=== PATIENT | female | born 1945 | race Caucasian/White ===

== ENCOUNTER 2025-02-28 09:16 | Outpatient (RCR) | payer SELFPAY | END 2025-02-28 23:59 | disposition home or self-care (01) | LOC: ANHAUDIO 09:16 | DX: Z46.1 Encounter for fitting and adjustment of hearing aid (principal) | CPT/HCPCS: 92593 ==

== ENCOUNTER 2025-03-15 18:05 | Emergency (ER) | payer MEDICARE, SELFPAY ==
--- OUTSIDE RECORDS SUMMARY | 2024-04-05 06:20 | XMS_ITS | Continuity of Care Document ---
Author Organization [facility] Address [address], [address] [place] [address] Phone Care Team Providers Care Agronomy Teacher Name Role Phone Swetha MANCINI, Madeleine Unavailable Unavailable Allergies, Adverse Reactions, Alerts Substance Reaction Status Criticality VERAPAMIL HCL Active No Information triamterene Active No Information hydrochlorothiazide Active No Infor mation ENALAPRIL MALEATE Unknown Active No Informa tion Medications Medication Instructions Dosage Effective Dates (start - stop) Status Comments atenolol 50 mg Tab take 1 tablet (50MG) by oral route every day 50 MG - Active lisinopril 10 mg Tab take 1 tablet (10MG) by oral route every day 10 MG - Active Lexapro 10 mg Tab take 1 tablet (10MG) by oral route every day 10 MG - Active GABAPENTIN (unknown strength) take 3 capsule (300MG) by oral route 3 times every day Not Available - Active Co Q-10 200 mg capsule - Active Chewable-Kirstie tablet - Active magnesium 400 mg (as magnesium oxide) tablet - Active Norvasc 5 mg tablet take 1 tablet by oral route every day 5 MG - Active Probiotic 10 billion cell capsule - Active Stool Softener 50 mg capsule take 1 capsule by oral route every day at bedtime as needed 50 MG - Active Vitamin C 250 mg chewable tablet - Active Vitamin D3 400 unit chewable tablet - Active atorvastatin 20 mg tablet take 1 tablet by oral route every day 20 MG - Active METHOTREXATE (unknown strength) Not Available - Active Orencia (with maltose) 250 mg intravenous solution infuse (500MG) by intravenous route every 4 weeks over 500 MG - Active ZUPLENZ (unknown strength) Not Available - Active ranitidine 300 mg capsule take 1 capsule by oral route every day at bedtime - Active folic acid 1 mg tablet take 4 Tablet by oral route every day 4 MG - Active aspirin 325 mg tablet take 1 tablet by oral route every day 325 MG - Active Pain Relief 500 mg capsule take 2 capsule by oral route every 6 hours as needed - Active Procedures Procedure Date BREAST TOMOSYNTHESIS BI Screening Mammogram (Bilateral) 019 CA screen;pelvic/breast exam 65&OVER PREVENTIVE MEDICINE,MEDICAR 65&OVER PREVENTIVE MEDICINE,MEDICAR CA screen;pelvic/breast exam PREV VISIT, EST, 65 & OVER CA screen;pelvic/breast exam PREV VISIT, EST, 65 & OVER OFFICE/OUTPATIENT VISIT, EST 1 Rx via qualified eRx sys [id number] PREV VISIT, EST, 65 & OVER PREV VISIT, EST, 65 & OVER Advance Directives Directive Yes / No Effective Date File Name No Information Encounters Encounter Description Practice Location Reason(s) For Visit Diagnoses Date Provider [facility], [address], [address], [place], [id number], [place] tel:[phone] [address] No Information 4 Swetha Salvador. [address] [facility], [address], [place], [id number]. tel:[phone] [facility], [address], [address], [place], [id number], [place] tel:[phone] [address] [facility] Mammography CLOSED No Information 9 Swetha Salvador. [address] [facility], [address], [place], [id number]. tel:[phone] 65&OVER PREVENTIVE MEDICINE,[facility], [address], [address], [place], [id number], [place] tel:[phone] [address] Office CLOSED Annual Exam (chief complaint) Encntr for obstetrics gynecology physician exam (general) (routine) w/o abn findingsEncounter for screening for malignant neoplasm of other genitourinary organs 9 Swetha Salvador. [address], [address], [place], [id number]. tel:[phone] 65&OVER PREVENTIVE MEDICINE,[facility], [address], [address], [place], [id number], [place] tel:[phone] [address] Office CLOSED Annual Exam (chief complaint) Encntr for obstetrics gynecology physician exam (general) (routine) w/o abn findings 8 Swetha Salvador. [address], [address], [place], [id number]. tel:[phone] PREV VISIT, EST, 65 & OVER [facility], [address], [address], [place], [id number], [place] tel:[phone] [address] Office CLOSED MANAGER SALES AND MARKETING Exam (chief complaint) Encntr for obstetrics gynecology physician exam (general) (routine) w/o abn findings 7 Swetha Salvador. [address], [address], [place], [id number]. tel:[phone] PREV VISIT, EST, 65 & OVER [facility], [address], [address], [place], [id number], [place] tel:[phone] [address] Office CLOSED MANAGER SALES AND MARKETING Exam (chief complaint) Encntr for obstetrics gynecology physician exam (general) (routine) w/o abn findings 6 Swetha Salvador. [address], [address], [place], [id number]. tel:[phone] OFFICE/OUTPAT IENT VISIT, EST [facility], [address], [address], [place], [id number], [place] tel:[phone] [address] CLOSED possible MRSA (chief complaint) Vulvar lesion Jul- 8 5 Pilcarl Madeleine. [address], [address], [place], [id number]. [phone] PREV VISIT, EST, 65 & OVER [facility], [address], [address], [place], [id number], [place] tel:[phone] [address] CLOSED annual exam (chief complaint) ROUTINE MANAGER SALES AND MARKETING EXAMINATION 4 Pilrachely Madeleine. [address], [address], [place], [id number]. tel:[phone] PREV VISIT, EST, 65 & OVER [facility], [address], [address], [place], [id number], [place] tel:[phone] [address] CLOSED annual exam (chief complaint) Gynecological Examination 3 Pilcarl Madeleine. [address], [address], [place], [id number]. tel:[phone] [facility], [address], [address], [place], [id number], [place] tel:[phone] [address] CLOSED annual visit (chief complaint) Gynecological Examination 1 Pilevsky Madeleine. [address], [address], [place], [id number]. tel:[phone] [facility], [address], [address], [place], [id number], [place] tel:[phone] CLOSED [address] [place] [address] Closed Hypertension, UnspecifiedOther and unspecified hyperlipidemiaOTHER ABNORMAL GLUCOSESyncope and collapse 1 No Information [facility], [address], [address], [place], [id number], [place] tel:[phone] CLOSED [address] [place] [address] Closed lumps on labia (chief complaint) Other abscess of vulvaOther specified noninflammatory disorders of vulva and perineum 1 Swetha Salvador. [address], [address], [place], [id number]. tel:[phone] Family History Family Member Type Diagnosis Age At Onset Problem (finding) Family history of hyper tension Problem (finding) Family history of breas t cancer Problem (finding) Family history of raise d blood lipids Payers Payer name Insurance type Covered green party ID Authoriza tion(s) Medicare MD SERVIN [id number] [facility] [id number] Social History Type Description Quantity Date Captured Comments Sex Female Smoking Status No Information Chief Complaint And Reason For Visit No Information Plan Of Treatment Date Type Action Status Goal Mammogram. Due on 8 due Goal Influenza Vaccine. Due on due Goal MANAGER SALES AND MARKETING exam. Due on due Goal PAP. Due on due Goal Pneumococcal vaccine. Due on due Goal Cervical Cancer Screening. D ue on due Goal Colonoscopy. Due on 024 due Goal Zoster vaccine (1st). Due on due Goal TD Vaccine. Due on 19 due Goal Diabetes Screening. Due on due Goal FOBT. Due on due Goal Zoster vaccine. Due on due Goal Mammogram (Screening); Bilat eral. Due on due Goal DEXA Scan. Due on 9 due Goal Cognitive assessment. Due on due Goal H&P. Due on due Goal Depression screening. Due on due Goal Lipid Panel. Due on 019 due Goal Test Rabbit Serum Protien. D ue on due Goal Mammogram. Due on 8 due Goal Test Rabbit Serum Protien. D ue on due Goal Cognitive assessment. Due on due Goal FOBT. Due on due Goal MANAGER SALES AND MARKETING exam. Due on due Goal TD Vaccine. Due on 18 due Goal Pneumococcal vaccine. Due on due Goal Zoster vaccine. Due on due Goal Mammogram (Screening); Bilat eral. Due on due Goal DEXA Scan. Due on 8 due Goal PAP. Due on due Goal Breast exam. Due on 012 due Goal Diabetes Screening. Due on due Goal Colonoscopy. Due on 024 due Goal Lipid Panel. Due on 018 due Goal Depression screening. Due on due Goal Cervical Cancer Screening. D ue on due Goal Influenza Vaccine. Due on due Goal H&P. Due on due Goal Mammogram (Screening); Bilat eral. Due on due Goal Diabetes Screening. Due on A due Goal Zoster vaccine. Due on due Goal Cognitive assessment. Due on due Goal TD Vaccine. Due on 17 due Goal Influenza Vaccine. Due on due Goal DEXA Scan. Due on 7 due Goal Pneumococcal vaccine. Due on due Goal Depression screening. Due on due Goal Lipid Panel. Due on 017 due Goal Mammogram. Due on 2 due Goal Lipid Panel. Due on 016 due Goal TD Vaccine. Due on 16 due Goal PAP. Due on due Goal Cognitive assessment. Due on due Goal Depression screening. Due on due Goal Pneumococcal vaccine. Due on due Goal DEXA Scan. Due on 6 due Goal H&P. Due on due Goal Diabetes Screening. Due on A due Goal Breast exam. Due on 012 due Goal Influenza Vaccine. Due on due Goal Mammogram (Screening); Bilat eral. Due on due Goal Zoster vaccine. Due on due Goal MANAGER SALES AND MARKETING exam. Due on due Goal Lipid Panel. Due on 015 due Goal TD Vaccine. Due on 15 due Goal Mammogram. Due on 2 due Goal Breast exam. Due on 012 due Goal H&P. Due on due Goal Influenza Vaccine. Due on due Goal H&P. Due on due Goal Lipid Panel. Due on 014 due Goal Breast exam. Due on 012 due Goal Influenza Vaccine. Due on due Goal TD Vaccine. Due on 14 due Goal MANAGER SALES AND MARKETING exam. Due on due Goal Mammogram. Due on 2 due Goal Lipid Panel. Due on 011 due Goal FOBT. Due on due Goal Influenza Vaccine. Due on due Goal H&P. Due on due Goal Mammogram. Due on 2 due Goal TD Vaccine. Due on 13 due Goal Sigmoidoscopy. Due on due Goal Breast exam. Due on 012 due Goal Colonoscopy. Due on 011 due Goal MANAGER SALES AND MARKETING exam. Due on due History Of Present Illness Encounter Date Complaint History Of Prese nt Illness Annual Exam : 2. Adelina ty: Term: 2. Livin. The patient states she uses menopausal and none for control. Her menses is absent. Negative for: breast discharge, breast lump(s) and breast pain.Postmenopausal: Age: 52, Type: hysterectomy w/ BSO. Menopausal symptoms negative for: hot flashes, insomnia, night sweats and vaginal dryness. Pertinent negatives include abnormal vaginal bleeding, urinary incontinence and vaginal discharge. She reports taking Vitamin D. She does take multivitamins. Folic acid is taken.The patient states her exercise level is moderate and frequency is occasional. The patient does not use tobacco. She has not been exposed to passive smoke. She has not been exposed to passive vaping. She does not drink alcohol. Additional information: Neto is doing generally well. She needs to get her L hip replaced eventually. Has mammo scheduled her later this month. Colonoscopy was in 2013 and DEXA is followed by PCP. . Annual Exam : 2. Adelina ty: Term: 2. Livin. Her menses is absent. Negative for: breast discharge, breast lump(s) and breast pain.Postmenopausal: Age: 52, Type: hysterectomy w/ BSO. Menopausal symptoms negative for: hot flashes, insomnia, night sweats and vaginal dryness. Pertinent negatives include abnormal vaginal bleeding, urinary incontinence and vaginal discharge. She does take multivitamins.The patient states her exercise level is moderate and frequency is occasional. She does not drink alcohol. Additional information: Neto is due for mammo. Had DEXA w PCP. Rough year w hip replacement and shoulder fx but she is doing ok. . MANAGER SALES AND MARKETING Exam : 2. Adelina ty: Term: 2. Livin. Negative for: breast discharge, breast lump(s) and breast pain.Postmenopausal: Age: 52, Type: hysterectomy w/ BSO. Menopausal symptoms negative for: hot flashes, insomnia, night sweats and vaginal dryness. Pertinent negatives include abnormal vaginal bleeding and vaginal discharge. She does take multivitamins. Folic acid is taken.The patient states her exercise level is moderate and frequency is 2-3 times/week. She does not drink alcohol. Additional information: Neto is doing well but has R hip replacement upcoming. Due for mammo and DEXA. MANAGER SALES AND MARKETING Exam : 2. Adelina ty: Term: 2. Livin. Negative for: breast discharge, breast lump(s) and breast pain.Postmenopausal: Age: 52, Type: hysterectomy w/ BSO. Menopausal symptoms negative for: hot flashes, insomnia, night sweats and vaginal dryness. Pertinent negatives include abnormal vaginal bleeding. She does take multivitamins.The patient states her exercise level is moderate and frequency is 2-3 times/week. She does not drink alcohol. 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 Doing well. Due for mammo. possible MRSA The symptoms beg an on 07/27/2014. The symptoms are reported as being mild. The symptoms occur constantly. She states the symptoms are acute and have improved. Neto noticed a sore area in her left groin last . 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 Drained on Thursday and Sat. Putting topicals on it w some improvement. Here for further eval. annual exam : 2. Adelina ty: Term: 2. Livin. Negative for: breast discharge, breast lump(s) and breast pain.Postmenopausal: Age: 52, Type: hysterectomy w/ BSO. Pertinent negatives include abnormal bleeding. She takes calcium supplements. She reports taking Vitamin D. She does take multivitamins. She does not drink alcohol. Additional information: Neto had a colonoscopy done and it was negative. Doing generally well but having issues w kidney stones. Still taking calcium daily. Thinks she has sunburn on breasts from earlier today. annual exam : 2. Adelina ty: Term: 2. Livin. Negative for: breast discharge, breast lump(s) and breast pain. Postmenopausal: Age: 52. Type: hysterectomy w/ BSO. She takes calcium supplements. She reports taking Vitamin D. She does take multivitamins. Additional information: Neto still hasn't had a colonoscopy but plans to get one this year. Her son needed one and had several abnml polyps. She is doing well. Due for a mammo. Instructions Date Instruction Additional Infor renee Mammo as planned lat er this monthRTO 1 year/prn Related to Encntr for obstetrics gynecology physician exam (general) (routine) w/o abn findings Mammo ref to be sentRTO 1 year/p rn Related to Encntr for obstetrics gynecology physician exam (general) (routine) w/o abn findings Mammo ref sentWritte n referral given for DEXARTO 1 year/prn Related to Encntr for obstetrics gynecology physician exam (general) (routine) w/o abn findings Mammo ref to be sentRTO 1 year/p rn Related to Encntr for obstetrics gynecology physician exam (general) (routine) w/o abn findings Mostly drained but s till w induration and tenderness. 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 Check cx.RTO for WWV/prn Related to Vulvar lesion Mammo ref givenRec s topping calcium supplements given current recommendations and her issue with kidney stonesRTO 1 year/prn Related to ROUTINE MANAGER SALES AND MARKETING EXAMINATION Assessments Type Assessment Date No Information
--- OUTSIDE RECORDS SUMMARY | 2024-04-05 06:20 | XMS_ITS | Continuity of Care Document ---
Author Organization [facility] Address [address], [address] [place] [address] Phone Care Team Providers Care Underwear Cutter Name Role Phone Swetha MANCINI, Madeleine Unavailable [...] EST 1 Rx via qualified eRx sys [id number] PREV VISIT, EST, 65 & OVER PREV VISIT, EST, 65 & OVER Advance Directives Directive Yes / No Effective Date File Name No Information Encounters Encounter Description Practice Location Reason(s) For Visit Diagnoses Date Provider [facility], [address], [address], [place], [id number], [place] tel:[phone] [address] No Information 4 Swetha Salvador. [address] [facility], [address], [place], [id number]. tel:[phone] [facility], [address], [address], [place], [id number], [place] tel:[phone] [address] [facility] Mammography CLOSED No Information 9 Swetha Salvador. [address] [facility], [address], [place], [id number]. tel:[phone] 65&OVER PREVENTIVE MEDICINE,[facility], [address], [address], [place], [id number], [place] tel:[phone] [address] Office CLOSED Annual Exam (chief complaint) Encntr for lobbyist exam (general) (routine) w/o abn findingsEncounter for screening for malignant neoplasm of other genitourinary organs 9 Swetha Salvador. [address], [address], [place], [id number]. tel:[phone] 65&OVER PREVENTIVE MEDICINE,[facility], [address], [address], [place], [id number], [place] tel:[phone] [address] Office CLOSED Annual Exam (chief complaint) Encntr for lobbyist exam (general) (routine) w/o abn findings 8 Swetha Salvador. [address], [address], [place], [id number]. tel:[phone] PREV VISIT, EST, 65 & OVER [facility], [address], [address], [place], [id number], [place] tel:[phone] [address] CLOSED ORGANIZATIONAL CONSULTANT Exam (chief complaint) Encntr for lobbyist exam (general) (routine) w/o abn findings 7 Swetha Salvador. [address], [address], [place], [id number]. tel:[phone] PREV VISIT, EST, 65 & OVER [facility], [address], [address], [place], [id number], [place] tel:[phone] [address] CLOSED ORGANIZATIONAL CONSULTANT Exam (chief complaint) Encntr for lobbyist exam (general) (routine) w/o abn findings 6 Swetha Salvador. [address], [address], [place], [id number]. tel:[phone] OFFICE/OUTPAT IENT VISIT, EST [facility], [address], [address], [place], [id number], [place] tel:[phone] [address] CLOSED possible MRSA (chief complaint) Vulvar lesion Jul- 8 5 Pilcarl Madeleine. [address], [address], [place], [id number]. tel:[phone] PREV VISIT, EST, 65 & OVER [facility], [address], [address], [place], [id number], [place] tel:[phone] [address] CLOSED annual exam (chief complaint) ROUTINE ORGANIZATIONAL CONSULTANT EXAMINATION 4 Pilrachely Madeleine. [address], [address], [place], [id number]. tel:[phone] PREV VISIT, EST, 65 & OVER [facility], [address], [address], [place], [id number], [place] tel:[phone] [address] CLOSED annual exam (chief complaint) Gynecological Examination 3 Pilcarl Madeleine. [address], [place], [id number]. tel:[phone] [facility], [address], [address], [place], [id number], [place] tel:[phone] [address] CLOSED annual visit (chief complaint) Gynecological Examination 1 Pilev[place] Madeleine. [address], [address], [place], [id number]. tel:[phone] [facility], [address], [address], [place], [id number], [place] tel:[phone] CLOSED [address] [place] [address] Closed Hypertension, UnspecifiedOther and unspecified hyperlipidemiaOTHER ABNORMAL GLUCOSESyncope and collapse 1 No Information [facility], [address], [address], [place], [id number], [place] tel:[phone] CLOSED [address] [place] [address] Closed lumps on labia (chief complaint) Other abscess of vulvaOther specified noninflammatory disorders of vulva and perineum 1 Swetha Salvador. [address], [address], [place], [id number]. tel:[phone] Family History Family Member Type Diagnosis Age At Onset Problem (finding) Family history of hyper tension Problem (finding) Family history of breas t cancer Problem (finding) Family history of raise d blood lipids Payers Payer name Insurance type Covered republican ID Authoriza tion(s) Medicare MD SERVIN [id number] [facility] [id number] Social History Type Description Quantity Date Captured Comments Sex Female Smoking Status No Information Chief Complaint And Reason For Visit No Information Plan Of Treatment Date Type Action Status Goal Mammogram. Due on 8 due Goal Influenza Vaccine. Due on due Goal ORGANIZATIONAL CONSULTANT exam. Due on due Goal PAP. Due [...] due Goal FOBT. Due on due Goal ORGANIZATIONAL CONSULTANT exam. Due on due Goal TD Vaccine. [...] Goal Zoster vaccine. Due on due Goal ORGANIZATIONAL CONSULTANT exam. Due on due Goal Lipid Panel. [...] TD Vaccine. Due on 14 due Goal ORGANIZATIONAL CONSULTANT exam. Due on due Goal Mammogram. Due [...] Goal Colonoscopy. Due on 011 due Goal ORGANIZATIONAL CONSULTANT exam. Due on due History Of Present [...] fx but she is doing ok. . ORGANIZATIONAL CONSULTANT Exam : 2. Adelina ty: Term: 2. [...] replacement upcoming. Due for mammo and DEXA. ORGANIZATIONAL CONSULTANT Exam : 2. Adelina ty: Term: 2. [...] monthRTO 1 year/prn Related to Encntr for lobbyist exam (general) (routine) w/o abn findings Mammo ref to be sentRTO 1 year/p rn Related to Encntr for lobbyist exam (general) (routine) w/o abn findings Mammo ref sentWritte n referral given for DEXARTO 1 year/prn Related to Encntr for lobbyist exam (general) (routine) w/o abn findings Mammo ref to be sentRTO 1 year/p rn Related to Encntr for lobbyist exam (general) (routine) w/o abn findings Mostly drained but s till w induration and tenderness. 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 Check cx.RTO for WWV/prn Related to Vulvar lesion Mammo ref givenRec s topping calcium supplements given current recommendations and her issue with kidney stonesRTO 1 year/prn Related to ROUTINE ORGANIZATIONAL CONSULTANT EXAMINATION Assessments Type Assessment Date No Information
--- OUTSIDE RECORDS SUMMARY | 2024-04-05 06:20 | XMS_ITS | Continuity of Care Document ---
Author Organization [facility] Address [address], [address] [place] [address] Phone Care Team Providers Care Link Trainer Mechanic Name Role Phone Swetha MANCINI, Madeleine Unavailable [...] EST 1 Rx via qualified eRx sys [id number] PREV VISIT, EST, 65 & OVER PREV VISIT, EST, 65 & OVER Advance Directives Directive Yes / No Effective Date File Name No Information Encounters Encounter Description Practice Location Reason(s) For Visit Diagnoses Date Provider [facility], [address], [address], [place], [id number], [place] tel:[phone] [address] No Information 4 Swetha Salvador. [address] [facility], [address], [place], [id number]. tel:[phone] [facility], [address], [address], [place], [id number], [place] tel:[phone] [facility] Mammography CLOSED No Information 9 Swetha Salvador. [address] [facility], [address], [place], [id number]. tel:[phone] 65&OVER PREVENTIVE MEDICINE,[facility], [address], [address], [place], [id number], [place] tel:[phone] [address] Office CLOSED Annual Exam (chief complaint) Encntr for crust sorter exam (general) (routine) w/o abn findingsEncounter for screening for malignant neoplasm of other genitourinary organs 9 Swetha Salvador. [address], [address], [place], [id number]. tel:[phone] 65&OVER PREVENTIVE MEDICINE,[facility], [address], [address], [place], [id number], [place] tel:[phone] [address] Office CLOSED Annual Exam (chief complaint) Encntr for crust sorter exam (general) (routine) w/o abn findings 8 Swetha Salvador. [address], [address], [place], [id number]. tel:[phone] PREV VISIT, EST, 65 & OVER [facility], [address], [address], [place], [id number], [place] tel:[phone] [address] Office CLOSED SR. PAYROLL PROCESSOR Exam (chief complaint) Encntr for crust sorter exam (general) (routine) w/o abn findings 7 Swetha Salvador. [address], [address], [place], [id number]. tel:[phone] PREV VISIT, EST, 65 & OVER [facility], [address], [address], [place], [id number], [place] tel:[phone] [address] Office CLOSED SR. PAYROLL PROCESSOR Exam (chief complaint) Encntr for crust sorter exam (general) (routine) w/o abn findings 6 Swetha Salvador. [address], [address], [place], [id number]. tel:[phone] OFFICE/OUTPAT IENT VISIT, EST [facility], [address], [address], [place], [id number], [place] tel:[phone] [address] CLOSED possible MRSA (chief complaint) Vulvar lesion Jul- 8 5 Pilcarl Madeleine. [address], [address], [place], [id number]. tel:[phone] PREV VISIT, EST, 65 & OVER [facility], [address], [address], [place], [id number], [place] tel:[phone] [address] CLOSED annual exam (chief complaint) ROUTINE SR. PAYROLL PROCESSOR EXAMINATION 4 Pilrachely Madeleine. [address], [address], [place], [id number]. tel:[phone] PREV VISIT, EST, 65 & OVER [facility], [address], [address], [place], [id number], [place] tel:[phone] [address] CLOSED annual exam (chief complaint) Gynecological Examination 3 Pilcarl Madeleine. [address], [address], [place], [id number]. tel:[phone] [facility], [address], [address], [place], [id number], [place] tel:[phone] [address] CLOSED annual visit (chief complaint) Gynecological Examination 1 Pilevsky Madeleine. [address], [address], [place], [id number]. tel:[phone] [facility], [address], [address], [place], [id number], [place] tel:[phone] CLOSED [address] Closed Hypertension, UnspecifiedOther and unspecified hyperlipidemiaOTHER ABNORMAL GLUCOSESyncope and collapse 1 No Information [facility], [address], [address], [place], [id number], [place] tel:[phone] CLOSED [address] Closed lumps on labia (chief complaint) Other abscess of vulvaOther specified noninflammatory disorders of vulva and perineum 1 Swetha Salvador. [address], [address], [place], [id number]. tel:[phone] Family History Family Member Type Diagnosis Age At Onset Problem (finding) Family history of hyper tension Problem (finding) Family history of breas t cancer Problem (finding) Family history of raise d blood lipids Payers Payer name Insurance type Covered constitution party ID Authoriza tion(s) Medicare MD SERVIN [id number] BC N[employer] [id number] Social History Type Description Quantity Date Captured Comments Sex Female Smoking Status No Information Chief Complaint And Reason For Visit No Information Plan Of Treatment Date Type Action Status Goal Test Rabbit Serum Protien. D ue on due Goal Lipid Panel. Due on 019 due Goal Depression screening. Due on due Goal H&P. Due on due Goal Cognitive assessment. Due on due Goal DEXA Scan. Due on 9 due Goal Mammogram (Screening); Bilat eral. Due on due Goal Zoster vaccine. Due on due Goal FOBT. Due on due Goal Diabetes Screening. Due on due Goal TD Vaccine. Due on 19 due Goal Zoster vaccine (1st). Due on due Goal Colonoscopy. Due on 024 due Goal Cervical Cancer Screening. D ue on due Goal Pneumococcal vaccine. Due on due Goal PAP. Due on due Goal SR. PAYROLL PROCESSOR exam. Due on due Goal Influenza Vaccine. Due on due Goal Mammogram. Due on 8 due Goal H&P. Due on due Goal Influenza Vaccine. Due on due Goal Cervical Cancer Screening. D ue on due Goal Depression screening. Due on due Goal Lipid Panel. Due on 018 due Goal Colonoscopy. Due on 024 due Goal Diabetes Screening. Due on due Goal Breast exam. Due on 012 due Goal PAP. Due on due Goal DEXA Scan. Due on 8 due Goal Mammogram (Screening); Bilat eral. Due on due Goal Zoster vaccine. Due on due Goal Pneumococcal vaccine. Due on due Goal TD Vaccine. Due on 18 due Goal SR. PAYROLL PROCESSOR exam. Due on due Goal FOBT. Due on due Goal Cognitive assessment. Due on due Goal Test Rabbit Serum Protien. D ue on due Goal Mammogram. Due on 8 due Goal Lipid Panel. Due on 017 due Goal Depression screening. Due on due Goal Pneumococcal vaccine. Due on due Goal DEXA Scan. Due on 7 due Goal Influenza Vaccine. Due on due Goal TD Vaccine. Due on 17 due Goal Cognitive assessment. Due on due Goal Zoster vaccine. Due on due Goal Diabetes Screening. Due on A due Goal Mammogram (Screening); Bilat eral. Due on due Goal Zoster vaccine. Due on due Goal Mammogram (Screening); Bilat eral. Due on due Goal Influenza Vaccine. Due on Ap due Goal Breast exam. Due on 012 due Goal Diabetes Screening. Due on A due Goal H&P. Due on due Goal DEXA Scan. Due on 6 due Goal Pneumococcal vaccine. Due on due Goal Depression screening. Due on due Goal Cognitive assessment. Due on due Goal PAP. Due on due Goal TD Vaccine. Due on 16 due Goal Lipid Panel. Due on 016 due Goal Mammogram. Due on 2 due Goal Influenza Vaccine. Due on due Goal H&P. Due on due Goal Breast exam. Due on 012 due Goal Mammogram. Due on 2 due Goal TD Vaccine. Due on 15 due Goal Lipid Panel. Due on 015 [address] SR. PAYROLL PROCESSOR exam. Due on due Goal Mammogram. Due on 2 due Goal SR. PAYROLL PROCESSOR exam. Due on due Goal TD Vaccine. Due on 14 due Goal Influenza Vaccine. Due on due Goal Breast exam. Due on 012 due Goal Lipid Panel. Due on 014 due Goal H&P. Due on due Goal SR. PAYROLL PROCESSOR exam. Due on due Goal Colonoscopy. Due on 011 due Goal Breast exam. Due on 012 due Goal Sigmoidoscopy. Due on due Goal TD Vaccine. Due on 13 due Goal Mammogram. Due on 2 due Goal H&P. Due on due Goal Influenza Vaccine. Due on due Goal FOBT. Due on due Goal Lipid Panel. Due on 011 due History Of Present Illness Encounter Date [...] fx but she is doing ok. . SR. PAYROLL PROCESSOR Exam : 2. Adelina ty: Term: 2. [...] replacement upcoming. Due for mammo and DEXA. SR. PAYROLL PROCESSOR Exam : 2. Adelina ty: Term: 2. [...] monthRTO 1 year/prn Related to Encntr for crust sorter exam (general) (routine) w/o abn findings Mammo ref to be sentRTO 1 year/p rn Related to Encntr for crust sorter exam (general) (routine) w/o abn findings Mammo ref sentWritte n referral given for DEXARTO 1 year/prn Related to Encntr for crust sorter exam (general) (routine) w/o abn findings Mammo ref to be sentRTO 1 year/p rn Related to Encntr for crust sorter exam (general) (routine) w/o abn findings Mostly drained but s till w induration and tenderness. 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 Check cx.RTO for WWV/prn Related to Vulvar lesion Mammo ref givenRec s topping calcium supplements given current recommendations and her issue with kidney stonesRTO 1 year/prn Related to ROUTINE SR. PAYROLL PROCESSOR EXAMINATION Assessments Type Assessment Date No Information
--- OUTSIDE RECORDS SUMMARY | 2024-04-05 06:20 | XMS_ITS | Continuity of Care Document ---
Author Organization [facility] Address [address], [address] [place] [address] Phone Care Team Providers Care Business Intelligence Etl Developer Name Role Phone Swetha MANCINI, Madeleine Unavailable [...] EST 1 Rx via qualified eRx sys [id number] PREV VISIT, EST, 65 & OVER PREV VISIT, EST, 65 & OVER Advance Directives Directive Yes / No Effective Date File Name No Information Encounters Encounter Description Practice Location Reason(s) For Visit Diagnoses Date Provider [facility], [address], [address], [place], [id number], [place] tel:[phone] [address] No Information 4 Swetha Salvador. [address] [facility], [address], [place], [id number]. tel:[phone] [facility], [address], [address], [place], [id number], [place] tel:[phone] [address] [facility] Mammography CLOSED No Information 9 Swetha Salvador. [address] [facility], [address], [place], [id number]. 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 [address], [address], [place], [id number]. 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 [address], [address], [place], [id number]. 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 [address], [address], [place], [id number]. 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 [address], [address], [place], [id number]. tel:[phone] OFFICE/OUTPAT IENT VISIT, EST [facility], [address], [address], [place], [id number], [place] tel:[phone] [address] CLOSED possible MRSA (chief complaint) Vulvar lesion Jul- 8 5 Pilcarl Madeleine. [address], [address], [place], [id number]. tel:[phone] PREV VISIT, EST, 65 & OVER [facility], [address], [address], [place], [address], [place] tel:[phone] [address] CLOSED annual exam (chief complaint) ROUTINE APICULTURIST EXAMINATION 4 Pilrachely Madeleine. [address], [address], [place], [id number]. tel:[phone] PREV VISIT, EST, 65 & OVER [facility], [address], [address], [place], [id number], [place] tel:[phone] [address] CLOSED annual exam (chief complaint) Gynecological Examination 3 Pilcarl Madeleine. [address], [address], [place], [id number]. tel:[phone] [facility], [address], [address], [place], [id number], [place] tel:[phone] [address] CLOSED annual visit (chief complaint) Gynecological Examination 1 Pilevsky Madeleine. [address], [address], [place], [id number]. tel:[phone] [facility], [address], [address], [place], [address], [place] tel:[phone] CLOSED [address] Closed Hypertension, UnspecifiedOther and unspecified hyperlipidemiaOTHER ABNORMAL GLUCOSESyncope and collapse 1 No Information [facility], [address], [address], [place], [id number], [place] tel:[phone] CLOSED [address] Closed lumps on labia (chief complaint) Other abscess of vulvaOther specified noninflammatory disorders of vulva and perineum 1 Swetha Salvador. [address], [address], [place], [id number]. tel:[phone] Family History Family Member Type Diagnosis Age At Onset Problem (finding) Family history of hyper tension Problem (finding) Family history of breas t cancer Problem (finding) Family history of raise d blood lipids Payers Payer name Insurance type Covered green party ID Authoriza tion(s) Medicare MD SREVIN [id number] [facility] [id number] Social History Type Description Quantity Date Captured Comments Sex Female Smoking Status No Information Chief Complaint And Reason For Visit No Information Plan Of Treatment Date Type Action Status Goal Mammogram. Due on 8 due Goal Influenza Vaccine. Due on due Goal APICULTURIST exam. Due on due Goal PAP. Due [...] due Goal FOBT. Due on due Goal APICULTURIST exam. Due on due Goal TD Vaccine. [...] Goal Zoster vaccine. Due on due Goal APICULTURIST exam. Due on due Goal Lipid Panel. [...] TD Vaccine. Due on 14 due Goal APICULTURIST exam. Due on due Goal Mammogram. Due [...] Goal Colonoscopy. Due on 011 due Goal APICULTURIST exam. Due on due History Of Present [...] fx but she is doing ok. . APICULTURIST Exam : 2. Adelina ty: Term: 2. [...] replacement upcoming. Due for mammo and DEXA. APICULTURIST Exam : 2. Adelina ty: Term: 2. 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 Check cx.RTO for WWV/prn Related to Vulvar lesion Mammo ref givenRec s topping calcium supplements given current recommendations and her issue with kidney stonesRTO 1 year/prn Related to ROUTINE APICULTURIST EXAMINATION Assessments Type Assessment Date No Information
--- OUTSIDE RECORDS SUMMARY | 2024-04-05 06:20 | XMS_ITS | Continuity of Care Document ---
Author Organization [facility] Address [address], [address] [place] [address] Phone Care Team Providers Care Cable Former Name Role Phone Swetha MANCINI, Madeleine Unavailable [...] EST 1 Rx via qualified eRx sys [id number] PREV VISIT, EST, 65 & OVER PREV VISIT, EST, 65 & OVER Advance Directives Directive Yes / No Effective Date File Name No Information Encounters Encounter Description Practice Location Reason(s) For Visit Diagnoses Date Provider [facility], [address], [address], [place], [id number], [place] tel:[phone] [address] No Information 4 Swetha Salvador. [address] [facility], [address], [place], [id number]. tel:[phone] [facility], [address], [address], [place], [id number], [place] tel:[phone] [address] [facility] Mammography CLOSED No Information 9 Swetha Salvador. [address] [facility], [address], [place], [id number]. 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 [address], [address], [place], [id number]. 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 [address], [address], [place], [id number]. 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 [address], [address], [place], [id number]. 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 [address], [address], [place], [id number]. tel:[phone] OFFICE/OUTPAT IENT VISIT, EST [facility], [address], [address], [place], [address], [place] tel:[phone] [address] CLOSED possible MRSA (chief complaint) Vulvar lesion Jul- 8 5 Pilcarl Madeleine. [address], [address], [place], [id number]. tel:[phone] PREV VISIT, EST, 65 & OVER [facility], [address], [address], [place], [address], [place] tel:[phone] [address] CLOSED annual exam (chief complaint) ROUTINE LEATHER SCRUBBER EXAMINATION 4 Pilrachely Madeleine. [address], [address], [place], [id number]. tel:[phone] PREV VISIT, EST, 65 & OVER [facility], [address], [address], [place], [address], [place] tel:[phone] [address] CLOSED annual exam (chief complaint) Gynecological Examination 3 Pilcarl Madeleine. [address], [address], [place], [address]. tel:[phone] [facility], [address], [address], [place], [id number], [place] tel:[phone] [address] CLOSED annual visit (chief complaint) Gynecological Examination 1 Pilev[place] Madeleine. [address], [address], [place], [id number]. tel:[phone] [facility], [address], [address], [place], [address], [place] tel:[phone] CLOSED [address] Closed Hypertension, UnspecifiedOther and unspecified hyperlipidemiaOTHER ABNORMAL GLUCOSESyncope and collapse 1 No Information [facility], [address], [address], [place], [id number], [place] tel:[phone] CLOSED [address] Closed lumps on labia (chief complaint) Other abscess of vulvaOther specified noninflammatory disorders of vulva and perineum 1 Swetha Salvador. [address], [address], [place], [id number]. tel:[phone] Family History Family Member Type Diagnosis Age At Onset Problem (finding) Family history of hyper tension Problem (finding) Family history of breas t cancer Problem (finding) Family history of raise d blood lipids Payers Payer name Insurance type Covered green party ID Authoriza tion(s) Medicare MD SERVIN [id number] [facility] [place] [id number] Social History Type Description Quantity Date Captured Comments Sex Female Smoking Status No Information Chief Complaint And Reason For Visit No Information Plan Of Treatment Date Type Action Status Goal Mammogram. Due on 8 due Goal Influenza Vaccine. Due on due Goal LEATHER SCRUBBER exam. Due on due Goal PAP. Due [...] due Goal FOBT. Due on due Goal LEATHER SCRUBBER exam. Due on due Goal TD Vaccine. [...] Goal Zoster vaccine. Due on due Goal LEATHER SCRUBBER exam. Due on due Goal Lipid Panel. [...] TD Vaccine. Due on 14 due Goal LEATHER SCRUBBER exam. Due on due Goal Mammogram. Due [...] Goal Colonoscopy. Due on 011 due Goal LEATHER SCRUBBER exam. Due on due History Of Present [...] fx but she is doing ok. . LEATHER SCRUBBER Exam : 2. Adelina ty: Term: 2. [...] replacement upcoming. Due for mammo and DEXA. LEATHER SCRUBBER Exam : 2. Adelina ty: Term: 2. [...] from earlier today. annual exam : 2. Adeilna ty: Term: 2. Livin. 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 Check cx.RTO for WWV/prn Related to Vulvar lesion Mammo ref givenRec s topping calcium supplements given current recommendations and her issue with kidney stonesRTO 1 year/prn Related to ROUTINE LEATHER SCRUBBER EXAMINATION Assessments Type Assessment Date No Information
--- OUTSIDE RECORDS SUMMARY | 2024-04-05 06:20 | XMS_ITS | Continuity of Care Document ---
Author Organization [facility] Address [address], [address] [place] [address] Phone Care Team Providers Care Digital Asset Manager Name Role Phone Swetha MANCINI, Madeeline Unavailable Unavailable Allergies, Adverse Reactions, Alerts Substance [...] EST 1 Rx via qualified eRx sys [id number] PREV VISIT, EST, 65 & OVER PREV VISIT, EST, 65 & OVER Advance Directives Directive Yes / No Effective Date File Name No Information Encounters Encounter Description Practice Location Reason(s) For Visit Diagnoses Date Provider [facility], [address], [address], [place], [id number], [place] tel:[phone] [address] No Information 4 Swetha Salvador. [address] [facility], [address], [place], [id number]. tel:[phone] [facility], [address], [address], [place], [id number], [place] tel:[phone] [address] [facility] Mammography CLOSED No Information 9 Swetha Salvador. [address] [facility], [address], [place], [id number]. 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 [address], [address], [place], [id number]. 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 [address], [address], [place], [id number]. 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 [address], [address], [place], [id number]. 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 [address], [address], [place], [id number]. tel:[phone] OFFICE/OUTPAT IENT VISIT, EST [facility], [address], [address], [place], [id number], [place] tel:[phone] [address] CLOSED possible MRSA (chief complaint) Vulvar lesion Jul- 8 5 Pilcarl Madeleine. [address], [address], [place], [id number]. tel:[phone] PREV VISIT, EST, 65 & OVER [facility], [address], [address], [place], [id number], [place] tel:[phone] [address] CLOSED annual exam (chief complaint) ROUTINE GREEN BUILDING DESIGN SPECIALIST EXAMINATION 4 Pilrachely Madeleine. [address], [address], [place], [id number]. tel:[phone] PREV VISIT, EST, 65 & OVER [facility], [address], [address], [place], [id number], [place] tel:[phone] [address] CLOSED annual exam (chief complaint) Gynecological Examination 3 Pilcarl Madeleine. [address], [address], [place], [id number]. tel:[phone] [facility], [address], [address], [place], [id number], [place] tel:[phone] [address] CLOSED annual visit (chief complaint) Gynecological Examination 1 Pilevsky Madeleine. [address], [address], [place], [id number]. tel:[phone] [facility], [address], [address], [place], [id number], [place] tel:[phone] CLOSED [address] Closed Hypertension, UnspecifiedOther and unspecified hyperlipidemiaOTHER ABNORMAL GLUCOSESyncope and collapse 1 No Information [facility], [address], [address], [place], [id number], [place] tel:[phone] CLOSED [address] Closed lumps on labia (chief complaint) Other abscess of vulvaOther specified noninflammatory disorders of vulva and perineum 1 Swetha Salvador. [address], [address], [place], [id number]. tel:[phone] Family History Family Member Type Diagnosis Age At Onset Problem (finding) Family history of hyper tension Problem (finding) Family history of breas t cancer Problem (finding) Family history of raise d blood lipids Payers Payer name Insurance type Covered green party ID Authoriza tion(s) Medicare MD SERVIN [id number] [facility] [id number] Social History Type Description Quantity Date Captured Comments Sex Female Smoking Status No Information Chief Complaint And Reason For Visit No Information Plan Of Treatment Date Type Action Status Goal Mammogram. Due on 8 due Goal Influenza Vaccine. Due on due Goal GREEN BUILDING DESIGN SPECIALIST exam. Due on due Goal PAP. Due [...] due Goal FOBT. Due on due Goal GREEN BUILDING DESIGN SPECIALIST exam. Due on due Goal TD Vaccine. [...] Goal Zoster vaccine. Due on due Goal GREEN BUILDING DESIGN SPECIALIST exam. Due on due Goal Lipid Panel. [...] TD Vaccine. Due on 14 due Goal GREEN BUILDING DESIGN SPECIALIST exam. Due on due Goal Mammogram. Due [...] Goal Colonoscopy. Due on 011 due Goal GREEN BUILDING DESIGN SPECIALIST exam. Due on due History Of Present [...] fx but she is doing ok. . GREEN BUILDING DESIGN SPECIALIST Exam : 2. Adelina ty: Term: 2. [...] replacement upcoming. Due for mammo and DEXA. GREEN BUILDING DESIGN SPECIALIST Exam : 2. Adelina ty: Term: 2. [...] a mammo. 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 Check cx.RTO for WWV/prn Related to Vulvar lesion Mammo ref givenRec s topping calcium supplements given current recommendations and her issue with kidney stonesRTO 1 year/prn Related to ROUTINE GREEN BUILDING DESIGN SPECIALIST EXAMINATION Assessments Type Assessment Date No Information
--- OUTSIDE RECORDS SUMMARY | 2024-04-05 06:20 | XMS_ITS | Continuity of Care Document ---
Author Organization [facility] Address [address], [address] [place] [address] Phone Care Team Providers Care Job Setter Honing Name Role Phone Swetha MANCINI, Madeleine Unavailable [...] EST 1 Rx via qualified eRx sys [id number] [phone] PREV VISIT, EST, 65 & OVER PREV VISIT, EST, 65 & OVER Advance Directives Directive Yes / No Effective Date File Name No Information Encounters Encounter Description Practice Location Reason(s) For Visit Diagnoses Date Provider [facility], [address], [address], [place], [id number], [place] tel:[phone] [address] No Information 4 Swetha Salvador. [address] [facility], [address], [place], [id number]. tel:[phone] [facility], [address], [address], [place], [id number], [place] tel:[phone] [address] [facility] Mammography CLOSED No Information 9 Swetha Salvador. [address] [facility], [address], [place], [id number]. tel:[phone] 65&OVER PREVENTIVE MEDICINE,[facility], [address], [address], [place], [id number], [place] tel:[phone] [address] Office CLOSED Annual Exam (chief complaint) Encntr for documentation spec exam (general) (routine) w/o abn findingsEncounter for screening for malignant neoplasm of other genitourinary organs 9 Swetha Salvador. [address], [address], [place], [id number]. tel:[phone] 65&OVER PREVENTIVE MEDICINE,[facility], [address], [address], [place], [id number], [place] tel:[phone] [address] Office CLOSED Annual Exam (chief complaint) Encntr for documentation spec exam (general) (routine) w/o abn findings 8 Swetha Salvador. [address], [address], [place], [id number]. tel:[phone] PREV VISIT, EST, 65 & OVER [facility], [address], [address], [place], [id number], [place] tel:[phone] [address] Office CLOSED BUHR DRESSER Exam (chief complaint) Encntr for documentation spec exam (general) (routine) w/o abn findings 7 Swetha Salvador. [address], [address], [place], [id number]. tel:[phone] PREV VISIT, EST, 65 & OVER [facility], [address], [address], [place], [id number], [place] tel:[phone] [address] Office CLOSED BUHR DRESSER Exam (chief complaint) Encntr for documentation spec exam (general) (routine) w/o abn findings 6 Swetha Salvador. [address], [address], [place], [id number]. tel:[phone] OFFICE/OUTPAT IENT VISIT, EST [facility], [address], [address], [place], [id number], [place] tel:[phone] [address] CLOSED possible MRSA (chief complaint) Vulvar lesion Jul- 8 5 Pilcarl Madeleine. [address], [address], [place], [id number]. tel:[phone] PREV VISIT, EST, 65 & OVER [facility], [address], [address], [place], [id number], [place] tel:[phone] [address] CLOSED annual exam (chief complaint) ROUTINE BUHR DRESSER EXAMINATION 4 Pilrachely Madeleine. [address], [address], [place], [id number]. tel:[phone] PREV VISIT, EST, 65 & OVER [facility], [address], [address], [place], [id number], [place] tel:[phone] [address] CLOSED annual exam (chief complaint) Gynecological Examination 3 Pilcarl Madeleine. [address], [address], [place], [id number]. tel:[phone] [facility], [address], [address], [place], [id number], [place] tel:[phone] [address] CLOSED annual visit (chief complaint) Gynecological Examination 1 Pilevsky Madeleine. [address], [address], [place], [id number]. tel:[phone] [facility], [address], [address], [place], [id number], [place] tel:[phone] CLOSED [address] [place] [address] Closed Hypertension, UnspecifiedOther and unspecified hyperlipidemiaOTHER ABNORMAL GLUCOSESyncope and collapse 1 No Information [facility], [address], [address], [place], [id number], [place] tel:[phone] CLOSED [address] [place] [address] Closed lumps on labia (chief complaint) Other abscess of vulvaOther specified noninflammatory disorders of vulva and perineum 1 Swetha Salvador. [address], [address], [place], [id number]. tel:[phone] Family History Family Member Type Diagnosis Age At Onset Problem (finding) Family history of hyper tension Problem (finding) Family history of breas t cancer Problem (finding) Family history of raise d blood lipids Payers Payer name Insurance type Covered constitution party ID Authoriza tion(s) Medicare MD SERVIN [id number] [facility] [id number] Social History Type Description Quantity Date Captured Comments Sex Female Smoking Status No Information Chief Complaint And Reason For Visit No Information Plan Of Treatment Date Type Action Status Goal Mammogram. Due on 8 due Goal Influenza Vaccine. Due on due Goal BUHR DRESSER exam. Due on due Goal PAP. Due [...] due Goal FOBT. Due on due Goal BUHR DRESSER exam. Due on due Goal TD Vaccine. [...] Goal Zoster vaccine. Due on due Goal BUHR DRESSER exam. Due on due Goal Lipid Panel. [...] TD Vaccine. Due on 14 due Goal BUHR DRESSER exam. Due on due Goal Mammogram. Due [...] Goal Colonoscopy. Due on 011 due Goal BUHR DRESSER exam. Due on due History Of Present [...] fx but she is doing ok. . BUHR DRESSER Exam : 2. Adelina ty: Term: 2. [...] replacement upcoming. Due for mammo and DEXA. BUHR DRESSER Exam : 2. Adelina ty: Term: 2. [...] monthRTO 1 year/prn Related to Encntr for documentation spec exam (general) (routine) w/o abn findings Mammo ref to be sentRTO 1 year/p rn Related to Encntr for documentation spec exam (general) (routine) w/o abn findings Mammo ref sentWritte n referral given for DEXARTO 1 year/prn Related to Encntr for documentation spec exam (general) (routine) w/o abn findings Mammo ref to be sentRTO 1 year/p rn Related to Encntr for documentation spec exam (general) (routine) w/o abn findings Mostly drained but s till w induration and tenderness. 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 Check cx.RTO for WWV/prn Related to Vulvar lesion Mammo ref givenRec s topping calcium supplements given current recommendations and her issue with kidney stonesRTO 1 year/prn Related to ROUTINE BUHR DRESSER EXAMINATION Assessments Type Assessment Date No Information
--- OUTSIDE RECORDS SUMMARY | 2024-04-05 06:20 | XMS_ITS | Continuity of Care Document ---
Author Organization [facility] Address [address], [address] [place] [address] Phone Care Team Providers Care Paraeducator Name Role Phone Swetha MANCINI, Madeleine Unavailable [...] EST 1 Rx via qualified eRx sys [id number] [phone] PREV VISIT, EST, 65 & OVER PREV VISIT, EST, 65 & OVER Advance Directives Directive Yes / No Effective Date File Name No Information Encounters Encounter Description Practice Location Reason(s) For Visit Diagnoses Date Provider [facility], [address], [address], [place], [id number], [place] tel:[phone] [address] No Information 4 Swetha Salvador. [address] [facility], [address], [place], [id number]. tel:[phone] [facility], [address], [address], [place], [id number], [place] tel:[phone] [address] [facility] Mammography CLOSED No Information 9 Swetha Salvador. [address] [facility], [address], [place], [id number]. tel:[phone] 65&OVER PREVENTIVE MEDICINE,[facility], [address], [address], [place], [id number], [place] tel:[phone] [address] Office CLOSED Annual Exam (chief complaint) Encntr for patent prosecution attorney exam (general) (routine) w/o abn findingsEncounter for screening for malignant neoplasm of other genitourinary organs 9 Swetha Salvador. [address], [address], [place], [id number]. tel:[phone] 65&OVER PREVENTIVE MEDICINE,[facility], [address], [address], [place], [id number], [place] tel:[phone] [address] Office CLOSED Annual Exam (chief complaint) Encntr for patent prosecution attorney exam (general) (routine) w/o abn findings 8 Swetha Salvador. [address], [address], [place], [id number]. tel:[phone] PREV VISIT, EST, 65 & OVER [facility], [address], [address], [place], [id number], [place] tel:[phone] [address] Office CLOSED BARREL INSPECTOR Exam (chief complaint) Encntr for patent prosecution attorney exam (general) (routine) w/o abn findings 7 Swetha Salvador. [address], [address], [place], [id number]. 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 [address], [address], [place], [id number]. tel:[phone] OFFICE/OUTPAT IENT VISIT, EST [facility], [address], [address], [place], [id number], [place] tel:[phone] [address] CLOSED possible MRSA (chief complaint) Vulvar lesion Jul- 8 5 Pilcarl Madeleine. [address], [address], [place], [id number]. tel:[phone] PREV VISIT, EST, 65 & OVER [facility], [address], [address], [place], [id number], [place] tel:[phone] [address] CLOSED annual exam (chief complaint) ROUTINE BARREL INSPECTOR EXAMINATION 4 Pilrachely Madeleine. [address], [address], [place], [id number]. tel:[phone] PREV VISIT, EST, 65 & OVER [facility], [address], [address], [place], [id number], [place] tel:[phone] [address] CLOSED annual exam (chief complaint) Gynecological Examination 3 Pilcarl Madeleine. [address], [address], [place], [id number]. tel:[phone] [facility], [address], [address], [place], [id number], [place] tel:[phone] [address] CLOSED annual visit (chief complaint) Gynecological Examination 1 Pilevsky Madeleine. [address], [address], [place], [id number]. tel:[phone] [facility], [address], [address], [place], [id number], [place] tel:[phone] CLOSED [address] [place] [address] Closed Hypertension, UnspecifiedOther and unspecified hyperlipidemiaOTHER ABNORMAL GLUCOSESyncope and collapse 1 No Information [facility], [address], [address], [place], [id number], [place] tel:[phone] CLOSED [address] [place] [address] Closed lumps on labia (chief complaint) Other abscess of vulvaOther specified noninflammatory disorders of vulva and perineum 1 Swetha Salvador. [address], [place], [id number]. tel:[phone] Family History Family Member Type Diagnosis Age At Onset Problem (finding) Family history of hyper tension Problem (finding) Family history of breas t cancer Problem (finding) Family history of raise d blood lipids Payers Payer name Insurance type Covered republican ID Authoriza tion(s) Medicare MD SERVIN [id number] [facility] [id number] Social History Type Description Quantity Date Captured Comments Sex Female Smoking Status No Information Chief Complaint And Reason For Visit No Information Plan Of Treatment Date Type Action Status Goal Mammogram. Due on 8 due Goal Influenza Vaccine. Due on due Goal BARREL INSPECTOR exam. Due on due Goal PAP. Due [...] due Goal FOBT. Due on due Goal BARREL INSPECTOR exam. Due on due Goal TD Vaccine. [...] Goal Zoster vaccine. Due on due Goal BARREL INSPECTOR exam. Due on due Goal Lipid Panel. [...] TD Vaccine. Due on 14 due Goal BARREL INSPECTOR exam. Due on due Goal Mammogram. Due [...] Goal Colonoscopy. Due on 011 due Goal BARREL INSPECTOR exam. Due on due History Of Present [...] fx but she is doing ok. . BARREL INSPECTOR Exam : 2. Adelina ty: Term: 2. [...] replacement upcoming. Due for mammo and DEXA. BARREL INSPECTOR Exam : 2. Adelina ty: Term: 2. [...] monthRTO 1 year/prn Related to Encntr for patent prosecution attorney exam (general) (routine) w/o abn findings Mammo ref to be sentRTO 1 year/p rn Related to Encntr for patent prosecution attorney exam (general) (routine) w/o abn findings Mammo ref sentWritte n referral given for DEXARTO 1 year/prn Related to Encntr for patent prosecution attorney exam (general) (routine) w/o abn findings Mammo ref to be sentRTO 1 year/p rn Related to Encntr for patent prosecution attorney exam (general) (routine) w/o abn findings Mostly drained but s till w induration and tenderness. 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 Check cx.RTO for WWV/prn Related to Vulvar lesion Mammo ref givenRec s topping calcium supplements given current recommendations and her issue with kidney stonesRTO 1 year/prn Related to ROUTINE BARREL INSPECTOR EXAMINATION Assessments Type Assessment Date No Information
--- OUTSIDE RECORDS SUMMARY | 2024-04-05 06:20 | XMS_ITS | Continuity of Care Document ---
Author Organization [facility] Address [address], [address] [place] [address] Phone Care Team Providers Care Dental Hygiene Administrative Assistant Name Role Phone Swetha MANCINI, Madeleine Unavailable [...] EST 1 Rx via qualified eRx sys [id number] PREV VISIT, EST, 65 & OVER PREV VISIT, EST, 65 & OVER Advance Directives Directive Yes / No Effective Date File Name No Information Encounters Encounter Description Practice Location Reason(s) For Visit Diagnoses Date Provider [facility], [address], [address], [place], [id number], [place] tel:[phone] [address] No Information 4 Swetha Salvador. [address] [facility], [address], [place], [id number]. tel:[phone] [facility], [address], [address], [place], [id number], [place] tel:[phone] [address] [facility] Mammography CLOSED No Information 9 Swetha Salvador. [address] [facility], [address], [place], [id number]. tel:[phone] 65&OVER PREVENTIVE MEDICINE,[facility], [address], [address], [place], [id number], [place] tel:[phone] [address] Office CLOSED Annual Exam (chief complaint) Encntr for apartment property manager exam (general) (routine) w/o abn findingsEncounter for screening for malignant neoplasm of other genitourinary organs 9 Swetha Salvador. [address], [address], [place], [id number]. tel:[phone] 65&OVER PREVENTIVE MEDICINE,[facility], [address], [address], [place], [id number], [place] tel:[phone] [address] Office CLOSED Annual Exam (chief complaint) Encntr for apartment property manager exam (general) (routine) w/o abn findings 8 Swetha Salvador. [address], [address], [place], [id number]. 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 [address], [address], [place], [id number]. tel:[phone] PREV VISIT, EST, 65 & OVER [facility], [address], [address], [place], [id number], [place] tel:[phone] [address] Office CLOSED TRUCK HOPPER Exam (chief complaint) Encntr for apartment property manager exam (general) (routine) w/o abn findings 6 Swetha Salvador. [address], [address], [place], [id number]. tel:[phone] OFFICE/OUTPAT IENT VISIT, EST [facility], [address], [address], [place], [id number], [place] tel:[phone] [address] CLOSED possible MRSA (chief complaint) Vulvar lesion Jul- 8 5 Pilcarl Madeleine. [address], [address], [place], [id number]. tel:[phone] PREV VISIT, EST, 65 & OVER [facility], [address], [address], [place], [id number], [place] tel:[phone] [address] CLOSED annual exam (chief complaint) ROUTINE TRUCK HOPPER EXAMINATION 4 Pilrachely Madeleine. [address], [address], [place], [id number]. tel:[phone] PREV VISIT, EST, 65 & OVER [facility], [address], [address], [place], [id number], [place] tel:[phone] [address] CLOSED annual exam (chief complaint) Gynecological Examination 3 Pilcarl Madeleine. [address], [address], [place], [id number]. tel:[phone] [facility], [address], [address], [place], [id number], [place] tel:[phone] [address] CLOSED annual visit (chief complaint) Gynecological Examination 1 Pilevsky Madeleine. [address], [address], [place], [id number]. tel:[phone] [facility], [address], [address], [place], [id number], [place] tel:[phone] CLOSED [address] Closed Hypertension, UnspecifiedOther and unspecified hyperlipidemiaOTHER ABNORMAL GLUCOSESyncope and collapse 1 No Information [facility], [address], [address], [place], [id number], [place] tel:[phone] CLOSED [address] Closed lumps on labia (chief complaint) Other abscess of vulvaOther specified noninflammatory disorders of vulva and perineum 1 Swetha Salvador. [address], [address], [place], [id number]. tel:[phone] Family History Family Member Type Diagnosis Age At Onset Problem (finding) Family history of hyper tension Problem (finding) Family history of breas t cancer Problem (finding) Family history of raise d blood lipids Payers Payer name Insurance type Covered green party ID Authoriza tion(s) Medicare MD SERVIN [id number] [facility] [id number] Social History Type Description Quantity Date Captured Comments Sex Female Smoking Status No Information Chief Complaint And Reason For Visit No Information Plan Of Treatment Date Type Action Status Goal Mammogram. Due on 8 due Goal Influenza Vaccine. Due on due Goal TRUCK HOPPER exam. Due on due Goal PAP. Due [...] due Goal FOBT. Due on due Goal TRUCK HOPPER exam. Due on due Goal TD Vaccine. [...] Goal Zoster vaccine. Due on due Goal TRUCK HOPPER exam. Due on due Goal Lipid Panel. [...] TD Vaccine. Due on 14 due Goal TRUCK HOPPER exam. Due on due Goal Mammogram. Due [...] Goal Colonoscopy. Due on 011 due Goal TRUCK HOPPER exam. Due on due History Of Present [...] fx but she is doing ok. . TRUCK HOPPER Exam : 2. Adelina ty: Term: 2. [...] replacement upcoming. Due for mammo and DEXA. TRUCK HOPPER Exam : 2. Adelina ty: Term: 2. [...] monthRTO 1 year/prn Related to Encntr for apartment property manager exam (general) (routine) w/o abn findings Mammo ref to be sentRTO 1 year/p rn Related to Encntr for apartment property manager exam (general) (routine) w/o abn findings Mammo ref sentWritte n referral given for DEXARTO 1 year/prn Related to Encntr for apartment property manager exam (general) (routine) w/o abn findings Mammo ref to be sentRTO 1 year/p rn Related to Encntr for apartment property manager exam (general) (routine) w/o abn findings Mostly drained but s till w induration and tenderness. 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 Check cx.RTO for WWV/prn Related to Vulvar lesion Mammo ref givenRec s topping calcium supplements given current recommendations and her issue with kidney stonesRTO 1 year/prn Related to ROUTINE TRUCK HOPPER EXAMINATION Assessments Type Assessment Date No Information
--- OUTSIDE RECORDS SUMMARY | 2024-04-05 06:20 | XMS_ITS | Continuity of Care Document ---
Author Organization [facility] Address [address], [address] [place] [address] Phone Care Team Providers Care Grease Machine Worker Name Role Phone Swetha MANCINI, Madeleine Unavailable [...] EST 1 Rx via qualified eRx sys [id number] PREV VISIT, EST, 65 & OVER PREV VISIT, EST, 65 & OVER Advance Directives Directive Yes / No Effective Date File Name No Information Encounters Encounter Description Practice Location Reason(s) For Visit Diagnoses Date Provider [facility], [address], [address], [place], [id number], [place] tel:[phone] [address] No Information 4 Swetha Salvador. [address] [facility], [address], [place], [id number]. tel:[phone] [facility], [address], [address], [place], [id number], [place] tel:[phone] [address] [facility] Mammography CLOSED No Information 9 Swetha Salvador. [address] [facility], [address], [place], [id number]. tel:[phone] 65&OVER PREVENTIVE MEDICINE,[facility], [address], [address], [place], [id number], [place] tel:[phone] [address] Office CLOSED Annual Exam (chief complaint) Encntr for hooker operator exam (general) (routine) w/o abn findingsEncounter for screening for malignant neoplasm of other genitourinary organs 9 Swetha Salvador. [address], [address], [place], [id number]. tel:[phone] 65&OVER PREVENTIVE MEDICINE,[facility], [address], [address], [place], [id number], [place] tel:[phone] [address] Office CLOSED Annual Exam (chief complaint) Encntr for hooker operator exam (general) (routine) w/o abn findings 8 Swetha Salvador. [address], [address], [place], [id number]. tel:[phone] PREV VISIT, EST, 65 & OVER [facility], [address], [address], [place], [id number], [place] tel:[phone] [address] CLOSED BOARD STACKER Exam (chief complaint) Encntr for hooker operator exam (general) (routine) w/o abn findings 7 Swetha Salvador. [address], [address], [place], [id number]. tel:[phone] PREV VISIT, EST, 65 & OVER [facility], [address], [address], [place], [id number], [place] tel:[phone] [address] CLOSED BOARD STACKER Exam (chief complaint) Encntr for hooker operator exam (general) (routine) w/o abn findings 6 Swetha Salvador. [address], [address], [place], [id number]. tel:[phone] OFFICE/OUTPAT IENT VISIT, EST [facility], [address], [address], [place], [id number], [place] tel:[phone] [address] CLOSED possible MRSA (chief complaint) Vulvar lesion Jul- 8 5 Pilcarl Madeleine. [address], [address], [place], [id number]. tel:[phone] PREV VISIT, EST, 65 & OVER [facility], [address], [address], [place], [id number], [place] tel:[phone] [address] CLOSED annual exam (chief complaint) ROUTINE BOARD STACKER EXAMINATION 4 Pilrachely Madeleine. [address], [address], [place], [id number]. tel:[phone] PREV VISIT, EST, 65 & OVER [facility], [address], [address], [place], [id number], [place] tel:[phone] [address] CLOSED annual exam (chief complaint) Gynecological Examination 3 Pilcarl Madeleine. [address], [address], [place], [id number]. tel:[phone] [facility], [address], [address], [place], [id number], [place] tel:[phone] [address] CLOSED annual visit (chief complaint) Gynecological Examination 1 Pilevsky Madeleine. [address], [address], [place], [id number]. tel:[phone] [facility], [address], [address], [place], [id number], [place] tel:[phone] CLOSED [address] Closed Hypertension, UnspecifiedOther and unspecified hyperlipidemiaOTHER ABNORMAL GLUCOSESyncope and collapse 1 No Information [facility], [address], [address], [place], [id number], [place] tel:[phone] CLOSED [address] [place] [address] Closed lumps on labia (chief complaint) Other abscess of vulvaOther specified noninflammatory disorders of vulva and perineum 1 Swetha Salvador. [address], [address], [place], [id number]. tel:[phone] Family History Family Member Type Diagnosis Age At Onset Problem (finding) Family history of hyper tension Problem (finding) Family history of breas t cancer Problem (finding) Family history of raise d blood lipids Payers Payer name Insurance type Covered democrat ID Authoriza tion(s) Medicare MD SERVIN [id number] [facility] [id number] Social History Type Description Quantity Date Captured Comments Sex Female Smoking Status No Information Chief Complaint And Reason For Visit No Information Plan Of Treatment Date Type Action Status Goal Mammogram. Due on 8 due Goal Influenza Vaccine. Due on due Goal BOARD STACKER exam. Due on due Goal PAP. Due [...] due Goal FOBT. Due on due Goal BOARD STACKER exam. Due on due Goal TD Vaccine. [...] Goal Zoster vaccine. Due on due Goal BOARD STACKER exam. Due on due Goal Lipid Panel. [...] TD Vaccine. Due on 14 due Goal BOARD STACKER exam. Due on due Goal Mammogram. Due [...] Goal Colonoscopy. Due on 011 due Goal BOARD STACKER exam. Due on due History Of Present [...] fx but she is doing ok. . BOARD STACKER Exam : 2. Adelina ty: Term: 2. [...] replacement upcoming. Due for mammo and DEXA. BOARD STACKER Exam : 2. Adelina ty: Term: 2. [...] D. She does take multivitamins. Additional information: Nteo still hasn't had a colonoscopy but plans to get one this year. Her son needed one and had several abnml polyps. She is doing well. Due for a mammo. Instructions Date Instruction Additional Infor renee Mammo as planned lat er this monthRTO 1 year/prn Related to Encntr for hooker operator exam (general) (routine) w/o abn findings Mammo ref to be sentRTO 1 year/p rn Related to Encntr for hooker operator exam (general) (routine) w/o abn findings Mammo ref sentWritte n referral given for DEXARTO 1 year/prn Related to Encntr for hooker operator exam (general) (routine) w/o abn findings Mammo ref to be sentRTO 1 year/p rn Related to Encntr for hooker operator exam (general) (routine) w/o abn findings Mostly drained but s till w induration and tenderness. 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 Check cx.RTO for WWV/prn Related to Vulvar lesion Mammo ref givenRec s topping calcium supplements given current recommendations and her issue with kidney stonesRTO 1 year/prn Related to ROUTINE BOARD STACKER EXAMINATION Assessments Type Assessment Date No Information
--- OUTSIDE RECORDS SUMMARY | 2024-04-05 06:20 | XMS_ITS | Continuity of Care Document ---
Author Organization [facility] Address [address], [address] [place] [address] Phone Care Team Providers Care Procurement Inspector Name Role Phone Swetha MANCINI, Madeleine Unavailable [...] EST 1 Rx via qualified eRx sys [id number] PREV VISIT, EST, 65 & OVER PREV VISIT, EST, 65 & OVER Advance Directives Directive Yes / No Effective Date File Name No Information Encounters Encounter Description Practice Location Reason(s) For Visit Diagnoses Date Provider [facility], [address], [address], [place], [id number], [place] tel:[phone] [address] No Information 4 Swetha Salvador. [address] [facility], [address], [place], [id number]. tel:[phone] [facility], [address], [address], [place], [id number], [place] tel:[phone] [address] [facility] Mammography CLOSED No Information 9 Swetha Salvador. [address] [facility], [address], [place], [id number]. tel:[phone] 65&OVER PREVENTIVE MEDICINE,[facility], [address], [address], [place], [id number], [place] tel:[phone] [address] Office CLOSED Annual Exam (chief complaint) Encntr for renewable energy division manager exam (general) (routine) w/o abn findingsEncounter for screening for malignant neoplasm of other genitourinary organs 9 Swetha Salvador. [address], [address], [place], [id number]. tel:[phone] 65&OVER PREVENTIVE MEDICINE,[facility], [address], [address], [place], [id number], [place] tel:[phone] [address] Office CLOSED Annual Exam (chief complaint) Encntr for renewable energy division manager exam (general) (routine) w/o abn findings 8 Swetha Salvador. [address], [address], [place], [id number]. tel:[phone] PREV VISIT, EST, 65 & OVER [facility], [address], [address], [place], [id number], [place] tel:[phone] [address] Office CLOSED PARACHUTE ACCESSORIES ATTACHER Exam (chief complaint) Encntr for renewable energy division manager exam (general) (routine) w/o abn findings 7 Swetha Salvador. [address], [address], [place], [id number]. tel:[phone] PREV VISIT, EST, 65 & OVER [facility], [address], [address], [place], [address], [place] tel:[phone] [address] CLOSED PARACHUTE ACCESSORIES ATTACHER Exam (chief complaint) Encntr for renewable energy division manager exam (general) (routine) w/o abn findings 6 Swetha Salvador. [address], [address], [place], [id number]. tel:[phone] OFFICE/OUTPAT IENT VISIT, EST [facility], [address], [address], [place], [id number], [place] tel:[phone] [address] CLOSED possible MRSA (chief complaint) Vulvar lesion Jul- 8 5 Pilcarl Madeleine. [address], [address], [place], [id number]. tel:[phone] PREV VISIT, EST, 65 & OVER [facility], [address], [address], [place], [id number], [place] tel:[phone] [address] CLOSED annual exam (chief complaint) ROUTINE PARACHUTE ACCESSORIES ATTACHER EXAMINATION 4 Pilrachely Madeleine. [address], [address], [place], [id number]. tel:[phone] PREV VISIT, EST, 65 & OVER [facility], [address], [address], [place], [id number], [place] tel:[phone] [address] CLOSED annual exam (chief complaint) Gynecological Examination 3 Pilcarl Madeleine. [address], [address], [place], [id number]. tel:[phone] [facility], [address], [address], [place], [id number], [place] tel:[phone] [address] CLOSED annual visit (chief complaint) Gynecological Examination 1 Pilev[place] Madeleine. [address], [address], [place], [id number]. tel:[phone] [facility], [address], [address], [place], [id number], [place] tel:[phone] CLOSED [address] [place] [address] Closed Hypertension, UnspecifiedOther and unspecified hyperlipidemiaOTHER ABNORMAL GLUCOSESyncope and collapse 1 No Information [facility], [address], [address], [place], [id number], [place] tel:[phone] CLOSED [address] [place] [address] Closed lumps on labia (chief complaint) Other abscess of vulvaOther specified noninflammatory disorders of vulva and perineum 1 Swetha Salvador. [address], [address], [place], [id number]. tel:[phone] Family History Family Member Type Diagnosis Age At Onset Problem (finding) Family history of hyper tension Problem (finding) Family history of breas t cancer Problem (finding) Family history of raise d blood lipids Payers Payer name Insurance type Covered green party ID Authoriza tion(s) Medicare MD SERVIN [id number] [facility] [id number] Social History Type Description Quantity Date Captured Comments Sex Female Smoking Status No Information Chief Complaint And Reason For Visit No Information Plan Of Treatment Date Type Action Status Goal Mammogram. Due on 8 due Goal Influenza Vaccine. Due on due Goal PARACHUTE ACCESSORIES ATTACHER exam. Due on due Goal PAP. Due [...] due Goal FOBT. Due on due Goal PARACHUTE ACCESSORIES ATTACHER exam. Due on due Goal TD Vaccine. [...] Goal Zoster vaccine. Due on due Goal PARACHUTE ACCESSORIES ATTACHER exam. Due on due Goal Lipid Panel. [...] TD Vaccine. Due on 14 due Goal PARACHUTE ACCESSORIES ATTACHER exam. Due on due Goal Mammogram. Due [...] Goal Colonoscopy. Due on 011 due Goal PARACHUTE ACCESSORIES ATTACHER exam. Due on due History Of Present [...] fx but she is doing ok. . PARACHUTE ACCESSORIES ATTACHER Exam : 2. Adelina ty: Term: 2. [...] replacement upcoming. Due for mammo and DEXA. PARACHUTE ACCESSORIES ATTACHER Exam : 2. Adelina ty: Term: 2. [...] monthRTO 1 year/prn Related to Encntr for renewable energy division manager exam (general) (routine) w/o abn findings Mammo ref to be sentRTO 1 year/p rn Related to Encntr for renewable energy division manager exam (general) (routine) w/o abn findings Mammo ref sentWritte n referral given for DEXARTO 1 year/prn Related to Encntr for renewable energy division manager exam (general) (routine) w/o abn findings Mammo ref to be sentRTO 1 year/p rn Related to Encntr for renewable energy division manager exam (general) (routine) w/o abn findings Mostly drained but s till w induration and tenderness. 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 Check cx.RTO for WWV/prn Related to Vulvar lesion Mammo ref givenRec s topping calcium supplements given current recommendations and her issue with kidney stonesRTO 1 year/prn Related to ROUTINE PARACHUTE ACCESSORIES ATTACHER EXAMINATION Assessments Type Assessment Date No Information
--- OUTSIDE RECORDS SUMMARY | 2024-11-28 06:00 | XMS_ITS | Continuity of Care Document ---
Author Organization [facility] Address [address] [place] [address] Phone Care Team Providers Care Processing Specialist Name Role Phone Fabio MANCINI, Paul Unavailable Unavailable Allergies, Adverse Reactions, Alerts Substance Reaction Status Criticality No Known Allergies Active No Inform ation Medications Medication Instructions Dosage Effective Dates (start - stop) Status Comments ergocalciferol (vitamin D2) 1,250 mcg (50,000 unit) capsule take 1 capsule by oral route every week 63163 UNITS - Active Simponi ARIA 12.5 mg/mL intravenous solution Administer SIMPONI ARIA 150mg IV week 0, week 4 then every 8 weeks - Active prednisone 5 mg tablet 20 mg/D for 4 days, 15 mg/D for 4 dayss, 15 mg/D for 4 days, 5 mg/D for 4 days then discontinue - Active Percocet 5 mg-325 mg tablet take 1 tablet by oral route every 8 hours as needed 1 tablet - Active BD INSULIN SYR 1 ML 27GX5/8 ONE SYRINGE EVERY WEEK DIRECTED - Active Probiotic 10 billion cell capsule - Active Vitron-C 65 mg iron-125 mg tablet,delayed release - Active magnesium 400 mg (as magnesium oxide) tablet take 1 tablet by oral route every day 1 tablet - Active cyclobenzaprine 5 mg tablet take 1 tablet by oral route every bedtime 5 MG - Active atenolol 50 mg tablet take 1 tablet by oral route every day 50 MG - Active famotidine 40 mg tablet take 1 tablet by oral route every day at bedtime 40 MG - Active Vitamin C 250 mg tablet take one tablet by oral route once a day - Active VITAMIN D3 (unknown strength) take one tablet by oral route once a day Not Available - Active CoQ-10 100 mg capsule take one capsule by oral route twice a day - Active acetaminophen 500 mg tablet take 2 tablet by oral route everyday as needed - Active Lexapro 20 mg tablet take 1 tablet by oral route every day 20 MG - Active lisinopril 40 mg tablet take 1 tablet by oral route every day 40 MG - Active ondansetron [address] 2 tablet by translingual route every 8 hours for 2 days on top of the tongue where they will dissolve, then swallow as needed 8 MG - Active aspirin 325 mg tablet take 1 tablet by oral route every day 325 MG - Active gabapentin 600 mg tablet take 1 tablet by oral route 2 times every day 600 MG - Active multivitamin tablet take once a day - Acti ve Procedures Procedure Date OFFICE/OUTPATIENT VISIT, EST CHEMO, IV INFUSION, 1 HR Simponi Aria (Golimumab), 1mg 5 Normal saline 250mL solution OFFICE/OUTPATIENT VISIT, EST PROLIA, DENOSUMAB 1MG CHEMO, ANTI-NEOPL, SQ/IM OFFICE/OUTPATIENT VISIT, EST CHEMO, IV INFUSION, 1 HR Simponi Aria (Golimumab), 1mg 5 Normal saline 250mL solution COMPLETE CBC W/AUTO DIFF WBC COMPREHEN METABOLIC PANEL OFFICE/OUTPATIENT VISIT, EST Complex e/m visit add on ROUTINE VENIPUNCTURE OFFICE/OUTPATIENT VISIT, EST CHEMO, IV INFUSION, 1 HR Simponi Aria (Golimumab), 1mg 5 Normal saline 250mL solution OFFICE/OUTPATIENT VISIT, EST Complex e/m visit add on ROUTINE VENIPUNCTURE COMPLETE CBC W/AUTO DIFF WBC COMPREHEN METABOLIC PANEL OFFICE/OUTPATIENT VISIT, EST Simponi Aria (Golimumab), 1mg 4 CHEMO, IV INFUSION, 1 HR Normal saline 250mL solution Admin influenza virus vac IIV ADJUVANT VACCINE IM OFFICE/OUTPATIENT VISIT, EST ROUTINE VENIPUNCTURE Admin influenza virus vac IIV ADJUVANT VACCINE IM OFFICE/OUTPATIENT VISIT, EST CHEMO, IV INFUSION, 1 HR Simponi Aria (Golimumab), 1mg 4 Normal saline 250mL solution OFFICE/OUTPATIENT VISIT, EST CHEMO, IV INFUSION, 1 HR Simponi Aria (Golimumab), 1mg 4 Normal saline 250mL solution COMPLETE CBC W/AUTO DIFF WBC COMPREHEN METABOLIC PANEL OFFICE/OUTPATIENT VISIT, EST Complex e/m visit add on OFFICE/OUTPATIENT VISIT, EST Simponi Aria (Golimumab), 1mg 4 CHEMO, IV INFUSION, 1 HR Normal saline 250mL solution OFFICE/OUTPATIENT VISIT, EST Simponi Aria (Golimumab), 1mg 4 CHEMO, IV INFUSION, 1 HR Normal saline 250mL solution COMPLETE CBC W/AUTO DIFF WBC COMPREHEN METABOLIC PANEL OFFICE/OUTPATIENT VISIT, EST CHEMO, IV INFUSION, 1 HR Simponi Aria (Golimumab), 1mg 4 Normal saline 250mL solution OFFICE/OUTPATIENT VISIT, EST Complex e/m visit add on OFFICE/OUTPATIENT VISIT, EST Simponi Aria (Golimumab), 1mg 4 CHEMO, IV INFUSION, 1 HR Normal saline 250mL solution OFFICE/OUTPATIENT VISIT, EST Simponi Aria (Golimumab), 1mg 3 CHEMO, IV INFUSION, 1 HR Normal saline 250mL solution OFFICE/OUTPATIENT VISIT, EST OFFICE/OUTPATIENT VISIT, EST CHEMO, IV INFUSION, 1 HR Actemra (tocilizumab) injection 023 Normal saline 250mL solution OFFICE/OUTPATIENT VISIT, EST CHEMO, IV INFUSION, 1 HR Actemra (tocilizumab) injection 023 Normal saline 250mL solution COMPREHEN METABOLIC PANEL OFFICE/OUTPATIENT VISIT, EST Actemra (tocilizumab) injection 023 CHEMO, IV INFUSION, 1 HR CHEMO, IV INFUSION, ADDL HR Normal saline 250mL solution COMPLETE CBC W/AUTO DIFF WBC COMPREHEN METABOLIC PANEL OFFICE/OUTPATIENT VISIT, EST Actemra (tocilizumab) injection 023 CHEMO, IV INFUSION, 1 HR CHEMO, IV INFUSION, ADDL HR Normal saline 250mL solution OFFICE/OUTPATIENT VISIT, EST OFFICE/OUTPATIENT VISIT, EST Actemra (tocilizumab) injection 023 CHEMO, IV INFUSION, 1 HR Normal saline 250mL solution OFFICE/OUTPATIENT VISIT, EST Actemra (tocilizumab) injection 023 CHEMO, IV INFUSION, 1 HR Normal saline 250mL solution COMPLETE CBC W/AUTO DIFF WBC COMPREHEN METABOLIC PANEL CHEMO, IV INFUSION, ADDL HR OFFICE/OUTPATIENT VISIT, EST Actemra (tocilizumab) injection 023 CHEMO, IV INFUSION, 1 HR Normal saline 250mL solution OFFICE/OUTPATIENT VISIT, EST Actemra (tocilizumab) injection 023 CHEMO, IV INFUSION, 1 HR Normal saline 250mL solution OFFICE/OUTPATIENT VISIT, EST OFFICE/OUTPATIENT VISIT, EST Actemra (tocilizumab) injection 023 CHEMO, IV INFUSION, 1 HR Normal saline 250mL solution COMPLETE CBC W/AUTO DIFF WBC COMPREHEN METABOLIC PANEL OFFICE/OUTPATIENT VISIT, EST Actemra (tocilizumab) injection 023 CHEMO, IV INFUSION, 1 HR Normal saline 250mL solution OFFICE/OUTPATIENT VISIT, EST Actemra (tocilizumab) injection 023 CHEMO, IV INFUSION, 1 HR Normal saline 250mL solution OFFICE/OUTPATIENT VISIT, EST Actemra (tocilizumab) injection 022 CHEMO, IV INFUSION, 1 HR Normal saline 250mL solution COMPLETE CBC W/AUTO DIFF WBC COMPREHEN METABOLIC PANEL OFFICE/OUTPATIENT VISIT, EST Actemra (tocilizumab) injection 022 CHEMO, IV INFUSION, 1 HR Normal saline 250mL solution OFFICE/OUTPATIENT VISIT, EST Actemra (tocilizumab) injection CHEMO, IV INFUSION, 1 HR Normal saline 250mL solution OFFICE/OUTPATIENT VISIT, EST Actemra (tocilizumab) injection 022 CHEMO, IV INFUSION, 1 HR Normal saline 250mL solution COMPLETE CBC W/AUTO DIFF WBC COMPREHEN METABOLIC PANEL OFFICE/OUTPATIENT VISIT, EST OFFICE/OUTPATIENT VISIT, EST Actemra (tocilizumab) injection CHEMO, IV INFUSION, 1 HR Normal saline 250mL solution COMPLETE CBC W/AUTO DIFF WBC COMPREHEN METABOLIC PANEL OFFICE/OUTPATIENT VISIT, EST Actemra (tocilizumab) injection Normal saline 250mL solution CHEMO, IV INFUSION, 1 HR CHEMO, IV INFUSION, ADDL HR OFFICE/OUTPATIENT VISIT, EST Actemra (tocilizumab) injection CHEMO, IV INFUSION, 1 HR Normal saline 250mL solution COMPREHEN METABOLIC PANEL OFFICE/OUTPATIENT VISIT, EST CHEMO, IV INFUSION, 1 HR Actemra (tocilizumab) injection 022 Normal saline 250mL solution COMPLETE CBC W/AUTO DIFF WBC COMPREHEN METABOLIC PANEL OFFICE/OUTPATIENT VISIT, EST Addtl Supplies Materials Clinical Staff CHEMO, IV INFUSION, 1 HR CHEMO, IV INFUSION, ADDL HR Actemra (tocilizumab) injection 022 Normal saline 250mL solution OFFICE/OUTPATIENT VISIT, EST Addtl Supplies Materials Clinical Staff OFFICE/OUTPATIENT VISIT, EST Addtl Supplies Materials Clinical Staff CHEMO, IV INFUSION, 1 HR Actemra (tocilizumab) injection 022 Normal saline 250mL solution OFFICE/OUTPATIENT VISIT, EST Addtl Supplies Materials Clinical Staff CHEMO, IV INFUSION, 1 HR Actemra (tocilizumab) injection 022 Normal saline 250mL solution COMPLETE CBC W/AUTO DIFF WBC COMPREHEN METABOLIC PANEL OFFICE/OUTPATIENT VISIT, EST Addtl Supplies Materials Clinical Staff CHEMO, IV INFUSION, 1 HR Actemra (tocilizumab) injection 021 Normal saline 250mL solution COMPLETE CBC W/AUTO DIFF WBC COMPREHEN METABOLIC PANEL C-REACTIVE PROTEIN RHEUMATOID FACTOR, QUANT IMMUNOASSAY, NONANTIBODY OFFICE/OUTPATIENT VISIT, EST Addtl Supplies Materials Clinical Staff CHEMO, IV INFUSION, 1 HR CHEMO, IV INFUSION, ADDL HR Actemra (tocilizumab) injection 021 Normal saline 250mL solution COMPREHEN METABOLIC PANEL OFFICE/OUTPATIENT VISIT, EST Addtl Supplies Materials Clinical Staff CHEMO, IV INFUSION, 1 HR Actemra (tocilizumab) injection 021 Normal saline 250mL solution COMPREHEN METABOLIC PANEL Admin influenza virus vac Flucelvax Quadrivalent Admin influenza virus vac OFFICE/OUTPATIENT VISIT, EST Addtl Supplies Materials Clinical Staff OFFICE/OUTPATIENT VISIT, EST Addtl Supplies Materials Clinical Staff CHEMO, IV INFUSION, 1 HR Actemra (tocilizumab) injection 021 Normal saline 250mL solution COMPLETE CBC W/AUTO DIFF WBC COMPREHEN METABOLIC PANEL OFFICE/OUTPATIENT VISIT, EST Addtl Supplies Materials Clinical Staff CHEMO, IV INFUSION, 1 HR Actemra (tocilizumab) injection 021 Normal saline 250mL solution CHEMO, IV INFUSION, 1 HR Actemra (tocilizumab) injection 021 Normal saline 250mL solution Addtl Supplies Materials Clinical Staff CHEMO, IV INFUSION, 1 HR CHEMO, IV INFUSION, ADDL HR Actemra (tocilizumab) injection 021 Normal saline 250mL solution Addtl Supplies Materials Clinical Staff OFFICE/OUTPATIENT VISIT, EST COMPLETE CBC W/AUTO DIFF WBC COMPREHEN METABOLIC PANEL OFFICE/OUTPATIENT VISIT, EST Addtl Supplies Materials Clinical Staff OFFICE/OUTPATIENT VISIT, EST CHEMO, IV INFUSION, 1 HR CHEMO, IV INFUSION, ADDL HR Actemra (tocilizumab) injection 021 Normal saline 250mL solution OFFICE/OUTPATIENT VISIT, EST Addtl Supplies Materials Clinical Staff CHEMO, IV INFUSION, 1 HR CHEMO, IV INFUSION, ADDL HR Actemra (tocilizumab) injection 021 Normal saline 250mL solution OFFICE/OUTPATIENT VISIT, EST Addtl Supplies Materials Clinical Staff CHEMO, IV INFUSION, 1 HR Actemra (tocilizumab) injection 021 Normal saline 250mL solution COMPLETE CBC W/AUTO DIFF WBC COMPREHEN METABOLIC PANEL OFFICE/OUTPATIENT VISIT, EST Addtl Supplies Materials Clinical Staff CHEMO, IV INFUSION, 1 HR Actemra (tocilizumab) injection 021 Normal saline 250mL solution COMPLETE CBC W/AUTO DIFF WBC COMPREHEN METABOLIC PANEL OFFICE/OUTPATIENT VISIT, EST Addtl Supplies Materials Clinical Staff OFFICE/OUTPATIENT VISIT, EST Addtl Supplies Materials Clinical Staff CHEMO, IV INFUSION, 1 HR Actemra (tocilizumab) injection 021 Normal saline 250mL solution OFFICE/OUTPATIENT VISIT, EST Addtl Supplies Materials Clinical Staff CHEMO, IV INFUSION, 1 HR Actemra (tocilizumab) injection 020 Normal saline 250mL solution Addtl Supplies Materials Clinical Staff CHEMO, IV INFUSION, 1 HR Actemra (tocilizumab) injection 020 Normal saline 250mL solution COMPLETE CBC W/AUTO DIFF WBC COMPREHEN METABOLIC PANEL C-REACTIVE PROTEIN RBC SED RATE, NONAUTOMATED CHEMO, IV INFUSION, 1 HR CHEMO, IV INFUSION, ADDL HR Actemra (tocilizumab) injection 020 Normal saline 250mL solution OFFICE/OUTPATIENT VISIT, EST Admin influenza virus vac Fluecelvax OFFICE/OUTPATIENT VISIT, EST CHEMO, IV INFUSION, 1 HR Actemra (tocilizumab) injection 020 Normal saline 250mL solution OFFICE/OUTPATIENT VISIT, EST CHEMO, IV INFUSION, 1 HR Actemra (tocilizumab) injection 020 Normal saline 250mL solution OFFICE/OUTPATIENT VISIT, EST COMPREHEN METABOLIC PANEL CHEMO, IV INFUSION, 1 HR Actemra (tocilizumab) injection 020 Normal saline 250mL solution OFFICE/OUTPATIENT VISIT, EST OFFICE/OUTPATIENT VISIT, EST CHEMO, IV INFUSION, 1 HR Actemra (tocilizumab) injection 020 Normal saline 250mL solution COMPLETE CBC W/AUTO DIFF WBC COMPREHEN METABOLIC PANEL C-REACTIVE PROTEIN RBC SED RATE, NONAUTOMATED OFFICE/OUTPATIENT VISIT, EST NO CHARGE FOR APPOINTMENT OFFICE/OUTPATIENT VISIT, EST CHEMO, IV INFUSION, 1 HR CHEMO, IV INFUSION, ADDL HR Actemra (tocilizumab) injection 020 Normal saline 250mL solution OFFICE/OUTPATIENT VISIT, EST CHEMO, IV INFUSION, 1 HR Actemra (tocilizumab) injection 020 Normal saline 250mL solution COMPLETE CBC W/AUTO DIFF WBC OFFICE/OUTPATIENT VISIT, EST CHEMO, IV INFUSION, 1 HR Actemra (tocilizumab) injection 020 Normal saline 250mL solution OFFICE/OUTPATIENT VISIT, EST CHEMO, IV INFUSION, 1 HR Actemra (tocilizumab) injection 020 Normal saline 250mL solution COMPLETE CBC W/AUTO DIFF WBC COMPREHEN METABOLIC PANEL C-REACTIVE PROTEIN RBC SED RATE, NONAUTOMATED COMPLETE CBC W/AUTO DIFF WBC OFFICE/OUTPATIENT VISIT, EST CHEMO, IV INFUSION, 1 HR CHEMO, IV INFUSION, ADDL HR Actemra (tocilizumab) injection 019 Normal saline 250mL solution COMPLETE CBC W/AUTO DIFF WBC COMPREHEN METABOLIC PANEL C-REACTIVE PROTEIN RBC SED RATE, NONAUTOMATED OFFICE/OUTPATIENT VISIT, EST CHEMO, IV INFUSION, 1 HR Actemra (tocilizumab) injection 019 Normal saline 250mL solution OFFICE/OUTPATIENT VISIT, EST CHEMO, IV INFUSION, 1 HR Actemra (tocilizumab) injection 019 Normal saline 250mL solution OFFICE/OUTPATIENT VISIT, EST CHEMO, IV INFUSION, 1 HR Abatacept injection Normal saline 250mL solution OFFICE/OUTPATIENT VISIT, EST CHEMO, IV INFUSION, 1 HR Abatacept injection Normal saline 250mL solution OFFICE/OUTPATIENT VISIT, EST CHEMO, IV INFUSION, 1 HR Abatacept injection Normal saline 250mL solution OFFICE/OUTPATIENT VISIT, EST CHEMO, IV INFUSION, 1 HR Abatacept injection Normal saline 250mL solution COMPLETE CBC W/AUTO DIFF WBC COMPREHEN METABOLIC PANEL C-REACTIVE PROTEIN RBC SED RATE, NONAUTOMATED OFFICE/OUTPATIENT VISIT, EST CHEMO, IV INFUSION, 1 HR Abatacept injection Normal saline 250mL solution OFFICE/OUTPATIENT VISIT, EST CHEMO, IV INFUSION, 1 HR Abatacept injection Normal saline 250mL solution COMPLETE CBC W/AUTO DIFF WBC COMPREHEN METABOLIC PANEL OFFICE/OUTPATIENT VISIT, EST ROUTINE VENIPUNCTURE COMPLETE CBC W/AUTO DIFF WBC COMPREHEN METABOLIC PANEL OFFICE/OUTPATIENT VISIT, EST CHEMO, IV INFUSION, 1 HR Abatacept injection Normal saline 250mL solution OFFICE/OUTPATIENT VISIT, EST CHEMO, IV INFUSION, 1 HR Abatacept injection Normal saline 250mL solution OFFICE/OUTPATIENT VISIT, EST CHEMO, IV INFUSION, 1 HR Abatacept injection Normal saline 250mL solution COMPLETE CBC W/AUTO DIFF WBC COMPREHEN METABOLIC PANEL C-REACTIVE PROTEIN RBC SED RATE, NONAUTOMATED OFFICE/OUTPATIENT VISIT, EST CHEMO, IV INFUSION, 1 HR Abatacept injection Normal saline 250mL solution OFFICE/OUTPATIENT VISIT, EST CHEMO, IV INFUSION, 1 HR Abatacept injection Normal saline 250mL solution OFFICE/OUTPATIENT VISIT, EST CHEMO, IV INFUSION, 1 HR Abatacept injection Normal saline 250mL solution OFFICE/OUTPATIENT VISIT, EST CHEMO, IV INFUSION, 1 HR Abatacept injection Normal saline 250mL solution OFFICE/OUTPATIENT VISIT, EST CHEMO, IV INFUSION, 1 HR Abatacept injection Normal saline 250mL solution ROUTINE VENIPUNCTURE COMPLETE CBC W/AUTO DIFF WBC COMPREHEN METABOLIC PANEL OFFICE/OUTPATIENT VISIT, EST CHEMO, IV INFUSION, 1 HR Abatacept injection Normal saline 250mL solution CHEMO, IV INFUSION, 1 HR Abatacept injection Normal saline 250mL solution COMPLETE CBC W/AUTO DIFF WBC COMPREHEN METABOLIC PANEL OFFICE/OUTPATIENT VISIT, EST CHEMO, IV INFUSION, 1 HR Abatacept injection Normal saline 250mL solution OFFICE/OUTPATIENT VISIT, EST CHEMO, IV INFUSION, 1 HR Abatacept injection Normal saline 250mL solution COMPLETE CBC W/AUTO DIFF WBC COMPREHEN METABOLIC PANEL Abatacept injection CHEMO, IV INFUSION, 1 HR CHEMO, IV INFUSION, ADDL HR Normal saline 250mL solution CHEMO, IV INFUSION, 1 HR Abatacept injection Normal saline 250mL solution COMPLETE CBC W/AUTO DIFF WBC COMPREHEN METABOLIC PANEL Abatacept injection CHEMO, IV INFUSION, 1 HR Normal saline 250mL solution CHEMO, IV INFUSION, 1 HR Abatacept injection Normal saline 250mL solution COMPLETE CBC W/AUTO DIFF WBC COMPREHEN METABOLIC PANEL CHEMO, IV INFUSION, 1 HR Abatacept injection Normal saline 250mL solution OFFICE/OUTPATIENT VISIT, EST CHEMO, IV INFUSION, 1 HR Abatacept injection Normal saline 250mL solution COMPLETE CBC W/AUTO DIFF WBC COMPREHEN METABOLIC PANEL OFFICE/OUTPATIENT VISIT, EST OFFICE/OUTPATIENT VISIT, EST ROUTINE VENIPUNCTURE COMPLETE CBC W/AUTO DIFF WBC COMPREHEN METABOLIC PANEL Abatacept injection CHEMO, IV INFUSION, 1 HR COMPREHEN METABOLIC PANEL ROUTINE VENIPUNCTURE OFFICE/OUTPATIENT VISIT, EST Abatacept injection CHEMO, IV INFUSION, 1 HR CHEMO, IV INFUSION, 1 HR Abatacept injection CHEMO, IV INFUSION, 1 HR Abatacept injection COMPLETE CBC W/AUTO DIFF WBC COMPREHEN METABOLIC PANEL ROUTINE VENIPUNCTURE DRAIN/INJECT, JOINT/BURSA Triamcinolone acetonide inj ROUTINE VENIPUNCTURE COMPLETE CBC W/AUTO DIFF WBC OFFICE/OUTPATIENT VISIT, EST ROUTINE VENIPUNCTURE COMPLETE CBC W/AUTO DIFF WBC COMPREHEN METABOLIC PANEL OFFICE/OUTPATIENT VISIT, EST OFFICE/OUTPATIENT VISIT, EST ROUTINE VENIPUNCTURE COMPLETE CBC W/AUTO DIFF WBC COMPREHEN METABOLIC PANEL OFFICE/OUTPATIENT VISIT, EST OFFICE/OUTPATIENT VISIT, EST OFFICE/OUTPATIENT VISIT, EST OFFICE/OUTPATIENT VISIT, EST ROUTINE VENIPUNCTURE NUCLEAR ANTIGEN ANTIBODY DNA ANTIBODY DNA ANTIBODY, SINGLE STRAND ANTINUCLEAR ANTIBODIES CCP ANTIBODY IMMUNOASSAY, NONANTIBODY RHEUMATOID FACTOR, QUANT COMPLETE CBC W/AUTO DIFF WBC COMPREHEN METABOLIC PANEL Interest On Past Due Balance OFFICE/OUTPATIENT VISIT, EST OFFICE/OUTPATIENT VISIT, EST OFFICE/OUTPATIENT VISIT, EST DRAIN/INJECT, JOINT/BURSA Triamcinolone acetonide inj OFFICE/OUTPATIENT VISIT, EST ROUTINE VENIPUNCTURE OFFICE/OUTPATIENT VISIT, EST ROUTINE VENIPUNCTURE OFFICE/OUTPATIENT VISIT, EST DRAIN/INJECT, JOINT/BURSA Triamcinolone acetonide inj OFFICE/OUTPATIENT VISIT, EST DRAIN/INJECT, JOINT/BURSA Triamcinolone acetonide inj OFFICE/OUTPATIENT VISIT, EST E-PRESCRIPTION / 1 Rx via qualified eRx sys OFFICE/OUTPATIENT VISIT, EST E-PRESCRIPTION / 1 Rx via qualified eRx sys OFFICE/OUTPATIENT VISIT, NEW COMPREHEN METABOLIC PANEL ROUTINE VENIPUNCTURE IMMUNOASSAY, NONANTIBODY RHEUMATOID FACTOR, QUANT CCP ANTIBODY ASSAY OF VITAMIN D Advance Directives Directive Yes / No Effective Date File Name No Information Encounters Encounter Description Practice Location Reason(s) For Visit Diagnoses Date Provider Providers Copied on Encounter OFFICE/OUTPA TIENT VISIT, [facility] , [address], [place], [id number], [place] tel:[phone] [facility] Main Office No Information Fabio Miller. [address], [place], [id number] , [place]. tel:[phone] Referring Provider: Rosalba Shaw, [address], [place], [address]. tel:[phone] OFFICE/OUTPA TIENT VISIT, EST [facility] anjelica MANCINI, [address], [place], [id number], [place] tel:[phone] [facility] Main Office Age-related osteoporosis without current pathological fracture 5 Fabio Paul. [address], [place], [id number] , [place]. tel:[phone] Referring Provider: Pilo Hinojosa, [address], [place], [address]. tel:[phone] OFFICE/OUTPA TIENT VISIT, EST [facility] , [address], [place], [id number], [place] tel:[phone] [facility] Main Office Follow Up of GOA (chief complaint)Fo llow Up of RA (chief complaint) Immunodefici ency due to drugsRA w/o rheumatoid factor of multiple sitesGeneral ized OAPain in unspecified jointOsteopo rosisCKDLong term (current) use of immunosuppre ssive biologicBody mass index (BMI) 29.0-29.9, adult Byron- 5 Fabio Paul. [address], [place], [id number] , [place]. tel:[phone] Leif Arrington, [address], [place], [address]. tel:[phone] ist: Madi Gallo, [address] [facility] [address], [place], [address]. tel:[phone] ist: Sunni Ackerman, [address] [facility] [address], [place], [address]. tel:[phone] ng Provider: Pilo Hinojosa, [address], [place], [address]. tel:[phone] [facility] , [address], [place], [id number], [place] tel:[phone] [facility] Main Office No Information 5 Fabio Paul. [address], [place], [id number] , [place]. tel:[phone] OFFICE/OUTPA TIENT VISIT, EST [facility] , [address], [place], [id number], [place] tel:[phone] [facility] Main Office Follow Up of GOA (chief complaint)Fo llow Up of RA (chief complaint) Immunodefici ency due to drugsRA w/o rheumatoid factor of multiple sitesGeneral ized OAPain in unspecified jointCKDLong term (current) use of immunosuppre ssive biologicOste oporosisBody mass index (BMI) 29.0-29.9, adult Apr- 5 Fabio Paul. [address], [place], [id number] , [place]. tel:[phone] Leif Arrington, [address], [place], [address]. tel:[phone] ist: Madi Holder, [address] [facility] [address], [place], [address]. tel:[phone] ist: Sunni Ackerman, [address] [facility] [address], [place], [address]. tel:[phone] ng Provider: Rosalba Shaw, [address], [place], [address]. tel:[phone] OFFICE/OUTPA TIENT VISIT, EST [facility] , [address], [place], [id number], [place] tel:[phone] [facility] Main Office No Information Jul- 5 Fabio Miller. [address], [place], [id number] , [place]. tel:[phone] Referring Provider: Pilo Hinojosa, [address] [facility] [address], [place], [address]. tel:[phone] OFFICE/OUTPA TIENT VISIT, EST [facility] , [address], [place], [id number], [place] tel:[phone] [facility] Main Office Follow Up of GOA (chief complaint)Fo llow Up of RA (chief complaint) Immunodefici ency due to drugsRA w/o rheumatoid factor of multiple sitesGeneral ized OAPain in unspecified jointCKDLong term (current) use of immunosuppre ssive biologicBody mass index (BMI) 29.0-29.9, adultElevate d blood-pressu re reading, w/o diagnosis of htn 5 Fabio Paul. [address], [place], [id number] , [place]. tel:[phone] Leif Arrington, [address], [place], [address]. tel:[phone] ist: Madi Holder, [address], [place], [address]. tel:[phone] ist: Sunni Ackerman, [address] [facility] [address], [place], [address]. tel:[phone] ng Provider: Rosalba Shaw, [address], [place], [address]. tel:[phone] OFFICE/OUTPA TIENT VISIT, EST [facility] , [address], [place], [id number], [place] tel:[phone] [facility] Main Office No Information 4 Fabio Miller. [address], [place], [id number] , [place]. tel:[phone] Referring Provider: Pilo Hinojosa, [address] [facility] [address], [place], [address]. tel:[phone] OFFICE/OUTPA TIENT VISIT, EST [facility] , [address], [place], [id number], [place] tel:[phone] [facility] Main Office Follow Up of GOA (chief complaint)Fo llow Up of RA (chief complaint) Immunodefici ency due to drugsRA w/o rheumatoid factor of multiple sitesGeneral ized OAPain in unspecified jointCKDLong term (current) use of immunosuppre ssive biologicEnco unter for immunization Body mass index (BMI) 31.0-31.9, adultElevate d blood-pressu re reading, w/o diagnosis of htn 4 Fabio Paul. [address], [place], [id number] , [place]. tel:[phone] Leif Arrington, [address], [place], [address]. tel:[phone] ist: Madi Holder, [address], [place], [address]. tel:[phone] ist: Sunni Ackerman, [address] [facility] [address], [place], [address]. tel:[phone] ng Provider: Pilo Hinojosa, [address] [place] [address] [address], [place], [address]. tel:[phone] OFFICE/OUTPA TIENT VISIT, EST [facility] of , [address], [place], [id number], [place] tel:[phone] [facility] Main Office No Information 4 Fabio Paul. [address], [place], [id number] , [place]. tel:[phone] Referring Provider: Pilo Hinojosa, [address] [place] [address] [address], [place], [address]. [phone] OFFICE/OUTPA TIENT VISIT, EST [facility] of , [address], [place], [id number], [place] tel:[phone] [facility] Main Office No Information 4 Fabio Paul. [address], [place], [id number] , [place]. tel:[phone] Referring Provider: Pilo Hinojosa, [address] [facility] [address], [place], [address]. tel:[phone] OFFICE/OUTPA TIENT VISIT, EST [facility] of , [address], [place], [id number], [place] tel:[phone] [facility] Main Office Follow Up of GOA (chief complaint)Fo llow Up of RA (chief complaint) Immunodefici ency due to drugsRA w/o rheumatoid factor of multiple sitesGeneral ized OAPain in unspecified jointCKDLong term (current) use of immunosuppre ssive biologicBody mass index (BMI) 30.0-30.9, adult Nov- 4 Fabio Paul. [address], [place], [id number] , [place]. tel:[phone] Leif Arrington, [address], [place], [address]. tel:[phone] ist: Madi Holder, [address], [place], [address]. tel:[phone] ist: Sunni Ackerman, [address], [place], [address]. tel:[phone] ng Provider: Pilo Hinojosa, [address], [place], [address]. tel:[phone] OFFICE/OUTPA TIENT VISIT, EST [facility] of , [address], [place], [id number], [place] tel:[phone] [facility] Main Office No Information 4 Fabio Paul. [address], [place], [id number] , [place]. tel:[phone] Referring Provider: Pilo Hinojosa, [address], [place], [address]. tel:[phone] OFFICE/OUTPA TIENT VISIT, EST [facility] of , [address], [place], [id number], [place] tel:[phone] [facility] Main Office No Information 4 Fabio Paul. [address], [place], [id number] , [place]. tel:[phone] Referring Provider: Pilo Hinojosa, [address], [place], [address]. tel:[phone] OFFICE/OUTPA TIENT VISIT, EST [facility] of , [address], [place], [id number], [place] tel:[phone] [facility] Main Office No Information 4 Fabio Paul. [address], [place], [id number] , [place]. tel:[phone] Referring Provider: Pilo Hinojosa, [address], [place], [address]. tel:[phone] OFFICE/OUTPA TIENT VISIT, EST [facility] of , [address], [place], [id number], [place] tel:[phone] [facility] Main Office Follow Up of GOA (chief complaint)Fo llow Up of RA (chief complaint) Immunodefici ency due to drugsRA w/o rheumatoid factor of multiple sitesGeneral ized OAPain in unspecified jointCKDLong term (current) use of immunosuppre ssive biologicBody mass index (BMI) 30.0-30.9, adultElevate d blood-pressu re reading, w/o diagnosis of htn 4 Fabio Paul. [address], [place], [id number] , [place]. tel:[phone] Leif Arrington, [address], [place], [address]. tel:[phone] ist: Madi Holder, [address], [place], [address]. tel:[phone] ist: Sunni Ackerman, [address], [place], [address]. tel:[phone] ng Provider: Pilo Hinojosa, [address], [place], [address]. tel:[phone] OFFICE/OUTPA TIENT VISIT, EST [facility] of , [address], [place], [id number], [place] tel:[phone] [facility] Main Office No Information 4 Fabio Paul. [address], [place], [id number] , [place]. tel: [phone] Referring Provider: Pilo Hinojosa, [address], [place], [address]. tel:[phone] OFFICE/OUTPA TIENT VISIT, EST [facility] of , [address], [place], [id number], [place] tel:[phone] [facility] Main Office No Information 3 Fabio Paul. [address], [place], [id number] , [place]. tel:[phone] Referring Provider: Pilo Hinojosa, [address], [place], [address]. tel:[phone] [facility] of , [address], [place], [id number], [place] tel:[phone] [facility] Main Office No Information 3 Fabio Paul. [address], [place], [id number] , [place]. 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 [address], [place], [id number] , [place]. tel:[phone] Leif Arrington, [address], [place], [address]. tel:[phone] ist: Madi Holder, [address], [place], [address]. tel:[phone] ist: Sunni Ackerman, [address], [place], [address]. tel:[phone] ng Provider: Pilo Hinojosa, [address], [place], [address]. tel:[phone] [facility] of , [address], [place], [id number], [place] tel:[phone] [facility] Main Office No Information 0 3 Fabio Paul. [address], [place], [id number] , [place]. tel:[phone] OFFICE/OUTPA TIENT VISIT, EST [facility] of , [address], [place], [id number], [place] tel:[phone] [facility] Main Office No Information 3 Fabio Paul. [address], [place], [address] , [place]. tel:[phone] Referring Provider: Pilo Hinojosa, [address], [place], [address]. tel:[phone] OFFICE/OUTPA TIENT VISIT, EST [facility] of , [address], [place], [id number], [place] tel:[phone] [facility] Main Office No Information 3 Fabio Paul. [address], [place], [address] , [place]. tel:[phone] Referring Provider: Pilo Hinojosa, [address], [place], [address]. tel:[phone] OFFICE/OUTPA TIENT VISIT, EST [facility] of , [address], [place], [id number], [place] tel:[phone] [facility] Main Office No Information 3 Fabio Paul. [address], [place], [address] , [place]. tel:[phone] Referring Provider: Pilo Hinojosa, [address], [place], [address]. tel:[phone] OFFICE/OUTPA TIENT VISIT, EST [facility] of , [address], [place], [id number], [place] tel:[phone] [facility] Main Office No Information 3 Fabio Paul. [address], [place], [id number] , [place]. tel:[phone] Referring Provider: Pilo Hinojosa, [address], [place], [address]. 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 [address], [place], [id number] , [place]. tel:[phone] Leif Arrington, [address], [place], [address]. tel:[phone] ist: Madi Holder, [address], [place], [address]. tel:[phone] ist: Sunni Ackerman [address], [place], [address]. tel:[phone] ng Provider: Pilo Hinojosa, [address], [place], [address]. tel:[phone] OFFICE/OUTPA TIENT VISIT, EST [facility] of , [address], [place], [id number], [place] tel:[phone] [facility] Main Office No Information 3 Fabio Paul. [address], [place], [id number] , [place]. tel:[phone] Referring Provider: Pilo Hinojosa, [address], [place], [address]. tel:[phone] OFFICE/OUTPA TIENT VISIT, EST [facility] of , [address], [place], [id number], [place] tel:[phone] [facility] Main Office No Information 3 Fabio Paul. [address], [place], [address] , [place]. tel:[phone] Referring Provider: Pilo Hinojosa, [address], [place], [address]. tel:[phone] OFFICE/OUTPA TIENT VISIT, EST [facility] of , [address], [place], [address], [place] tel:[phone] [facility] Main Office No Information 3 Fabio Paul. [address], [place], [address] , [place]. tel:[phone] Referring Provider: Pilo Hinojosa, [address], [place], [address]. tel:[phone] OFFICE/OUTPA TIENT VISIT, EST [facility] of , [address], [place], [address], [place] tel:[phone] [facility] Main Office No Information Jul-0 3 Fabio Paul. [address], [place], [address] , [place]. tel:[phone] Referring Provider: Pilo Hinojosa, [address], [place], [address]. tel:[phone] OFFICE/OUTPA TIENT VISIT, EST [facility] of , [address], [place], [address], [place] tel:[phone] [facility] Main Office Follow Up of GOA (chief complaint)Fo llow Up of RA (chief complaint) Immunodefici ency due to drugsRA w/o rheumatoid factor of multiple sitesGeneral ized OACKDLong term (current) use of immunosuppre ssive biologicPain in unspecified joint Jun-2 3 Fabio Paul. [address], [place], [id number] , [place]. tel:[phone] Leif Arrington, [address], [place], [address]. tel:[phone] ist: Madi Gallo, [address], [place], [address]. tel:[phone] ist: Sunni Ackerman, [address], [place], [address]. tel:[phone] ng Provider: Pilo Hinojosa, [address], [place], [address]. tel:[phone] OFFICE/OUTPA TIENT VISIT, EST [facility] of , [address], [place], [id number], [place] tel:[phone] [facility] Main Office No Information 0 3 Fabio Paul. [address], [place], [id number] , [place]. tel:[phone] Referring Provider: Pilo Hinojosa, [address], [place], [address]. tel:[phone] OFFICE/OUTPA TIENT VISIT, EST [facility] of , [address], [place], [id number], [place] tel:[phone] [facility] Main Office No Information 3 Fabio Paul. [address], [place], [address] , [place]. tel: [phone] Referring Provider: Gulshan Stewart, [place], [address]. tel:[phone] OFFICE/OUTPA TIENT VISIT, EST [facility] of , [address], [place], [id number], [place] tel:[phone] [facility] Main Office No Information 3 Fabio Paul. [address], [place], [id number] , [place]. tel: [phone] Referring Provider: Gulshan Stewart, [address]2 Latoya [place] MD, . tel:[phone] OFFICE/OUTPA TIENT VISIT, EST [facility] of , [address], [place], [id number], [place] tel:[phone] [facility] Main Office Follow Up of GOA (chief complaint)Fo llow Up of RA (chief complaint) Immunodefici ency due to drugsRA w/o rheumatoid factor of multiple sitesGeneral ized OACervicalgi aCKDLong term (current) use of opiate analgesicLon g term (current) use of immunosuppre ssive biologic 2 Fabio Paul. [address], [place], [address] , [place]. tel: [phone] Leif Arrington, [address], [place], [address]. tel:[phone] ist: Madi Holder, [address], [place], [address]. tel:[phone] ng Provider: Gulshan Stewart, [address] [place], [address]. tel:[phone] OFFICE/OUTPA TIENT VISIT, EST [facility] of , [address], [place], [id number], [place] tel: [phone] [facility] Main Office No Information 2 Fabio Paul. [address], [place], [address] , [place]. tel:[phone] Referring Provider: Gulshan Stewart, [place], [address]. tel:[phone] OFFICE/OUTPA TIENT VISIT, EST [facility] of , [address], [place], [id number], [place] tel:[phone] [facility] Main Office No Information 2 Fabio Paul. [address], [place], [address] , [place]. tel: [phone] Referring Provider: Gulshan Stewart, [address] [place], [address]. tel:[phone] OFFICE/OUTPA TIENT VISIT, EST [facility] of , [address], [place], [address], [place] tel:[phone] [facility] Main Office No Information 2 Fabio Paul. [address], [place], [address] , [place]. tel: [phone] Referring Provider: Gulshan Stewart, [address] [place], [address]. tel:[phone] OFFICE/OUTPA TIENT VISIT, EST [facility] of , [address], [place], [id number], [place] tel:[phone] [facility] Main Office Follow Up of Rheumatoid Arthritis (chief complaint)Fo llow Up of Generalized OA (chief complaint) Immunodefici ency due to drugsRA w/o rheumatoid factor of multiple sitesGeneral ized OACervicalgi aCKDLong term (current) use of opiate analgesicOth er fci (current) drug therapyBody mass index (BMI) 33.0-33.9, adult 2 Fabio Paul. [address], [place], [address] , [place]. tel:[phone] Leif Arrington, [address], [place], [address]. tel:[phone] ist: Madi Holder, [address], [place], [address]. tel:[phone] ng Provider: Gulshan Stewart, [place], [address]. tel:[phone] OFFICE/OUTPA TIENT VISIT, EST [facility] of , [address], [place], [id number], [place] tel:[phone] [facility] Main Office No Information 2 Fabio Miller. [address], [place], [id number] , [place]. tel:[phone] Referring Provider: Gulshan Stewart, [place], [address]. tel:[phone] OFFICE/OUTPA TIENT VISIT, EST [facility] of , [address], [place], [id number], [place] tel:[phone] [facility] Main Office No Information 2 Fabio Paul. [address], [place], [address] , [place]. tel:[phone] Referring Provider: Gulshan Stewart, [place], [address]. tel:[phone] OFFICE/OUTPA TIENT VISIT, EST [facility] of , [address], [place], [address], [place] tel:[phone] [facility] Main Office No Information 2 Fabio Paul. [address], [place], [id number] , [place]. tel:[phone] Referring Provider: Gulshan Stewart, [address] [place], [address]. tel:[phone] OFFICE/OUTPA TIENT VISIT, EST [facility] of , [address], [place], [id number], [place] tel:[phone] [facility] Main Office No Information 2 Fabio Paul. [address], [place], [address] , [place]. tel:[phone] Referring Provider: Pilo Hinojosa, [address] [facility] [address], [place], [address]. tel:[phone] OFFICE/OUTPA TIENT VISIT, EST [facility] of , [address], [place], [id number], [place] tel:[phone] [facility] Main Office No Information 2 Fabio Paul. [address], [place], [address] , [place]. tel:[phone] Referring Provider: Gulshan Stewart, [address] [place], [address]. tel:[phone] OFFICE/OUTPA TIENT VISIT, EST [facility] of , [address], [place], [address], [place] tel:[phone] [facility] Main Office Follow Up of Rheumatoid Arthritis (chief complaint)Fo llow Up of Generalized OA (chief complaint) Immunodefici ency due to drugsRA w/o rheumatoid factor of multiple sitesGeneral ized OALong term (current) use of opiate analgesicOth er auto polisher (current) drug therapyCKDCe rvicalgia 2 Fabio Paul. [address], [place], [address] , [place]. tel: [phone] Leif Arrington, [address], [place], [address]. tel: [phone] ng Provider: Gulshan Stewart, [address] [place], [address]. tel: [phone] OFFICE/OUTPA TIENT VISIT, EST [facility] of , [address], [place], [id number], [place] tel: [phone] [facility] Main Office No Information 2 Fabio Paul. [address], [place], [address] , [place]. tel: [phone] Referring Provider: Gulshan Stewart, [address] [place], [address]. tel: [phone] OFFICE/OUTPA TIENT VISIT, EST [facility] of , [address], [place], [address], [place] tel: [phone] [facility] Main Office No Information 2 Fabio Paul. [address], [place], [address] , [place]. tel: [phone] Referring Provider: Gulshan Stewart, [address] [place], [address]. tel:[phone] OFFICE/OUTPA TIENT VISIT, EST [facility] of , [address], [place], [address], [place] tel: [phone] [facility] Main Office No Information 1 Fabio Paul. [address], [place], [address] , [place]. tel: [phone] Referring Provider: Gulshan Stewart, [address] [place], [address]. tel:[phone] OFFICE/OUTPA TIENT VISIT, EST [facility] of , [address], [place], [address], [place] tel:[phone] [facility] Main Office No Information 1 Fabio Paul. [address], [place], [address] , [place]. tel: [phone] Referring Provider: [place], [address]. tel:[phone] OFFICE/OUTPA TIENT VISIT, EST [facility] of , [address], [place], [address], [place] tel:[phone] [facility] Main Office No Information 1 Fabio Paul. [address], [place], [address] , [place]. tel: [phone] Referring Provider: Driss Glass [place], [place], . tel:[phone] OFFICE/OUTPA TIENT VISIT, EST [facility] of , [address], [place], [address], [place] tel:[phone] [facility] Main Office Follow Up of Rheumatoid Arthritis (chief complaint)Fo llow Up of Generalized OA (chief complaint) Immunodefici ency due to drugsRA w/o rheumatoid factor of multiple sitesGeneral ized OALong term (current) use of opiate analgesicOth er fci (current) drug therapyEncou nter for immunization Body mass index (BMI) 33.0-33.9, adult 1 Fabio Paul. [address], [place], [id number] , [place]. tel:[phone] Leif Arrington, [address], [place], [address]. tel:[phone] ng Provider: Gulshan Stewart, [place], [address]. tel:[phone] OFFICE/OUTPA TIENT VISIT, EST [facility] of , [address], [place], [id number], [place] tel:[phone] [facility] Main Office No Information 1 Fabio Paul. [address], [place], [address] , [place]. tel: [phone] Referring Provider: Gulshan Stewart, [place], [address]. tel:[phone] OFFICE/OUTPA TIENT VISIT, EST [facility] of , [address], [place], [address], [place] tel: [phone] [facility] Main Office No Information 1 Fabio Paul. [address], [place], [address] , [place]. tel: [phone] Referring Provider: Gulshan Stewart, [address] [place], [address]. tel:[phone] [facility] of , [address], [place], [address], [place] tel: [phone] [facility] Main Office No Information 1 Fabio Paul. [address], [place], [address] , [place]. tel: [phone] Referring Provider: Gulshan Stewart, [address] [place], [address]. tel:[phone] OFFICE/OUTPA TIENT VISIT, EST [facility] of , [address], [place], [address], [place] tel:[phone] [facility] Main Office No Information 1 Fabio Paul. [address], [place], [address] , [place]. tel: [phone] Referring Provider: Gulshan Stewart, [address] [place], [address]. tel:[phone] OFFICE/OUTPA TIENT VISIT, EST [facility] of , [address], [place], [address], [place] tel:[phone] [facility] Main Office Follow Up of Rheumatoid Arthritis (chief complaint)Fo llow Up of Generalized OA (chief complaint) Immunodefici ency due to drugsRA w/o rheumatoid factor of multiple sitesGeneral ized OALong term (current) use of opiate analgesicOth er auto polisher (current) drug therapyBody mass index (BMI) 34.0-34.9, adult August- 1 Fabio Paul. [address], [place], [address] , [place]. [phone] Leif Arrington, [address], [place], [address]. tel:[phone] ng Provider: Gulshan Stewart, [address] [place], [address]. tel:[phone] OFFICE/OUTPA TIENT VISIT, EST [facility] of , [address], [place], [address], [place] tel:[phone] [facility] Main Office No Information 1 Fabio Paul. [address], [place], [id number] , [place]. tel:[phone] Referring Provider: Gulshan Stewart, [address] [place], [address]. tel:[phone] OFFICE/OUTPA TIENT VISIT, EST [facility] of , [address], [place], [address], [place] tel:[phone] [facility] Main Office No Information 1 Fabio Paul. [address], [place], [id number] , [place]. tel:[phone] Referring Provider: Gulshan Stewart, [place], [address]. tel:[phone] OFFICE/OUTPA TIENT VISIT, EST [facility] of , [address], [place], [address], [place] tel:[phone] [facility] Main Office No Information 1 Fabio Miller. [address], [place], [address] , [place]. tel:[phone] Referring Provider: Gulshan Stewart, [address] [place], [address]. tel:[phone] OFFICE/OUTPA TIENT VISIT, EST [facility] of , [address], [place], [id number], [place] tel:[phone] [facility] Main Office No Information 1 Fabio Miller. [address], [place], [address] , [place]. tel:[phone] Referring Provider: Gulshan Stewart, Edelmira2 Latoya Perry MD, . tel:[phone] OFFICE/OUTPA TIENT VISIT, EST [facility] of , [address], [place], [id number], [place] tel:[phone] [facility] Main Office Follow Up of Rheumatoid Arthritis (chief complaint)Fo llow Up of Generalized OA (chief complaint) RA w/o rheumatoid factor of multiple sitesGeneral ized OALong term (current) use of opiate analgesicOth er fci (current) drug therapyImmun odeficiency due to drugsBody mass index (BMI) 33.0-33.9, adult 1 Fabio Miller. [address], [place], [id number] , [place]. tel:[phone] Referring Provider: Edelmira Glass2 [place], [address]. tel:[phone] OFFICE/OUTPA TIENT VISIT, EST [facility] of , [address], [place], [id number], [place] tel: [phone] [facility] Main Office No Information 1 Fabio Paul. [address], [place], [id number] , [place]. tel: [phone] Referring Provider: Gulshan Stewart, [place], [address]. tel:[phone] OFFICE/OUTPA TIENT VISIT, EST [facility] of , [address], [place], [id number], [place] tel: [phone] [facility] Main Office No Information 0 Fabio Paul. [address], [place], [id number] , [place]. tel: [phone] Referring Provider: Gulshan Stewart, [place], [address]. tel:[phone] [facility] of , [address], [place], [id number], [place] tel: [phone] [facility] Main Office No Information 0 Fabio Paul. [address], [place], [id number] , [place]. tel: [phone] Referring Provider: Gulshan Stewart, Edelmira2 [place], [address]. tel:[phone] OFFICE/OUTPA TIENT VISIT, EST [facility] of , [address], [place], [id number], [place] tel:[phone] [facility] Main Office No Information 0 Fabio Paul. [address], [place], [id number] , [place]. tel: [phone] Referring Provider: Gulshan Stewart, Edelmira2 [place], [address]. tel:[phone] OFFICE/OUTPA TIENT VISIT, EST [facility] of , [address], [place], [id number], [place] tel:[phone] [facility] Main Office Follow Up of Rheumatoid Arthritis (chief complaint)Fo llow Up of Generalized OA (chief complaint) RA w/o rheumatoid factor of multiple sitesLong term (current) use of opiate analgesicOth er fci (current) drug therapyGener alized OAEncounter for immunization Body mass index (BMI) 34.0-34.9, adultElevate d blood-pressu re reading, w/o diagnosis of htn 0 Fabio Paul. [address], [place], [id number] , [place]. tel:[phone] Leif Arrington, [address], [place], [address]. tel:[phone] ng Provider: Gulshan Stewart, Edelmira2 [place], [address]. tel:[phone] OFFICE/OUTPA TIENT VISIT, EST [facility] of , [address], [place], [id number], [place] tel:[phone] [facility] Main Office No Information 0 Fabio Paul. [address], [place], [id number] , [place]. tel:[phone] Referring Provider: Gulshan Stewart, Edelmira2 [place], [address]. tel:[phone] OFFICE/OUTPA TIENT VISIT, EST [facility] of , [address], [place], [id number], [place] tel:[phone] [facility] Main Office No Information 0 Fabio Paul. [address], [place], [id number] , [place]. tel:[phone] Referring Provider: Gulshan Stewart Edelmira2 [place], [address]. tel:[phone] OFFICE/OUTPA TIENT VISIT, EST [facility] of , [address], [place], [id number], [place] tel:[phone] [facility] Main Office No Information 0 Fabio Paul. [address], [place], [id number] , [place]. tel:[phone] Referring Provider: Gulshan Stewart, [address] [place], [address]. tel:[phone] OFFICE/OUTPA TIENT VISIT, EST [facility] of , [address], [place], [id number], [place] tel:[phone] [facility] Main Office No Information 0 Fabio Paul. [address], [place], [id number] , [place]. tel:[phone] Referring Provider: Gulshan Stewart, [address] Latoya Perry MD, . tel:[phone] OFFICE/OUTPA TIENT VISIT, EST [facility] of , [address], [place], [id number], [place] tel:[phone] [facility] Main Office Follow Up of Rheumatoid Arthritis (chief complaint) RA w/o rheumatoid factor of multiple sitesOther spondylosis, cervical regionCervic algiaLong term (current) use of opiate analgesicOth er fci (current) drug therapy 0 Fabio Paul. [address], [place], [id number] , [place]. tel:[phone] Leif Arrington, [address], [place], [address]. tel:[phone] ng Provider: Gulshan Stewart, [address] [place], [address]. tel:[phone] [facility] of , [address], [place], [id number], [place] tel:[phone] [facility] Main Office Follow Up of Rheumatoid Arthritis (chief complaint) RA w/o rheumatoid factor of multiple sitesOther spondylosis, cervical regionCervic algiaLong term (current) use of opiate analgesicOth er auto polisher (current) drug therapy 0 Fabio Paul. [address], [place], [id number] , [place]. tel:[phone] Leif Arrington, [address], [place], [address]. [phone] ng Provider: [place], [address]. [phone] OFFICE/OUTPA TIENT VISIT, EST [facility] of , [address], [place], [id number], [place] [phone] [facility] Main Office No Information 0 Fabio Paul. [address], [place], [address] , [place]. [phone] Referring Provider: [place], [address]. tel:[phone] OFFICE/OUTPA TIENT VISIT, EST [facility] of , [address], [place], [id number], [place] tel:[phone] [facility] Main Office No Information 0 Fabio Paul. [address], [place], [id number] , [place]. tel:[phone] Referring Provider: [place], [address]. [phone] OFFICE/OUTPA TIENT VISIT, EST [facility] of , [address], [place], [id number], [place] tel:[phone] [facility] Main Office No Information 0-202 0 Fabio Paul. [address], [place], [id number] , [place]. tel: [phone] Referring Provider: Gulshan Stewart, [place], [address]. tel:[phone] OFFICE/OUTPA TIENT VISIT, EST [facility] of , [address], [place], [id number], [place] tel:[phone] [facility] Main Office Follow Up of Rheumatoid Arthritis (chief complaint)Fo llow up (chief complaint) RA w/o rheumatoid factor of multiple sitesOther spondylosis, cervical regionCervic algiaOther auto polisher (current) drug therapyLong term (current) use of opiate analgesicBod y mass index (BMI) 30.0-30.9, adult Jun-0 2- 0 Fabio Paul. [address], [place], [id number] , [place]. tel: [phone] Leif Arrington, [address], [place], [address]. tel:[phone] ng Provider: Gulshan Stewart, [place], [address]. tel:[phone] [facility] of , [address], [place], [id number], [place] tel:[phone] [facility] Main Office No Information 2 9 Fabio Paul. [address], [place], [id number] , [place]. tel: [phone] Referring Provider: [place], [address]. tel:[phone] OFFICE/OUTPA TIENT VISIT, EST [facility] of , [address], [place], [id number], [place] tel:[phone] [facility] Main Office Follow Up of Rheumatoid Arthritis (chief complaint) RA w/o rheumatoid factor of multiple sitesOther spondylosis, cervical regionCervic algiaOther auto polisher (current) drug therapyBody mass index (BMI) 34.0-34.9, adultElevate d blood-pressu re reading, w/o diagnosis of htn 9 Fabio Paul. [address], [place], [address] , [place]. tel: [phone] Leif Dominguezis, [address], [place], [address]. tel:[phone] ng Provider: [place], [address]. tel:[phone] OFFICE/OUTPA TIENT VISIT, EST [facility] of , [address], [place], [id number], [place] tel:[phone] [facility] Main Office No Information 9 Fabio Paul. [address], [place], [id number] , [place]. tel: [phone] Referring Provider: [place], [address]. tel:[phone] OFFICE/OUTPA TIENT VISIT, EST [facility] of , [address], [place], [id number], [place] tel:[phone] [facility] Main Office No Information 9 Fabio Paul. [address], [place], [address] , [place]. tel: [phone] Referring Provider: [place], [address]. tel:[phone] OFFICE/OUTPA TIENT VISIT, EST [facility] of , [address], [place], [id number], [place] tel:[phone] [facility] Main Office Follow Up of Neck Pain (chief complaint)Fo llow Up of Rheumatoid Arthritis (chief complaint)Fo llow up (chief complaint) RA w/o rheumatoid factor of multiple sitesOther spondylosis, cervical regionCervic algiaBody mass index (BMI) 33.0-33.9, adultOther auto polisher (current) drug therapyPain in left foot Sep-0 -201 9 Fabio Paul. [address], [place], [address] , [place]. tel:[phone] Leif Dominguezis, [address], [place], [address]. [phone] ng Provider: [place], [address]. tel:[phone] OFFICE/OUTPA TIENT VISIT, EST [facility] of , [address], [place], [id number], [place] tel:[phone] [facility] Main Office No Information 9 Fabio Paul. [address], [place], [id number] , [place]. tel: [phone] Referring Provider: Driss Glass [place], [place], . tel:[phone] OFFICE/OUTPA TIENT VISIT, EST [facility] of , [address], [place], [id number], [place] tel:[phone] [facility] Main Office No Information 9 Fabio Paul. [address], [place], [id number] , [place]. [phone] Referring Provider: [place], [address]. tel:[phone] OFFICE/OUTPA TIENT VISIT, EST [facility] of , [address], [place], [id number], [place] tel:[phone] [facility] Main Office No Information 9 Fabio Paul. [address], [place], [id number] , [place]. tel: [phone] Referring Provider: Gulshan Stewart, [address] [place], [address]. tel:[phone] [facility] of , [address], [place], [id number], [place] tel: [phone] [facility] Main Office No Information 9 Fabio Paul. [address], [place], [id number] , [place]. tel: [phone] OFFICE/OUTPA TIENT VISIT, EST [facility] of , [address], [place], [id number], [place] tel: [phone] [facility] Main Office Follow Up of Neck Pain (chief complaint)Fo llow Up of Rheumatoid Arthritis (chief complaint) RA w/o rheumatoid factor of multiple sitesOther auto polisher (current) drug therapyCervi calgiaOther spondylosis, cervical regionBody mass index (BMI) 33.0-33.9, adult 9 Fabio Paul. [address], [place], [id number] , [place]. tel: [phone] Leif Arrington, [address], [place], [address]. tel:[phone] ng Provider: Gulshan Stewart, [address] [place], [address]. tel:[phone] OFFICE/OUTPA TIENT VISIT, EST [facility] of , [address], [place], [address], [place] tel:[phone] [facility] Main Office No Information 9 Fabio Paul. [address], [place], [address] , [place]. tel: [phone] Referring Provider: Gulshan Stewart, [place], [address]. tel:[phone] OFFICE/OUTPA TIENT VISIT, EST [facility] of , [address], [place], [id number], [place] tel:[phone] [facility] Main Office Follow Up of Rheumatoid Arthritis (chief complaint) RA w/o rheumatoid factor of multiple sitesOther fci (current) drug therapyLong term (current) use of opiate analgesicBod y mass index (BMI) 33.0-33.9, adultPrimary generalized OA Apr-0 201 9 Fabio Paul. [address], [place], [id number] , [place]. tel:[phone] Leif Arrington, [address], [place], [address]. tel:[phone] ng Provider: Gulshan Stewart, [place], [address]. tel:[phone] OFFICE/OUTPA TIENT VISIT, EST [facility] of , [address], [place], [id number], [place] tel:[phone] [facility] Main Office No Information 9 Fabio Paul. [address], [place], [id number] , [place]. [phone] Referring Provider: Gulshan Stewart, [place], [address]. tel:[phone] OFFICE/OUTPA TIENT VISIT, EST [facility] of , [address], [place], [id number], [place] tel:[phone] [facility] Main Office No Information 9 Fabio Paul. [address], [place], [id number] , [place]. tel:[phone] Referring Provider: Gulshan Stewart, Edelmira2 Latoya Perry MD, . tel:[phone] OFFICE/OUTPA TIENT VISIT, EST [facility] of , [address], [place], [id number], [place] tel:[phone] [facility] Main Office No Information 9 Fabio Paul. [address], [place], [address] , [place]. tel:[phone] Referring Provider: Gulshan Stewart, Latoya Douglas MD, . tel:[phone] OFFICE/OUTPA TIENT VISIT, EST [facility] of , [address], [place], [id number], [place] tel:[phone] [facility] Main Office No Information 8 Fabio Paul. [address], [place], [address] , [place]. tel: [phone] Referring Provider: Gulshan Stewart, Latoya Douglas MD, . tel:[phone] OFFICE/OUTPA TIENT VISIT, EST [facility] of , [address], [place], [address], [place] tel:[phone] [facility] Main Office Follow Up of Rheumatoid Arthritis (chief complaint) RA w/o rheumatoid factor of multiple sitesOther fci (current) drug therapyBody mass index (BMI) 34.0-34.9, adultElevate d blood-pressu re reading, w/o diagnosis of htnPrimary OA of left knee 8 Fabio Paul. [address], [place], [id number] , [place]. tel:[phone] Leif Arrington, [address], [place], [address]. tel:[phone] ng Provider: Gulshan Stewart, [place], [address]. tel:[phone] OFFICE/OUTPA TIENT VISIT, EST [facility] of , [address], [place], [id number], [place] tel:[phone] [facility] Main Office No Information 5-201 8 Fabio Paul. [address], [place], [address] , [place]. tel:[phone] Referring Provider: [place], [address]. tel:[phone] OFFICE/OUTPA TIENT VISIT, EST [facility] of , [address], [place], [id number], [place] tel:[phone] [facility] Main Office No Information 8-201 8 Fabio Paul. [address], [place], [address] , [place]. tel:[phone] Referring Provider: Gulshan Stewart, [place], [address]. tel:[phone] OFFICE/OUTPA TIENT VISIT, EST [facility] of , [address], [place], [id number], [place] tel:[phone] [facility] Main Office No Information 0- 8 Fabio Paul. [address], [place], [id number] , [place]. tel:[phone] Referring Provider: [place], [address]. tel:[phone] OFFICE/OUTPA TIENT VISIT, EST [facility] of , [address], [place], [id number], [place] tel:[phone] [facility] Main Office Follow Up of Rheumatoid Arthritis (chief complaint) RA w/o rheumatoid factor of multiple sitesOther fci (current) drug therapyBody mass index (BMI) 32.0-32.9, adult Aug-0 6-201 8 Fabio Paul. [address], [place], [address] , [place]. tel:[phone] Leif Arrington, [address], [place], [address]. tel:[phone] ng Provider: Gulshan Stewart, [address] [place], [address]. tel:[phone] [facility] of , [address], [place], [id number], [place] tel:[phone] [facility] Main Office No Information 8 Fabio Paul. [address], [place], [address] , [place]. tel:[phone] Referring Provider: Gulshan Stewart, [address] [place], [address]. tel:[phone] OFFICE/OUTPA TIENT VISIT, EST [facility] of , [address], [place], [id number], [place] tel:[phone] [facility] Main Office No Information 8 Fabio Paul. [address], [place], [id number] , [place]. tel:[phone] Referring Provider: Gulshan Stewart, [address] [place], [address]. tel:[phone] OFFICE/OUTPA TIENT VISIT, EST [facility] of , [address], [place], [id number], [place] tel:[phone] [facility] Main Office Follow Up of Rheumatoid Arthritis (chief complaint) RA w/o rheumatoid factor of multiple sitesOther auto polisher (current) drug therapyLong term (current) use of opiate analgesicLon g term (current) use of non-steroida l anti-inflamm atories (NSAID) 8 Fabio Paul. [address], [place], [id number] , [place]. tel:[phone] Leif Arrington, [address], [place], [address]. tel:[phone] ng Provider: Gulshan Stewart, [place], [address]. tel:[phone] [facility] of , [address], [place], [id number], [place] tel:[phone] [facility] Main Office No Information 8 Fabio Paul. [address], [place], [id number] , [place]. tel: [phone] Referring Provider: Gulshan Stewart, [place], [address]. tel:[phone] [facility] of , [address], [place], [address], [place] tel:[phone] [facility] Main Office Follow Up of Rheumatoid Arthritis (chief complaint) RA w/o rheumatoid factor of multiple sitesOther fci (current) drug therapyLong term (current) use of non-steroida l anti-inflamm atories (NSAID) 8 Fabio Paul. [address], [place], [address] , [place]. tel: [phone] Leif Arrington, [address], [place], [address]. tel:[phone] ng Provider: Gulshan Stewart, [place], [address]. tel:[phone] [facility] of , [address], [place], [id number], [place] tel:[phone] [facility] Main Office No Information 8 Fabio Paul. [address], [place], [id number] , [place]. tel: [phone] Referring Provider: Gulshan Stewart, [address] [place], [address]. tel:[phone] [facility] of , [address], [place], [id number], [place] tel:[phone] [facility] Main Office No Information Fabio Paul. [address], [place], [id number] , [place]. tel: [phone] Referring Provider: Gulshan Stewart, [address] [place], [address]. tel:[phone] [facility] of , [address], [place], [address], [place] tel:[phone] [facility] Main Office No Information Fabio Paul. [address], [place], [address] , [place]. tel: [phone] Referring Provider: Gulshan Stewart, [address] [place], [address]. tel:[phone] OFFICE/OUTPA TIENT VISIT, EST [facility] of , [address], [place], [id number], [place] tel:[phone] [facility] Main Office Follow Up of Rheumatoid Arthritis (chief complaint) RA w/o rheumatoid factor of multiple sitesOther fci (current) drug therapy Fabio Paul. [address], [place], [id number] , [place]. tel: [phone] Leif Arrington, [address], [place], [address]. tel:[phone] ng Provider: Gulshan Stewart, [address] [place], [address]. tel:[phone] [facility] of , [address], [place], [id number], [place] tel:[phone] [facility] Main Office Follow Up of Rheumatoid Arthritis (chief complaint) RA w/o rheumatoid factor of multiple sitesOther auto polisher drug therapyBody mass index (BMI) 30.0-30.9, adult Dec- 7 Fabio Paul. [address], [place], [address] , [place]. tel:[phone] Leif Arrington, [address], [place], [address]. tel:[phone] OFFICE/OUTPA TIENT VISIT, EST [facility] of , [address], [place], [id number], [place] tel:[phone] [facility] Main Office Follow Up of Rheumatoid Arthritis (chief complaint) RA w/o rheumatoid factor of multiple sitesOther fci drug therapyBody mass index (BMI) 30.0-30.9, adult Nov- Fabio Paul. [address], [place], [id number] , [place]. tel:[phone] Leif Arrington, [address], [place], [address]. tel:[phone] Provider: Gulshan Stewart, [address] Mino[address] E, [place], [address]. tel:[phone] OFFICE/OUTPA TIENT VISIT, EST [facility] of , [address], [place], [id number], [place] tel:[phone] [facility] Main Office Follow Up of Rheumatoid Arthritis (chief complaint) RA w/o rheumatoid factor of multiple sitesOther fci drug therapyGener alized osteoarthrit isLong term (current) use of non-steroida l anti-inflamm atories (NSAID) 7 Fabio Paul. [address], [place], [id number] , [place]. tel:[phone] Leif Arrington, [address], [place], [address]. tel:[phone] masha Provider: Gulshan Stewart, [address] Latoya Perry MD, . tel:[phone] [facility] of , [address], [place], [address], [place] tel:[phone] [facility] Main Office No Information 7 Fabio Paul. [address], [place], [id number] , [place]. tel:[phone] Referring Provider: Gulshan Stewart, [address] Latoya Perry MD, . tel:[phone] OFFICE/OUTPA TIENT VISIT, EST [facility] of , [address], [place], [id number], [place] tel:[phone] [facility] Main Office Follow Up of Rheumatoid Arthritis (chief complaint) RA w/o rheumatoid factor of multiple sitesOther auto polisher drug therapyGener alized osteoarthrit isLong term (current) use of non-steroida l anti-inflamm atories (NSAID) Jul- 7 Fabio Paul. [address], [place], [address] , [place]. tel:[phone] Leif Arrington, [address], [place], [address]. tel:[phone] masha Provider: Gulshan Stewart, Edelmira2 Latoya Perry MD, . tel:[phone] [facility] of , [address], [place], [address], [place] tel:[phone] [facility] Main Office No Information 7 Fabio Paul. [address], [place], [id number] , [place]. tel:[phone] Referring Provider: Gulshan Stewart, [address] [place], [address]. tel:[phone] [facility] of , [address], [place], [id number], [place] tel:[phone] [facility] Main Office No Information Fabio Paul. [address], [place], [id number] , [place]. tel:[phone] Referring Provider: Gulshan Stewart, [address]2 [place], [address]. tel:[phone] [facility] , [address], [place], [id number], [place] tel:[phone] [facility] Main Office No Information Fabio Paul. [address], [place], [id number] , [place]. tel:[phone] Referring Provider: Gulshan Stewart, Edelmira2 [place], [address]. tel:[phone] [facility] of , [address], [place], [id number], [place] tel:[phone] [facility] Main Office Follow Up of Rheumatoid Arthritis (chief complaint) RA w/o rheumatoid factor of multiple sitesOther fci drug therapyGener alized osteoarthrit isLong term (current) use of non-steroida l anti-inflamm atories (NSAID)Troch anteric bursitis, right hipPain in right hip Fabio Paul. [address], [place], [id number] , [place]. tel: [phone] Leif Arrington, [address], [place], [address]. tel:[phone] ng Provider: Gulshan Stewart, Edelmira2 [place], [address]. tel:[phone] OFFICE/OUTPA TIENT VISIT, EST [facility] of , [address], [place], [id number], [place] tel:[phone] [facility] Main Office Follow Up of Rheumatoid Arthritis (chief complaint) RA w/o rheumatoid factor of multiple sitesOther auto polisher drug therapyGener alized osteoarthrit isLong term (current) use of non-steroida l anti-inflamm atories (NSAID) 7-201 6 Fabio Paul. [address], [place], [id number] , [place]. tel:[phone] Leif Arrington, [address], [place], [address]. tel:[phone] ng Provider: Gulshan Stewart, [place], [address]. tel:[phone] OFFICE/OUTPA TIENT VISIT, EST [facility] of , [address], [place], [id number], [place] tel:[phone] [facility] Main Office Follow Up of Rheumatoid Arthritis (chief complaint) RA w/o rheumatoid factor of multiple sitesOther auto polisher drug therapyGener alized osteoarthrit isLong term (current) use of non-steroida l anti-inflamm atories (NSAID) 6 Fabio Paul. [address], [place], [id number] , [place]. tel:[phone] Leif Arrington, [address], [place], [address]. tel:[phone] ng Provider: Gulshan Stewart, [address]2 [place], [address]. tel:[phone] OFFICE/OUTPA TIENT VISIT, EST [facility] of , [address], [place], [id number], [place] tel:[phone] [facility] Main Office Follow Up of Rheumatoid Arthritis (chief complaint) RA w/o rheumatoid factor of multiple sitesOther auto polisher drug therapyGener alized osteoarthrit isLong term (current) use of non-steroida l anti-inflamm atories (NSAID) 6 Fabio Paul. [address], [place], [id number] , [place]. tel:[phone] Leif Arrington, [address], [place], [address]. tel:[phone] ng Provider: Gulshan Stewart, [address], [place], [address]. tel:[phone] OFFICE/OUTPA TIENT VISIT, EST [facility] of , [address], [place], [id number], [place] tel:[phone] [facility] Main Office Follow Up of Rheumatoid Arthritis (chief complaint) RA w/o rheumatoid factor of multiple sitesOther auto polisher drug therapyGener alized osteoarthrit is 6 Fabio Paul. [address], [place], [id number] , [place]. tel:[phone] Leif Arrington, [address], [place], [address]. tel:[phone] ng Provider: Venus [address], [place], [address]. tel:[phone] OFFICE/OUTPA TIENT VISIT, EST [facility] of , [address], [place], [id number], [place] tel:[phone] [facility] Main Office Follow Up of Rheumatoid Arthritis (chief complaint) RA w/o rheumatoid factor of multiple sitesOther fci drug therapyGener alized osteoarthrit is 6 Fabio Paul. [address], [place], [id number] , [place]. tel:[phone] Leif Arrington, [address], [place], [address]. tel:[phone] masha Provider: Venus Montoya [address], [place], [address]. tel:[phone] OFFICE/OUTPA TIENT VISIT, EST [facility] of , [address], [place], [id number], [place] tel:[phone] [facility] Main Office Inflammatory Polyarthropa thy (chief complaint) Inflammatory polyarthropa thyGeneraliz ed osteoarthrit is 6 Fabio Paul. [address], [place], [id number] , [place]. tel:[phone] Leif Arrington, [address], [place], [address]. tel:[phone] ng Provider: Leif Gonzalez, [address], [place], [address]. tel:[phone] OFFICE/OUTPA TIENT VISIT, EST [facility] , [address], [place], [id number], [place] tel:[phone] [facility] Main Office Inflammatory Polyarthropa thy (chief complaint) Inflammatory polyarthropa thyPain in left hipPrimary generalized (osteo)arthr itisLong term (current) use of non-steroida l anti-inflamm atories (NSAID) 6 Fabio Paul. [address], [place], [id number] , [place]. tel:[phone] Leif Arrington, [address], [place], [address]. tel:[phone] masha Provider: Leif Gonzalez, [address], [place], [address]. tel:[phone] OFFICE/OUTPA TIENT VISIT, EST [facility] of , [address], [place], [id number], [place] tel:[phone] [facility] Main Office Osteoarthrit is (chief complaint) Primary generalized (osteo)arthr itisLong term (current) use of non-steroida l anti-inflamm atories (NSAID) 6 Fabio Paul. [address], [place], [id number] , [place]. tel:[phone] Referring Provider: Leif Gonzalez, [address], [place], [address]. tel:[phone] OFFICE/OUTPA TIENT VISIT, EST [facility] of , [address], [place], [id number], [place] tel:[phone] [facility] Main Office Follow Up of Osteoarthrit is (chief complaint) Osteoarthros is, generalized, involving unspecified siteDisorder s of bursae and tendons in shoulder region, unspecified Jul- 5 Fabio Paul. [address], [place], [id number] , [place]. tel:[phone] Referring Provider: Leif Gonzalez, [address], [place], [address]. tel:[phone] OFFICE/OUTPA TIENT VISIT, EST [facility] of , [address], [place], [id number], [place] tel:[phone] [facility] Main Office Follow Up of Right shoulder pain (chief complaint) Disorders of bursae and tendons in shoulder region, unspecifiedP ainful shoulder 4 Fabio Paul. [address], [place], [id number] , [place]. tel:[phone] Referring Provider: Leif Gonzalez, [address], [place], [address]. tel:[phone] OFFICE/OUTPA TIENT VISIT, EST [facility] of , [address], [place], [id number], [place] tel:[phone] [facility] Main Office No Information 4 Fabio Paul. [address], [place], [id number] , [place]. tel:[phone] Referring Provider: Peter Gonzalez, [address], [place], [address]. tel:[phone] OFFICE/OUTPA TIENT VISIT, EST [facility] of , [address], [place], [id number], [place] tel:[phone] [facility] Main Office Follow Up of Osteoarthrit is (chief complaint) Osteoarthrit is, GeneralizedL TU-TERM (CURRENT) USE OF NON-STEROIDA L ANTI-INFLAMM ATORIES 4 Fabio Paul. [address], [place], [id number] , [place]. tel:[phone] Referring Provider: Leif Gonzalez, [address], [place], [address]. tel:[phone] OFFICE/OUTPA TIENT VISIT, EST [facility] of , [address], [place], [id number], [place] tel:[phone] [facility] Main Office Osteoarthrit is (chief complaint) Disorders of bursae and tendons in shoulder region, unspecifiedO steoarthriti s, Generalized 4 Fabio Paul. [address], [place], [id number] , [place]. tel:[phone] Referring Provider: Leif Gonzalez, [address], [place], [address]. tel:[phone] OFFICE/OUTPA TIENT VISIT, EST [facility] of , [address], [place], [id number], [place] tel:[phone] [facility] Main Office Osteoarthrit is (chief complaint) Osteoarthrit is, GeneralizedD isorders of bursae and tendons in shoulder region, unspecifiedL TU-TERM (CURRENT) USE OF NON-STEROIDA L ANTI-INFLAMM ATORIES 4 Fabio Paul. [address], [place], [id number] , [place]. tel:[phone] Referring Provider: Leif Gonzalez [address], [place], [address]. tel:[phone] OFFICE/OUTPA TIENT VISIT, EST [facility] of , [address], [place], [id number], [place] tel:[phone] [facility] Main Office Osteoarthrit is (chief complaint) Osteoarthrit is, Generalized 3 Fabio Paul. [address], [place], [id number] , [place]. tel:[phone] Referring Provider: Leif Gonzalez, [address], [place], [address]. tel:[phone] OFFICE/OUTPA TIENT VISIT, EST [facility] of , [address], [place], [id number], [place] tel:[phone] [facility] Main Office for joint pain (chief complaint) Osteoarthrit is, GeneralizedA rticular cartilage disorder involving forearmRadia l styloid tenosynoviti s 3 Fabio Paul. [address], [place], [id number] , [place]. tel:[phone] Referring Provider: Leif Gonzalez, [address], [place], [address]. tel:[phone] OFFICE/OUTPA TIENT VISIT, NEW [facility] of , [address], [place], [id number], [place] tel:[phone] [facility] Main Office myalgia (chief complaint) Fatigue / MalaisePain in joint involving multiple sites 3 Fabio Paul. [address], [place], [id number] , [place]. tel:[phone] Referring Provider: Leif Gonzalez, [address], [place], [address]. tel:[phone] Family History Family Member Type Diagnosis Age At Onset Mother Problem (finding) alzheimer's disease Father Problem (finding) Heart disease Immunizations Vaccine Date Status Comments FLUAD HIGH DOSE administered Source: New Immunization Record Flucelvax Quad administered Maritza rce: New Immunization Record FLUCELVAX QUAD administered Maritza rce: New Immunization Record Influenza, injectable, MDCK, preservative free, 0.5 mL dosage, Flucelvax Quad administered Source: Other Provid er Flu (split) (3 yrs or older) administered Source: Other Provider Pneumococcal conjugate PCV 13 administere d Source: Other Provider Pneumo (2 yrs or older) (PPV23) administered Source: Source Unspe cified Payers Payer name Insurance type Covered libertarian ID Authoriza tion(s) Medicare MB [id number] [employer] [place] [id number] Medicare MB [id number] [employer] [place] [id number] Medicare MB [id number] [employer] [place] [id number] Medicare MB [id number] [employer] [place] [id number] Social History Type Description Quantity Date Captured Comments Sex Female Smoking Status No Information Vital Signs Date / Time: Height Weight BMI Pulse Rate Blood Pressure Temperature Respiratory Rate Body Surface Area Head Circumference Head Circ. Percentile Wt./J [place]. Percentile BMI percentile Pulse Ox Inhaled Ox 12:19 PM 72.120 kg (159.00 lbs) 12:09 PM 72.273 kg (159.00 lbs) 67 /min 71/42 mm[Hg] 1:15 PM 72.273 kg (159.00 lbs) 55 /min 83/49 mm[Hg] Chief Complaint And Reason For Visit No Information Reason For Referral Reason For Referral No Information Plan Of Treatment Date Type Action Status Goal Dietary manageme nt education, guidance, and counseling completed Goal Dietary manageme nt education, guidance, and counseling completed Goal Dietary manageme nt education, guidance, and counseling completed Goal Dietary manageme nt education, guidance, and counseling completed Goal Dietary manageme nt education, guidance, and counseling completed Goal Dietary manageme nt education, guidance, and counseling completed Goal Dietary manageme nt education, guidance, and counseling completed Goal Dietary manageme nt education, guidance, and counseling completed Goal Dietary manageme nt education, guidance, and counseling completed Goal Dietary manageme nt education, guidance, and counseling completed Goal Dietary manageme nt education, guidance, and counseling completed Goal Dietary manageme nt education, guidance, and counseling completed Goal Dietary manageme nt education, guidance, and counseling completed Goal Dietary manageme nt education, guidance, and counseling completed Goal Dietary manageme nt education, guidance, and counseling completed Goal Dietary manageme nt education, guidance, and counseling completed Goal Dietary manageme nt education, guidance, and counseling completed Goal Lifestyle education regardin g diet completed Referral Ordered: Toan Berry -[facility]opathic [facility]opathic Physicians : Anesthesiology (related to Generalized OA) ordered Referral Referred To: Toan Berry [address] [place], [phone] Ordered: Referrals: [facility]opathic [facility] Osteopathic Physicians : Anesthesiology. Toan Berry. Consult ordered Referral Ordered: Madi Holder -[facility] : Internal Medicine : Nephrology (related to CKD) ordered Referral Referred To: Madi Holder [address] [facility]
[address] [place], [phone] Ordered: Referrals: Allopathic & Osteopathic Physicians : Internal Medicine : Nephrology. Madi Holder. Consult ordered Referral Ordered: MRI JOINT UPR EXTR W/O&W/DYE Right hand ordered Referral Ordered: X-RAY EXAM OF HAND Bilateral hand ordered Referral Ordered: X-RAY Hip Bilat Complete Bilateral hip ordered Patient Education Actemra 200 mg/10 mL (2 0 mg/mL) intra~ completed Patient Education prednisone 5 mg tablet completed Patient Education Neck Pain: After Your V isit completed Patient Education Orencia (with maltose) 250 mg intrave~ completed Patient Education Orencia (with maltose) 250 mg intrave~ completed Patient Education Rheumatoid Arthritis: A fter Your Visit completed Patient Education Rheumatoid Arthritis: A fter Your Visit completed Patient Education Rheumatoid Arthritis: A fter Your Visit completed Patient Education Rheumatoid Arthritis: A fter Your Visit completed Patient Education Rheumatoid Arthritis: A fter Your Visit completed Patient Education Rheumatoid Arthritis: A fter Your Visit completed Patient Education Rheumatoid Arthritis: A fter Your Visit completed Patient Education Osteoarthritis: After Y our Visit completed Patient Education Rheumatoid Arthritis: A fter Your Visit completed Patient Education Rheumatoid Arthritis: A fter Your Visit completed Patient Education Rheumatoid Arthritis: A fter Your Visit completed Patient Education Osteoarthritis: After Y our Visit completed Patient Education Rheumatoid Arthritis: A fter Your Visit completed Patient Education Rheumatoid Arthritis: A fter Your Visit completed Patient Education Hip Pain: After Your Vi sit completed Patient Education Hip Pain: After Your Vi sit completed Patient Education Osteoarthritis: After Y our Visit completed Patient Education Osteoarthritis: After Y our Visit completed Patient Education Shoulder Arthritis: Exe rcises completed Patient Education Osteoarthritis: After Y our Visit completed Future Order: Lab Order Lipid Pa rashard ([id number]), Ordered on: Ordered Future Order: Lab Order COMPREHE NSIVE METABOLIC PANEL (CMP), Collected on: , Sent on: Sent Future Order: Lab Order CBC Diff erential And Platlet (CBC PLT DIFF), Ordered on: Ordered Future Order: Lab Order CMP ([id number]), Orde red on: Ordered Future Order: Lab Order CBC Diff erential And Platlet (CBC PLT DIFF), Collected on: Ordered Future Order: Lab Order CMP ([id number]), Wally ected on: Ordered Future Order: Lab Order CBC Diff erential And Platlet (CBC PLT DIFF), Collected on: Ordered Future Order: Lab Order Comprehe nsive Metabolic Panel (CMP), Collected on: Ordered Future Order: Lab Order CBC Diff erential And Platlet (CBC PLT DIFF), Collected on: Ordered Future Order: Lab Order Comprehe nsive Metabolic Panel (CMP), Collected on: Ordered Future Order: Lab Order CBC Diff erential And Platlet (CBC PLT DIFF), Ordered on: Ordered Future Order: Lab Order CRISTOFER/9 (CRISTOFER/9), Or dered on: Ordered Future Order: Lab Order ANAscr ( ANAscr), Ordered on: Ordered Future Order: Lab Order Comprehe nsive Metabolic Panel (CMP), Ordered on: Ordered Future Order: Lab Order RF/3 (RF/3), Orde red on: Ordered Future Order: Lab Order CCP (cCP), Collec tisha on: Ordered History Of Present Illness Encounter Date Complaint History Of Prese nt Illness Follow Up of GOA Follow Up of RA Follow Up of GOA Follow Up of RA Follow Up of GOA Follow Up of RA Follow Up of GOA Follow Up of RA Follow Up of GOA Follow Up of RA Follow Up of GOA Follow Up of RA Follow Up of GOA Follow Up of RA Follow Up of GOA Follow Up of RA Follow Up of GOA Follow Up of RA Follow Up of GOA Follow Up of RA Follow Up of Rheumatoid Arthriti s Follow Up of Generalized OA Follow Up of Rheumatoid Arthriti s Follow Up of Generalized OA Follow Up of Rheumatoid Arthriti s Follow Up of Generalized OA Follow Up of Rheumatoid Arthriti s Follow Up of Generalized OA Follow Up of Rheumatoid Arthriti s Follow Up of Generalized OA Follow Up of Rheumatoid Arthriti s Follow Up of Generalized OA Follow Up of Rheumatoid Arthriti s Follow Up of Rheumatoid Arthriti s Follow Up of Rheumatoid Arthriti s Follow up The reason for t his visit is continuing management of chronic conditions. Current most prominent symptom is Knees, shoulder. Duration of worst symptom is not listed. The most painful joint is the Knees with no other joints being mentioned at this time. The intensity of the pain is a 2 on a scale from 0-10. There was not mention of morning stiffness. Patient stated at this time there are no recent changes to her health. Follow Up of Rheumatoid Arthriti s Follow Up of Neck Pain Follow Up of Rheumatoid Arthriti s Follow up The reason for t his visit is continuing management of chronic conditions. Duration since last visit has been 1 months. Current most prominent symptom is shoulder right knee, and left hip. Duration of worst symptom is not listed. There was not mention of morning stiffness. Patient stated at this time there are no recent changes to her health. Follow Up of Neck Pain Follow Up of Rheumatoid Arthriti s Follow Up of Rheumatoid Arthriti s Follow Up of Rheumatoid Arthriti s Follow Up of Rheumatoid Arthriti s Follow Up of Rheumatoid Arthriti s Follow Up of Rheumatoid Arthriti s Follow Up of Rheumatoid Arthriti s Follow Up of Rheumatoid Arthriti s Follow Up of Rheumatoid Arthriti s Follow Up of Rheumatoid Arthriti s Follow Up of Rheumatoid Arthriti s Follow Up of Rheumatoid Arthriti s Follow Up of Rheumatoid Arthriti s Follow Up of Rheumatoid Arthriti s Follow Up of Rheumatoid Arthriti s Follow Up of Rheumatoid Arthriti s Follow Up of Rheumatoid Arthriti s Inflammatory Polyarthropathy Inflammatory Polyarthropathy Osteoarthritis Follow Up of Osteoarthritis Follow Up of Right shoulder pain Follow Up of Osteoarthritis Functional Status Date Functional Assessmen t No Information Instructions Date Instruction Additional Infor mation Dietary management e ducation, guidance, and counseling Related to Body mass index [BMI] 29.0-29.9, adult Dietary management e ducation, guidance, and counseling Related to Body mass index [BMI] 29.0-29.9, adult Dietary management e ducation, guidance, and counseling Related to Body mass index [BMI] 29.0-29.9, adult Diet education (procedure) Relat ed to Elevated blood-pressure reading, without diagnosis of hypertension Labs reviewed and discussed Dietary management e ducation, guidance, and counseling Related to Body mass index [BMI] 31.0-31.9, adult Diet education (procedure) Relat ed to Elevated blood-pressure reading, without diagnosis of hypertension Dietary management e ducation, guidance, and counseling Related to Body mass index [BMI] 30.0-30.9, adult Dietary management e ducation, guidance, and counseling Related to Body mass index [BMI] 30.0-30.9, adult Diet education (procedure) Relat ed to Elevated blood-pressure reading, without diagnosis of hypertension Weight monitoring Related to Bod y mass index [BMI] 31.0-31.9, adult Labs reviewed and discussed Dietary management e ducation, guidance, and counseling Related to Body mass index [BMI] 30.0-30.9, adult Labs reviewed and discussed Labs reviewed and discussed Labs reviewed and discussed Dietary management e ducation, guidance, and counseling Related to Body mass index [BMI] 33.0-33.9, adult Dietary management e ducation, guidance, and counseling Related to Body mass index [BMI] 33.0-33.9, adult Dietary management e ducation, guidance, and counseling Related to Body mass index [BMI] 33.0-33.9, adult Weight monitoring Related to Bod y mass index [BMI] 34.0-34.9, adult Dietary management e ducation, guidance, and counseling Related to Body mass index [BMI] 33.0-33.9, adult Dietary management e ducation, guidance, and counseling Related to Body mass index [BMI] 34.0-34.9, adult Diet education (procedure) Relat ed to Elevated blood-pressure reading, without diagnosis of hypertension Weight monitoring Related to Bod y mass index (BMI) 30.0-30.9, adult Weight monitoring Related to Bod y mass index (BMI) 34.0-34.9, adult Dietary management e ducation, guidance, and counseling Related to Body mass index (BMI) 34.0-34.9, adult Recommendation to exercise Relat ed to Elevated blood-pressure reading, without diagnosis of hypertension Diet education (procedure) Relat ed to Elevated blood-pressure reading, without diagnosis of hypertension Weight monitoring Related to Bod y mass index (BMI) 33.0-33.9, adult Weight monitoring Related to Bod y mass index (BMI) 33.0-33.9, adult Dietary management e ducation, guidance, and counseling Related to Body mass index (BMI) 33.0-33.9, adult Weight monitoring Related to Bod y mass index (BMI) 33.0-33.9, adult Dietary management e ducation, guidance, and counseling Related to Body mass index (BMI) 33.0-33.9, adult Weight loss advised Related to E levated blood-pressure reading, without diagnosis of hypertension Weight monitoring Related to Bod y mass index (BMI) 34.0-34.9, adult Dietary management e ducation, guidance, and counseling Related to Body mass index (BMI) 34.0-34.9, adult Recommendation to exercise Relat ed to Elevated blood-pressure reading, without diagnosis of hypertension Diet education (procedure) Relat ed to Elevated blood-pressure reading, without diagnosis of hypertension Giving encouragement to exercise Related to Body mass index (BMI) 32.0-32.9, adult Dietary management e ducation, guidance, and counseling Related to Body mass index (BMI) 32.0-32.9, adult Giving encouragement to exercise Related to Body mass index (BMI) 30.0-30.9, adult Lifestyle education regarding di et Related to Body mass index (BMI) 30.0-30.9, adult Encourage to loose weight Encourage to loose weight Encourage to loose weight Labs reviewed and discussed Call if symptoms persist Risks/benefits of medications re viewed Exercise more Post injection care reviewed, intructions given Exercise more Risks/benefits of medications re viewed Assessments Type Assessment Date No Information Patient Care Teams Name Effective Dates (start - stop) Status Members No Information
--- OUTSIDE RECORDS SUMMARY | 2024-11-28 06:00 | XMS_ITS | Continuity of Care Document ---
Author Organization [facility]it Address [address] [place] [address] Phone Care Team Providers Care [employer] Worker Name Role Phone Fabio MANCINI, Paul Unavailable Unavailable Allergies, Adverse Reactions, Alerts Substance Reaction Status Criticality No Known Allergies Active No Inform ation Medications Medication Instructions Dosage Effective Dates (start - stop) Status Comments ergocalciferol (vitamin D2) 1,250 mcg (50,000 unit) capsule take 1 capsule by oral route every week 54650 UNITS - Active Simponi ARIA 12.5 mg/mL [...] Providers Copied on Encounter OFFICE/OUTPA TIENT VISIT, [facility] of , [address], [place], [id number], [place] tel:[phone] [facility] Main Office No Information Fabio Miller. [address], [place], [id number] , [place]. tel:[phone] Referring Provider: Rosalba Shaw, [address], [place], [address]. tel:[phone] OFFICE/OUTPA TIENT VISIT, EST [facility] anjelica MANCINI, [address], [place], [id number], [place] tel:[phone] [facility] Main Office Age-related osteoporosis without current pathological fracture 5 Fabio Paul. [address], [place], [id number] , [place]. tel:[phone] Referring Provider: Pilo Hinojosa, [address], [place], [address]. 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 [address], [place], [id number] , [place]. tel:[phone] Leif Arrington, [address], [place], [address]. tel:[phone] ist: Madi Gallo, [address] [facility] [address], [place], [address]. tel:[phone] ist: Sunni Ackerman, [address] [facility] [address], [place], [address]. tel:[phone] ng Provider: Pilo Hinojosa, [address], [place], [address]. tel:[phone] [facility] of , [address], [place], [id number], [place] tel:[phone] [facility] Main Office No Information 5 Fabio Paul. [address], [place], [id number] , [place]. 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 [address], [place], [id number] , [place]. tel:[phone] Leif Arrington, [address], [place], [address]. tel:[phone] ist: Madi Holder, [address] [facility] [address], [place], [address]. tel:[phone] ist: Sunni Ackerman, [address] [facility] [address], [place], [address]. tel:[phone] ng Provider: Rosalba Shaw, [address], [place], [address]. tel:[phone] OFFICE/OUTPA TIENT VISIT, EST [facility] of , [address], [place], [id number], [place] tel:[phone] [facility] Main Office No Information Jul- 5 Fabio Miller. [address], [place], [id number] , [place]. tel:[phone] Referring Provider: Pilo Hinojosa, [address] [facility] [address], [place], [address]. tel:[phone] OFFICE/OUTPA TIENT VISIT, EST [facility] of , [address], [place], [id number], [place] tel:[phone] [facility] Main Office Follow Up [...] [address], [place], [id number] , [place]. tel:[phone] Leif Arrington, [address], [place], [address]. tel:[phone] ist: Madi Holder, [address], [place], [address]. tel:[phone] ist: Sunni Ackerman, [address] [facility] [address], [place], [address]. tel:[phone] ng Provider: Rosalba Shaw, [address], [place], [address]. tel:[phone] OFFICE/OUTPA TIENT VISIT, EST [facility] of , [address], [place], [id number], [place] tel:[phone] [facility] Main Office No Information 4 Fabio Miller. [address], [place], [id number] , [place]. tel:[phone] Referring Provider: Pilo Hinojosa, [address] [facility] [address], [place], [address]. tel:[phone] OFFICE/OUTPA TIENT VISIT, EST [facility] of , [address], [place], [id number], [place] tel:[phone] [facility] Main Office Follow Up [...] [address], [place], [address] , [place]. tel:[phone] Leif Arrington, [address], [place], [address]. tel:[phone] ist: Madi Holder, [address], [place], [address]. tel:[phone] ist: Sunni Ackerman, [address] [facility] [address], [place], [address]. tel:[phone] ng Provider: Pilo Hinojosa, [address] [place] [address] [address], [place], [address]. tel:[phone] OFFICE/OUTPA TIENT VISIT, EST [facility] of , [address], [place], [id number], [place] tel:[phone] [facility] Main Office No Information 4 Fabio Paul. [address], [place], [id number] , [place]. tel:[phone] Referring Provider: Pilo Hinojosa, [address] [place] [address] [address], [place], [address]. [phone] OFFICE/OUTPA TIENT VISIT, EST [facility] of , [address], [place], [id number], [place] tel:[phone] [facility] Main Office No Information 4 Fabio Paul. [address], [place], [address] , [place]. tel:[phone] Referring Provider: Pilo Hinojosa, [address] [facility] [address], [place], [address]. 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 [address], [place], [id number] , [place]. tel:[phone] Leif Arrington, [address], [place], [address]. tel:[phone] ist: Madi Holder, [address], [place], [address]. tel:[phone] ist: Sunni Ackerman, [address], [place], [address]. tel:[phone] ng Provider: Pilo Hinojosa, [address], [place], [address]. tel:[phone] OFFICE/OUTPA TIENT VISIT, EST [facility] of , [address], [place], [address], [place] tel:[phone] [facility] Main Office No Information 4 Fabio Paul. [address], [place], [id number] , [place]. tel:[phone] Referring Provider: Pilo Hinojosa, [address], [place], [address]. tel:[phone] OFFICE/OUTPA TIENT VISIT, EST [facility] of , [address], [place], [id number], [place] tel:[phone] [facility] Main Office No Information 4 Fabio Paul. [address], [place], [id number] , [place]. tel:[phone] Referring Provider: Pilo Hinojosa, [address], [place], [address]. tel:[phone] OFFICE/OUTPA TIENT VISIT, EST [facility] of , [address], [place], [id number], [place] tel:[phone] [facility] Main Office No Information 4 Fabio Paul. [address], [place], [id number] , [place]. tel:[phone] Referring Provider: Pilo Hinojosa, [address], [place], [address]. tel:[phone] OFFICE/OUTPA TIENT VISIT, EST [facility] of , [address], [place], [id number], [place] tel:[phone] [facility] Main Office Follow Up [...] [address], [place], [address] , [place]. tel:[phone] Leif Arrington, [address], [place], [address]. tel:[phone] ist: Madi Holder, [address], [place], [address]. tel:[phone] ist: Sunni Ackerman, [address], [place], [address]. tel:[phone] ng Provider: Pilo Hinojosa, [address], [place], [address]. tel:[phone] OFFICE/OUTPA TIENT VISIT, EST [facility] of , [address], [place], [id number], [place] tel:[phone] [facility] Main Office No Information 4 Fabio Paul. [address], [place], [id number] , [place]. tel:[phone] Referring Provider: Pilo Hinojosa, [address], [place], [address]. tel:[phone] OFFICE/OUTPA TIENT VISIT, EST [facility] of , [address], [place], [id number], [place] tel:[phone] [facility] Main Office No Information 3 Fabio Paul. [address], [place], [address] , [place]. tel:[phone] Referring Provider: Pilo Hinojosa, [address], [place], [address]. tel:[phone] [facility] of , [address], [place], [address], [place] tel:[phone] [facility] Main Office No Information 3 Fabio Paul. [address], [place], [id number] , [place]. 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 [address], [place], [address] , [place]. tel:[phone] Leif Arrington, [address], [place], [address]. tel:[phone] ist: Madi Holder, [address], [place], [address]. tel:[phone] ist: Sunni Ackerman, [address], [place], [address]. tel:[phone] ng Provider: Pilo Hinojosa, [address], [place], [address]. tel:[phone] [facility] of , [address], [place], [id number], [place] tel:[phone] [facility] Main Office No Information 0 3 Fabio Paul. [address], [place], [address] , [place]. tel:[phone] OFFICE/OUTPA TIENT VISIT, EST [facility] of , [address], [place], [id number], [place] tel:[phone] [facility] Main Office No Information 3 Fabio Paul. [address], [place], [address] , [place]. tel:[phone] Referring Provider: Pilo Hinojosa, [address], [place], [address]. tel:[phone] OFFICE/OUTPA TIENT VISIT, EST [facility] of , [address], [place], [address], [place] tel:[phone] [facility] Main Office No Information 3 Fabio Paul. [address], [place], [id number] , [place]. tel:[phone] Referring Provider: Pilo Hinojosa, [address], [place], [address]. tel:[phone] OFFICE/OUTPA TIENT VISIT, EST [facility] of , [address], [place], [id number], [place] tel:[phone] [facility] Main Office No Information 3 Fabio Paul. [address], [place], [address] , [place]. tel:[phone] Referring Provider: Pilo Hinojosa, [address], [place], [address]. tel:[phone] OFFICE/OUTPA TIENT VISIT, EST [facility] of , [address], [place], [id number], [place] tel:[phone] [facility] Main Office No Information 3 Fabio Paul. [address], [place], [address] , [place]. tel:[phone] Referring Provider: Pilo Hinojosa, [address], [place], [address]. tel:[phone] OFFICE/OUTPA TIENT VISIT, EST [facility] of , [address], [place], [id number], [place] tel:[phone] [facility] Main Office Follow Up of GOA (chief complaint)Fo llow Up of RA (chief complaint) Immunodefici ency due to drugsRA w/o rheumatoid factor of multiple sitesGeneral ized OAPain in unspecified jointCKDLong term (current) use of immunosuppre ssive biologicBody mass index (BMI) 30.0-30.9, adult 3 Fabio Paul. [address], [place], [id number] , [place]. tel:[phone] Leif Arrington, [address], [place], [address]. tel:[phone] ist: Madi Holder, [address], [place], [address]. tel:[phone] ist: Sunni Ackerman [address], [place], [address]. tel:[phone] ng Provider: Pilo Hinojosa, [address], [place], [address]. tel:[phone] OFFICE/OUTPA TIENT VISIT, EST [facility] of , [address], [place], [id number], [place] tel:[phone] [facility] Main Office No Information 3 Fabio Paul. [address], [place], [address] , [place]. tel:[phone] Referring Provider: Pilo Hinojosa, [address], [place], [address]. tel:[phone] OFFICE/OUTPA TIENT VISIT, EST [facility] of , [address], [place], [id number], [place] tel:[phone] [facility] Main Office No Information 3 Fabio Paul. [address], [place], [address] , [place]. tel:[phone] Referring Provider: Pilo Hinojosa, [address], [place], [address]. tel:[phone] OFFICE/OUTPA TIENT VISIT, EST [facility] of , [address], [place], [address], [place] tel:[phone] [facility] Main Office No Information 3 Fabio Paul. [address], [place], [address] , [place]. tel:[phone] Referring Provider: Pilo Hinojosa, [address], [place], [address]. tel:[phone] OFFICE/OUTPA TIENT VISIT, EST [facility] of , [address], [place], [id number], [place] tel:[phone] [facility] Main Office No Information Jul-0 3 Fabio Paul. [address], [place], [address] , [place]. tel:[phone] Referring Provider: Pilo Hinojosa, [address], [place], [address]. tel:[phone] OFFICE/OUTPA TIENT VISIT, EST [facility] of , [address], [place], [id number], [place] tel:[phone] [facility] Main Office Follow Up of GOA (chief complaint)Fo llow Up of RA (chief complaint) Immunodefici ency due to drugsRA w/o rheumatoid factor of multiple sitesGeneral ized OACKDLong term (current) use of immunosuppre ssive biologicPain in unspecified joint Jun-2 3 Fabio Paul. [address], [place], [id number] , [place]. tel:[phone] Leif Arrington, [address], [place], [address]. tel:[phone] ist: Madi Gallo, [address], [place], [address]. tel:[phone] ist: Sunni Ackerman, [address], [place], [address]. tel:[phone] ng Provider: Pilo Hinojosa, [address], [place], [address]. tel:[phone] OFFICE/OUTPA TIENT VISIT, EST [facility] of , [address], [place], [id number], [place] tel:[phone] [facility] Main Office No Information 0 3 Fabio Paul. [address], [place], [address] , [place]. tel:[phone] Referring Provider: Pilo Hinojosa, [address], [place], [address]. tel:[phone] OFFICE/OUTPA TIENT VISIT, EST [facility] of , [address], [place], [address], [place] tel:[phone] [facility] Main Office No Information 3 Fabio Paul. [address], [place], [address] , [place]. tel: [phone] Referring Provider: Gulshan Stewart, [place], [address]. tel:[phone] OFFICE/OUTPA TIENT VISIT, EST [facility] of , [address], [place], [address], [place] tel:[phone] [facility] Main Office No Information 3 Fabio Paul. [address], [place], [id number] , [place]. tel: [phone] Referring Provider: Gulshan Stewart, [address]2 Latoya [place] MD, . tel:[phone] OFFICE/OUTPA TIENT VISIT, EST [facility] of , [address], [place], [id number], [place] tel:[phone] [facility] Main Office Follow Up of GOA (chief complaint)Fo llow Up of RA (chief complaint) Immunodefici ency due to drugsRA w/o rheumatoid factor of multiple sitesGeneral ized OACervicalgi aCKDLong term (current) use of opiate analgesicLon g term (current) use of immunosuppre ssive biologic 2 Fabio Paul. [address], [place], [address] , [place]. tel: [phone] Leif Arrington, [address], [place], [address]. tel:[phone] ist: Madi Holder, [address], [place], [address]. tel:[phone] ng Provider: Gulshan Stewart, [address] [place], [address]. tel:[phone] OFFICE/OUTPA TIENT VISIT, EST [facility] of , [address], [place], [address], [place] tel: [phone] [facility] Main Office No Information 2 Fabio Paul. [address], [place], [address] , [place]. tel:[phone] Referring Provider: Gulshan Stewart, [place], [address]. tel:[phone] OFFICE/OUTPA TIENT VISIT, EST [facility] of , [address], [place], [id number], [place] tel:[phone] [facility] Main Office No Information 2 Fabio Paul. [address], [place], [address] , [place]. tel: [phone] Referring Provider: Gulshan Stewart, [address] [place], [address]. tel:[phone] OFFICE/OUTPA TIENT VISIT, EST [facility] of , [address], [place], [address], [place] tel:[phone] [facility] Main Office No Information 2 Fabio Paul. [address], [place], [id number] , [place]. tel: [phone] Referring Provider: Gulshan Stewart, [address] [place], [address]. tel:[phone] OFFICE/OUTPA TIENT VISIT, EST [facility] of , [address], [place], [id number], [place] tel:[phone] [facility] Main Office Follow Up of Rheumatoid Arthritis (chief complaint)Fo llow Up of Generalized OA (chief complaint) Immunodefici ency due to drugsRA w/o rheumatoid factor of multiple sitesGeneral ized OACervicalgi aCKDLong term (current) use of opiate analgesicOth er alf (current) drug therapyBody mass index (BMI) 33.0-33.9, adult 2 Fabio Paul. [address], [place], [address] , [place]. tel:[phone] Leif Arrington, [address], [place], [address]. tel:[phone] ist: Madi Holder, [address], [place], [address]. tel:[phone] ng Provider: Gulshan Stewart, [place], [address]. tel:[phone] OFFICE/OUTPA TIENT VISIT, EST [facility] of , [address], [place], [id number], [place] tel:[phone] [facility] Main Office No Information 2 Fabio Miller. [address], [place], [id number] , [place]. tel:[phone] Referring Provider: Gulshan Stewart, [place], [address]. tel:[phone] OFFICE/OUTPA TIENT VISIT, EST [facility] of , [address], [place], [address], [place] tel:[phone] [facility] Main Office No Information 2 Fabio Paul. [address], [place], [address] , [place]. tel:[phone] Referring Provider: Gulshan Stewart, [place], [address]. tel:[phone] OFFICE/OUTPA TIENT VISIT, EST [facility] of , [address], [place], [id number], [place] tel:[phone] [facility] Main Office No Information 2 Fabio Paul. [address], [place], [address] , [place]. tel:[phone] Referring Provider: Gulshan Stewart, [address] [place], [address]. tel:[phone] OFFICE/OUTPA TIENT VISIT, EST [facility] of , [address], [place], [id number], [place] tel:[phone] [facility] Main Office No Information 2 Fabio Paul. [address], [place], [address] , [place]. tel:[phone] Referring Provider: Pilo Hinojosa, [address] [facility] [address], [place], [address]. tel:[phone] OFFICE/OUTPA TIENT VISIT, EST [facility] of , [address], [place], [id number], [place] tel:[phone] [facility] Main Office No Information 2 Fabio Paul. [address], [place], [id number] , [place]. tel:[phone] Referring Provider: Gulshan Stewart, [address] [place], [address]. tel:[phone] OFFICE/OUTPA TIENT VISIT, EST [facility] of , [address], [place], [address], [place] tel:[phone] [facility] Main Office Follow Up of Rheumatoid Arthritis (chief complaint)Fo llow Up of Generalized OA (chief complaint) Immunodefici ency due to drugsRA w/o rheumatoid factor of multiple sitesGeneral ized OALong term (current) use of opiate analgesicOth er terminologist (current) drug therapyCKDCe rvicalgia 2 Fabio Paul. [address], [place], [address] , [place]. tel: [phone] Leif Arrington, [address], [place], [address]. tel: [phone] ng Provider: Gulshan Stewart, [address] [place], [address]. tel: [phone] OFFICE/OUTPA TIENT VISIT, EST [facility] of , [address], [place], [id number], [place] tel: [phone] [facility] Main Office No Information 2 Fabio Paul. [address], [place], [address] , [place]. tel: [phone] Referring Provider: Gulshan Stewart, [address] [place], [address]. tel: [phone] OFFICE/OUTPA TIENT VISIT, EST [facility] of , [address], [place], [id number], [place] tel: [phone] [facility] Main Office No Information 2 Fabio Paul. [address], [place] [place], [id number] , [place]. tel: [phone] Referring Provider: Gulshan Stewart, [address] [place], [address]. tel:[phone] OFFICE/OUTPA TIENT VISIT, EST [facility] of , [address], [place], [id number], [place] tel: [phone] [facility] Main Office No Information 1 Fabio Paul. [address], [place], [id number] , [place]. tel: [phone] Referring Provider: Gulshan Stewart, [address] [place], [address]. tel:[phone] OFFICE/OUTPA TIENT VISIT, EST [facility] of , [address], [place], [id number], [place] tel:[phone] [facility] Main Office No Information 1 Fabio Paul. [address], [place], [id number] , [place]. tel: [phone] Referring Provider: [place], [address]. tel:[phone] OFFICE/OUTPA TIENT VISIT, EST [facility] of , [address], [place], [id number], [place] tel:[phone] [facility] Main Office No Information 1 Fabio Paul. [address], [place], [id number] , [place]. tel: [phone] Referring Provider: Driss Glass [place], [place], . tel:[phone] OFFICE/OUTPA TIENT VISIT, EST [facility] of , [address], [place], [id number], [place] tel:[phone] [facility] Main Office Follow Up of Rheumatoid Arthritis (chief complaint)Fo llow Up of Generalized OA (chief complaint) Immunodefici ency due to drugsRA w/o rheumatoid factor of multiple sitesGeneral ized OALong term (current) use of opiate analgesicOth er alf (current) drug therapyEncou nter for immunization Body mass index (BMI) 33.0-33.9, adult 1 Fabio Paul. [address], [place], [id number] , [place]. tel:[phone] Leif Arrington, [address], [place], [address]. tel:[phone] ng Provider: Gulshan Stewart, [place], [address]. tel:[phone] OFFICE/OUTPA TIENT VISIT, EST [facility] of , [address], [place], [id number], [place] tel:[phone] [facility] Main Office No Information 1 Fabio Paul. [address], [place], [address] , [place]. tel: [phone] Referring Provider: Gulshan Stewart, [place], [address]. tel:[phone] OFFICE/OUTPA TIENT VISIT, EST [facility] of , [address], [place], [id number], [place] tel: [phone] [facility] Main Office No Information 1 Fabio Paul. [address], [place], [id number] , [place]. tel: [phone] Referring Provider: Gulshan Stewart, [address] [place], [address]. tel:[phone] [facility] of , [address], [place], [id number], [place] tel: [phone] [facility] Main Office No Information 1 Fabio Paul. [address], [place], [id number] , [place]. tel: [phone] Referring Provider: Gulshan Stewart, [address] [place], [address]. tel:[phone] OFFICE/OUTPA TIENT VISIT, EST [facility] of , [address], [place], [id number], [place] tel:[phone] [facility] Main Office No Information 1 Fabio Paul. [address], [place], [id number] , [place]. tel: [phone] Referring Provider: Gulshan Stewart, [address] [place], [address]. tel:[phone] OFFICE/OUTPA TIENT VISIT, EST [facility] of , [address], [place], [id number], [place] tel:[phone] [facility] Main Office Follow Up of Rheumatoid Arthritis (chief complaint)Fo llow Up of Generalized OA (chief complaint) Immunodefici ency due to drugsRA w/o rheumatoid factor of multiple sitesGeneral ized OALong term (current) use of opiate analgesicOth er terminologist (current) drug therapyBody mass index (BMI) 34.0-34.9, adult August- 1 Fabio Paul. [address], [place], [id number] , [place]. [phone] Leif Arrington, [address], [place], [address]. tel:[phone] ng Provider: Gulshan Stewart, [address] [place], [address]. tel:[phone] OFFICE/OUTPA TIENT VISIT, EST [facility] of , [address], [place], [id number], [place] tel:[phone] [facility] Main Office No Information 1 Fabio Paul. [address], [place], [id number] , [place]. tel:[phone] Referring Provider: Gulshan Stewart, [address] [place], [address]. tel:[phone] OFFICE/OUTPA TIENT VISIT, EST [facility] of , [address], [place], [id number], [place] tel:[phone] [facility] Main Office No Information 1 Fabio Paul. [address], [place], [address] , [place]. tel:[phone] Referring Provider: Gulshan Stewart, [place], [address]. tel:[phone] OFFICE/OUTPA TIENT VISIT, EST [facility] of , [address], [place], [id number], [place] tel:[phone] [facility] Main Office No Information 1 Fabio Miller. [address], [place], [address] , [place]. tel:[phone] Referring Provider: Gulshan Stewart, [address] [place], [address]. tel:[phone] OFFICE/OUTPA TIENT VISIT, EST [facility] of , [address], [place], [id number], [place] tel:[phone] [facility] Main Office No Information 1 Fabio Miller. [address], [place], [address] , [place]. tel:[phone] Referring Provider: Gulshan Stewart, [address]ira[address]oya [place] MD, . tel:[phone] OFFICE/OUTPA TIENT VISIT, EST [facility] of , [address], [place], [id number], [place] tel:[phone] [facility] Main Office Follow Up of Rheumatoid Arthritis (chief complaint)Fo llow Up of Generalized OA (chief complaint) RA w/o rheumatoid factor of multiple sitesGeneral ized OALong term (current) use of opiate analgesicOth er alf (current) drug therapyImmun odeficiency due to drugsBody mass index (BMI) 33.0-33.9, adult 1 Fabio Miller. [address], [place], [address] , [place]. tel:[phone] Referring Provider: Edelmira Glass[address] [place], [address]. tel:[phone] OFFICE/OUTPA TIENT VISIT, EST [facility] of , [address], [place], [id number], [place] tel: [phone] [facility] Main Office No Information 1 Fabio Paul. [address], [place], [address] , [place]. tel: [phone] Referring Provider: Gulshan Stewart, [place], [address]. tel:[phone] OFFICE/OUTPA TIENT VISIT, EST [facility] of , [address], [place], [address], [place] tel: [phone] [facility] Main Office No Information 0 Fabio Paul. [address], [place], [address] , [place]. tel: [phone] Referring Provider: Gulshan Stewart, [place], [address]. tel:[phone] [facility] of , [address], [place], [id number], [place] tel: [phone] [facility] Main Office No Information 0 Fabio Paul. [address], [place], [address] , [place]. tel: [phone] Referring Provider: Gulshan Stewart, [address] [place], [address]. tel:[phone] OFFICE/OUTPA TIENT VISIT, EST [facility] of , [address], [place], [id number], [place] tel:[phone] [facility] Main Office No Information 0 Fabio Paul. [address], [place], [id number] , [place]. tel: [phone] Referring Provider: Gulshan Stewart, [address] [place], [address]. tel:[phone] OFFICE/OUTPA TIENT VISIT, EST [facility] of , [address], [place], [address], [place] tel:[phone] [facility] Main Office Follow Up of Rheumatoid Arthritis (chief complaint)Fo llow Up of Generalized OA (chief complaint) RA w/o rheumatoid factor of multiple sitesLong term (current) use of opiate analgesicOth er alf (current) drug therapyGener alized OAEncounter for immunization Body mass index (BMI) 34.0-34.9, adultElevate d blood-pressu re reading, w/o diagnosis of htn 0 Fabio Paul. [address], [place], [address] , [place]. tel:[phone] Leif Arrington, [address], [place], [address]. tel:[phone] ng Provider: Gulshan Stewart, [address] [place], [address]. tel:[phone] OFFICE/OUTPA TIENT VISIT, EST [facility] of , [address], [place], [id number], [place] tel:[phone] [facility] Main Office No Information 0 Fabio Paul. [address], [place], [address] , [place]. tel:[phone] Referring Provider: Gulshan Stewart, [address] [place], [address]. tel:[phone] OFFICE/OUTPA TIENT VISIT, EST [facility] of , [address], [place], [address], [place] tel:[phone] [facility] Main Office No Information 0 Fabio Paul. [address], [place], [id number] , [place]. tel:[phone] Referring Provider: Gulshan Stewart [address] [place], [address]. tel:[phone] OFFICE/OUTPA TIENT VISIT, EST [facility] of , [address], [place], [id number], [place] tel:[phone] [facility] Main Office No Information 0 Fabio Paul. [address], [place], [id number] , [place]. tel:[phone] Referring Provider: Gulshan Stewart, [address] [place], [address]. tel:[phone] OFFICE/OUTPA TIENT VISIT, EST [facility] of , [address], [place], [id number], [place] tel:[phone] [facility] Main Office No Information 0 Fabio Paul. [address], [place], [id number] , [place]. tel:[phone] Referring Provider: Gulshan Stewart, [address] MD, . tel:[phone] OFFICE/OUTPA TIENT VISIT, EST [facility] of , [address], [place], [address], [place] tel:[phone] [facility] Main Office Follow Up of Rheumatoid Arthritis (chief complaint) RA w/o rheumatoid factor of multiple sitesOther spondylosis, cervical regionCervic algiaLong term (current) use of opiate analgesicOth er alf (current) drug therapy 0 Fabio Paul. [address], [place], [address] , [place]. tel:[phone] Leif Arrington, [address], [place], [address]. tel:[phone] ng Provider: Gulshan Stewart, [address] [place], [address]. tel:[phone] [facility] of , [address], [place], [id number], [place] tel:[phone] [facility] Main Office Follow Up of Rheumatoid Arthritis (chief complaint) RA w/o rheumatoid factor of multiple sitesOther spondylosis, cervical regionCervic algiaLong term (current) use of opiate analgesicOth er terminologist (current) drug therapy 0 Fabio Paul. [address], [place], [address] , [place]. tel:[phone] Leif Arrington, [address], [place], [address]. [phone] ng Provider: [place], [address]. [phone] OFFICE/OUTPA TIENT VISIT, EST [facility] of , [address], [place], [id number], [place] [phone] [facility] Main Office No Information 0 Fabio Paul. [address], [place], [address] , [place]. [phone] Referring Provider: [place], [address]. tel:[phone] OFFICE/OUTPA TIENT VISIT, EST [facility] of , [address], [place], [id number], [place] tel:[phone] [facility] Main Office No Information 0 Fabio Paul. [address], [place], [id number] , [place]. tel:[phone] Referring Provider: [place], [address]. [phone] OFFICE/OUTPA TIENT VISIT, EST [facility] of , [address], [place], [id number], [place] tel:[phone] [facility] Main Office No Information 0-202 0 Fabio Paul. [address], [place], [id number] , [place]. tel: [phone] Referring Provider: Gulshan Stewart, [place], [address]. tel:[phone] OFFICE/OUTPA TIENT VISIT, EST [facility] of , [address], [place], [id number], [place] tel:[phone] [facility] Main Office Follow Up of Rheumatoid Arthritis (chief complaint)Fo llow up (chief complaint) RA w/o rheumatoid factor of multiple sitesOther spondylosis, cervical regionCervic algiaOther terminologist (current) drug therapyLong term (current) use of opiate analgesicBod y mass index (BMI) 30.0-30.9, adult Jun-0 2- 0 Fabio Paul. [address], [place], [id number] , [place]. tel: [phone] Leif Arrington, [address], [place], [address]. tel:[phone] ng Provider: Gulshan Stewart, [place], [address]. tel:[phone] [facility] of , [address], [place], [id number], [place] tel:[phone] [facility] Main Office No Information 2 9 Fabio Paul. [address], [place], [address] , [place]. tel: [phone] Referring Provider: [place], [address]. tel:[phone] OFFICE/OUTPA TIENT VISIT, EST [facility] of , [address], [place], [id number], [place] tel:[phone] [facility] Main Office Follow Up of Rheumatoid Arthritis (chief complaint) RA w/o rheumatoid factor of multiple sitesOther spondylosis, cervical regionCervic algiaOther terminologist (current) drug therapyBody mass index (BMI) 34.0-34.9, adultElevate d blood-pressu re reading, w/o diagnosis of htn 9 Fabio Paul. [address], [place], [id number] , [place]. tel: [phone] Leif Dominguezis, [address], [place], [address]. tel:[phone] ng Provider: [place], [address]. tel:[phone] OFFICE/OUTPA TIENT VISIT, EST [facility] of , [address], [place], [id number], [place] tel:[phone] [facility] Main Office No Information 9 Fabio Paul. [address], [place], [address] , [place]. tel: [phone] Referring Provider: [place], [address]. tel:[phone] OFFICE/OUTPA TIENT VISIT, EST [facility] of , [address], [place], [id number], [place] tel:[phone] [facility] Main Office No Information 9 Fabio Paul. [address], [place], [address] , [place]. tel: [phone] Referring Provider: [place], [address]. tel:[phone] OFFICE/OUTPA TIENT VISIT, EST [facility] of , [address], [place], [id number], [place] tel:[phone] [facility] Main Office Follow Up of Neck Pain (chief complaint)Fo llow Up of Rheumatoid Arthritis (chief complaint)Fo llow up (chief complaint) RA w/o rheumatoid factor of multiple sitesOther spondylosis, cervical regionCervic algiaBody mass index (BMI) 33.0-33.9, adultOther terminologist (current) drug therapyPain in left foot Sep-0 -201 9 Fabio Paul. [address], [place], [address] , [place]. tel:[phone] Leif Dominguezis, [address], [place], [address]. [phone] ng Provider: [place], [address]. tel:[phone] OFFICE/OUTPA TIENT VISIT, EST [facility] of , [address], [place], [id number], [place] tel:[phone] [facility] Main Office No Information 9 Fabio Paul. [address], [place], [address] , [place]. tel: [phone] Referring Provider: Driss Glass [place], [place], . tel:[phone] OFFICE/OUTPA TIENT VISIT, EST [facility] of , [address], [place], [id number], [place] tel:[phone] [facility] Main Office No Information 9 Fabio Paul. [address], [place], [id number] , [place]. [phone] Referring Provider: [place], [address]. tel:[phone] OFFICE/OUTPA TIENT VISIT, EST [facility] of , [address], [place], [address], [place] tel:[phone] [facility] Main Office No Information 9 Fabio Paul. [address], [place], [id number] , [place]. tel: [phone] Referring Provider: Gulshan Stewart, [address] [place], [address]. tel:[phone] [facility] of , [address], [place], [id number], [place] tel: [phone] [facility] Main Office No Information 9 Fabio Paul. [address], [place], [address] , [place]. tel: [phone] OFFICE/OUTPA TIENT VISIT, EST [facility] of , [address], [place], [id number], [place] tel: [phone] [facility] Main Office Follow Up of Neck Pain (chief complaint)Fo llow Up of Rheumatoid Arthritis (chief complaint) RA w/o rheumatoid factor of multiple sitesOther terminologist (current) drug therapyCervi calgiaOther spondylosis, cervical regionBody mass index (BMI) 33.0-33.9, adult 9 Fabio Paul. [address], [place], [id number] , [place]. tel: [phone] Leif Arrington, [address], [place], [address]. tel:[phone] ng Provider: Gulshan Stewart, [address] [place], [address]. tel:[phone] OFFICE/OUTPA TIENT VISIT, EST [facility] of , [address], [place], [id number], [place] tel:[phone] [facility] Main Office No Information 9 Fabio Paul. [address], [place], [id number] , [place]. tel: [phone] Referring Provider: Gulshan Stewart, [place], [address]. tel:[phone] OFFICE/OUTPA TIENT VISIT, EST [facility] of , [address], [place], [id number], [place] tel:[phone] [facility] Main Office Follow Up of Rheumatoid Arthritis (chief complaint) RA w/o rheumatoid factor of multiple sitesOther alf (current) drug therapyLong term (current) use of opiate analgesicBod y mass index (BMI) 33.0-33.9, adultPrimary generalized OA Apr-0 201 9 Fabio Paul. [address], [place], [address] , [place]. tel:[phone] Leif Arrington, [address], [place], [address]. tel:[phone] ng Provider: Gulshan Stewart, [place], [address]. tel:[phone] OFFICE/OUTPA TIENT VISIT, EST [facility] of , [address], [place], [id number], [place] tel:[phone] [facility] Main Office No Information 9 Fabio Paul. [address], [place], [id number] , [place]. [phone] Referring Provider: Gulshan Stewart, [place], [address]. tel:[phone] OFFICE/OUTPA TIENT VISIT, EST [facility] of , [address], [place], [address], [place] tel:[phone] [facility] Main Office No Information 9 Fabio Paul. [address], [place], [address] , [place]. tel:[phone] Referring Provider: Gulshan Stewart, Ed[place]ira2 Latoya [place] MD, . tel:[phone] OFFICE/OUTPA TIENT VISIT, EST [facility] of , [address], [place], [id number], [place] tel:[phone] [facility] Main Office No Information 9 Fabio Paul. [address], [place], [address] , [place]. tel:[phone] Referring Provider: Gulshan Stewart, Latoya Douglas MD, . tel:[phone] OFFICE/OUTPA TIENT VISIT, EST [facility] of , [address], [place], [address], [place] tel:[phone] [facility] Main Office No Information 8 Fabio Paul. [address], [place], [id number] , [place]. tel: [phone] Referring Provider: Gulshan Stewart, Latoya Douglas MD, . tel:[phone] OFFICE/OUTPA TIENT VISIT, EST [facility] of , [address], [place], [address], [place] tel:[phone] [facility] Main Office Follow Up of Rheumatoid Arthritis (chief complaint) RA w/o rheumatoid factor of multiple sitesOther alf (current) drug therapyBody mass index (BMI) 34.0-34.9, adultElevate d blood-pressu re reading, w/o diagnosis of htnPrimary OA of left knee 8 Fabio Paul. [address], [place], [id number] , [place]. tel:[phone] Leif Arrington, [address], [place], [address]. tel:[phone] ng Provider: Gulshan Stewart, [place], [address]. tel:[phone] OFFICE/OUTPA TIENT VISIT, EST [facility] of , [address], [place], [address], [place] tel:[phone] [facility] Main Office No Information 5-201 8 Fabio Paul. [address], [place], [address] , [place]. tel:[phone] Referring Provider: [place], [address]. tel:[phone] OFFICE/OUTPA TIENT VISIT, EST [facility] of , [address], [place], [id number], [place] tel:[phone] [facility] Main Office No Information 8-201 8 Fabio Palu. [address], [place], [address] , [place]. tel:[phone] Referring Provider: Gulshan Setwart, [place], [address]. tel:[phone] OFFICE/OUTPA TIENT VISIT, EST [facility] of , [address], [place], [id number], [place] tel:[phone] [facility] Main Office No Information 0- 8 Fabio Paul. [address], [place], [id number] , [place]. tel:[phone] Referring Provider: [place], [address]. tel:[phone] OFFICE/OUTPA TIENT VISIT, EST [facility] of , [address], [place], [address], [place] tel:[phone] [facility] Main Office Follow Up of Rheumatoid Arthritis (chief complaint) RA w/o rheumatoid factor of multiple sitesOther alf (current) drug therapyBody mass index (BMI) 32.0-32.9, adult Aug-0 6-201 8 Fabio Paul. [address], [place], [address] , [place]. tel:[phone] Leif Arrington, [address], [place], [address]. tel:[phone] ng Provider: Gulshan Stewart, [address] [place], [address]. tel:[phone] [facility] of , [address], [place], [id number], [place] tel:[phone] [facility] Main Office No Information 8 Fabio Paul. [address], [place], [address] , [place]. tel:[phone] Referring Provider: Gulshan Stewart, [address] [place], [address]. tel:[phone] OFFICE/OUTPA TIENT VISIT, EST [facility] of , [address], [place], [id number], [place] tel:[phone] [facility] Main Office No Information 8 Fabio Paul. [address], [place], [address] , [place]. tel:[phone] Referring Provider: Gulshan Stewart, [address] [place], [address]. tel:[phone] OFFICE/OUTPA TIENT VISIT, EST [facility] of , [address], [place], [id number], [place] tel:[phone] [facility] Main Office Follow Up of Rheumatoid Arthritis (chief complaint) RA w/o rheumatoid factor of multiple sitesOther terminologist (current) drug therapyLong term (current) use of opiate analgesicLon g term (current) use of non-steroida l anti-inflamm atories (NSAID) 8 Fabio Paul. [address], [place], [address] , [place]. tel:[phone] Leif Arrington, [address], [place], [address]. tel:[phone] ng Provider: Gulshan Stewart, [place], [address]. tel:[phone] [facility] of , [address], [place], [id number], [place] tel:[phone] [facility] Main Office No Information 8 Fabio Paul. [address], [place], [id number] , [place]. tel: [phone] Referring Provider: Gulshan Stewart, [place], [address]. tel:[phone] [facility] , [address], [place], [id number], [place] tel:[phone] [facility] Main Office Follow Up of Rheumatoid Arthritis (chief complaint) RA w/o rheumatoid factor of multiple sitesOther alf (current) drug therapyLong term (current) use of non-steroida l anti-inflamm atories (NSAID) 8 Fabio Paul. [address], [place], [id number] , [place]. tel: [phone] Leif Arrington, [address], [place], [address]. tel:[phone] ng Provider: uGlshan Stewart, [place], [address]. tel:[phone] [facility] of , [address], [place], [id number], [place] tel:[phone] [facility] Main Office No Information 8 Fabio Paul. [address], [place], [id number] , [place]. tel: [phone] Referring Provider: Gulshan Stewart, [address] [place], [address]. tel:[phone] [facility] , [address], [place], [id number], [place] tel:[phone] [facility] Main Office No Information Fabio Paul. [address], [place], [id number] , [place]. tel: [phone] Referring Provider: Gulshan Stewart, [address] [place], [address]. tel:[phone] [facility] , [address], [place], [id number], [place] tel:[phone] [facility] Main Office No Information Fabio Paul. [address], [place], [id number] , [place]. tel: [phone] Referring Provider: Gulshan Stewart, [address] [place], [address]. tel:[phone] OFFICE/OUTPA TIENT VISIT, EST [facility] of , [address], [place], [id number], [place] [phone] [facility] Main Office Follow Up of Rheumatoid Arthritis (chief complaint) RA w/o rheumatoid factor of multiple sitesOther alf (current) drug therapy Fabio Paul. [address], [place], [id number] , [place]. tel: [phone] Leif Arrington, [address], [place], [address]. tel:[phone] ng Provider: Gulshan Stewart, [address] [place], [address]. tel:[phone] [facility] , [address], [place], [id number], [place] tel:[phone] [facility] Main Office Follow Up of Rheumatoid Arthritis (chief complaint) RA w/o rheumatoid factor of multiple sitesOther terminologist drug therapyBody mass index (BMI) 30.0-30.9, adult Dec- 7 Fabio Paul. [address], [place], [id number] , [place]. tel:[phone] Leif Arrington, [address], [place], [address]. tel:[phone] OFFICE/OUTPA TIENT VISIT, EST [facility] of , [address], [place], [id number], [place] tel:[phone] [facility] Main Office Follow Up of Rheumatoid Arthritis (chief complaint) RA w/o rheumatoid factor of multiple sitesOther alf drug therapyBody mass index (BMI) 30.0-30.9, adult Nov- Fabio Paul. [address], [place], [id number] , [place]. tel:[phone] Leif Arrington, [address], [place], [address]. tel:[phone] Provider: Gulshan Stewart, [address], [place], [address]. tel:[phone] OFFICE/OUTPA TIENT VISIT, EST [facility] of , [address], [place], [id number], [place] tel:[phone] [facility] Main Office Follow Up of Rheumatoid Arthritis (chief complaint) RA w/o rheumatoid factor of multiple sitesOther alf drug therapyGener alized osteoarthrit isLong term (current) use of non-steroida l anti-inflamm atories (NSAID) 7 Fabio Paul. [address], [place], [id number] , [place]. tel:[phone] Leif Arrington, [address], [place], [address]. tel:[phone] masha Provider: Gulshan Stewart, [address] [place] MD, . tel:[phone] [facility] , [address], [place], [id number], [place] tel:[phone] [facility] Main Office No Information 7 Fabio Paul. [address], [place], [id number] , [place]. tel:[phone] Referring Provider: Gulshan Stewart, [address] [place] MD, . tel:[phone] OFFICE/OUTPA TIENT VISIT, EST [facility] , [address], [place], [id number], [place] tel:[phone] [facility] Main Office Follow Up of Rheumatoid Arthritis (chief complaint) RA w/o rheumatoid factor of multiple sitesOther terminologist drug therapyGener alized osteoarthrit isLong term (current) use of non-steroida l anti-inflamm atories (NSAID) Jul- 7 Fabio Paul. [address], [place], [id number] , [place]. tel:[phone] Leif Arrington, [address], [place], [address]. tel:[phone] masha Provider: Gulshan Stewart, Edelmira2 Latoya [place] MD, . tel:[phone] [facility] , [address], [place], [id number], [place] tel:[phone] [facility] Main Office No Information 7 Fabio Paul. [address], [place], [id number] , [place]. tel:[phone] Referring Provider: Gulshan Stewart, [address] [place], [address]. tel:[phone] [facility] , [address], [place], [id number], [place] tel:[phone] [facility] Main Office No Information Fabio Paul. [address], [place], [id number] , [place]. tel:[phone] Referring Provider: Gulshan Stewart, [address]elmira2 [place], [address]. tel:[phone] [facility] , [address], [place], [id number], [place] tel:[phone] [facility] Main Office No Information Fabio Paul. [address], [place], [id number] , [place]. tel:[phone] Referring Provider: Gulshan Stewart, Edelmira2 [place], [address]. tel:[phone] [facility] , [address], [place], [id number], [place] tel:[phone] [facility] Main Office Follow Up of Rheumatoid Arthritis (chief complaint) RA w/o rheumatoid factor of multiple sitesOther alf drug therapyGener alized osteoarthrit isLong term (current) use of non-steroida l anti-inflamm atories (NSAID)Troch anteric bursitis, right hipPain in right hip Fabio Paul. [address], [place], [id number] , [place]. tel: [phone] Leif Arrington, [address], [place], [address]. tel:[phone] ng Provider: Gulshan Stewart, Edelmira2 [place], [address]. tel:[phone] OFFICE/OUTPA TIENT VISIT, EST [facility] of , [address], [place], [id number], [place] tel:[phone] [facility] Main Office Follow Up of Rheumatoid Arthritis (chief complaint) RA w/o rheumatoid factor of multiple sitesOther terminologist drug therapyGener alized osteoarthrit isLong term (current) use of non-steroida l anti-inflamm atories (NSAID) 7-201 6 Fabio Paul. [address], [place], [id number] , [place]. tel:[phone] Leif Arrington, [address], [place], [address]. tel:[phone] ng Provider: Gulshan Stewart, [place], [address]. tel:[phone] OFFICE/OUTPA TIENT VISIT, EST [facility] , [address], [place], [id number], [place] tel:[phone] [facility] Main Office Follow Up of Rheumatoid Arthritis (chief complaint) RA w/o rheumatoid factor of multiple sitesOther terminologist drug therapyGener alized osteoarthrit isLong term (current) use of non-steroida l anti-inflamm atories (NSAID) 6 Fabio Paul. [address], [place], [id number] , [place]. tel:[phone] Leif Arrington, [address], [place], [address]. tel:[phone] ng Provider: Gulshan Stewart, [address]ira2 [place], [address]. tel:[phone] OFFICE/OUTPA TIENT VISIT, EST [facility] , [address], [place], [id number], [place] tel:[phone] [facility] Main Office Follow Up of Rheumatoid Arthritis (chief complaint) RA w/o rheumatoid factor of multiple sitesOther terminologist drug therapyGener alized osteoarthrit isLong term (current) use of non-steroida l anti-inflamm atories (NSAID) 6 Fabio Paul. [address], [place], [id number] , [place]. tel:[phone] Leif Arrington, [address], [place], [address]. tel:[phone] ng Provider: Gulshan Stewart, [address], [place], [address]. tel:[phone] OFFICE/OUTPA TIENT VISIT, EST [facility] , [address], [place], [id number], [place] tel:[phone] [facility] Main Office Follow Up of Rheumatoid Arthritis (chief complaint) RA w/o rheumatoid factor of multiple sitesOther terminologist drug therapyGener alized osteoarthrit is 6 Fabio Paul. [address], [place], [id number] , [place]. tel:[phone] Leif Arrington, [address], [place], [address]. tel:[phone] ng Provider: Venus Mont[address], [place], [address]. tel:[phone] OFFICE/OUTPA TIENT VISIT, EST [facility] , [address], [place], [id number], [place] tel:[phone] [facility] Main Office Follow Up of Rheumatoid Arthritis (chief complaint) RA w/o rheumatoid factor of multiple sitesOther alf drug therapyGener alized osteoarthrit is 6 Fabio Paul. [address], [place], [address] , [place]. tel:[phone] Leif Arrington, [address], [place], [address]. tel:[phone] masha Provider: Venus Montoya [address], [place], [address]. tel:[phone] OFFICE/OUTPA TIENT VISIT, EST [facility] , [address], [place], [id number], [place] tel:[phone] [facility] Main Office Inflammatory Polyarthropa thy (chief complaint) Inflammatory polyarthropa thyGeneraliz ed osteoarthrit is 6 Fabio Paul. [address], [place], [address] , [place]. tel:[phone] Leif Arrington, [address], [place], [address]. tel:[phone] ng Provider: Leif Gonzalez, [address], [place], [address]. tel:[phone] OFFICE/OUTPA TIENT VISIT, EST [facility] , [address], [place], [id number], [place] tel:[phone] [facility] Main Office Inflammatory Polyarthropa thy (chief complaint) Inflammatory polyarthropa thyPain in left hipPrimary generalized (osteo)arthr itisLong term (current) use of non-steroida l anti-inflamm atories (NSAID) 6 Fabio Paul. [address], [place], [id number] , [place]. tel:[phone] Leif Arrington, [address], [place], [address]. tel:[phone] masha Provider: Leif Gonzalez, [address], [place], [address]. tel:[phone] OFFICE/OUTPA TIENT VISIT, EST [facility] , [address], [place], [id number], [place] tel:[phone] [facility] Main Office Osteoarthrit is (chief complaint) Primary generalized (osteo)arthr itisLong term (current) use of non-steroida l anti-inflamm atories (NSAID) 6 Fabio Paul. [address], [place], [address] , [place]. tel:[phone] Referring Provider: Leif Gonzalez, [address], [place], [address]. tel:[phone] OFFICE/OUTPA TIENT VISIT, EST [facility] of , [address], [place], [id number], [place] tel:[phone] [facility] Main Office Follow Up of Osteoarthrit is (chief complaint) Osteoarthros is, generalized, involving unspecified siteDisorder s of bursae and tendons in shoulder region, unspecified Jul- 5 Fabio Paul. [address], [place], [id number] , [place]. tel:[phone] Referring Provider: Leif Gonzalez, [address], [place], [address]. tel:[phone] OFFICE/OUTPA TIENT VISIT, EST [facility] , [address], [place], [id number], [place] tel:[phone] [facility] Main Office Follow Up of Right shoulder pain (chief complaint) Disorders of bursae and tendons in shoulder region, unspecifiedP ainful shoulder 4 Fabio Paul. [address], [place], [address] , [place]. tel:[phone] Referring Provider: Leif Gonzalez, [address], [place], [address]. tel:[phone] OFFICE/OUTPA TIENT VISIT, EST [facility] , [address], [place], [id number], [place] tel:[phone] [facility] Main Office No Information 4 Fabio Paul. [address], [place], [id number] , [place]. tel:[phone] Referring Provider: Peter Gonzalez, [address], [place], [address]. tel:[phone] OFFICE/OUTPA TIENT VISIT, EST [facility] , [address], [place], [id number], [place] tel:[phone] [facility] Main Office Follow Up of Osteoarthrit is (chief complaint) Osteoarthrit is, GeneralizedL TU-TERM (CURRENT) USE OF NON-STEROIDA L ANTI-INFLAMM ATORIES 4 Fabio Paul. [address], [place], [address] , [place]. tel:[phone] Referring Provider: Leif Gonzalez, [address], [place], [address]. tel:[phone] OFFICE/OUTPA TIENT VISIT, EST [facility] , [address], [place], [id number], [place] tel:[phone] [facility] Main Office Osteoarthrit is (chief complaint) Disorders of bursae and tendons in shoulder region, unspecifiedO steoarthriti s, Generalized 4 Fabio Paul. [address], [place], [id number] , [place]. tel:[phone] Referring Provider: Leif Gonzalez, [address], [place], [address]. tel:[phone] OFFICE/OUTPA TIENT VISIT, EST [facility] of , [address], [place], [id number], [place] tel:[phone] [facility] Main Office Osteoarthrit is (chief complaint) Osteoarthrit is, GeneralizedD isorders of bursae and tendons in shoulder region, unspecifiedL TU-TERM (CURRENT) USE OF NON-STEROIDA L ANTI-INFLAMM ATORIES 4 Fabio Paul. [address], [place], [id number] , [place]. tel:[phone] Referring Provider: Leif Gonzalez [address], [place], [address]. tel:[phone] OFFICE/OUTPA TIENT VISIT, EST [facility] , [address], [place], [id number], [place] tel:[phone] [facility] Main Office Osteoarthrit is (chief complaint) Osteoarthrit is, Generalized 3 Fabio Paul. [address], [place], [address] , [place]. tel:[phone] Referring Provider: Leif Gonzalez, [address], [place], [address]. tel:[phone] OFFICE/OUTPA TIENT VISIT, EST [facility] of , [address], [place], [address], [place] tel:[phone] [facility] Main Office for joint pain (chief complaint) Osteoarthrit is, GeneralizedA rticular cartilage disorder involving forearmRadia l styloid tenosynoviti s 3 Fabio Paul. [address], [place], [id number] , [place]. tel:[phone] Referring Provider: Leif Gonzalez, [address], [place], [address]. tel:[phone] OFFICE/OUTPA TIENT VISIT, NEW [facility] , [address], [place], [id number], [place] tel:[phone] [facility] Main Office myalgia (chief complaint) Fatigue / MalaisePain in joint involving multiple sites 3 Fabio Paul. [address], [place], [address] , [place]. tel:[phone] Referring Provider: Leif Gonzalez, [address], [place], [address]. tel:[phone] Family History Family Member Type Diagnosis Age [...] cified Payers Payer name Insurance type Covered republican ID Authoriza tion(s) Medicare MB [id number] [employer] [place] [id number] Medicare MB [id number] [employer] [place] [id number] Medicare MB [id number] [employer] [place] [id number] Medicare MB [id number] [employer] [place] [id number] Social History Type Description Quantity Date Captured [...] OA) ordered Referral Referred To: Toan Berry [address] [place], [id number] Ordered: Referrals: Allopathic & Osteopathic Physicians : Anesthesiology. Toan Berry. Consult ordered Referral Ordered: Madi Holder -Allopathic & Osteopathic Physicians : Internal Medicine : Nephrology (related to CKD) ordered Referral Referred To: Madi Holder [address] [facility]
[address] [place], [phone] Ordered: Referrals: Allopathic & Osteopathic Physicians : [...] Future Order: Lab Order Lipid Pa rashard ([id number]), Ordered on: Ordered Future Order: Lab Order COMPREHE NSIVE METABOLIC PANEL (CMP), Collected on: , Sent on: Sent Future Order: Lab Order CBC Diff erential And Platlet (CBC PLT DIFF), Ordered on: Ordered Future Order: Lab Order CMP ([id number]), Orde red on: Ordered Future Order: Lab Order CBC Diff erential And Platlet (CBC PLT DIFF), Collected on: Ordered Future Order: Lab Order CMP ([id number]), Wally ected on: Ordered Future Order: Lab [...]
--- OUTSIDE RECORDS SUMMARY | 2024-11-28 06:00 | XMS_ITS | Continuity of Care Document ---
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 Role Phone Fabio MANCINI, Paul Unavailable Unavailable Allergies, Adverse Reactions, Alerts Substance Reaction Status Criticality No Known Allergies Active No Inform ation Medications Medication Instructions Dosage Effective Dates (start - stop) Status Comments ergocalciferol (vitamin D2) 1,250 mcg (50,000 unit) capsule take 1 capsule by oral route every week 27212 UNITS - Active Simponi ARIA 12.5 mg/mL [...] Providers Copied on Encounter OFFICE/OUTPA TIENT VISIT, [facility] of , [address], [place], [id number], [place] tel:[phone] [facility] Main Office No Information Fabio Miller. [address], [place], [id number] , [place]. tel:[phone] Referring Provider: Rosalba Shaw, [address], [place], [address]. tel:[phone] OFFICE/OUTPA TIENT VISIT, EST [facility] anjelica MANCINI, [address], [place], [id number], [place] tel:[phone] [facility] Main Office Age-related osteoporosis without current pathological fracture 5 Fabio Paul. [address], [place], [id number] , [place]. tel:[phone] Referring Provider: Pilo Hinojosa, [address], [place], [address]. 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 [address], [place], [id number] , [place]. tel:[phone] Leif Arrington, [address], [place], [address]. tel:[phone] ist: Madi Gallo, [address] [facility] [address], [place], [address]. tel:[phone] ist: Sunni Ackermna, [address] [facility] [address], [place], [address]. tel:[phone] ng Provider: Pilo Hinojosa, [address], [place], [address]. tel:[phone] [facility] of , [address], [place], [id number], [place] tel:[phone] [facility] Main Office No Information 5 Fabio Paul. [address], [place], [id number] , [place]. 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 [address], [place], [id number] , [place]. tel:[phone] Leif Arrington, [address], [place], [address]. tel:[phone] ist: Madi Holder, [address] [facility] [address], [place], [address]. tel:[phone] ist: Sunni Ackerman, [address] [facility] [address], [place], [address]. tel:[phone] ng Provider: Rosalba Shaw, [address], [place], [address]. tel:[phone] OFFICE/OUTPA TIENT VISIT, EST [facility] of , [address], [place], [id number], [place] tel:[phone] [facility] Main Office No Information Jul- 5 Fabio Miller. [address], [place], [id number] , [place]. tel:[phone] Referring Provider: Pilo Hinojosa, [address] [facility] [address], [place], [address]. tel:[phone] OFFICE/OUTPA TIENT VISIT, EST [facility] of , [address], [place], [id number], [place] tel:[phone] [facility] Main Office Follow Up [...] [address], [place], [id number] , [place]. tel:[phone] Leif Arrington, [address], [place], [address]. tel:[phone] ist: Madi Holder, [address], [place], [address]. tel:[phone] ist: Sunni Ackerman, [address] [facility] [address], [place], [address]. tel:[phone] ng Provider: Rosalba Shaw, [address], [place], [address]. tel:[phone] OFFICE/OUTPA TIENT VISIT, EST [facility] of , [address], [place], [id number], [place] tel:[phone] [facility] Main Office No Information 4 Fabio Miller. [address], [place], [id number] , [place]. tel:[phone] Referring Provider: Pilo Hinojosa, [address] [facility] [address], [place], [address]. tel:[phone] OFFICE/OUTPA TIENT VISIT, EST [facility] of , [address] [facility] [address], [place], [id number], [place] tel:[phone] [facility] Main Office Follow Up [...] [address], [place], [id number] , [place]. tel:[phone] Leif Arrington, [address], [place], [address]. tel:[phone] ist: Madi Holder, [address] [facility] [address], [place], [address]. tel:[phone] ist: Sunni Ackerman, [address] [facility] [address], [place], [address]. tel:[phone] ng Provider: Pilo Hinojosa, [address] [place] [address] [address], [place], [address]. tel:[phone] OFFICE/OUTPA TIENT VISIT, EST [facility] of , [address], [place], [id number], [place] tel:[phone] [facility] Main Office No Information 4 Fabio Paul. [address], [place], [id number] , [place]. tel:[phone] Referring Provider: Pilo Hinojosa, [address] [place] [address] [address], [place], [address]. [phone] OFFICE/OUTPA TIENT VISIT, EST [facility] of , [address], [place], [id number], [place] tel:[phone] [facility] Main Office No Information 4 Fabio Paul. [address], [place], [id number] , [place]. tel:[phone] Referring Provider: Pilo Hinojosa, [address] [facility] [address], [place], [address]. 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 [address], [place], [id number] , [place]. tel:[phone] Leif Arrington, [address], [place], [address]. tel:[phone] ist: Madi Holder, [address] [facility] [facility] [address], [place], [address]. tel:[phone] ist: Sunni Ackerman, [address], [place], [address]. tel:[phone] ng Provider: Pilo Hinojosa, [address], [place], [address]. tel:[phone] OFFICE/OUTPA TIENT VISIT, EST [facility] of , [address], [place], [address], [place] tel:[phone] [facility] Main Office No Information 4 Fabio Paul. [address], [place], [id number] , [place]. tel:[phone] Referring Provider: Pilo Hinojosa, [address], [place], [address]. tel:[phone] OFFICE/OUTPA TIENT VISIT, EST [facility] of , [address], [place], [id number], [place] tel:[phone] [facility] Main Office No Information 4 Fabio Paul. [address], [place], [id number] , [place]. tel:[phone] Referring Provider: Pilo Hinojosa, [address], [place], [address]. tel:[phone] OFFICE/OUTPA TIENT VISIT, EST [facility] of , [address], [place], [id number], [place] tel:[phone] [facility] Main Office No Information 4 Fabio Paul. [address], [place], [address] , [place]. tel:[phone] Referring Provider: Pilo Hinojosa, [address], [place], [address]. tel:[phone] OFFICE/OUTPA TIENT VISIT, EST [facility] of , [address], [place], [id number], [place] tel:[phone] [facility] Main Office Follow Up [...] [address], [place], [id number] , [place]. tel:[phone] Leif Arrington, [address], [place], [address]. tel:[phone] ist: Madi Holder, [address] [facility] [address], [place], [address]. tel:[phone] ist: Sunni Ackerman, [address], [place], [address]. tel:[phone] ng Provider: Pilo Hinojosa, [address], [place], [address]. tel:[phone] OFFICE/OUTPA TIENT VISIT, EST [facility] of , [address], [place], [id number], [place] tel:[phone] [facility] Main Office No Information 4 Fabio Paul. [address], [place], [id number] , [place]. tel:[phone] Referring Provider: Pilo Hinojosa, [address], [place], [address]. tel:[phone] OFFICE/OUTPA TIENT VISIT, EST [facility] of , [address], [place], [id number], [place] tel:[phone] [facility] Main Office No Information 3 Fabio Paul. [address], [place], [id number] , [place]. tel:[phone] Referring Provider: Pilo Hinojosa, [address], [place], [address]. tel:[phone] [facility] of , [address], [place], [id number], [place] tel:[phone] [facility] Main Office No Information 3 Fabio Paul. [address], [place], [address] , [place]. 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 [address], [place], [id number] , [place]. tel:[phone] Leif Arrington, [address], [place], [address]. tel:[phone] ist: Madi Holder, [address] [facility] [address], [place], [address]. tel:[phone] ist: Sunni Ackerman, [address], [place], [address]. tel:[phone] ng Provider: Pilo Hinojosa, [address], [place], [address]. tel:[phone] [facility] of , [address], [place], [id number], [place] tel:[phone] [facility] Main Office No Information 0 3 Fabio Paul. [address], [place], [address] , [place]. tel:[phone] OFFICE/OUTPA TIENT VISIT, EST [facility] of , [address], [place], [id number], [place] tel:[phone] [facility] Main Office No Information 3 Fabio Paul. [address], [place], [id number] , [place]. tel:[phone] Referring Provider: Pilo Hinojosa, [address], [place], [address]. tel:[phone] OFFICE/OUTPA TIENT VISIT, EST [facility] of , [address], [place], [id number], [place] tel:[phone] [facility] Main Office No Information 3 Fabio Paul. [address], [place], [id number] , [place]. tel:[phone] Referring Provider: Pilo Hinojosa, [address], [place], [address]. tel:[phone] OFFICE/OUTPA TIENT VISIT, EST [facility] of , [address], [place], [id number], [place] tel:[phone] [facility] Main Office No Information 3 Fabio Paul. [address], [place], [id number] , [place]. tel:[phone] Referring Provider: Pilo Hinojosa, [address], [place], [address]. tel:[phone] OFFICE/OUTPA TIENT VISIT, EST [facility] of , [address], [place], [id number], [place] tel:[phone] [facility] Main Office No Information 3 Fabio Paul. [address], [place], [address] , [place]. tel:[phone] Referring Provider: Pilo Hinojosa, [address], [place], [address]. tel:[phone] OFFICE/OUTPA TIENT VISIT, EST [facility] of , [address], [place], [id number], [place] tel:[phone] [facility] Main Office Follow Up of GOA (chief complaint)Fo llow Up of RA (chief complaint) Immunodefici ency due to drugsRA w/o rheumatoid factor of multiple sitesGeneral ized OAPain in unspecified jointCKDLong term (current) use of immunosuppre ssive biologicBody mass index (BMI) 30.0-30.9, adult 3 Fabio Paul. [address], [place], [id number] , [place]. tel:[phone] Leif Arrington, [address], [place], [address]. tel:[phone] ist: Madi Holder, [address] [facility] [facility] [address], [place], [address]. tel:[phone] ist: Sunni Ackerman [address], [place], [address]. tel:[phone] ng Provider: Pilo Hinojosa, [address], [place], [address]. tel:[phone] OFFICE/OUTPA TIENT VISIT, EST [facility] of , [address], [place], [id number], [place] tel:[phone] [facility] Main Office No Information 3 Fabio Paul. [address], [place], [id number] , [place]. tel:[phone] Referring Provider: Pilo Hinojosa, [address], [place], [address]. tel:[phone] OFFICE/OUTPA TIENT VISIT, EST [facility] of , [address], [place], [address], [place] tel:[phone] [facility] Main Office No Information 3 Fabio Paul. [address], [place], [address] , [place]. tel:[phone] Referring Provider: Pilo Hinojosa, [address], [place], [address]. tel:[phone] OFFICE/OUTPA TIENT VISIT, EST [facility] of , [address], [place], [id number], [place] tel:[phone] [facility] Main Office No Information 3 Fabio Paul. [address], [place], [id number] , [place]. tel:[phone] Referring Provider: Pilo Hinojosa, [address], [place], [address]. tel:[phone] OFFICE/OUTPA TIENT VISIT, EST [facility] of , [address], [place], [id number], [place] tel:[phone] [facility] Main Office No Information Jul-0 3 Fabio Paul. [address], [place], [address] , [place]. tel:[phone] Referring Provider: Pilo Hinojosa, [address], [place], [address]. tel:[phone] OFFICE/OUTPA TIENT VISIT, EST [facility] of , [address], [place], [id number], [place] tel:[phone] [facility] Main Office Follow Up of GOA (chief complaint)Fo llow Up of RA (chief complaint) Immunodefici ency due to drugsRA w/o rheumatoid factor of multiple sitesGeneral ized OACKDLong term (current) use of immunosuppre ssive biologicPain in unspecified joint Jun-2 3 Fabio Paul. [address], [place], [address] , [place]. tel:[phone] Leif Arrington, [address], [place], [address]. tel:[phone] ist: Madi Gallo, [address] [facility] [address], [place], [address]. tel:[phone] ist: Sunni Ackerman, [address], [place], [address]. tel:[phone] ng Provider: Pilo Hinojosa, [address], [place], [address]. tel:[phone] OFFICE/OUTPA TIENT VISIT, EST [facility] of , [address], [place], [id number], [place] tel:[phone] [facility] Main Office No Information 0 3 Fabio Paul. [address], [place], [address] , [place]. tel:[phone] Referring Provider: Pilo Hinojosa, [address], [place], [address]. tel:[phone] OFFICE/OUTPA TIENT VISIT, EST [facility] of , [address], [place], [id number], [place] tel:[phone] [facility] Main Office No Information 3 Fabio Paul. [address], [place], [address] , [place]. tel: [phone] Referring Provider: Gulshan Stewart, [place], [address]. tel:[phone] OFFICE/OUTPA TIENT VISIT, EST [facility] of , [address], [place], [address], [place] tel:[phone] [facility] Main Office No Information 3 Fabio Paul. [address], [place], [address] , [place]. tel: [phone] Referring Provider: Gulshan Stewart, [address]2 Latoya Perry MD, . tel:[phone] OFFICE/OUTPA TIENT VISIT, EST [facility] of , [address], [place], [id number], [place] tel:[phone] [facility] Main Office Follow Up of GOA (chief complaint)Fo llow Up of RA (chief complaint) Immunodefici ency due to drugsRA w/o rheumatoid factor of multiple sitesGeneral ized OACervicalgi aCKDLong term (current) use of opiate analgesicLon g term (current) use of immunosuppre ssive biologic 2 Fabio Paul. [address], [place], [id number] , [place]. tel: [phone] Leif Arrington, [address], [place], [address]. tel:[phone] ist: Madi Holder, [address] [facility] [address], [place], [address]. tel:[phone] ng Provider: Gulshan Stewart, [address] [place], [address]. tel:[phone] OFFICE/OUTPA TIENT VISIT, EST [facility] of , [address], [place], [id number], [place] tel: [phone] [facility] Main Office No Information 2 Fabio Paul. [address], [place], [id number] , [place]. tel:[phone] Referring Provider: Gulshan Stewart, [place], [address]. tel:[phone] OFFICE/OUTPA TIENT VISIT, EST [facility] of , [address], [place], [address], [place] tel:[phone] [facility] Main Office No Information 2 Fabio Paul. [address], [place], [id number] , [place]. tel: [phone] Referring Provider: Gulshan Stewart, [address] [place], [address]. tel:[phone] OFFICE/OUTPA TIENT VISIT, EST [facility] of , [address], [place], [id number], [place] tel:[phone] [facility] Main Office No Information 2 Fabio Paul. [address], [place], [id number] , [place]. tel: [phone] Referring Provider: Gulshan Stewart, [address] [place], [address]. tel:[phone] OFFICE/OUTPA TIENT VISIT, EST [facility] of , [address], [place], [address], [place] tel:[phone] [facility] Main Office Follow Up of Rheumatoid Arthritis (chief complaint)Fo llow Up of Generalized OA (chief complaint) Immunodefici ency due to drugsRA w/o rheumatoid factor of multiple sitesGeneral ized OACervicalgi aCKDLong term (current) use of opiate analgesicOth er longterm (current) drug therapyBody mass index (BMI) 33.0-33.9, adult 2 Fabio Paul. [address], [place], [address] , [place]. tel:[phone] Leif Arrington, [address], [place], [address]. tel:[phone] ist: Madi Holder, [address] [facility] [address], [place], [address]. tel:[phone] ng Provider: Gulshan Stewart, [place], [address]. tel:[phone] OFFICE/OUTPA TIENT VISIT, EST [facility] of , [address], [place], [id number], [place] tel:[phone] [facility] Main Office No Information 2 Fabio Miller. [address], [place], [address] , [place]. tel:[phone] Referring Provider: Guslhan Stewart, [place], [address]. tel:[phone] OFFICE/OUTPA TIENT VISIT, EST [facility] of , [address], [place], [id number], [place] tel:[phone] [facility] Main Office No Information 2 Fabio Paul. [address], [place], [address] , [place]. tel:[phone] Referring Provider: Gulshan Stewart, [place], [address]. tel:[phone] OFFICE/OUTPA TIENT VISIT, EST [facility] of , [address], [place], [address], [place] tel:[phone] [facility] Main Office No Information 2 Fabio Paul. [address], [place], [id number] , [place]. tel:[phone] Referring Provider: Gulshan Stewart, [address] [place], [address]. tel:[phone] OFFICE/OUTPA TIENT VISIT, EST [facility] of , [address], [place], [id number], [place] tel:[phone] [facility] Main Office No Information 2 Fabio Paul. [address], [place], [id number] , [place]. tel:[phone] Referring Provider: Pilo Hinojosa, [address] [facility] [address], [place], [address]. tel:[phone] OFFICE/OUTPA TIENT VISIT, EST [facility] of , [address], [place], [id number], [place] tel:[phone] [facility] Main Office No Information 2 Fabio Paul. [address], [place], [address] , [place]. tel:[phone] Referring Provider: Gulshan Stewart, [address] [place], [address]. tel:[phone] OFFICE/OUTPA TIENT VISIT, EST [facility] of , [address], [place], [id number], [place] tel:[phone] [facility] Main Office Follow Up of Rheumatoid Arthritis (chief complaint)Fo llow Up of Generalized OA (chief complaint) Immunodefici ency due to drugsRA w/o rheumatoid factor of multiple sitesGeneral ized OALong term (current) use of opiate analgesicOth er rubber cutting machine tender (current) drug therapyCKDCe rvicalgia 2 Fabio Paul. [address], [place], [id number] , [place]. tel: [phone] Leif Arrington, [address], [place], [address]. tel: [phone] ng Provider: Gulshan Stewart, [address] [place], [address]. tel: [phone] OFFICE/OUTPA TIENT VISIT, EST [facility] of , [address], [place], [id number], [place] tel: [phone] [facility] Main Office No Information 2 Fabio Paul. [address], [place], [address] , [place]. tel: [phone] Referring Provider: Gulshan Stewart, [address] [place], [address]. tel: [phone] OFFICE/OUTPA TIENT VISIT, EST [facility] of , [address], [place], [id number], [place] tel: [phone] [facility] Main Office No Information 2 Fabio Paul. [address], [place], [id number] , [place]. tel: [phone] Referring Provider: Gulshan Stewart, [address] [place], [address]. tel:[phone] OFFICE/OUTPA TIENT VISIT, EST [facility] of , [address], [place], [id number], [place] tel: [phone] [facility] Main Office No Information 1 Fabio Paul. [address], [place], [id number] , [place]. tel: [phone] Referring Provider: Gulshan Stewart, [address] [place], [address]. tel:[phone] OFFICE/OUTPA TIENT VISIT, EST [facility] of , [address], [place], [id number], [place] tel:[phone] [facility] Main Office No Information 1 Fabio Paul. [address], [place], [id number] , [place]. tel: [phone] Referring Provider: [place], [address]. tel:[phone] OFFICE/OUTPA TIENT VISIT, EST [facility] of , [address], [place], [id number], [place] tel:[phone] [facility] Main Office No Information 1 Fabio Paul. [address], [place], [id number] , [place]. tel: [phone] Referring Provider: Driss Glass [place], [place], . tel:[phone] OFFICE/OUTPA TIENT VISIT, EST [facility] of , [address], [place], [id number], [place] tel:[phone] [facility] Main Office Follow Up of Rheumatoid Arthritis (chief complaint)Fo llow Up of Generalized OA (chief complaint) Immunodefici ency due to drugsRA w/o rheumatoid factor of multiple sitesGeneral ized OALong term (current) use of opiate analgesicOth er longterm (current) drug therapyEncou nter for immunization Body mass index (BMI) 33.0-33.9, adult 1 Fabio Paul. [address], [place], [id number] , [place]. tel:[phone] Leif Arrington, [address], [place], [address]. tel:[phone] ng Provider: Gulshan Stewart, [place], [address]. tel:[phone] OFFICE/OUTPA TIENT VISIT, EST [facility] of , [address], [place], [id number], [place] tel:[phone] [facility] Main Office No Information 1 Fabio Paul. [address], [place], [address] , [place]. tel: [phone] Referring Provider: Gulshan Stewart, [place], [address]. tel:[phone] OFFICE/OUTPA TIENT VISIT, EST [facility] of , [address], [place], [id number], [place] tel: [phone] [facility] Main Office No Information 1 Fabio Paul. [address], [place], [id number] , [place]. tel: [phone] Referring Provider: Gulshan Stewart, Edelmira2 [place], [address]. tel:[phone] [facility] of , [address], [place], [id number], [place] tel: [phone] [facility] Main Office No Information 1 Fabio Paul. [address], [place], [id number] , [place]. tel: [phone] Referring Provider: Gulshan Stewart, [address]ira[address] [place], [address]. tel:[phone] OFFICE/OUTPA TIENT VISIT, EST [facility] of , [address], [place], [id number], [place] tel:[phone] [facility] Main Office No Information 1 Fabio Paul. [address], [place], [id number] , [place]. tel: [phone] Referring Provider: Gulshan Stewart, [address] [place], [address]. tel:[phone] OFFICE/OUTPA TIENT VISIT, EST [facility] of , [address], [place], [id number], [place] tel:[phone] [facility] Main Office Follow Up of Rheumatoid Arthritis (chief complaint)Fo llow Up of Generalized OA (chief complaint) Immunodefici ency due to drugsRA w/o rheumatoid factor of multiple sitesGeneral ized OALong term (current) use of opiate analgesicOth er rubber cutting machine tender (current) drug therapyBody mass index (BMI) 34.0-34.9, adult August- 1 Fabio Paul. [address], [place], [id number] , [place]. [phone] Leif Arrington, [address], [place], [address]. tel:[phone] ng Provider: Gulshan Stewart, [address] [place], [address]. tel:[phone] OFFICE/OUTPA TIENT VISIT, EST [facility] of , [address], [place], [id number], [place] tel:[phone] [facility] Main Office No Information 1 Fabio Paul. [address], [place], [id number] , [place]. tel:[phone] Referring Provider: Gulshan Stewart, [address] [place], [address]. tel:[phone] OFFICE/OUTPA TIENT VISIT, EST [facility] of , [address], [place], [id number], [place] tel:[phone] [facility] Main Office No Information 1 Fabio Paul. [address], [place], [id number] , [place]. tel:[phone] Referring Provider: Gulshan Stewart, [place], [address]. tel:[phone] OFFICE/OUTPA TIENT VISIT, EST [facility] of , [address], [place], [id number], [place] tel:[phone] [facility] Main Office No Information 1 Fabio Miller. [address], [place], [id number] , [place]. tel:[phone] Referring Provider: Gulshan Stewart, [address] [place], [address]. tel:[phone] OFFICE/OUTPA TIENT VISIT, EST [facility] of , [address], [place], [id number], [place] tel:[phone] [facility] Main Office No Information 1 Fabio Miller. [address], [place], [id number] , [place]. tel:[phone] Referring Provider: Gulshan Stewart, Edelmira2 Latoya Perry MD, . tel:[phone] OFFICE/OUTPA TIENT VISIT, EST [facility] of , [address], [place], [id number], [place] tel:[phone] [facility] Main Office Follow Up of Rheumatoid Arthritis (chief complaint)Fo llow Up of Generalized OA (chief complaint) RA w/o rheumatoid factor of multiple sitesGeneral ized OALong term (current) use of opiate analgesicOth er longterm (current) drug therapyImmun odeficiency due to drugsBody mass index (BMI) 33.0-33.9, adult 1 Fabio Miller. [address], [place], [id number] , [place]. tel:[phone] Referring Provider: Edelmira Glass2 [place], [address]. tel:[phone] OFFICE/OUTPA TIENT VISIT, EST [facility] of , [address], [place], [id number], [place] tel: [phone] [facility] Main Office No Information 1 Fabio Paul. [address], [place], [address] , [place]. tel: [phone] Referring Provider: Gulshan Stewart, [place], [address]. tel:[phone] OFFICE/OUTPA TIENT VISIT, EST [facility] of , [address], [place], [id number], [place] tel: [phone] [facility] Main Office No Information 0 Fabio Paul. [address], [place], [id number] , [place]. tel: [phone] Referring Provider: Gulshan Stewart, [place], [address]. tel:[phone] [facility] of , [address], [place], [id number], [place] tel: [phone] [facility] Main Office No Information 0 Fabio Paul. [address], [place], [id number] , [place]. tel: [phone] Referring Provider: Gulshan Stewart, [address]ira[address] [place], [address]. tel:[phone] OFFICE/OUTPA TIENT VISIT, EST [facility] of , [address], [place], [id number], [place] tel:[phone] [facility] Main Office No Information 0 Fabio Paul. [address], [place], [id number] , [place]. tel: [phone] Referring Provider: Gulshan Stewart, [address] [place], [address]. tel:[phone] OFFICE/OUTPA TIENT VISIT, EST [facility] of , [address], [place], [id number], [place] tel:[phone] [facility] Main Office Follow Up of Rheumatoid Arthritis (chief complaint)Fo llow Up of Generalized OA (chief complaint) RA w/o rheumatoid factor of multiple sitesLong term (current) use of opiate analgesicOth er longterm (current) drug therapyGener alized OAEncounter for immunization Body mass index (BMI) 34.0-34.9, adultElevate d blood-pressu re reading, w/o diagnosis of htn 0 Fabio Paul. [address], [place], [id number] , [place]. tel:[phone] Leif Arrington, [address], [place], [address]. tel:[phone] ng Provider: Gulshan Stewart, [address] [place], [address]. tel:[phone] OFFICE/OUTPA TIENT VISIT, EST [facility] of , [address], [place], [id number], [place] tel:[phone] [facility] Main Office No Information 0 Fabio Paul. [address], [place], [id number] , [place]. tel:[phone] Referring Provider: Gulshan Stewart, [address] [place], [address]. tel:[phone] OFFICE/OUTPA TIENT VISIT, EST [facility] of , [address], [place], [id number], [place] tel:[phone] [facility] Main Office No Information 0 Fabio Paul. [address], [place], [id number] , [place]. tel:[phone] Referring Provider: Gulshan Stewart [address] [place], [address]. tel:[phone] OFFICE/OUTPA TIENT VISIT, EST [facility] of , [address], [place], [id number], [place] tel:[phone] [facility] Main Office No Information 0 Fabio Paul. [address], [place], [id number] , [place]. tel:[phone] Referring Provider: Gulshan Stewart, [address] [place], [address]. tel:[phone] OFFICE/OUTPA TIENT VISIT, EST [facility] of , [address], [place], [id number], [place] tel:[phone] [facility] Main Office No Information 0 Fabio Paul. [address], [place], [id number] , [place]. tel:[phone] Referring Provider: Gulshan Stewart, [address] Latoya Perry MD, . tel:[phone] OFFICE/OUTPA TIENT VISIT, EST [facility] of , [address], [place], [id number], [place] tel:[phone] [facility] Main Office Follow Up of Rheumatoid Arthritis (chief complaint) RA w/o rheumatoid factor of multiple sitesOther spondylosis, cervical regionCervic algiaLong term (current) use of opiate analgesicOth er longterm (current) drug therapy 0 Fabio Paul. [address], [place], [address] , [place]. tel:[phone] Leif Arrington, [address], [place], [address]. tel:[phone] ng Provider: Gulshan Stewart, [address] [place], [address]. 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 [address], [place], [address] , [place]. tel:[phone] Leif Arrington, [address], [place], [address]. [phone] ng Provider: [place], [address]. [phone] OFFICE/OUTPA TIENT VISIT, EST [facility] of , [address], [place], [id number], [place] [phone] [facility] Main Office No Information 0 Fabio Paul. [address], [place], [id number] , [place]. [phone] Referring Provider: [place], [address]. tel:[phone] OFFICE/OUTPA TIENT VISIT, EST [facility] of , [address], [place], [id number], [place] tel:[phone] [facility] Main Office No Information 0 Fabio Paul. [address], [place], [id number] , [place]. tel:[phone] Referring Provider: [place], [address]. [phone] OFFICE/OUTPA TIENT VISIT, EST [facility] of , [address], [place], [id number], [place] tel:[phone] [facility] Main Office No Information 0-202 0 Fabio Paul. [address], [place], [id number] , [place]. tel: [phone] Referring Provider: Gulshan Stewart, [place], [address]. tel:[phone] OFFICE/OUTPA TIENT VISIT, EST [facility] of , [address], [place], [id number], [place] tel:[phone] [facility] Main Office Follow Up of Rheumatoid Arthritis (chief complaint)Fo llow up (chief complaint) RA w/o rheumatoid factor of multiple sitesOther spondylosis, cervical regionCervic algiaOther rubber cutting machine tender (current) drug therapyLong term (current) use of opiate analgesicBod y mass index (BMI) 30.0-30.9, adult Jun-0 2- 0 Fabio Paul. [address], [place], [id number] , [place]. tel: [phone] Leif Arrington, [address], [place], [address]. tel:[phone] ng Provider: Gulshan Stewart, [place], [address]. tel:[phone] [facility] of , [address], [place], [id number], [place] tel:[phone] [facility] Main Office No Information 2 9 Fabio Paul. [address], [place], [address] , [place]. tel: [phone] Referring Provider: [place], [address]. tel:[phone] OFFICE/OUTPA TIENT VISIT, EST [facility] of , [address], [place], [id number], [place] tel:[phone] [facility] Main Office Follow Up of Rheumatoid Arthritis (chief complaint) RA w/o rheumatoid factor of multiple sitesOther spondylosis, cervical regionCervic algiaOther rubber cutting machine tender (current) drug therapyBody mass index (BMI) 34.0-34.9, adultElevate d blood-pressu re reading, w/o diagnosis of htn 9 Fabio Paul. [address], [place], [id number] , [place]. tel: [phone] Leif Dominguezis, [address], [place], [address]. tel:[phone] ng Provider: [place], [address]. tel:[phone] OFFICE/OUTPA TIENT VISIT, EST [facility] of , [address], [place], [id number], [place] tel:[phone] [facility] Main Office No Information 9 Fabio Paul. [address], [place], [address] , [place]. tel: [phone] Referring Provider: [place], [address]. tel:[phone] OFFICE/OUTPA TIENT VISIT, EST [facility] of , [address], [place], [address], [place] tel:[phone] [facility] Main Office No Information 9 Fabio Paul. [address], [place], [address] , [place]. tel: [phone] Referring Provider: [place], [address]. tel:[phone] OFFICE/OUTPA TIENT VISIT, EST [facility] of , [address], [place], [id number], [place] tel:[phone] [facility] Main Office Follow Up of Neck Pain (chief complaint)Fo llow Up of Rheumatoid Arthritis (chief complaint)Fo llow up (chief complaint) RA w/o rheumatoid factor of multiple sitesOther spondylosis, cervical regionCervic algiaBody mass index (BMI) 33.0-33.9, adultOther rubber cutting machine tender (current) drug therapyPain in left foot Sep-0 -201 9 Fabio Paul. [address], [place], [address] , [place]. tel:[phone] Leif Dominguezis, [address], [place], [address]. [phone] ng Provider: [place], [address]. tel:[phone] OFFICE/OUTPA TIENT VISIT, EST [facility] of , [address], [place], [id number], [place] tel:[phone] [facility] Main Office No Information 9 Fabio Paul. [address], [place], [address] , [place]. tel: [phone] Referring Provider: Driss Glass [place], MD, . tel:[phone] OFFICE/OUTPA TIENT VISIT, EST [facility] of , [address], [place], [id number], [place] tel:[phone] [facility] Main Office No Information 9 Fabio Paul. [address], [place], [id number] , [place]. [phone] Referring Provider: [place], [address]. tel:[phone] OFFICE/OUTPA TIENT VISIT, EST [facility] of , [address], [place], [id number], [place] tel:[phone] [facility] Main Office No Information 9 Fabio Paul. [address], [place], [id number] , [place]. tel: [phone] Referring Provider: Gulshan Stewart, [address] [place], [address]. tel:[phone] [facility] of , [address], [place], [id number], [place] tel: [phone] [facility] Main Office No Information 9 Fabio Paul. [address], [place], [address] , [place]. tel: [phone] OFFICE/OUTPA TIENT VISIT, EST [facility] of , [address], [place], [id number], [place] tel: [phone] [facility] Main Office Follow Up of Neck Pain (chief complaint)Fo llow Up of Rheumatoid Arthritis (chief complaint) RA w/o rheumatoid factor of multiple sitesOther rubber cutting machine tender (current) drug therapyCervi calgiaOther spondylosis, cervical regionBody mass index (BMI) 33.0-33.9, adult 9 Fabio Paul. [address], [place], [address] , [place]. tel: [phone] Leif Arrington, [address], [place], [address]. tel:[phone] ng Provider: Gulshan Stewart, [address] [place], [address]. tel:[phone] OFFICE/OUTPA TIENT VISIT, EST [facility] of , [address], [place], [id number], [place] tel:[phone] [facility] Main Office No Information 9 Fabio Paul. [address], [place], [address] , [place]. tel: [phone] Referring Provider: Gulshan Stewart, [place], [address]. tel:[phone] OFFICE/OUTPA TIENT VISIT, EST [facility] of , [address], [place], [id number], [place] tel:[phone] [facility] Main Office Follow Up of Rheumatoid Arthritis (chief complaint) RA w/o rheumatoid factor of multiple sitesOther longterm (current) drug therapyLong term (current) use of opiate analgesicBod y mass index (BMI) 33.0-33.9, adultPrimary generalized OA Apr-0 201 9 Fabio Paul. [address], [place], [address] , [place]. tel:[phone] Leif Arrington, [address], [place], [address]. tel:[phone] ng Provider: Gulshan Stewart, [place], [address]. tel:[phone] OFFICE/OUTPA TIENT VISIT, EST [facility] of , [address], [place], [id number], [place] tel:[phone] [facility] Main Office No Information 9 Fabio Paul. [address], [place], [address] , [place]. [phone] Referring Provider: Gulshan Stewart, [place], [address]. tel:[phone] OFFICE/OUTPA TIENT VISIT, EST [facility] of , [address], [place], [id number], [place] tel:[phone] [facility] Main Office No Information 9 Fabio Paul. [address], [place], [address] , [place]. tel:[phone] Referring Provider: Gulshan Stewart, Edelmira2 Latoya Perry MD, . tel:[phone] OFFICE/OUTPA TIENT VISIT, EST [facility] of , [address], [place], [id number], [place] tel:[phone] [facility] Main Office No Information 9 Fabio Paul. [address], [place], [id number] , [place]. tel:[phone] Referring Provider: Gulshan Stewart, Latoya Douglas MD, . tel:[phone] OFFICE/OUTPA TIENT VISIT, EST [facility] of , [address], [place], [id number], [place] tel:[phone] [facility] Main Office No Information 8 Fabio Paul. [address], [place], [address] , [place]. tel: [phone] Referring Provider: Gulshan Stewart, Latoya Douglas MD, . tel:[phone] OFFICE/OUTPA TIENT VISIT, EST [facility] of , [address], [place], [id number], [place] tel:[phone] [facility] Main Office Follow Up of Rheumatoid Arthritis (chief complaint) RA w/o rheumatoid factor of multiple sitesOther longterm (current) drug therapyBody mass index (BMI) 34.0-34.9, adultElevate d blood-pressu re reading, w/o diagnosis of htnPrimary OA of left knee 8 Fabio Paul. [address], [place], [id number] , [place]. tel:[phone] Leif Arrington, [address], [place], [address]. tel:[phone] ng Provider: Gulshan Stewart, [place], [address]. tel:[phone] OFFICE/OUTPA TIENT VISIT, EST [facility] of , [address], [place], [id number], [place] tel:[phone] [facility] Main Office No Information 5-201 8 Fabio Paul. [address], [place], [address] , [place]. tel:[phone] Referring Provider: [place], [address]. tel:[phone] OFFICE/OUTPA TIENT VISIT, EST [facility] of , [address], [place], [id number], [place] tel:[phone] [facility] Main Office No Information 8-201 8 Fabio Paul. [address], [place], [address] , [place]. tel:[phone] Referring Provider: Gulshan Stewart, [place], [address]. tel:[phone] OFFICE/OUTPA TIENT VISIT, EST [facility] of , [address], [place], [id number], [place] tel:[phone] [facility] Main Office No Information 0- 8 Fabio Paul. [address], [place], [id number] , [place]. tel:[phone] Referring Provider: [place], [address]. tel:[phone] OFFICE/OUTPA TIENT VISIT, EST [facility] of , [address], [place], [id number], [place] tel:[phone] [facility] Main Office Follow Up of Rheumatoid Arthritis (chief complaint) RA w/o rheumatoid factor of multiple sitesOther longterm (current) drug therapyBody mass index (BMI) 32.0-32.9, adult Aug-0 6-201 8 Fabio Paul. [address], [place], [address] , [place]. tel:[phone] Leif Arrington, [address], [place], [address]. tel:[phone] ng Provider: Gulshan Stewart, [address] [place], [address]. tel:[phone] [facility] of , [address], [place], [id number], [place] tel:[phone] [facility] Main Office No Information 8 Fabio Paul. [address], [place], [address] , [place]. tel:[phone] Referring Provider: Gulshan Stewart, [address] [place], [address]. tel:[phone] OFFICE/OUTPA TIENT VISIT, EST [facility] of , [address], [place], [id number], [place] tel:[phone] [facility] Main Office No Information 8 Fabio Paul. [address], [place], [address] , [place]. tel:[phone] Referring Provider: Gulshan Stewart, [address] [place], [address]. tel:[phone] OFFICE/OUTPA TIENT VISIT, EST [facility] of , [address], [place], [id number], [place] tel:[phone] [facility] Main Office Follow Up of Rheumatoid Arthritis (chief complaint) RA w/o rheumatoid factor of multiple sitesOther rubber cutting machine tender (current) drug therapyLong term (current) use of opiate analgesicLon g term (current) use of non-steroida l anti-inflamm atories (NSAID) 8 Fabio Paul. [address] [address], [place], [id number] , [place]. tel:[phone] Leif Arrington, [address], [place], [address]. tel:[phone] ng Provider: Gulshan Stewart, [place], [address]. tel:[phone] [facility] , [address], [place], [id number], [place] tel:[phone] [facility] Main Office No Information 8 Fabio Paul. [address], [place], [id number] , [place]. tel: [phone] Referring Provider: Gulshan Stewart, [place], [address]. tel:[phone] [facility] of , [address], [place], [id number], [place] tel:[phone] [facility] Main Office Follow Up of Rheumatoid Arthritis (chief complaint) RA w/o rheumatoid factor of multiple sitesOther longterm (current) drug therapyLong term (current) use of non-steroida l anti-inflamm atories (NSAID) 8 Fabio Paul. [address], [place], [id number] , [place]. tel: [phone] Leif Arrington, [address], [place], [address]. tel:[phone] ng Provider: Gulshan Stewart, [place], [address]. tel:[phone] [facility] of , [address], [place], [id number], [place] tel:[phone] [facility] Main Office No Information 8 Fabio Paul. [address], [place], [id number] , [place]. tel: [phone] Referring Provider: Gulshan Stewart, [address] [place], [address]. tel:[phone] [facility] of , [address], [place], [id number], [place] tel:[phone] [facility] Main Office No Information Fabio Paul. [address], [place], [id number] , [place]. tel: [phone] Referring Provider: Gulshan Stewart, [address] [place], [address]. tel:[phone] [facility] of , [address], [place], [id number], [place] tel:[phone] [facility] Main Office No Information Fabio Paul. [address], [place], [id number] , [place]. tel: [phone] Referring Provider: Gulshan Stewart, [address] [place], [address]. tel:[phone] OFFICE/OUTPA TIENT VISIT, EST [facility] of , [address], [place], [id number], [place] [phone] [facility] Main Office Follow Up of Rheumatoid Arthritis (chief complaint) RA w/o rheumatoid factor of multiple sitesOther longterm (current) drug therapy Fabio Paul. [address], [place], [id number] , [place]. tel: [phone] Leif Arrington, [address], [place], [address]. tel:[phone] ng Provider: Gulshan Stewart, [address] [place], [address]. tel:[phone] [facility] of , [address], [place], [id number], [place] tel:[phone] [facility] Main Office Follow Up of Rheumatoid Arthritis (chief complaint) RA w/o rheumatoid factor of multiple sitesOther rubber cutting machine tender drug therapyBody mass index (BMI) 30.0-30.9, adult Dec- 7 Fabio Paul. [address], [place], [id number] , [place]. tel:[phone] Leif Arrington, [address], [place], [address]. tel:[phone] OFFICE/OUTPA TIENT VISIT, EST [facility] of , [address], [place], [id number], [place] tel:[phone] [facility] Main Office Follow Up of Rheumatoid Arthritis (chief complaint) RA w/o rheumatoid factor of multiple sitesOther longterm drug therapyBody mass index (BMI) 30.0-30.9, adult Nov- Fabio Paul. [address], [place], [id number] , [place]. tel:[phone] Leif Arrington, [address], [place], [address]. tel:[phone] Provider: Gulshan Stewart, [address], [place], [address]. tel:[phone] OFFICE/OUTPA TIENT VISIT, EST [facility] of , [address], [place], [id number], [place] tel:[phone] [facility] Main Office Follow Up of Rheumatoid Arthritis (chief complaint) RA w/o rheumatoid factor of multiple sitesOther longterm drug therapyGener alized osteoarthrit isLong term (current) use of non-steroida l anti-inflamm atories (NSAID) 7 Fabio Paul. [address], [place], [id number] , [place]. tel:[phone] Leif Arrington, [address], [place], [address]. tel:[phone] masha Provider: Gulshan Stewart, [address] [place], . tel:[phone] [facility] of , [address], [place], [id number], [place] tel:[phone] [facility] Main Office No Information 7 Fabio Paul. [address], [place], [address] , [place]. tel:[phone] Referring Provider: Gulshan Stewart, [address] [place] MD, . tel:[phone] OFFICE/OUTPA TIENT VISIT, EST [facility] of , [address], [place], [id number], [place] tel:[phone] [facility] Main Office Follow Up of Rheumatoid Arthritis (chief complaint) RA w/o rheumatoid factor of multiple sitesOther rubber cutting machine tender drug therapyGener alized osteoarthrit isLong term (current) use of non-steroida l anti-inflamm atories (NSAID) Jul- 7 Fabio Paul. [address], [place], [id number] , [place]. tel:[phone] Leif Arrington, [address], [place], [address]. tel:[phone] masha Provider: Gulshan Stewart, Edelmira2 Lat[place] MD, . tel:[phone] [facility] of , [address], [place], [id number], [place] tel:[phone] [facility] Main Office No Information 7 Fabio Paul. [address], [place], [id number] , [place]. tel:[phone] Referring Provider: Gulshan Stewart, [address] [place], [address]. tel:[phone] [facility] of , [address], [place], [id number], [place] tel:[phone] [facility] Main Office No Information Fabio Paul. [address], [place], [id number] , [place]. tel:[phone] Referring Provider: Gulshan Stewart, [address]2 [place], [address]. tel:[phone] [facility] of , [address], [place], [id number], [place] tel:[phone] [facility] Main Office No Information Fabio Paul. [address], [place], [id number] , [place]. tel:[phone] Referring Provider: Gulshan Stewart, [address]2 [place], [address]. tel:[phone] [facility] of , [address], [place], [id number], [place] tel:[phone] [facility] Main Office Follow Up of Rheumatoid Arthritis (chief complaint) RA w/o rheumatoid factor of multiple sitesOther longterm drug therapyGener alized osteoarthrit isLong term (current) use of non-steroida l anti-inflamm atories (NSAID)Troch anteric bursitis, right hipPain in right hip Fabio Paul. [address], [place], [id number] , [place]. tel: [phone] Leif Arrington, [address], [place], [address]. tel:[phone] ng Provider: Gulshan Stewart, [address]2 [place], [address]. tel:[phone] OFFICE/OUTPA TIENT VISIT, EST [facility] of , [address], [place], [id number], [place] tel:[phone] [facility] Main Office Follow Up of Rheumatoid Arthritis (chief complaint) RA w/o rheumatoid factor of multiple sitesOther rubber cutting machine tender drug therapyGener alized osteoarthrit isLong term (current) use of non-steroida l anti-inflamm atories (NSAID) 7-201 6 Fabio Paul. [address], [place], [address] , [place]. tel:[phone] Leif Arrington, [address], [place], [address]. tel:[phone] ng Provider: Gulshan Stewart, [place], [address]. tel:[phone] OFFICE/OUTPA TIENT VISIT, EST [facility] of , [address], [place], [id number], [place] tel:[phone] [facility] Main Office Follow Up of Rheumatoid Arthritis (chief complaint) RA w/o rheumatoid factor of multiple sitesOther rubber cutting machine tender drug therapyGener alized osteoarthrit isLong term (current) use of non-steroida l anti-inflamm atories (NSAID) 6 Fabio Apul. [address], [place], [id number] , [place]. tel:[phone] Leif Arrington, [address], [place], [address]. tel:[phone] ng Provider: Gulshan Stewart, [address]2 [place], [address]. tel:[phone] OFFICE/OUTPA TIENT VISIT, EST [facility] of , [address], [place], [id number], [place] tel:[phone] [facility] Main Office Follow Up of Rheumatoid Arthritis (chief complaint) RA w/o rheumatoid factor of multiple sitesOther rubber cutting machine tender drug therapyGener alized osteoarthrit isLong term (current) use of non-steroida l anti-inflamm atories (NSAID) 6 Fabio Paul. [address], [place], [address] , [place]. tel:[phone] Leif Arrington, [address], [place], [address]. tel:[phone] ng Provider: Gulshan Stewart, [address], [place], [address]. tel:[phone] OFFICE/OUTPA TIENT VISIT, EST [facility] of , [address], [place], [id number], [place] tel:[phone] [facility] Main Office Follow Up of Rheumatoid Arthritis (chief complaint) RA w/o rheumatoid factor of multiple sitesOther rubber cutting machine tender drug therapyGener alized osteoarthrit is 6 Fabio Paul. [address], [place], [id number] , [place]. tel:[phone] Leif Arrington, [address], [place], [address]. tel:[phone] ng Provider: Venus [address], [place], [address]. tel:[phone] OFFICE/OUTPA TIENT VISIT, EST [facility] of , [address], [place], [id number], [place] tel:[phone] [facility] Main Office Follow Up of Rheumatoid Arthritis (chief complaint) RA w/o rheumatoid factor of multiple sitesOther longterm drug therapyGener alized osteoarthrit is 6 Fabio Paul. [address], [place], [id number] , [place]. tel:[phone] Leif Arrington, [address], [place], [address]. tel:[phone] masha Provider: Venus Mont[address], [place], [address]. tel:[phone] OFFICE/OUTPA TIENT VISIT, EST [facility] of , [address], [place], [id number], [place] tel:[phone] [facility] Main Office Inflammatory Polyarthropa thy (chief complaint) Inflammatory polyarthropa thyGeneraliz ed osteoarthrit is 6 Fabio Paul. [address], [place], [address] , [place]. tel:[phone] Leif Arrington, [address], [place], [address]. tel:[phone] ng Provider: Leif Gonzalez, [address], [place], [address]. tel:[phone] OFFICE/OUTPA TIENT VISIT, EST [facility] , [address], [place], [id number], [place] tel:[phone] [facility] Main Office Inflammatory Polyarthropa thy (chief complaint) Inflammatory polyarthropa thyPain in left hipPrimary generalized (osteo)arthr itisLong term (current) use of non-steroida l anti-inflamm atories (NSAID) 6 Fabio Paul. [address], [place], [id number] , [place]. tel:[phone] Leif Arrington, [address], [place], [address]. tel:[phone] masha Provider: Leif Gonzalze, [address], [place], [address]. tel:[phone] OFFICE/OUTPA TIENT VISIT, EST [facility] of , [address], [place], [id number], [place] tel:[phone] [facility] Main Office Osteoarthrit is (chief complaint) Primary generalized (osteo)arthr itisLong term (current) use of non-steroida l anti-inflamm atories (NSAID) 6 Fabio Paul. [address], [place], [address] , [place]. tel:[phone] Referring Provider: Leif Gonzalez, [address], [place], [address]. tel:[phone] OFFICE/OUTPA TIENT VISIT, EST [facility] of , [address], [place], [id number], [place] tel:[phone] [facility] Main Office Follow Up of Osteoarthrit is (chief complaint) Osteoarthros is, generalized, involving unspecified siteDisorder s of bursae and tendons in shoulder region, unspecified Jul- 5 Fabio Paul. [address], [place], [id number] , [place]. tel:[phone] Referring Provider: Leif Gonzalez, [address], [place], [address]. tel:[phone] OFFICE/OUTPA TIENT VISIT, EST [facility] of , [address], [place], [address], [place] tel:[phone] [facility] Main Office Follow Up of Right shoulder pain (chief complaint) Disorders of bursae and tendons in shoulder region, unspecifiedP ainful shoulder 4 Fabio Paul. [address], [place], [address] , [place]. tel:[phone] Referring Provider: Leif Gonzalez, [address], [place], [address]. tel:[phone] OFFICE/OUTPA TIENT VISIT, EST [facility] of , [address], [place], [id number], [place] tel:[phone] [facility] Main Office No Information 4 Fabio Paul. [address], [place], [address] , [place]. tel:[phone] Referring Provider: Peter Gonzalez, [address], [place], [address]. tel:[phone] OFFICE/OUTPA TIENT VISIT, EST [facility] of , [address], [place], [id number], [place] tel:[phone] [facility] Main Office Follow Up of Osteoarthrit is (chief complaint) Osteoarthrit is, GeneralizedL TU-TERM (CURRENT) USE OF NON-STEROIDA L ANTI-INFLAMM ATORIES 4 Fabio Paul. [address], [place], [address] , [place]. tel:[phone] Referring Provider: Leif Gonzalez, [address], [place], [address]. tel:[phone] OFFICE/OUTPA TIENT VISIT, EST [facility] of , [address], [place], [id number], [place] tel:[phone] [facility] Main Office Osteoarthrit is (chief complaint) Disorders of bursae and tendons in shoulder region, unspecifiedO steoarthriti s, Generalized 4 Fabio Paul. [address], [place], [address] , [place]. tel:[phone] Referring Provider: Leif Gonzalez, [address], [place], [address]. tel:[phone] OFFICE/OUTPA TIENT VISIT, EST [facility] of , [address], [place], [id number], [place] tel:[phone] [facility] Main Office Osteoarthrit is (chief complaint) Osteoarthrit is, GeneralizedD isorders of bursae and tendons in shoulder region, unspecifiedL TU-TERM (CURRENT) USE OF NON-STEROIDA L ANTI-INFLAMM ATORIES 4 Fabio Paul. [address], [place], [address] , [place]. tel:[phone] Referring Provider: Leif Gonzalez [address], [place], [address]. tel:[phone] OFFICE/OUTPA TIENT VISIT, EST [facility] of , [address], [place], [id number], [place] tel:[phone] [facility] Main Office Osteoarthrit is (chief complaint) Osteoarthrit is, Generalized 3 Fabio Paul. [address], [place], [address] , [place]. tel:[phone] Referring Provider: Leif Gonzalez, [address], [place], [address]. tel:[phone] OFFICE/OUTPA TIENT VISIT, EST [facility] of , [address], [place], [id number], [place] tel:[phone] [facility] Main Office for joint pain (chief complaint) Osteoarthrit is, GeneralizedA rticular cartilage disorder involving forearmRadia l styloid tenosynoviti s 3 Fabio Paul. [address], [place], [address] , [place]. tel:[phone] Referring Provider: Leif Gonzalez, [address], [place], [address]. tel:[phone] OFFICE/OUTPA TIENT VISIT, NEW [facility] of , [address], [place], [id number], [place] tel:[phone] [facility] Main Office myalgia (chief complaint) Fatigue / MalaisePain in joint involving multiple sites 3 Fabio Paul. [address], [place], [address] , [place]. tel:[phone] Referring Provider: Leif Gonzalez, [address], [place], [address]. tel:[phone] Family History Family Member Type Diagnosis Age [...] cified Payers Payer name Insurance type Covered green party ID Authoriza tion(s) Medicare MB [id number] [employer] [place] [id number] Medicare MB [id number] [employer] [place] [id number] Medicare MB [id number] [employer] [place] [id number] Medicare MB [id number] [employer] [place] [id number] Social History Type Description Quantity Date Captured [...] OA) ordered Referral Referred To: Toan Berry [address] [place], [id number] Ordered: Referrals: Allopathic & Osteopathic Physicians : Anesthesiology. Toan Berry. Consult ordered Referral Ordered: Madi Holder -Allopathic & Osteopathic Physicians : Internal Medicine : Nephrology (related to CKD) ordered Referral Referred To: Madi Holder [address] [facility]
[address] [place], [id number] Ordered: Referrals: Allopathic & Osteopathic Physicians : [...] Future Order: Lab Order Lipid Pa rashard ([id number]), Ordered on: Ordered Future Order: Lab Order COMPREHE NSIVE METABOLIC PANEL (CMP), Collected on: , Sent on: Sent Future Order: Lab Order CBC Diff erential And Platlet (CBC PLT DIFF), Ordered on: Ordered Future Order: Lab Order CMP ([id number]), Orde red on: Ordered Future Order: Lab Order CBC Diff erential And Platlet (CBC PLT DIFF), Collected on: Ordered Future Order: Lab Order CMP ([id number]), Wally ected on: Ordered Future Order: Lab [...]
--- OUTSIDE RECORDS SUMMARY | 2024-11-28 06:00 | XMS_ITS | Continuity of Care Document ---
Author Organization [facility] Manjit Address [address] [place] [address] Phone Care Team Providers Care Gel Coat Sprayer Name Role Phone Fabio MANCINI, Paul Unavailable Unavailable Allergies, Adverse Reactions, Alerts Substance Reaction Status Criticality No Known Allergies Active No Inform ation Medications Medication Instructions Dosage Effective Dates (start - stop) Status Comments ergocalciferol (vitamin D2) 1,250 mcg (50,000 unit) capsule take 1 capsule by oral route every week 69324 UNITS - Active Simponi ARIA 12.5 mg/mL [...] [address], [place], [id number], [place] tel:[phone] [facility] Main Office No Information Fabio Miller. [address], [place], [id number] , [place]. tel:[phone] Referring Provider: Rosalba Shaw, [address], [place], [address]. tel:[phone] OFFICE/OUTPA TIENT VISIT, EST [facility] anjelica MANCINI, [address], [place], [id number], [place] tel:[phone] [facility] Main Office Age-related osteoporosis without current pathological fracture 5 Fabio Paul. [address], [place], [id number] , [place]. tel:[phone] Referring Provider: Pilo Hinojosa, [address], [place], [address]. 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 [address], [place], [id number] , [place]. tel:[phone] Leif Arrington, [address], [place], [address]. tel:[phone] ist: Madi Gallo, [address], [place], [address]. tel:[phone] ist: Sunni Ackerman, [address] [facility] [address], [place], [address]. tel:[phone] ng Provider: Pilo Hinojosa, [address], [place], [address]. tel:[phone] [facility] of , [address], [place], [id number], [place] tel:[phone] [facility] Main Office No Information 5 Fabio Paul. [address], [place], [id number] , [place]. 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 [address], [place], [id number] , [place]. tel:[phone] Leif Arrington, [address], [place], [address]. tel:[phone] ist: Madi Holder, [address] [facility] [address], [place], [address]. tel:[phone] ist: Sunni Ackerman, [address] [facility] [address], [place], [address]. tel:[phone] ng Provider: Rosalba Shaw, [address], [place], [address]. tel:[phone] OFFICE/OUTPA TIENT VISIT, EST [facility] of , [address], [place], [id number], [place] tel:[phone] [facility] Main Office No Information Jul- 5 Fabio Miller. [address], [place], [id number] , [place]. tel:[phone] Referring Provider: Pilo Hinojosa, [address] [facility] [address], [place], [address]. tel:[phone] OFFICE/OUTPA TIENT VISIT, EST [facility] of , [address], [place], [id number], [place] tel:[phone] [facility] Main Office Follow Up [...] [address], [place], [id number] , [place]. tel:[phone] Leif Arrington, [address], [place], [address]. tel:[phone] ist: Madi Holder, [address], [place], [address]. tel:[phone] ist: Sunni Ackerman, [address] [facility] [address], [place], [address]. tel:[phone] ng Provider: Rosalba Shaw, [address], [place], [address]. tel:[phone] OFFICE/OUTPA TIENT VISIT, EST [facility] of , [address], [place], [id number], [place] tel:[phone] [facility] Main Office No Information 4 Fabio Miller. [address], [place], [id number] , [place]. tel:[phone] Referring Provider: Pilo Hinojosa, [address] [address], [place], [address]. tel:[phone] OFFICE/OUTPA TIENT VISIT, EST [facility] of , [address] [facility] [address], [place], [id number], [place] tel:[phone] [facility] Main Office Follow Up [...] [address], [place], [id number] , [place]. tel:[phone] Leif Arrington, [address], [place], [address]. tel:[phone] ist: Madi Holder, [address], [place], [address]. tel:[phone] ist: Sunni Ackerman, [address] [facility] [address], [place], [address]. tel:[phone] ng Provider: Pilo Hinojosa, [address] [place] [address] [address], [place], [address]. tel:[phone] OFFICE/OUTPA TIENT VISIT, EST [facility] of , [address], [place], [id number], [place] tel:[phone] [facility] Main Office No Information 4 Fabio Paul. [address], [place], [id number] , [place]. tel:[phone] Referring Provider: Pilo Hinojosa, [address] [place] [address] [address], [place], [address]. [phone] OFFICE/OUTPA TIENT VISIT, EST [facility] of , [address], [place], [id number], [place] tel:[phone] [facility] Main Office No Information 4 Fabio Paul. [address], [place], [id number] , [place]. tel:[phone] Referring Provider: Pilo Hinojosa, [address] [facility] [address], [place], [address]. 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 [address], [place], [id number] , [place]. tel:[phone] Leif Arrington, [address], [place], [address]. tel:[phone] ist: Madi Holder, [address], [place], [address]. tel:[phone] ist: Sunni Ackerman, [address], [place], [address]. tel:[phone] ng Provider: Pilo Hinojosa, [address], [place], [address]. tel:[phone] OFFICE/OUTPA TIENT VISIT, EST [facility] of , [address], [place], [id number], [place] tel:[phone] [facility] Main Office No Information 4 Fabio Paul. [address], [place], [address] , [place]. tel:[phone] Referring Provider: Pilo Hinojosa, [address], [place], [address]. tel:[phone] OFFICE/OUTPA TIENT VISIT, EST [facility] of , [address], [place], [id number], [place] tel:[phone] [facility] Main Office No Information 4 Fabio Paul. [address], [place], [address] , [place]. tel:[phone] Referring Provider: Pilo Hinojosa, [address], [place], [address]. tel:[phone] OFFICE/OUTPA TIENT VISIT, EST [facility] of , [address], [place], [id number], [place] tel:[phone] [facility] Main Office No Information 4 Fabio Paul. [address], [place], [id number] , [place]. tel:[phone] Referring Provider: Pilo Hinojosa, [address], [place], [address]. tel:[phone] OFFICE/OUTPA TIENT VISIT, EST [facility] of , [address], [place], [id number], [place] tel:[phone] [facility] Main Office Follow Up [...] [address], [place], [address] , [place]. tel:[phone] Leif Arrington, [address], [place], [address]. tel:[phone] ist: Madi Holder, [address], [place], [address]. tel:[phone] ist: Sunni Ackerman, [address], [place], [address]. tel:[phone] ng Provider: Pilo Hinojosa, [address], [place], [address]. tel:[phone] OFFICE/OUTPA TIENT VISIT, EST [facility] of , [address], [place], [id number], [place] tel:[phone] [facility] Main Office No Information 4 Fabio Paul. [address], [place], [id number] , [place]. tel:[phone] Referring Provider: Pilo Hinojosa, [address], [place], [address]. tel:[phone] OFFICE/OUTPA TIENT VISIT, EST [facility] of , [address], [place], [id number], [place] tel:[phone] [facility] Main Office No Information 3 Fabio Paul. [address], [place], [id number] , [place]. tel:[phone] Referring Provider: Pilo Hinojosa, [address], [place], [address]. tel:[phone] [facility] of , [address], [place], [id number], [place] tel:[phone] [facility] Main Office No Information 3 Fabio Paul. [address], [place], [id number] , [place]. 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 [address], [place], [address] , [place]. tel:[phone] Leif Arrington, [address], [place], [address]. tel:[phone] ist: Madi Holder, [address], [place], [address]. tel:[phone] ist: Sunni Ackerman, [address], [place], [address]. tel:[phone] ng Provider: Pilo Hinojosa, [address], [place], [address]. tel:[phone] [facility] of , [address], [place], [id number], [place] tel:[phone] [facility] Main Office No Information 0 3 Fabio Paul. [address], [place], [id number] , [place]. tel:[phone] OFFICE/OUTPA TIENT VISIT, EST [facility] of , [address], [place], [id number], [place] tel:[phone] [facility] Main Office No Information 3 Fabio Paul. [address], [place], [address] , [place]. tel:[phone] Referring Provider: Pilo Hinojosa, [address], [place], [address]. tel:[phone] OFFICE/OUTPA TIENT VISIT, EST [facility] of , [address], [place], [id number], [place] tel:[phone] [facility] Main Office No Information 3 Fabio Paul. [address], [place], [id number] , [place]. tel:[phone] Referring Provider: Pilo Hinojosa, [address], [place], [address]. tel:[phone] OFFICE/OUTPA TIENT VISIT, EST [facility] of , [address], [place], [id number], [place] tel:[phone] [facility] Main Office No Information 3 Fabio Paul. [address], [place], [address] , [place]. tel:[phone] Referring Provider: Pilo Hinojosa, [address], [place], [address]. tel:[phone] OFFICE/OUTPA TIENT VISIT, EST [facility] of , [address], [place], [id number], [place] tel:[phone] [facility] Main Office No Information 3 Fabio Paul. [address], [place], [id number] , [place]. tel:[phone] Referring Provider: Pilo Hinojosa, [address], [place], [address]. 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 [address], [place], [id number] , [place]. tel:[phone] Leif Arrington, [address], [place], [address]. tel:[phone] ist: Madi Holder, [address], [place], [address]. tel:[phone] ist: Sunni Ackerman [address], [place], [address]. tel:[phone] ng Provider: Pilo Hinojosa, [address], [place], [address]. tel:[phone] OFFICE/OUTPA TIENT VISIT, EST [facility] of , [address], [place], [id number], [place] tel:[phone] [facility] Main Office No Information 3 Fabio Paul. [address], [place], [id number] , [place]. tel:[phone] Referring Provider: Pilo Hinojosa, [address], [place], [address]. tel:[phone] OFFICE/OUTPA TIENT VISIT, EST [facility] of , [address], [place], [id number], [place] tel:[phone] [facility] Main Office No Information 3 Fabio Paul. [address], [place], [id number] , [place]. tel:[phone] Referring Provider: Pilo Hinojosa, [address], [place], [address]. tel:[phone] OFFICE/OUTPA TIENT VISIT, EST [facility] of , [address], [place], [id number], [place] tel:[phone] [facility] Main Office No Information 3 Fabio Paul. [address], [place], [id number] , [place]. tel:[phone] Referring Provider: Pilo Hinojosa, [address], [place], [address]. tel:[phone] OFFICE/OUTPA TIENT VISIT, EST [facility] of , [address], [place], [id number], [place] tel:[phone] [facility] Main Office No Information Jul-0 3 Fabio Paul. [address], [place], [address] , [place]. tel:[phone] Referring Provider: Pilo Hinojosa, [address], [place], [address]. tel:[phone] OFFICE/OUTPA TIENT VISIT, EST [facility] of , [address], [place], [id number], [place] tel:[phone] [facility] Main Office Follow Up of GOA (chief complaint)Fo llow Up of RA (chief complaint) Immunodefici ency due to drugsRA w/o rheumatoid factor of multiple sitesGeneral ized OACKDLong term (current) use of immunosuppre ssive biologicPain in unspecified joint Jun-2 3 Fabio Paul. [address], [place], [address] , [place]. tel:[phone] Leif Arrington, [address], [place], [address]. tel:[phone] ist: Madi Gallo, [address], [place], [address]. tel:[phone] ist: Sunni Ackerman, [address], [place], [address]. tel:[phone] ng Provider: Pilo Hinojosa, [address], [place], [address]. tel:[phone] OFFICE/OUTPA TIENT VISIT, EST [facility] of , [address], [place], [id number], [place] tel:[phone] [facility] Main Office No Information 0 3 Fabio Paul. [address], [place], [address] , [place]. tel:[phone] Referring Provider: Pilo Hinojosa, [address], [place], [address]. tel:[phone] OFFICE/OUTPA TIENT VISIT, EST [facility] of , [address], [place], [address], [place] tel:[phone] [facility] Main Office No Information 3 Fabio Paul. [address], [place], [id number] , [place]. tel: [phone] Referring Provider: Gulshan Stewart, [place], [address]. tel:[phone] OFFICE/OUTPA TIENT VISIT, EST [facility] of , [address], [place], [address], [place] tel:[phone] [facility] Main Office No Information 3 Fabio Paul. [address], [place], [address] , [place]. tel: [phone] Referring Provider: Gulshan Stewart, [address]2 Latoya Perry MD, . tel:[phone] OFFICE/OUTPA TIENT VISIT, EST [facility] of , [address], [place], [id number], [place] tel:[phone] [facility] Main Office Follow Up of GOA (chief complaint)Fo llow Up of RA (chief complaint) Immunodefici ency due to drugsRA w/o rheumatoid factor of multiple sitesGeneral ized OACervicalgi aCKDLong term (current) use of opiate analgesicLon g term (current) use of immunosuppre ssive biologic 2 Fabio Paul. [address], [place], [id number] , [place]. tel: [phone] Leif Arrington, [address], [place], [address]. tel:[phone] ist: Madi Holder, [address], [place], [address]. tel:[phone] ng Provider: Gulshan Stewart, [address] [place], [address]. tel:[phone] OFFICE/OUTPA TIENT VISIT, EST [facility] of , [address], [place], [id number], [place] tel: [phone] [facility] Main Office No Information 2 Fabio Paul. [address], [place], [id number] , [place]. tel:[phone] Referring Provider: Gulshan Stewart, [place], [address]. tel:[phone] OFFICE/OUTPA TIENT VISIT, EST [facility] of , [address], [place], [id number], [place] tel:[phone] [facility] Main Office No Information 2 Fabio Paul. [address], [place], [address] , [place]. tel: [phone] Referring Provider: Gulshan Stewart, [address] [place], [address]. tel:[phone] OFFICE/OUTPA TIENT VISIT, EST [facility] of , [address], [place], [id number], [place] tel:[phone] [facility] Main Office No Information 2 Fabio Paul. [address], [place], [address] , [place]. tel: [phone] Referring Provider: Gulshan Stewart, [address] [place], [address]. tel:[phone] OFFICE/OUTPA TIENT VISIT, EST [facility] of , [address], [place], [id number], [place] tel:[phone] [facility] Main Office Follow Up of Rheumatoid Arthritis (chief complaint)Fo llow Up of Generalized OA (chief complaint) Immunodefici ency due to drugsRA w/o rheumatoid factor of multiple sitesGeneral ized OACervicalgi aCKDLong term (current) use of opiate analgesicOth er intermediate (current) drug therapyBody mass index (BMI) 33.0-33.9, adult 2 Fabio Paul. [address], [place], [address] , [place]. tel:[phone] Leif Arrington, [address], [place], [address]. tel:[phone] ist: Madi Holder, [address], [place], [address]. tel:[phone] ng Provider: Gulshan Stewart, [place], [address]. tel:[phone] OFFICE/OUTPA TIENT VISIT, EST [facility] of , [address], [place], [id number], [place] tel:[phone] [facility] Main Office No Information 2 Fabio Miller. [address], [place], [address] , [place]. tel:[phone] Referring Provider: Gulshan Stewart, [place], [address]. tel:[phone] OFFICE/OUTPA TIENT VISIT, EST [facility] of , [address], [place], [id number], [place] tel:[phone] [facility] Main Office No Information 2 Fabio Paul. [address], [place], [id number] , [place]. tel:[phone] Referring Provider: Gulshan Stewart, [place], [address]. tel:[phone] OFFICE/OUTPA TIENT VISIT, EST [facility] of , [address], [place], [id number], [place] tel:[phone] [facility] Main Office No Information 2 Fabio Paul. [address], [place], [address] , [place]. tel:[phone] Referring Provider: Gulshan Stewart, [address] [place], [address]. tel:[phone] OFFICE/OUTPA TIENT VISIT, EST [facility] of , [address], [place], [id number], [place] tel:[phone] [facility] Main Office No Information 2 Fabio Paul. [address], [place], [address] , [place]. tel:[phone] Referring Provider: Pilo Hinojosa, [address] [facility] [address], [place], [address]. tel:[phone] OFFICE/OUTPA TIENT VISIT, EST [facility] of , [address], [place], [address], [place] tel:[phone] [facility] Main Office No Information 2 Fabio Paul. [address], [place], [address] , [place]. tel:[phone] Referring Provider: Gulshan Stewart, [address] [place], [address]. tel:[phone] OFFICE/OUTPA TIENT VISIT, EST [facility] of , [address], [place], [id number], [place] tel:[phone] [facility] Main Office Follow Up of Rheumatoid Arthritis (chief complaint)Fo llow Up of Generalized OA (chief complaint) Immunodefici ency due to drugsRA w/o rheumatoid factor of multiple sitesGeneral ized OALong term (current) use of opiate analgesicOth er terminal supervisor (current) drug therapyCKDCe rvicalgia 2 Fabio Paul. [address], [place], [id number] , [place]. tel: [phone] Leif Arrington, [address], [place], [address]. tel: [phone] ng Provider: Gulshan Stewart, [address] [place], [address]. tel: [phone] OFFICE/OUTPA TIENT VISIT, EST [facility] of , [address], [place], [id number], [place] tel: [phone] [facility] Main Office No Information 2 Fabio Paul. [address], [place], [id number] , [place]. tel: [phone] Referring Provider: Gulshan Stewart, [address] [place], [address]. tel: [phone] OFFICE/OUTPA TIENT VISIT, EST [facility] of , [address], [place], [address], [place] tel: [phone] [facility] Main Office No Information 2 Fabio Paul. [address] [address], [place], [id number] , [place]. tel: [phone] Referring Provider: Gulshan Stewart, [address] [place], [address]. tel:[phone] OFFICE/OUTPA TIENT VISIT, EST [facility] of , [address], [place], [id number], [place] tel: [phone] [facility] Main Office No Information 1 Fabio Paul. [address], [place], [id number] , [place]. tel: [phone] Referring Provider: Gulshan Stewart, [address] [place], [address]. tel:[phone] OFFICE/OUTPA TIENT VISIT, EST [facility] of , [address], [place], [id number], [place] tel:[phone] [facility] Main Office No Information 1 Fabio Paul. [address], [place], [id number] , [place]. tel: [phone] Referring Provider: [place], [address]. tel:[phone] OFFICE/OUTPA TIENT VISIT, EST [facility] of , [address], [place], [id number], [place] tel:[phone] [facility] Main Office No Information 1 Fabio Paul. [address], [place], [id number] , [place]. tel: [phone] Referring Provider: Driss Glass [place], [place], . tel:[phone] OFFICE/OUTPA TIENT VISIT, EST [facility] of , [address], [place], [id number], [place] tel:[phone] [facility] Main Office Follow Up of Rheumatoid Arthritis (chief complaint)Fo llow Up of Generalized OA (chief complaint) Immunodefici ency due to drugsRA w/o rheumatoid factor of multiple sitesGeneral ized OALong term (current) use of opiate analgesicOth er intermediate (current) drug therapyEncou nter for immunization Body mass index (BMI) 33.0-33.9, adult 1 Fabio Paul. [address], [place], [id number] , [place]. tel:[phone] Leif Arrington, [address], [place], [address]. tel:[phone] ng Provider: Gulshan Stewart, [place], [address]. tel:[phone] OFFICE/OUTPA TIENT VISIT, EST [facility] of , [address], [place], [id number], [place] tel:[phone] [facility] Main Office No Information 1 Fabio Paul. [address], [place], [id number] , [place]. tel: [phone] Referring Provider: Gulshan Stewart, [place], [address]. tel:[phone] OFFICE/OUTPA TIENT VISIT, EST [facility] of , [address], [place], [id number], [place] tel: [phone] [facility] Main Office No Information 1 Fabio Paul. [address], [place], [address] , [place]. tel: [phone] Referring Provider: Gulshan Stewart, [address] [place], [address]. tel:[phone] [facility] of , [address], [place], [id number], [place] tel: [phone] [facility] Main Office No Information 1 Fabio Paul. [address], [place], [address] , [place]. tel: [phone] Referring Provider: Gulshan Stewart, [address] [place], [address]. tel:[phone] OFFICE/OUTPA TIENT VISIT, EST [facility] of , [address], [place], [id number], [place] tel:[phone] [facility] Main Office No Information 1 Fabio Paul. [address], [place], [id number] , [place]. tel: [phone] Referring Provider: Gulshan Stewart, [address] [place], [address]. tel:[phone] OFFICE/OUTPA TIENT VISIT, EST [facility] of , [address], [place], [id number], [place] tel:[phone] [facility] Main Office Follow Up of Rheumatoid Arthritis (chief complaint)Fo llow Up of Generalized OA (chief complaint) Immunodefici ency due to drugsRA w/o rheumatoid factor of multiple sitesGeneral ized OALong term (current) use of opiate analgesicOth er terminal supervisor (current) drug therapyBody mass index (BMI) 34.0-34.9, adult August- 1 Fabio Paul. [address], [place], [id number] , [place]. [phone] Leif Arrington, [address], [place], [address]. tel:[phone] ng Provider: Gulshan Stewart, [address] [place], [address]. tel:[phone] OFFICE/OUTPA TIENT VISIT, EST [facility] of , [address], [place], [id number], [place] tel:[phone] [facility] Main Office No Information 1 Fabio Paul. [address], [place], [id number] , [place]. tel:[phone] Referring Provider: Gulshan Stewart, [address] [place], [address]. tel:[phone] OFFICE/OUTPA TIENT VISIT, EST [facility] of , [address], [place], [id number], [place] tel:[phone] [facility] Main Office No Information 1 Fabio Paul. [address], [place], [id number] , [place]. tel:[phone] Referring Provider: Gulshan Stewart, [place], [address]. tel:[phone] OFFICE/OUTPA TIENT VISIT, EST [facility] of , [address], [place], [id number], [place] tel:[phone] [facility] Main Office No Information 1 Fabio Miller. [address], [place], [id number] , [place]. tel:[phone] Referring Provider: Gulshan Stewart, [address] [place], [address]. tel:[phone] OFFICE/OUTPA TIENT VISIT, EST [facility] of , [address], [place], [id number], [place] tel:[phone] [facility] Main Office No Information 1 Fabio Miller. [address], [place], [address] , [place]. tel:[phone] Referring Provider: Gulshan Stewart, [address]2 Latoya Perry MD, . tel:[phone] OFFICE/OUTPA TIENT VISIT, EST [facility] of , [address], [place], [id number], [place] tel:[phone] [facility] Main Office Follow Up of Rheumatoid Arthritis (chief complaint)Fo llow Up of Generalized OA (chief complaint) RA w/o rheumatoid factor of multiple sitesGeneral ized OALong term (current) use of opiate analgesicOth er intermediate (current) drug therapyImmun odeficiency due to drugsBody mass index (BMI) 33.0-33.9, adult 1 Fabio Miller. [address], [place], [address] , [place]. tel:[phone] Referring Provider: Edelmira Galss2 [place], [address]. tel:[phone] OFFICE/OUTPA TIENT VISIT, EST [facility] of , [address], [place], [id number], [place] tel: [phone] [facility] Main Office No Information 1 Fabio Paul. [address], [place], [address] , [place]. tel: [phone] Referring Provider: Gulshan Stewart, [place], [address]. tel:[phone] OFFICE/OUTPA TIENT VISIT, EST [facility] of , [address], [place], [id number], [place] tel: [phone] [facility] Main Office No Information 0 Fabio Paul. [address], [place], [address] , [place]. tel: [phone] Referring Provider: Gulshan Stewart, [place], [address]. tel:[phone] [facility] of , [address], [place], [id number], [place] tel: [phone] [facility] Main Office No Information 0 Fabio Paul. [address], [place], [address] , [place]. tel: [phone] Referring Provider: Gulshan Stewart, [address] [place], [address]. tel:[phone] OFFICE/OUTPA TIENT VISIT, EST [facility] of , [address], [place], [id number], [place] tel:[phone] [facility] Main Office No Information 0 Fabio Paul. [address], [place], [address] , [place]. tel: [phone] Referring Provider: Gulshan Stewart, [address] [place], [address]. tel:[phone] OFFICE/OUTPA TIENT VISIT, EST [facility] of , [address], [place], [id number], [place] tel:[phone] [facility] Main Office Follow Up of Rheumatoid Arthritis (chief complaint)Fo llow Up of Generalized OA (chief complaint) RA w/o rheumatoid factor of multiple sitesLong term (current) use of opiate analgesicOth er intermediate (current) drug therapyGener alized OAEncounter for immunization Body mass index (BMI) 34.0-34.9, adultElevate d blood-pressu re reading, w/o diagnosis of htn 0 Fabio Paul. [address], [place], [address] , [place]. tel:[phone] Leif Arrington, [address], [place], [address]. tel:[phone] ng Provider: Gulshan Stewart, [address] [place], [address]. tel:[phone] OFFICE/OUTPA TIENT VISIT, EST [facility] of , [address], [place], [id number], [place] tel:[phone] [facility] Main Office No Information 0 Fabio Paul. [address], [place], [address] , [place]. tel:[phone] Referring Provider: Gulshan Stewart, [address] [place], [address]. tel:[phone] OFFICE/OUTPA TIENT VISIT, EST [facility] of , [address], [place], [id number], [place] tel:[phone] [facility] Main Office No Information 0 Fabio Paul. [address], [place], [id number] , [place]. tel:[phone] Referring Provider: Gulshan Stewart [address] [place], [address]. tel:[phone] OFFICE/OUTPA TIENT VISIT, EST [facility] of , [address], [place], [id number], [place] tel:[phone] [facility] Main Office No Information 0 Fabio Paul. [address], [place], [id number] , [place]. tel:[phone] Referring Provider: Gulshan Stewart, [address] [place], [address]. tel:[phone] OFFICE/OUTPA TIENT VISIT, EST [facility] of , [address], [place], [id number], [place] tel:[phone] [facility] Main Office No Information 0 Fabio Paul. [address], [place], [id number] , [place]. tel:[phone] Referring Provider: Gulshan Stewart, [address] MD, . tel:[phone] OFFICE/OUTPA TIENT VISIT, EST [facility] of , [address], [place], [id number], [place] tel:[phone] [facility] Main Office Follow Up of Rheumatoid Arthritis (chief complaint) RA w/o rheumatoid factor of multiple sitesOther spondylosis, cervical regionCervic algiaLong term (current) use of opiate analgesicOth er intermediate (current) drug therapy 0 Fabio Paul. [address], [place], [address] , [place]. tel:[phone] Leif Arrington, [address], [place], [address]. tel:[phone] ng Provider: Gulshan Stewart, [address] [place], [address]. tel:[phone] [facility] of , [address], [place], [address], [place] tel:[phone] [facility] Main Office Follow Up of Rheumatoid Arthritis (chief complaint) RA w/o rheumatoid factor of multiple sitesOther spondylosis, cervical regionCervic algiaLong term (current) use of opiate analgesicOth er terminal supervisor (current) drug therapy 0 Fabio Paul. [address], [place], [address] , [place]. tel:[phone] Leif Arrington, [address], [place], [address]. [phone] ng Provider: [place], [address]. [phone] OFFICE/OUTPA TIENT VISIT, EST [facility] of , [address], [place], [id number], [place] [phone] [facility] Main Office No Information 0 Fabio Paul. [address], [place], [id number] , [place]. [phone] Referring Provider: [place], [address]. tel:[phone] OFFICE/OUTPA TIENT VISIT, EST [facility] of , [address], [place], [id number], [place] tel:[phone] [facility] Main Office No Information 0 Fabio Paul. [address], [place], [id number] , [place]. tel:[phone] Referring Provider: [place], [address]. [phone] OFFICE/OUTPA TIENT VISIT, EST [facility] of , [address], [place], [id number], [place] tel:[phone] [facility] Main Office No Information 0-202 0 Fabio Paul. [address], [place], [id number] , [place]. tel: [phone] Referring Provider: Gulshan Stewart, [place], [address]. tel:[phone] OFFICE/OUTPA TIENT VISIT, EST [facility] of , [address], [place], [address], [place] tel:[phone] [facility] Main Office Follow Up of Rheumatoid Arthritis (chief complaint)Fo llow up (chief complaint) RA w/o rheumatoid factor of multiple sitesOther spondylosis, cervical regionCervic algiaOther terminal supervisor (current) drug therapyLong term (current) use of opiate analgesicBod y mass index (BMI) 30.0-30.9, adult Jun-0 2- 0 Fabio Paul. [address], [place], [address] , [place]. tel: [phone] Leif Arrington, [address], [place], [address]. tel:[phone] ng Provider: Gulshan Stewart, [place], [address]. tel:[phone] [facility] of , [address], [place], [id number], [place] tel:[phone] [facility] Main Office No Information 2 9 Fabio Paul. [address], [place], [address] , [place]. tel: [phone] Referring Provider: [place], [address]. tel:[phone] OFFICE/OUTPA TIENT VISIT, EST [facility] of , [address], [place], [id number], [place] tel:[phone] [facility] Main Office Follow Up of Rheumatoid Arthritis (chief complaint) RA w/o rheumatoid factor of multiple sitesOther spondylosis, cervical regionCervic algiaOther terminal supervisor (current) drug therapyBody mass index (BMI) 34.0-34.9, adultElevate d blood-pressu re reading, w/o diagnosis of htn 9 Fabio Paul. [address], [place], [address] , [place]. tel: [phone] Leif Dominguezis, [address], [place], [address]. tel:[phone] ng Provider: [place], [address]. tel:[phone] OFFICE/OUTPA TIENT VISIT, EST [facility] of , [address], [place], [id number], [place] tel:[phone] [facility] Main Office No Information 9 Fabio Paul. [address], [place], [address] , [place]. tel: [phone] Referring Provider: [place], [address]. tel:[phone] OFFICE/OUTPA TIENT VISIT, EST [facility] of , [address], [place], [id number], [place] tel:[phone] [facility] Main Office No Information 9 Fabio Paul. [address], [place], [address] , [place]. tel: [phone] Referring Provider: [place], [address]. tel:[phone] OFFICE/OUTPA TIENT VISIT, EST [facility] of , [address], [place], [address], [place] tel:[phone] [facility] Main Office Follow Up of Neck Pain (chief complaint)Fo llow Up of Rheumatoid Arthritis (chief complaint)Fo llow up (chief complaint) RA w/o rheumatoid factor of multiple sitesOther spondylosis, cervical regionCervic algiaBody mass index (BMI) 33.0-33.9, adultOther terminal supervisor (current) drug therapyPain in left foot Sep-0 -201 9 Fabio Paul. [address], [place], [address] , [place]. tel:[phone] Leif Dominguezis, [address], [place], [address]. [phone] ng Provider: [place], [address]. tel:[phone] OFFICE/OUTPA TIENT VISIT, EST [facility] of , [address], [place], [address], [place] tel:[phone] [facility] Main Office No Information 9 Fabio Paul. [address], [place], [address] , [place]. tel: [phone] Referring Provider: Driss Glass [place], MD, . tel:[phone] OFFICE/OUTPA TIENT VISIT, EST [facility] of , [address], [place], [address], [place] tel:[phone] [facility] Main Office No Information 9 Fabio Paul. [address], [place], [address] , [place]. [phone] Referring Provider: [place], [address]. tel:[phone] OFFICE/OUTPA TIENT VISIT, EST [facility] of , [address], [place], [id number], [place] tel:[phone] [facility] Main Office No Information 9 Fabio Paul. [address], [place], [address] , [place]. tel: [phone] Referring Provider: Gulshan Stewart, [address] [place], [address]. tel:[phone] [facility] of , [address], [place], [address], [place] tel: [phone] [facility] Main Office No Information 9 Fabio Paul. [address], [place], [address] , [place]. tel: [phone] OFFICE/OUTPA TIENT VISIT, EST [facility] of , [address], [place], [address], [place] tel: [phone] [facility] Main Office Follow Up of Neck Pain (chief complaint)Fo llow Up of Rheumatoid Arthritis (chief complaint) RA w/o rheumatoid factor of multiple sitesOther terminal supervisor (current) drug therapyCervi calgiaOther spondylosis, cervical regionBody mass index (BMI) 33.0-33.9, adult 9 Fabio Paul. [address], [place], [id number] , [place]. tel: [phone] Leif Arrington, [address], [place], [address]. tel:[phone] ng Provider: Gulshan Stewart, [address] [place], [address]. tel:[phone] OFFICE/OUTPA TIENT VISIT, EST [facility] of , [address], [place], [address], [place] tel:[phone] [facility] Main Office No Information 9 Fabio Paul. [address], [place], [address] , [place]. tel: [phone] Referring Provider: Gulshan Stewart, [place], [address]. tel:[phone] OFFICE/OUTPA TIENT VISIT, EST [facility] of , [address], [place], [id number], [place] tel:[phone] [facility] Main Office Follow Up of Rheumatoid Arthritis (chief complaint) RA w/o rheumatoid factor of multiple sitesOther intermediate (current) drug therapyLong term (current) use of opiate analgesicBod y mass index (BMI) 33.0-33.9, adultPrimary generalized OA Apr-0 201 9 Fabio Paul. [address], [place], [address] , [place]. tel:[phone] Leif Arrington, [address], [place], [address]. tel:[phone] ng Provider: Gulshan Stewart, [place], [address]. tel:[phone] OFFICE/OUTPA TIENT VISIT, EST [facility] of , [address], [place], [address], [place] tel:[phone] [facility] Main Office No Information 9 Fabio Paul. [address], [place], [id number] , [place]. [phone] Referring Provider: Gulshan Stewart, [place], [address]. tel:[phone] OFFICE/OUTPA TIENT VISIT, EST [facility] of , [address], [place], [id number], [place] tel:[phone] [facility] Main Office No Information 9 Fabio Paul. [address], [place], [address] , [place]. tel:[phone] Referring Provider: Gulshan Stewart, Ed[address]ira2 Latoya Perry MD, . tel:[phone] OFFICE/OUTPA TIENT VISIT, EST [facility] of , [address], [place], [id number], [place] tel:[phone] [facility] Main Office No Information 9 Fabio Paul. [address], [place], [address] , [place]. tel:[phone] Referring Provider: Gulshan Stewart, Latoya Douglas MD, . tel:[phone] OFFICE/OUTPA TIENT VISIT, EST [facility] of , [address], [place], [id number], [place] tel:[phone] [facility] Main Office No Information 8 Fabio Paul. [address], [place], [id number] , [place]. tel: [phone] Referring Provider: Gulshan Stewart, Latoya Douglas MD, . tel:[phone] OFFICE/OUTPA TIENT VISIT, EST [facility] of , [address], [place], [address], [place] tel:[phone] [facility] Main Office Follow Up of Rheumatoid Arthritis (chief complaint) RA w/o rheumatoid factor of multiple sitesOther intermediate (current) drug therapyBody mass index (BMI) 34.0-34.9, adultElevate d blood-pressu re reading, w/o diagnosis of htnPrimary OA of left knee 8 Fabio Paul. [address], [place], [id number] , [place]. tel:[phone] Leif Arrington, [address], [place], [address]. tel:[phone] ng Provider: Gulshan Stewart, [place], [address]. tel:[phone] OFFICE/OUTPA TIENT VISIT, EST [facility] of , [address], [place], [id number], [place] tel:[phone] [facility] Main Office No Information 5-201 8 Fabio Paul. [address], [place], [address] , [place]. tel:[phone] Referring Provider: [place], [address]. tel:[phone] OFFICE/OUTPA TIENT VISIT, EST [facility] of , [address], [place], [id number], [place] tel:[phone] [facility] Main Office No Information 8-201 8 Fabio Paul. [address], [place], [address] , [place]. tel:[phone] Referring Provider: Gulshan Stewart, [place], [address]. tel:[phone] OFFICE/OUTPA TIENT VISIT, EST [facility] of , [address], [place], [id number], [place] tel:[phone] [facility] Main Office No Information 0- 8 Fabio Paul. [address], [place], [id number] , [place]. tel:[phone] Referring Provider: [place], [address]. tel:[phone] OFFICE/OUTPA TIENT VISIT, EST [facility] of , [address], [place], [address], [place] tel:[phone] [facility] Main Office Follow Up of Rheumatoid Arthritis (chief complaint) RA w/o rheumatoid factor of multiple sitesOther intermediate (current) drug therapyBody mass index (BMI) 32.0-32.9, adult Aug-0 6-201 8 Fabio Paul. [address], [place], [address] , [place]. tel:[phone] Leif Arrington, [address], [place], [address]. tel:[phone] ng Provider: Gulshan Stewart, [address] [place], [address]. tel:[phone] [facility] of , [address], [place], [address], [place] tel:[phone] [facility] Main Office No Information 8 Fabio Paul. [address], [place], [id number] , [place]. tel:[phone] Referring Provider: Gulshan Stewart, [address] [place], [address]. tel:[phone] OFFICE/OUTPA TIENT VISIT, EST [facility] of , [address], [place], [id number], [place] tel:[phone] [facility] Main Office No Information 8 Fabio Paul. [address], [place], [id number] , [place]. tel:[phone] Referring Provider: Gulshan Stewart, [address] [place], [address]. tel:[phone] OFFICE/OUTPA TIENT VISIT, EST [facility] of , [address], [place], [id number], [place] tel:[phone] [facility] Main Office Follow Up of Rheumatoid Arthritis (chief complaint) RA w/o rheumatoid factor of multiple sitesOther terminal supervisor (current) drug therapyLong term (current) use of opiate analgesicLon g term (current) use of non-steroida l anti-inflamm atories (NSAID) 8 Fabio Paul. [address], [place], [id number] , [place]. tel:[phone] Leif Arrington, [address], [place], [address]. tel:[phone] ng Provider: Gulshan Stewart, [place], [address]. tel:[phone] [facility] of , [address] [address], [place], [id number], [place] tel:[phone] [facility] Main Office No Information 8 Fabio Paul. [address], [place], [id number] , [place]. tel: [phone] Referring Provider: Gulshan Stewart, [place], [address]. tel:[phone] [facility] of , [address], [place], [id number], [place] tel:[phone] [facility] Main Office Follow Up of Rheumatoid Arthritis (chief complaint) RA w/o rheumatoid factor of multiple sitesOther intermediate (current) drug therapyLong term (current) use of non-steroida l anti-inflamm atories (NSAID) 8 Fabio Paul. [address], [place], [id number] , [place]. tel: [phone] Leif Arrington, [address], [place], [address]. tel:[phone] ng Provider: Gulshan Stewart, [place], [address]. tel:[phone] [facility] of , [address], [place], [id number], [place] tel:[phone] [facility] Main Office No Information 8 Fabio Paul. [address], [place], [id number] , [place]. tel: [phone] Referring Provider: Gulshan Stewart, [address] [place], [address]. tel:[phone] [facility] of , [address], [place], [id number], [place] tel:[phone] [facility] Main Office No Information Fabio Paul. [address], [place], [id number] , [place]. tel: [phone] Referring Provider: Gulshan Stewart, [address] [place], [address]. tel:[phone] [facility] of , [address], [place], [id number], [place] tel:[phone] [facility] Main Office No Information Fabio Paul. [address], [place], [id number] , [place]. tel: [phone] Referring Provider: Gulshan Stewart, [address] [place], [address]. tel:[phone] OFFICE/OUTPA TIENT VISIT, EST [facility] of , [address], [place], [id number], [place] [phone] [facility] Main Office Follow Up of Rheumatoid Arthritis (chief complaint) RA w/o rheumatoid factor of multiple sitesOther intermediate (current) drug therapy Fabio Paul. [address], [place], [id number] , [place]. tel: [phone] Leif Arrington, [address], [place], [address]. tel:[phone] ng Provider: Gulshan Stewart, [address] [place], [address]. tel:[phone] [facility] of , [address], [place], [id number], [place] tel:[phone] [facility] Main Office Follow Up of Rheumatoid Arthritis (chief complaint) RA w/o rheumatoid factor of multiple sitesOther terminal supervisor drug therapyBody mass index (BMI) 30.0-30.9, adult Dec- 7 Fabio Paul. [address], [place], [id number] , [place]. tel:[phone] Leif Arrington, [address], [place], [address]. tel:[phone] OFFICE/OUTPA TIENT VISIT, EST [facility] of , [address], [place], [id number], [place] tel:[phone] [facility] Main Office Follow Up of Rheumatoid Arthritis (chief complaint) RA w/o rheumatoid factor of multiple sitesOther intermediate drug therapyBody mass index (BMI) 30.0-30.9, adult Nov- Fabio Paul. [address], [place], [id number] , [place]. tel:[phone] Leif Arrington, [address], [place], [address]. tel:[phone] Provider: Gulshan Stewart, [address], [place], [address]. tel:[phone] OFFICE/OUTPA TIENT VISIT, EST [facility] of , [address], [place], [id number], [place] tel:[phone] [facility] Main Office Follow Up of Rheumatoid Arthritis (chief complaint) RA w/o rheumatoid factor of multiple sitesOther intermediate drug therapyGener alized osteoarthrit isLong term (current) use of non-steroida l anti-inflamm atories (NSAID) 7 Fabio Paul. [address], [place], [id number] , [place]. tel:[phone] Leif Arrington, [address], [place], [address]. tel:[phone] masha Provider: Gulshan Stewart, [address] [place] MD, . tel:[phone] [facility] of , [address], [place], [id number], [place] tel:[phone] [facility] Main Office No Information 7 Fabio Paul. [address], [place], [id number] , [place]. tel:[phone] Referring Provider: Gulshan Stewart, [address] [place] MD, . tel:[phone] OFFICE/OUTPA TIENT VISIT, EST [facility] of , [address], [place], [id number], [place] tel:[phone] [facility] Main Office Follow Up of Rheumatoid Arthritis (chief complaint) RA w/o rheumatoid factor of multiple sitesOther terminal supervisor drug therapyGener alized osteoarthrit isLong term (current) use of non-steroida l anti-inflamm atories (NSAID) Jul- 7 Fabio Paul. [address], [place], [id number] , [place]. tel:[phone] Leif Arrington, [address], [place], [address]. tel:[phone] masha Provider: Gulshan Stewart, Edelmira2 [place] MD, . tel:[phone] [facility] of , [address], [place], [id number], [place] tel:[phone] [facility] Main Office No Information 7 Fabio Paul. [address], [place], [id number] , [place]. tel:[phone] Referring Provider: Gulshan Stewart, [address] [place], [address]. tel:[phone] [facility] of , [address], [place], [id number], [place] tel:[phone] [facility] Main Office No Information Fabio Paul. [address], [place], [id number] , [place]. tel:[phone] Referring Provider: Gulshan Stewart, Edelmira2 [place], [address]. tel:[phone] [facility] of , [address], [place], [id number], [place] tel:[phone] [facility] Main Office No Information Fabio Paul. [address], [place], [id number] , [place]. tel:[phone] Referring Provider: Gulshan Stewart, Edemlira2 [place], [address]. tel:[phone] [facility] of , [address], [place], [id number], [place] tel:[phone] [facility] Main Office Follow Up of Rheumatoid Arthritis (chief complaint) RA w/o rheumatoid factor of multiple sitesOther intermediate drug therapyGener alized osteoarthrit isLong term (current) use of non-steroida l anti-inflamm atories (NSAID)Troch anteric bursitis, right hipPain in right hip Fabio Paul. [address], [place], [id number] , [place]. tel: [phone] Leif Arrington, [address], [place], [address]. tel:[phone] ng Provider: Gulshan Stewart, Edelmira2 [place], [address]. tel:[phone] OFFICE/OUTPA TIENT VISIT, EST [facility] of , [address], [place], [id number], [place] tel:[phone] [facility] Main Office Follow Up of Rheumatoid Arthritis (chief complaint) RA w/o rheumatoid factor of multiple sitesOther terminal supervisor drug therapyGener alized osteoarthrit isLong term (current) use of non-steroida l anti-inflamm atories (NSAID) 7-201 6 Fabio Paul. [address], [place], [id number] , [place]. tel:[phone] Leif Arrington, [address], [place], [address]. tel:[phone] ng Provider: Gulshan Stewart, [place], [address]. tel:[phone] OFFICE/OUTPA TIENT VISIT, EST [facility] of , [address], [place], [id number], [place] tel:[phone] [facility] Main Office Follow Up of Rheumatoid Arthritis (chief complaint) RA w/o rheumatoid factor of multiple sitesOther terminal supervisor drug therapyGener alized osteoarthrit isLong term (current) use of non-steroida l anti-inflamm atories (NSAID) 6 Fabio Paul. [address], [place], [id number] , [place]. tel:[phone] Leif Arrington, [address], [place], [address]. tel:[phone] ng Provider: Gulshan Stewart, [address]2 [place], [address]. tel:[phone] OFFICE/OUTPA TIENT VISIT, EST [facility] of , [address], [place], [id number], [place] tel:[phone] [facility] Main Office Follow Up of Rheumatoid Arthritis (chief complaint) RA w/o rheumatoid factor of multiple sitesOther terminal supervisor drug therapyGener alized osteoarthrit isLong term (current) use of non-steroida l anti-inflamm atories (NSAID) 6 Fabio Paul. [address], [place], [id number] , [place]. tel:[phone] Leif Arrington, [address], [place], [address]. tel:[phone] ng Provider: Gulshan Stewart, [address], [place], [address]. tel:[phone] OFFICE/OUTPA TIENT VISIT, EST [facility] of , [address], [place], [id number], [place] tel:[phone] [facility] Main Office Follow Up of Rheumatoid Arthritis (chief complaint) RA w/o rheumatoid factor of multiple sitesOther terminal supervisor drug therapyGener alized osteoarthrit is 6 Fabio Paul. [address], [place], [id number] , [place]. tel:[phone] Leif Arrington, [address], [place], [address]. tel:[phone] ng Provider: [address], [place], [address]. tel:[phone] OFFICE/OUTPA TIENT VISIT, EST [facility] of , [address], [place], [id number], [place] tel:[phone] [facility] Main Office Follow Up of Rheumatoid Arthritis (chief complaint) RA w/o rheumatoid factor of multiple sitesOther intermediate drug therapyGener alized osteoarthrit is 6 Fabio Paul. [address], [place], [id number] , [place]. tel:[phone] Leif Arrington, [address], [place], [address]. tel:[phone] masha Provider: Venus Mont[address], [place], [address]. tel:[phone] OFFICE/OUTPA TIENT VISIT, EST [facility] of , [address], [place], [id number], [place] tel:[phone] [facility] Main Office Inflammatory Polyarthropa thy (chief complaint) Inflammatory polyarthropa thyGeneraliz ed osteoarthrit is 6 Fabio Paul. [address], [place], [address] , [place]. tel:[phone] Leif Arrington, [address], [place], [address]. tel:[phone] ng Provider: Leif Gonzalez, [address], [place], [address]. tel:[phone] OFFICE/OUTPA TIENT VISIT, EST [facility] of , [address], [place], [id number], [place] tel:[phone] [facility] Main Office Inflammatory Polyarthropa thy (chief complaint) Inflammatory polyarthropa thyPain in left hipPrimary generalized (osteo)arthr itisLong term (current) use of non-steroida l anti-inflamm atories (NSAID) 6 Fabio Paul. [address], [place], [id number] , [place]. tel:[phone] Leif Arrington, [address], [place], [address]. tel:[phone] masha Provider: Leif Gonzalez, [address], [place], [address]. tel:[phone] OFFICE/OUTPA TIENT VISIT, EST [facility] of , [address], [place], [id number], [place] tel:[phone] [facility] Main Office Osteoarthrit is (chief complaint) Primary generalized (osteo)arthr itisLong term (current) use of non-steroida l anti-inflamm atories (NSAID) 6 Fabio Paul. [address], [place], [id number] , [place]. tel:[phone] Referring Provider: Leif Gonzalez, [address], [place], [address]. tel:[phone] OFFICE/OUTPA TIENT VISIT, EST [facility] of , [address], [place], [id number], [place] tel:[phone] [facility] Main Office Follow Up of Osteoarthrit is (chief complaint) Osteoarthros is, generalized, involving unspecified siteDisorder s of bursae and tendons in shoulder region, unspecified Jul- 5 Fabio Paul. [address], [place], [id number] , [place]. tel:[phone] Referring Provider: Leif Gonzalez, [address], [place], [address]. tel:[phone] OFFICE/OUTPA TIENT VISIT, EST [facility] of , [address], [place], [id number], [place] tel:[phone] [facility] Main Office Follow Up of Right shoulder pain (chief complaint) Disorders of bursae and tendons in shoulder region, unspecifiedP ainful shoulder 4 Fabio Paul. [address], [place], [address] , [place]. tel:[phone] Referring Provider: Leif Gonzalez, [address], [place], [address]. tel:[phone] OFFICE/OUTPA TIENT VISIT, EST [facility] of , [address], [place], [id number], [place] tel:[phone] [facility] Main Office No Information 4 Fabio Paul. [address], [place], [address] , [place]. tel:[phone] Referring Provider: Peter Gonzalez, [address], [place], [address]. tel:[phone] OFFICE/OUTPA TIENT VISIT, EST [facility] of , [address], [place], [id number], [place] tel:[phone] [facility] Main Office Follow Up of Osteoarthrit is (chief complaint) Osteoarthrit is, GeneralizedL TU-TERM (CURRENT) USE OF NON-STEROIDA L ANTI-INFLAMM ATORIES 4 Fabio Paul. [address], [place], [id number] , [place]. tel:[phone] Referring Provider: Leif Gonzalez, [address], [place], [address]. tel:[phone] OFFICE/OUTPA TIENT VISIT, EST [facility] of , [address], [place], [id number], [place] tel:[phone] [facility] Main Office Osteoarthrit is (chief complaint) Disorders of bursae and tendons in shoulder region, unspecifiedO steoarthriti s, Generalized 4 Fabio Paul. [address], [place], [address] , [place]. tel:[phone] Referring Provider: Leif Gonzalez, [address], [place], [address]. tel:[phone] OFFICE/OUTPA TIENT VISIT, EST [facility] of , [address], [place], [id number], [place] tel:[phone] [facility] Main Office Osteoarthrit is (chief complaint) Osteoarthrit is, GeneralizedD isorders of bursae and tendons in shoulder region, unspecifiedL TU-TERM (CURRENT) USE OF NON-STEROIDA L ANTI-INFLAMM ATORIES 4 Fabio Paul. [address], [place], [address] , [place]. tel:[phone] Referring Provider: Leif Gonzalez [address], [place], [address]. tel:[phone] OFFICE/OUTPA TIENT VISIT, EST [facility] of , [address], [place], [id number], [place] tel:[phone] [facility] Main Office Osteoarthrit is (chief complaint) Osteoarthrit is, Generalized 3 Fabio Paul. [address], [place], [address] , [place]. tel:[phone] Referring Provider: Leif Gonzalez, [address], [place], [address]. tel:[phone] OFFICE/OUTPA TIENT VISIT, EST [facility] of , [address], [place], [id number], [place] tel:[phone] [facility] Main Office for joint pain (chief complaint) Osteoarthrit is, GeneralizedA rticular cartilage disorder involving forearmRadia l styloid tenosynoviti s 3 Fabio Paul. [address], [place], [address] , [place]. tel:[phone] Referring Provider: Leif Gonzalez, [address], [place], [address]. tel:[phone] OFFICE/OUTPA TIENT VISIT, NEW [facility] of , [address], [place], [id number], [place] tel:[phone] [facility] Main Office myalgia (chief complaint) Fatigue / MalaisePain in joint involving multiple sites 3 Fabio Paul. [address], [place], [address] , [place]. tel:[phone] Referring Provider: Leif Gonzalez, [address], [place], [address]. tel:[phone] Family History Family Member Type Diagnosis Age [...] cified Payers Payer name Insurance type Covered democrat ID Authoriza tion(s) Medicare MB [id number] [employer] [place] [id number] Medicare MB [id number] [employer] [place] [id number] Medicare MB [id number] [employer] [place] [id number] Medicare MB [id number] [employer] [place] [id number] Social History Type Description Quantity Date Captured [...] OA) ordered Referral Referred To: Toan Berry [address] [place], [id number] Ordered: Referrals: Allopathic & Osteopathic Physicians : Anesthesiology. Toan Berry. Consult ordered Referral Ordered: Madi Holder -Allopathic & Osteopathic Physicians : Internal Medicine : Nephrology (related to CKD) ordered Referral Referred To: Madi Holder [address] [facility]
[address] [place], [phone] Ordered: Referrals: Allopathic & Osteopathic Physicians : [...] Future Order: Lab Order Lipid Pa rashard ([id number]), Ordered on: Ordered Future Order: Lab Order COMPREHE NSIVE METABOLIC PANEL (CMP), Collected on: , Sent on: Sent Future Order: Lab Order CBC Diff erential And Platlet (CBC PLT DIFF), Ordered on: Ordered Future Order: Lab Order CMP ([id number]), Orde red on: Ordered Future Order: Lab Order CBC Diff erential And Platlet (CBC PLT DIFF), Collected on: Ordered Future Order: Lab Order CMP ([id number]), Wally ected on: Ordered Future Order: Lab [...]
--- OUTSIDE RECORDS SUMMARY | 2024-11-28 06:00 | XMS_ITS | Continuity of Care Document ---
Author Organization [facility] Address [address] [place] [address] Phone Care Team Providers Care Zinc Miner Name Role Phone Fabio MANCINI, Paul Unavailable Unavailable Allergies, Adverse Reactions, Alerts Substance Reaction Status Criticality No Known Allergies Active No Inform ation Medications Medication Instructions Dosage Effective Dates (start - stop) Status Comments ergocalciferol (vitamin D2) 1,250 mcg (50,000 unit) capsule take 1 capsule by oral route every week 34831 UNITS - Active Simponi ARIA 12.5 mg/mL [...] Providers Copied on Encounter OFFICE/OUTPA TIENT VISIT, [facility] , [address], [place], [id number], [place] tel:[phone] [facility] Main Office No Information Fabio Miller. [address], [place], [id number] , [place]. tel:[phone] Referring Provider: Rosalba Shaw, [address], [place], [address]. tel:[phone] OFFICE/OUTPA TIENT VISIT, EST [facility] anjelica MANCINI, [address], [place], [id number], [place] tel:[phone] [facility] Main Office Age-related osteoporosis without current pathological fracture 5 Fabio Paul. [address], [place], [id number] , [place]. tel:[phone] Referring Provider: Pilo Hinojosa, [address], [place], [address]. 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 [address], [place], [id number] , [place]. tel:[phone] Leif Arrington, [address], [place], [address]. tel:[phone] ist: Madi Gallo, [address], [place], [address]. tel:[phone] ist: Sunni Ackerman, [address], [place], [address]. tel:[phone] ng Provider: Pilo Hinojosa, [address], [place], [address]. tel:[phone] [facility] of , [address], [place], [id number], [place] tel:[phone] [facility] Main Office No Information 5 Fabio Paul. [address], [place], [id number] , [place]. 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 [address], [place], [id number] , [place]. tel:[phone] Leif Arrington, [address], [place], [address]. tel:[phone] ist: Madi Holder, [address] [facility] [address] [facility] [address], [place], [address]. tel:[phone] ist: Sunni Ackerman, [address], [place], [address]. tel:[phone] ng Provider: Rosalba Shaw, [address], [place], [address]. tel:[phone] OFFICE/OUTPA TIENT VISIT, EST [facility] of , [address], [place], [id number], [place] tel:[phone] [facility] Main Office No Information Jul- 5 Fabio Miller. [address], [place], [id number] , [place]. tel:[phone] Referring Provider: Pilo Hinojosa, [address], [place], [address]. tel:[phone] OFFICE/OUTPA TIENT VISIT, EST [facility] of , [address], [place], [id number], [place] tel:[phone] [facility] Main Office Follow Up [...] [address], [place], [id number] , [place]. tel:[phone] Leif Arrington, [address], [place], [address]. tel:[phone] ist: Madi Holder, [address], [place], [address]. tel:[phone] ist: Sunni Ackerman, [address], [place], [address]. tel:[phone] ng Provider: Rosalba Shaw, [address], [place], [address]. tel:[phone] OFFICE/OUTPA TIENT VISIT, EST [facility] of , [address], [place], [id number], [place] tel:[phone] [facility] Main Office No Information 4 Fabio Miller. [address], [place], [id number] , [place]. tel:[phone] Referring Provider: Pilo Hinojosa, [address], [place], [address]. tel:[phone] OFFICE/OUTPA TIENT VISIT, EST [facility] of , [address], [place], [id number], [place] tel:[phone] [facility] Main Office Follow Up [...] [address], [place], [id number] , [place]. tel:[phone] Leif Arrington, [address], [place], [address]. tel:[phone] ist: Madi Holder, [address], [place], [address]. tel:[phone] ist: Sunni Ackerman, [address], [place], [address]. tel:[phone] ng Provider: Pilo Hinojosa, [address] [place] [address] [address], [place], [address]. tel:[phone] OFFICE/OUTPA TIENT VISIT, EST [facility] of , [address], [place], [id number], [place] tel:[phone] [facility] Main Office No Information 4 Fabio Paul. [address], [place], [address] , [place]. tel:[phone] Referring Provider: Pilo Hinojosa, [address] [place] [address] [address], [place], [address]. [phone] OFFICE/OUTPA TIENT VISIT, EST [facility] of , [address], [place], [id number], [place] tel:[phone] [facility] Main Office No Information 4 Fabio Paul. [address], [place], [id number] , [place]. tel:[phone] Referring Provider: Pilo Hinojosa, [address], [place], [address]. 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 [address], [place], [id number] , [place]. tel:[phone] Leif Arrington, [address], [place], [address]. tel:[phone] ist: Madi Holder, [address], [place], [address]. tel:[phone] ist: Sunni Ackerman, [address], [place], [address]. tel:[phone] ng Provider: Pilo Hinojosa, [address], [place], [address]. tel:[phone] OFFICE/OUTPA TIENT VISIT, EST [facility] of , [address], [place], [id number], [place] tel:[phone] [facility] Main Office No Information 4 Fabio Paul. [address], [place], [id number] , [place]. tel:[phone] Referring Provider: Pilo Hinojosa, [address], [place], [address]. tel:[phone] OFFICE/OUTPA TIENT VISIT, EST [facility] of , [address], [place], [id number], [place] tel:[phone] [facility] Main Office No Information 4 Fabio Paul. [address], [place], [address] , [place]. tel:[phone] Referring Provider: Pilo Hinojosa, [address], [place], [address]. tel:[phone] OFFICE/OUTPA TIENT VISIT, EST [facility] of , [address], [place], [address], [place] tel:[phone] [facility] Main Office No Information 4 Fabio Paul. [address], [place], [id number] , [place]. tel:[phone] Referring Provider: Pilo Hinojosa, [address], [place], [address]. tel:[phone] OFFICE/OUTPA TIENT VISIT, EST [facility] of , [address], [place], [address], [place] tel:[phone] [facility] Main Office Follow Up [...] [address], [place], [id number] , [place]. tel:[phone] Leif Arrington, [address], [place], [address]. tel:[phone] ist: Madi Holder, [address], [place], [address]. tel:[phone] ist: Sunni Ackerman, [address], [place], [address]. tel:[phone] ng Provider: Pilo Hinojosa, [address], [place], [address]. tel:[phone] OFFICE/OUTPA TIENT VISIT, EST [facility] of , [address], [place], [id number], [place] tel:[phone] [facility] Main Office No Information 4 Fabio Paul. [address], [place], [id number] , [place]. tel:[phone] Referring Provider: Pilo Hinojosa, [address], [place], [address]. tel:[phone] OFFICE/OUTPA TIENT VISIT, EST [facility] of , [address], [place], [id number], [place] tel:[phone] [facility] Main Office No Information 3 Fabio Paul. [address], [place], [id number] , [place]. tel:[phone] Referring Provider: Pilo Hinojosa, [address], [place], [address]. tel:[phone] [facility] of , [address], [place], [id number], [place] tel:[phone] [facility] Main Office No Information 3 Fabio Paul. [address], [place], [id number] , [place]. 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 [address], [place], [id number] , [place]. tel:[phone] Leif Arrington, [address], [place], [address]. tel:[phone] ist: Madi Holder, [address], [place], [address]. tel:[phone] ist: Sunni Ackerman, [address], [place], [address]. tel:[phone] ng Provider: Pilo Hinojosa, [address], [place], [address]. tel:[phone] [facility] of , [address], [place], [id number], [place] tel:[phone] [facility] Main Office No Information 0 3 Fabio Paul. [address], [place], [id number] , [place]. tel:[phone] OFFICE/OUTPA TIENT VISIT, EST [facility] of , [address], [place], [address], [place] tel:[phone] [facility] Main Office No Information 3 Fabio Paul. [address], [place], [address] , [place]. tel:[phone] Referring Provider: Pilo Hinojosa, [address], [place], [address]. tel:[phone] OFFICE/OUTPA TIENT VISIT, EST [facility] of , [address], [place], [id number], [place] tel:[phone] [facility] Main Office No Information 3 Fabio Paul. [address], [place], [id number] , [place]. tel:[phone] Referring Provider: Pilo Hinojosa, [address], [place], [address]. tel:[phone] OFFICE/OUTPA TIENT VISIT, EST [facility] of , [address], [place], [id number], [place] tel:[phone] [facility] Main Office No Information 3 Fabio Paul. [address], [place], [address] , [place]. tel:[phone] Referring Provider: Pilo Hinojosa, [address], [place], [address]. tel:[phone] OFFICE/OUTPA TIENT VISIT, EST [facility] of , [address], [place], [address], [place] tel:[phone] [facility] Main Office No Information 3 Fabio Paul. [address], [place], [address] , [place]. tel:[phone] Referring Provider: Pilo Hinojosa, [address], [place], [address]. tel:[phone] OFFICE/OUTPA TIENT VISIT, EST [facility] of , [address], [place], [id number], [place] tel:[phone] [facility] Main Office Follow Up of GOA (chief complaint)Fo llow Up of RA (chief complaint) Immunodefici ency due to drugsRA w/o rheumatoid factor of multiple sitesGeneral ized OAPain in unspecified jointCKDLong term (current) use of immunosuppre ssive biologicBody mass index (BMI) 30.0-30.9, adult 3 Fabio Paul. [address], [place], [id number] , [place]. tel:[phone] Leif Arrington, [address], [place], [address]. tel:[phone] ist: Madi Holder, [address], [place], [address]. tel:[phone] ist: Sunni Ackerman [address], [place], [address]. tel:[phone] ng Provider: Pilo Hinojosa, [address], [place], [address]. tel:[phone] OFFICE/OUTPA TIENT VISIT, EST [facility] of , [address], [place], [address], [place] tel:[phone] [facility] Main Office No Information 3 Fabio Paul. [address], [place], [address] , [place]. tel:[phone] Referring Provider: Pilo Hinojosa, [address], [place], [address]. tel:[phone] OFFICE/OUTPA TIENT VISIT, EST [facility] of , [address], [place], [id number], [place] tel:[phone] [facility] Main Office No Information 3 Fabio Paul. [address], [place], [address] , [place]. tel:[phone] Referring Provider: Pilo Hinojosa, [address], [place], [address]. tel:[phone] OFFICE/OUTPA TIENT VISIT, EST [facility] of , [address], [place], [address], [place] tel:[phone] [facility] Main Office No Information 3 Fabio Paul. [address], [place], [address] , [place]. tel:[phone] Referring Provider: Pilo Hinojosa, [address], [place], [address]. tel:[phone] OFFICE/OUTPA TIENT VISIT, EST [facility] of , [address], [place], [address], [place] tel:[phone] [facility] Main Office No Information Jul-0 3 Fabio Paul. [address], [place], [address] , [place]. tel:[phone] Referring Provider: Pilo Hinojosa, [address], [place], [address]. tel:[phone] OFFICE/OUTPA TIENT VISIT, EST [facility] of , [address], [place], [address], [place] tel:[phone] [facility] Main Office Follow Up of GOA (chief complaint)Fo llow Up of RA (chief complaint) Immunodefici ency due to drugsRA w/o rheumatoid factor of multiple sitesGeneral ized OACKDLong term (current) use of immunosuppre ssive biologicPain in unspecified joint Jun-2 3 Fabio Paul. [address], [place], [address] , [place]. tel:[phone] Leif Arrington, [address], [place], [address]. tel:[phone] ist: Madi Gallo, [address], [place], [address]. tel:[phone] ist: Sunni Ackerman, [address], [place], [address]. tel:[phone] ng Provider: Pilo Hinojosa, [address], [place], [address]. tel:[phone] OFFICE/OUTPA TIENT VISIT, EST [facility] of , [address], [place], [address], [place] tel:[phone] [facility] Main Office No Information 0 3 Fabio Paul. [address], [place], [address] , [place]. tel:[phone] Referring Provider: Plio Hinojosa, [address], [place], [address]. tel:[phone] OFFICE/OUTPA TIENT VISIT, EST [facility] of , [address], [place], [address], [place] tel:[phone] [facility] Main Office No Information 3 Fabio Paul. [address], [place], [address] , [place]. tel: [phone] Referring Provider: Gulshan Stewart, [place], [address]. tel:[phone] OFFICE/OUTPA TIENT VISIT, EST [facility] of , [address], [place], [id number], [place] tel:[phone] [facility] Main Office No Information 3 Fabio Paul. [address], [place], [address] , [place]. tel: [phone] Referring Provider: Gulshan Stewart, [address] Latoya [place] MD, . tel:[phone] OFFICE/OUTPA TIENT VISIT, EST [facility] of , [address], [place], [address], [place] tel:[phone] [facility] Main Office Follow Up of GOA (chief complaint)Fo llow Up of RA (chief complaint) Immunodefici ency due to drugsRA w/o rheumatoid factor of multiple sitesGeneral ized OACervicalgi aCKDLong term (current) use of opiate analgesicLon g term (current) use of immunosuppre ssive biologic 2 Fabio Paul. [address], [place], [id number] , [place]. tel: [phone] Leif Arrington, [address], [place], [address]. tel:[phone] ist: Madi Holder, [address], [place], [address]. tel:[phone] ng Provider: Gulshan Stewart, [address] [place], [address]. tel:[phone] OFFICE/OUTPA TIENT VISIT, EST [facility] of , [address], [place], [address], [place] tel: [phone] [facility] Main Office No Information 2 Fabio Paul. [address], [place], [address] , [place]. tel:[phone] Referring Provider: Gulshan Stewart, [place], [address]. tel:[phone] OFFICE/OUTPA TIENT VISIT, EST [facility] of , [address], [place], [id number], [place] tel:[phone] [facility] Main Office No Information 2 Fabio Paul. [address], [place], [id number] , [place]. tel: [phone] Referring Provider: Gulshan Stewart, [address] [place], [address]. tel:[phone] OFFICE/OUTPA TIENT VISIT, EST [facility] of , [address], [place], [address], [place] tel:[phone] [facility] Main Office No Information 2 Fabio Paul. [address], [place], [address] , [place]. tel: [phone] Referring Provider: Gulshan Stewart, [address] [place], [address]. tel:[phone] OFFICE/OUTPA TIENT VISIT, EST [facility] of , [address], [place], [id number], [place] tel:[phone] [facility] Main Office Follow Up of Rheumatoid Arthritis (chief complaint)Fo llow Up of Generalized OA (chief complaint) Immunodefici ency due to drugsRA w/o rheumatoid factor of multiple sitesGeneral ized OACervicalgi aCKDLong term (current) use of opiate analgesicOth er fci (current) drug therapyBody mass index (BMI) 33.0-33.9, adult 2 Fabio Paul. [address], [place], [address] , [place]. tel:[phone] Leif Arrington, [address], [place], [address]. tel:[phone] ist: Madi Holder, [address], [place], [address]. tel:[phone] ng Provider: Gulshan Stewart, [place], [address]. tel:[phone] OFFICE/OUTPA TIENT VISIT, EST [facility] of , [address], [place], [id number], [place] tel:[phone] [facility] Main Office No Information 2 Fabio Miller. [address], [place], [address] , [place]. tel:[phone] Referring Provider: Gulshan Stewart, [place], [address]. tel:[phone] OFFICE/OUTPA TIENT VISIT, EST [facility] of , [address], [place], [id number], [place] tel:[phone] [facility] Main Office No Information 2 Fabio Paul. [address], [place], [address] , [place]. tel:[phone] Referring Provider: Gulshan Stewart, [place], [address]. tel:[phone] OFFICE/OUTPA TIENT VISIT, EST [facility] of , [address], [place], [id number], [place] tel:[phone] [facility] Main Office No Information 2 Fabio Paul. [address], [place], [address] , [place]. tel:[phone] Referring Provider: Gulshan Stewart, [address] [place], [address]. tel:[phone] OFFICE/OUTPA TIENT VISIT, EST [facility] of , [address], [place], [id number], [place] tel:[phone] [facility] Main Office No Information 2 Fabio Paul. [address], [place], [id number] , [place]. tel:[phone] Referring Provider: Pilo Hinojosa, [address] [facility] [address], [place], [address]. tel:[phone] OFFICE/OUTPA TIENT VISIT, EST [facility] of , [address], [place], [id number], [place] tel:[phone] [facility] Main Office No Information 2 Fabio Paul. [address], [place], [id number] , [place]. tel:[phone] Referring Provider: Gulshan Stewart, [address] [place], [address]. tel:[phone] OFFICE/OUTPA TIENT VISIT, EST [facility] of , [address], [place], [address], [place] tel:[phone] [facility] Main Office Follow Up of Rheumatoid Arthritis (chief complaint)Fo llow Up of Generalized OA (chief complaint) Immunodefici ency due to drugsRA w/o rheumatoid factor of multiple sitesGeneral ized OALong term (current) use of opiate analgesicOth er director long term care (current) drug therapyCKDCe rvicalgia 2 Fabio Paul. [address], [place], [id number] , [place]. tel: [phone] Leif Arrington, [address], [place], [address]. tel: [phone] ng Provider: Gulshan Stewart, [address] [place], [address]. tel: [phone] OFFICE/OUTPA TIENT VISIT, EST [facility] of , [address], [place], [id number], [place] tel: [phone] [facility] Main Office No Information 2 Fabio Paul. [address], [place], [address] , [place]. tel: [phone] Referring Provider: Gulshan Stewart, [address] [place], [address]. tel: [phone] OFFICE/OUTPA TIENT VISIT, EST [facility] of , [address], [place], [id number], [place] tel: [phone] [facility] Main Office No Information 2 Fabio Paul. [address], [place], [id number] , [place]. tel: [phone] Referring Provider: Gulshan Stewart, [address] [place], [address]. tel:[phone] OFFICE/OUTPA TIENT VISIT, EST [facility] of , [address], [place], [id number], [place] tel: [phone] [facility] Main Office No Information 1 Fabio Paul. [address], [place], [id number] , [place]. tel: [phone] Referring Provider: Gulshan Stewart, [address] [place], [address]. tel:[phone] OFFICE/OUTPA TIENT VISIT, EST [facility] of , [address], [place], [id number], [place] tel:[phone] [facility] Main Office No Information 1 Fabio Paul. [address], [place], [id number] , [place]. tel: [phone] Referring Provider: [place], [address]. tel:[phone] OFFICE/OUTPA TIENT VISIT, EST [facility] of , [address], [place], [id number], [place] tel:[phone] [facility] Main Office No Information 1 Fabio Paul. [address], [place], [id number] , [place]. tel: [phone] Referring Provider: Driss Glass [place], [place], . tel:[phone] OFFICE/OUTPA TIENT VISIT, EST [facility] of , [address], [place], [id number], [place] tel:[phone] [facility] Main Office Follow Up of Rheumatoid Arthritis (chief complaint)Fo llow Up of Generalized OA (chief complaint) Immunodefici ency due to drugsRA w/o rheumatoid factor of multiple sitesGeneral ized OALong term (current) use of opiate analgesicOth er fci (current) drug therapyEncou nter for immunization Body mass index (BMI) 33.0-33.9, adult 1 Fabio Paul. [address], [place], [id number] , [place]. tel:[phone] Leif Arrington, [address], [place], [address]. tel:[phone] ng Provider: Gulshan Stewart, [place], [address]. tel:[phone] OFFICE/OUTPA TIENT VISIT, EST [facility] of , [address], [place], [id number], [place] tel:[phone] [facility] Main Office No Information 1 Fabio Paul. [address], [place], [address] , [place]. tel: [phone] Referring Provider: Gulshan Stewart, [place], [address]. tel:[phone] OFFICE/OUTPA TIENT VISIT, EST [facility] of , [address], [place], [id number], [place] tel: [phone] [facility] Main Office No Information 1 Fabio Paul. [address], [place], [address] , [place]. tel: [phone] Referring Provider: Gulshan Setwart, [address] [place], [address]. tel:[phone] [facility] of , [address], [place], [id number], [place] tel: [phone] [facility] Main Office No Information 1 Fabio Paul. [address], [place], [id number] , [place]. tel: [phone] Referring Provider: Gulshan Stewart, [address] [place], [address]. tel:[phone] OFFICE/OUTPA TIENT VISIT, EST [facility] of , [address], [place], [id number], [place] tel:[phone] [facility] Main Office No Information 1 Fabio Paul. [address], [place], [id number] , [place]. tel: [phone] Referring Provider: Gulshan Stewart, [address] [place], [address]. tel:[phone] OFFICE/OUTPA TIENT VISIT, EST [facility] of , [address], [place], [id number], [place] tel:[phone] [facility] Main Office Follow Up of Rheumatoid Arthritis (chief complaint)Fo llow Up of Generalized OA (chief complaint) Immunodefici ency due to drugsRA w/o rheumatoid factor of multiple sitesGeneral ized OALong term (current) use of opiate analgesicOth er director long term care (current) drug therapyBody mass index (BMI) 34.0-34.9, adult August- 1 Fabio Paul. [address], [place], [id number] , [place]. [phone] Leif Arrington, [address], [place], [address]. tel:[phone] ng Provider: Gulshan Stewart, [address] [place], [address]. tel:[phone] OFFICE/OUTPA TIENT VISIT, EST [facility] of , [address], [place], [address], [place] tel:[phone] [facility] Main Office No Information 1 Fabio Paul. [address], [place], [id number] , [place]. tel:[phone] Referring Provider: Gulshan Stewart, [address] [place], [address]. tel:[phone] OFFICE/OUTPA TIENT VISIT, EST [facility] of , [address], [place], [id number], [place] tel:[phone] [facility] Main Office No Information 1 Fabio Paul. [address], [place], [id number] , [place]. tel:[phone] Referring Provider: Gulshan Stewart, [place], [address]. tel:[phone] OFFICE/OUTPA TIENT VISIT, EST [facility] of , [address], [place], [id number], [place] tel:[phone] [facility] Main Office No Information 1 Fabio Miller. [address], [place], [id number] , [place]. tel:[phone] Referring Provider: Gulshan Stewart, [address] [place], [address]. tel:[phone] OFFICE/OUTPA TIENT VISIT, EST [facility] of , [address], [place], [id number], [place] tel:[phone] [facility] Main Office No Information 1 Fabio Miller. [address], [place], [id number] , [place]. tel:[phone] Referring Provider: Gulshan Stewart, Edelmira2 Latoya Perry MD, . tel:[phone] OFFICE/OUTPA TIENT VISIT, EST [facility] of , [address], [place], [id number], [place] tel:[phone] [facility] Main Office Follow Up of Rheumatoid Arthritis (chief complaint)Fo llow Up of Generalized OA (chief complaint) RA w/o rheumatoid factor of multiple sitesGeneral ized OALong term (current) use of opiate analgesicOth er fci (current) drug therapyImmun odeficiency due to drugsBody mass index (BMI) 33.0-33.9, adult 1 Fabio Miller. [address], [place], [id number] , [place]. tel:[phone] Referring Provider: Edelmira Glass2 [place], [address]. tel:[phone] OFFICE/OUTPA TIENT VISIT, EST [facility] of , [address], [place], [id number], [place] tel: [phone] [facility] Main Office No Information 1 Fabio Paul. [address], [place], [id number] , [place]. tel: [phone] Referring Provider: Gulshan Stewart, [place], [address]. tel:[phone] OFFICE/OUTPA TIENT VISIT, EST [facility] of , [address], [place], [address], [place] tel: [phone] [facility] Main Office No Information 0 Fabio Paul. [address], [place], [id number] , [place]. tel: [phone] Referring Provider: Gulshan Stewart, [place], [address]. tel:[phone] [facility] of , [address], [place], [id number], [place] tel: [phone] [facility] Main Office No Information 0 Fabio Paul. [address], [place], [address] , [place]. tel: [phone] Referring Provider: Gulshan Stewart, [address] [place], [address]. tel:[phone] OFFICE/OUTPA TIENT VISIT, EST [facility] of , [address], [place], [address], [place] tel:[phone] [facility] Main Office No Information 0 Fabio Paul. [address], [place], [address] , [place]. tel: [phone] Referring Provider: Gulshan Stewart, [address] [place], [address]. tel:[phone] OFFICE/OUTPA TIENT VISIT, EST [facility] of , [address], [place], [id number], [place] tel:[phone] [facility] Main Office Follow Up [...] [address], [place], [address] , [place]. tel:[phone] Leif Arrington, [address], [place], [address]. tel:[phone] ng Provider: Gulshan Stewart, [address] [place], [address]. tel:[phone] OFFICE/OUTPA TIENT VISIT, EST [facility] of , [address], [place], [address], [place] tel:[phone] [facility] Main Office No Information 0 Fabio Paul. [address], [place], [id number] , [place]. tel:[phone] Referring Provider: Gulshan Stewart, [address] [place], [address]. tel:[phone] OFFICE/OUTPA TIENT VISIT, EST [facility] of , [address], [place], [address], [place] tel:[phone] [facility] Main Office No Information 0 Fabio Paul. [address], [place], [address] , [place]. tel:[phone] Referring Provider: Gulshan Stewart [address] [place], [address]. tel:[phone] OFFICE/OUTPA TIENT VISIT, EST [facility] of , [address], [place], [id number], [place] tel:[phone] [facility] Main Office No Information 0 Fabio Paul. [address], [place], [address] , [place]. tel:[phone] Referring Provider: Gulshan Stewart, [address] [place], [address]. tel:[phone] OFFICE/OUTPA TIENT VISIT, EST [facility] of , [address], [place], [address], [place] tel:[phone] [facility] Main Office No Information 0 Fabio Paul. [address], [place], [address] , [place]. tel:[phone] Referring Provider: Gulshan Stewart, [address] MD, . tel:[phone] OFFICE/OUTPA TIENT VISIT, EST [facility] of , [address], [place], [id number], [place] tel:[phone] [facility] Main Office Follow Up of Rheumatoid Arthritis (chief complaint) RA w/o rheumatoid factor of multiple sitesOther spondylosis, cervical regionCervic algiaLong term (current) use of opiate analgesicOth er fci (current) drug therapy 0 Fabio Paul. [address], [place], [id number] , [place]. tel:[phone] Leif Arrington, [address], [place], [address]. tel:[phone] ng Provider: Gulshan Stewart, [address] [place], [address]. tel:[phone] [facility] of , [address], [place], [id number], [place] tel:[phone] [facility] Main Office Follow Up of Rheumatoid Arthritis (chief complaint) RA w/o rheumatoid factor of multiple sitesOther spondylosis, cervical regionCervic algiaLong term (current) use of opiate analgesicOth er director long term care (current) drug therapy 0 Fabio Paul. [address], [place], [address] , [place]. tel:[phone] Leif Arrington, [address], [place], [address]. [phone] ng Provider: [place], [address]. [phone] OFFICE/OUTPA TIENT VISIT, EST [facility] of , [address], [place], [id number], [place] [phone] [facility] Main Office No Information 0 Fabio Paul. [address], [place], [address] , [place]. [phone] Referring Provider: [place], [address]. tel:[phone] OFFICE/OUTPA TIENT VISIT, EST [facility] of , [address], [place], [address], [place] tel:[phone] [facility] Main Office No Information 0 Fabio Paul. [address], [place], [id number] , [place]. tel:[phone] Referring Provider: [place], [address]. [phone] OFFICE/OUTPA TIENT VISIT, EST [facility] of , [address], [place], [address], [place] tel:[phone] [facility] Main Office No Information 0-202 0 Fabio Paul. [address], [place], [address] , [place]. tel: [phone] Referring Provider: Gulshan Stewart, [place], [address]. tel:[phone] OFFICE/OUTPA TIENT VISIT, EST [facility] of , [address], [place], [address], [place] tel:[phone] [facility] Main Office Follow Up of Rheumatoid Arthritis (chief complaint)Fo llow up (chief complaint) RA w/o rheumatoid factor of multiple sitesOther spondylosis, cervical regionCervic algiaOther director long term care (current) drug therapyLong term (current) use of opiate analgesicBod y mass index (BMI) 30.0-30.9, adult Jun-0 2- 0 Fabio Paul. [address], [place], [address] , [place]. tel: [phone] Leif Arrington, [address], [place], [address]. tel:[phone] ng Provider: Gulshan Stewart, [place], [address]. tel:[phone] [facility] of , [address], [place], [id number], [place] tel:[phone] [facility] Main Office No Information 2 9 Fabio Paul. [address], [place], [address] , [place]. tel: [phone] Referring Provider: [place], [address]. tel:[phone] OFFICE/OUTPA TIENT VISIT, EST [facility] of , [address], [place], [id number], [place] tel:[phone] [facility] Main Office Follow Up of Rheumatoid Arthritis (chief complaint) RA w/o rheumatoid factor of multiple sitesOther spondylosis, cervical regionCervic algiaOther director long term care (current) drug therapyBody mass index (BMI) 34.0-34.9, adultElevate d blood-pressu re reading, w/o diagnosis of htn 9 Fabio Paul. [address], [place], [address] , [place]. tel: [phone] Leif Dominguezis, [address], [place], [address]. tel:[phone] ng Provider: [place], [address]. tel:[phone] OFFICE/OUTPA TIENT VISIT, EST [facility] of , [address], [place], [id number], [place] tel:[phone] [facility] Main Office No Information 9 Fabio Paul. [address], [place], [address] , [place]. tel: [phone] Referring Provider: [place], [address]. tel:[phone] OFFICE/OUTPA TIENT VISIT, EST [facility] of , [address], [place], [id number], [place] tel:[phone] [facility] Main Office No Information 9 Fabio Paul. [address], [place], [address] , [place]. tel: [phone] Referring Provider: [place], [address]. tel:[phone] OFFICE/OUTPA TIENT VISIT, EST [facility] of , [address], [place], [address], [place] tel:[phone] [facility] Main Office Follow Up of Neck Pain (chief complaint)Fo llow Up of Rheumatoid Arthritis (chief complaint)Fo llow up (chief complaint) RA w/o rheumatoid factor of multiple sitesOther spondylosis, cervical regionCervic algiaBody mass index (BMI) 33.0-33.9, adultOther director long term care (current) drug therapyPain in left foot Sep-0 -201 9 Fabio Paul. [address], [place], [address] , [place]. tel:[phone] Leif Dominguezis, [address], [place], [address]. [phone] ng Provider: [place], [address]. tel:[phone] OFFICE/OUTPA TIENT VISIT, EST [facility] of , [address], [place], [id number], [place] tel:[phone] [facility] Main Office No Information 9 Fabio Paul. [address], [place], [address] , [place]. tel: [phone] Referring Provider: Driss Glass [place], [place], . tel:[phone] OFFICE/OUTPA TIENT VISIT, EST [facility] of , [address], [place], [id number], [place] tel:[phone] [facility] Main Office No Information 9 Fabio Paul. [address], [place], [address] , [place]. [phone] Referring Provider: [place], [address]. tel:[phone] OFFICE/OUTPA TIENT VISIT, EST [facility] of , [address], [place], [address], [place] tel:[phone] [facility] Main Office No Information 9 Fabio Paul. [address], [place], [address] , [place]. tel: [phone] Referring Provider: Gulshan Stewart, [address] [place], [address]. tel:[phone] [facility] of , [address], [place], [address], [place] tel: [phone] [facility] Main Office No Information 9 Fabio Paul. [address], [place], [address] , [place]. tel: [phone] OFFICE/OUTPA TIENT VISIT, EST [facility] of , [address], [place], [id number], [place] tel: [phone] [facility] Main Office Follow Up of Neck Pain (chief complaint)Fo llow Up of Rheumatoid Arthritis (chief complaint) RA w/o rheumatoid factor of multiple sitesOther director long term care (current) drug therapyCervi calgiaOther spondylosis, cervical regionBody mass index (BMI) 33.0-33.9, adult 9 Fabio Paul. [address], [place], [address] , [place]. tel: [phone] Leif Arrington, [address], [place], [address]. tel:[phone] ng Provider: Gulshan Stewart, [address] [place], [address]. tel:[phone] OFFICE/OUTPA TIENT VISIT, EST [facility] of , [address], [place], [address], [place] tel:[phone] [facility] Main Office No Information 9 Fabio Paul. [address], [place], [address] , [place]. tel: [phone] Referring Provider: Gulshan Stewart, [place], [address]. tel:[phone] OFFICE/OUTPA TIENT VISIT, EST [facility] of , [address], [place], [id number], [place] tel:[phone] [facility] Main Office Follow Up of Rheumatoid Arthritis (chief complaint) RA w/o rheumatoid factor of multiple sitesOther fci (current) drug therapyLong term (current) use of opiate analgesicBod y mass index (BMI) 33.0-33.9, adultPrimary generalized OA Apr-0 201 9 Fabio Paul. [address], [place], [address] , [place]. tel:[phone] Leif Arrington, [address], [place], [address]. tel:[phone] ng Provider: Gulshan Stewart, [place], [address]. tel:[phone] OFFICE/OUTPA TIENT VISIT, EST [facility] of , [address], [place], [id number], [place] tel:[phone] [facility] Main Office No Information 9 Fabio Paul. [address], [place], [address] , [place]. [phone] Referring Provider: Gulshan Stewart, [place], [address]. tel:[phone] OFFICE/OUTPA TIENT VISIT, EST [facility] of , [address], [place], [id number], [place] tel:[phone] [facility] Main Office No Information 9 Fabio Paul. [address], [place], [address] , [place]. tel:[phone] Referring Provider: Gulshan Stewart, Edelmira2 Latoya Perry MD, . tel:[phone] OFFICE/OUTPA TIENT VISIT, EST [facility] of , [address], [place], [id number], [place] tel:[phone] [facility] Main Office No Information 9 Fabio Paul. [address], [place], [address] , [place]. tel:[phone] Referring Provider: Gulshan Stewart, Latoya Douglas MD, . tel:[phone] OFFICE/OUTPA TIENT VISIT, EST [facility] of , [address], [place], [id number], [place] tel:[phone] [facility] Main Office No Information 8 Fabio Paul. [address], [place], [id number] , [place]. tel: [phone] Referring Provider: Gulshan Stewart, Latoya Douglas MD, . tel:[phone] OFFICE/OUTPA TIENT VISIT, EST [facility] of , [address], [place], [address], [place] tel:[phone] [facility] Main Office Follow Up of Rheumatoid Arthritis (chief complaint) RA w/o rheumatoid factor of multiple sitesOther fci (current) drug therapyBody mass index (BMI) 34.0-34.9, adultElevate d blood-pressu re reading, w/o diagnosis of htnPrimary OA of left knee 8 Fabio Paul. [address], [place], [address] , [place]. tel:[phone] Leif Arrington, [address], [place], [address]. tel:[phone] ng Provider: Gulshan Stewart, [place], [address]. tel:[phone] OFFICE/OUTPA TIENT VISIT, EST [facility] of , [address], [place], [id number], [place] tel:[phone] [facility] Main Office No Information 5-201 8 Fabio Paul. [address], [place], [address] , [place]. tel:[phone] Referring Provider: [place], [address]. tel:[phone] OFFICE/OUTPA TIENT VISIT, EST [facility] of , [address], [place], [address], [place] tel:[phone] [facility] Main Office No Information 8-201 8 Fabio Paul. [address], [place], [address] , [place]. tel:[phone] Referring Provider: Gulshan Stewart, [place], [address]. tel:[phone] OFFICE/OUTPA TIENT VISIT, EST [facility] of , [address], [place], [address], [place] tel:[phone] [facility] Main Office No Information 0- 8 Fabio Paul. [address], [place], [address] , [place]. tel:[phone] Referring Provider: [place], [address]. tel:[phone] OFFICE/OUTPA TIENT VISIT, EST [facility] of , [address], [place], [id number], [place] tel:[phone] [facility] Main Office Follow Up of Rheumatoid Arthritis (chief complaint) RA w/o rheumatoid factor of multiple sitesOther fci (current) drug therapyBody mass index (BMI) 32.0-32.9, adult Aug-0 6-201 8 Fabio Paul. [address], [place], [id number] , [place]. tel:[phone] Leif Arrington, [address], [place], [address]. tel:[phone] ng Provider: Gulshan Stewart, [address] [place], [address]. tel:[phone] [facility] of , [address], [place], [id number], [place] tel:[phone] [facility] Main Office No Information 8 Fabio Paul. [address], [place], [address] , [place]. tel:[phone] Referring Provider: Gulshan Stewart, [address] [place], [address]. tel:[phone] OFFICE/OUTPA TIENT VISIT, EST [facility] of , [address], [place], [address], [place] tel:[phone] [facility] Main Office No Information 8 Fabio Paul. [address], [place], [address] , [place]. tel:[phone] Referring Provider: Gulshan Stewart, [address] [place], [address]. tel:[phone] OFFICE/OUTPA TIENT VISIT, EST [facility] of , [address], [place], [id number], [place] tel:[phone] [facility] Main Office Follow Up of Rheumatoid Arthritis (chief complaint) RA w/o rheumatoid factor of multiple sitesOther director long term care (current) drug therapyLong term (current) use of opiate analgesicLon g term (current) use of non-steroida l anti-inflamm atories (NSAID) 8 Fabio Paul. [address], [place], [address] , [place]. tel:[phone] Leif Arrington, [address], [place], [address]. tel:[phone] ng Provider: Gulshan Stewart, [place], [address]. tel:[phone] [facility] of , [address], [place], [address], [place] tel:[phone] [facility] Main Office No Information 8 Fabio Paul. [address], [place], [address] , [place]. tel: [phone] Referring Provider: Gulshan Stewart, [place], [address]. tel:[phone] [facility] of , [address] [address], [place], [id number], [place] tel:[phone] [facility] Main Office Follow Up of Rheumatoid Arthritis (chief complaint) RA w/o rheumatoid factor of multiple sitesOther fci (current) drug therapyLong term (current) use of non-steroida l anti-inflamm atories (NSAID) 8 Fabio Paul. [address], [place], [id number] , [place]. tel: [phone] Leif Arrington, [address], [place], [address]. tel:[phone] ng Provider: Gulshan Stewart, [place], [address]. tel:[phone] [facility] of , [address], [place], [id number], [place] tel:[phone] [facility] Main Office No Information 8 Fabio Paul. [address], [place], [id number] , [place]. tel: [phone] Referring Provider: Gulshan Stewart, [address] [place], [address]. tel:[phone] [facility] of , [address], [place], [id number], [place] tel:[phone] [facility] Main Office No Information Fabio Paul. [address], [place], [id number] , [place]. tel: [phone] Referring Provider: Gulshan Stewart, [address] [place], [address]. tel:[phone] [facility] of , [address], [place], [id number], [place] tel:[phone] [facility] Main Office No Information Fabio Paul. [address], [place], [id number] , [place]. tel: [phone] Referring Provider: Gulshan Stewart, [address] [place], [address]. tel:[phone] OFFICE/OUTPA TIENT VISIT, EST [facility] of , [address], [place], [id number], [place] [phone] [facility] Main Office Follow Up of Rheumatoid Arthritis (chief complaint) RA w/o rheumatoid factor of multiple sitesOther fci (current) drug therapy Fabio Paul. [address], [place], [id number] , [place]. tel: [phone] Leif Arrington, [address], [place], [address]. tel:[phone] ng Provider: Gulshan Stewart, [address] [place], [address]. tel:[phone] [facility] of , [address], [place], [id number], [place] tel:[phone] [facility] Main Office Follow Up of Rheumatoid Arthritis (chief complaint) RA w/o rheumatoid factor of multiple sitesOther director long term care drug therapyBody mass index (BMI) 30.0-30.9, adult Dec- 7 Fabio Paul. [address], [place], [id number] , [place]. tel:[phone] Leif Arrington, [address], [place], [address]. tel:[phone] OFFICE/OUTPA TIENT VISIT, EST [facility] of , [address], [place], [id number], [place] tel:[phone] [facility] Main Office Follow Up of Rheumatoid Arthritis (chief complaint) RA w/o rheumatoid factor of multiple sitesOther fci drug therapyBody mass index (BMI) 30.0-30.9, adult Nov- Fabio Paul. [address], [place], [id number] , [place]. tel:[phone] Leif Arrington, [address], [place], [address]. tel:[phone] Provider: Gulshan Stewart, [address], [place], [address]. tel:[phone] OFFICE/OUTPA TIENT VISIT, EST [facility] of , [address], [place], [id number], [place] tel:[phone] [facility] Main Office Follow Up of Rheumatoid Arthritis (chief complaint) RA w/o rheumatoid factor of multiple sitesOther fci drug therapyGener alized osteoarthrit isLong term (current) use of non-steroida l anti-inflamm atories (NSAID) 7 Fabio Paul. [address], [place], [id number] , [place]. tel:[phone] Leif Arrington, [address], [place], [address]. tel:[phone] masha Provider: Gulshan Stewart, [address] [place], . tel:[phone] [facility] of , [address], [place], [id number], [place] tel:[phone] [facility] Main Office No Information 7 Fabio Paul. [address], [place], [id number] , [place]. tel:[phone] Referring Provider: Gulshan Stewart, [address] [place] MD, . tel:[phone] OFFICE/OUTPA TIENT VISIT, EST [facility] of , [address], [place], [id number], [place] tel:[phone] [facility] Main Office Follow Up of Rheumatoid Arthritis (chief complaint) RA w/o rheumatoid factor of multiple sitesOther director long term care drug therapyGener alized osteoarthrit isLong term (current) use of non-steroida l anti-inflamm atories (NSAID) Jul- 7 Fabio Paul. [address], [place], [id number] , [place]. tel:[phone] Leif Arrington, [address], [place], [address]. tel:[phone] masha Provider: Gulshan Stewart, Edelmira2 [place] MD, . tel:[phone] [facility] of , [address], [place], [id number], [place] tel:[phone] [facility] Main Office No Information 7 Fabio Paul. [address], [place], [id number] , [place]. tel:[phone] Referring Provider: Gulshan Stewart, [address] [place], [address]. tel:[phone] [facility] of , [address], [place], [id number], [place] tel:[phone] [facility] Main Office No Information Fabio Paul. [address], [place], [id number] , [place]. tel:[phone] Referring Provider: Gulshan Stewart, [address]2 [place], [address]. tel:[phone] [facility] of , [address], [place], [id number], [place] tel:[phone] [facility] Main Office No Information Fabio Paul. [address], [place], [id number] , [place]. tel:[phone] Referring Provider: Gulshan Stewart, [address] [place], [address]. tel:[phone] [facility] of , [address], [place], [id number], [place] tel:[phone] [facility] Main Office Follow Up of Rheumatoid Arthritis (chief complaint) RA w/o rheumatoid factor of multiple sitesOther fci drug therapyGener alized osteoarthrit isLong term (current) use of non-steroida l anti-inflamm atories (NSAID)Troch anteric bursitis, right hipPain in right hip Fabio Paul. [address], [place], [id number] , [place]. tel: [phone] Leif Arrington, [address], [place], [address]. tel:[phone] ng Provider: Gulshan Stewart, [address]2 [place], [address]. tel:[phone] OFFICE/OUTPA TIENT VISIT, EST [facility] of , [address], [place], [id number], [place] tel:[phone] [facility] Main Office Follow Up of Rheumatoid Arthritis (chief complaint) RA w/o rheumatoid factor of multiple sitesOther director long term care drug therapyGener alized osteoarthrit isLong term (current) use of non-steroida l anti-inflamm atories (NSAID) 7-201 6 Fabio Paul. [address], [place], [id number] , [place]. tel:[phone] Leif Arrington, [address], [place], [address]. tel:[phone] ng Provider: Gulshan Stewart, [place], [address]. tel:[phone] OFFICE/OUTPA TIENT VISIT, EST [facility] of , [address], [place], [id number], [place] tel:[phone] [facility] Main Office Follow Up of Rheumatoid Arthritis (chief complaint) RA w/o rheumatoid factor of multiple sitesOther director long term care drug therapyGener alized osteoarthrit isLong term (current) use of non-steroida l anti-inflamm atories (NSAID) 6 Fabio Paul. [address], [place], [id number] , [place]. tel:[phone] Leif Arrington, [address], [place], [address]. tel:[phone] ng Provider: Gulshan Stewart, [address]2 [place], [address]. tel:[phone] OFFICE/OUTPA TIENT VISIT, EST [facility] of , [address], [place], [id number], [place] tel:[phone] [facility] Main Office Follow Up of Rheumatoid Arthritis (chief complaint) RA w/o rheumatoid factor of multiple sitesOther director long term care drug therapyGener alized osteoarthrit isLong term (current) use of non-steroida l anti-inflamm atories (NSAID) 6 Fabio Paul. [address], [place], [id number] , [place]. tel:[phone] Leif Arrington, [address], [place], [address]. tel:[phone] ng Provider: Gulshan Stewart, [address], [place], [address]. tel:[phone] OFFICE/OUTPA TIENT VISIT, EST [facility] of , [address], [place], [id number], [place] tel:[phone] [facility] Main Office Follow Up of Rheumatoid Arthritis (chief complaint) RA w/o rheumatoid factor of multiple sitesOther director long term care drug therapyGener alized osteoarthrit is 6 Fabio Paul. [address], [place], [id number] , [place]. tel:[phone] Leif Arrington, [address], [place], [address]. tel:[phone] ng Provider: Venus Mont[address], [place], [address]. tel:[phone] OFFICE/OUTPA TIENT VISIT, EST [facility] of , [address], [place], [id number], [place] tel:[phone] [facility] Main Office Follow Up of Rheumatoid Arthritis (chief complaint) RA w/o rheumatoid factor of multiple sitesOther fci drug therapyGener alized osteoarthrit is 6 Fabio Paul. [address], [place], [address] , [place]. tel:[phone] Leif Arrington, [address], [place], [address]. tel:[phone] masha Provider: Venus Montoya [address], [place], [address]. tel:[phone] OFFICE/OUTPA TIENT VISIT, EST [facility] of , [address], [place], [id number], [place] tel:[phone] [facility] Main Office Inflammatory Polyarthropa thy (chief complaint) Inflammatory polyarthropa thyGeneraliz ed osteoarthrit is 6 Fabio Paul. [address], [place], [address] , [place]. tel:[phone] Leif Arrington, [address], [place], [address]. tel:[phone] ng Provider: Leif Gonzalez, [address], [place], [address]. tel:[phone] OFFICE/OUTPA TIENT VISIT, EST [facility] of , [address], [place], [id number], [place] tel:[phone] [facility] Main Office Inflammatory Polyarthropa thy (chief complaint) Inflammatory polyarthropa thyPain in left hipPrimary generalized (osteo)arthr itisLong term (current) use of non-steroida l anti-inflamm atories (NSAID) 6 Fabio Paul. [address], [place], [address] , [place]. tel:[phone] Leif Arrington, [address], [place], [address]. tel:[phone] masha Provider: Leif Gonzalez, [address], [place], [address]. tel:[phone] OFFICE/OUTPA TIENT VISIT, EST [facility] of , [address], [place], [id number], [place] tel:[phone] [facility] Main Office Osteoarthrit is (chief complaint) Primary generalized (osteo)arthr itisLong term (current) use of non-steroida l anti-inflamm atories (NSAID) 6 Fabio Paul. [address], [place], [address] , [place]. tel:[phone] Referring Provider: Leif Gonzalez, [address], [place], [address]. tel:[phone] OFFICE/OUTPA TIENT VISIT, EST [facility] of , [address], [place], [id number], [place] tel:[phone] [facility] Main Office Follow Up of Osteoarthrit is (chief complaint) Osteoarthros is, generalized, involving unspecified siteDisorder s of bursae and tendons in shoulder region, unspecified Jul- 5 Fabio Paul. [address], [place], [id number] , [place]. tel:[phone] Referring Provider: Leif Gonzalez, [address], [place], [address]. tel:[phone] OFFICE/OUTPA TIENT VISIT, EST [facility] of , [address], [place], [id number], [place] tel:[phone] [facility] Main Office Follow Up of Right shoulder pain (chief complaint) Disorders of bursae and tendons in shoulder region, unspecifiedP ainful shoulder 4 Fabio Paul. [address], [place], [address] , [place]. tel:[phone] Referring Provider: Leif Gonzalez, [address], [place], [address]. tel:[phone] OFFICE/OUTPA TIENT VISIT, EST [facility] of , [address], [place], [id number], [place] tel:[phone] [facility] Main Office No Information 4 Fabio Paul. [address], [place], [address] , [place]. tel:[phone] Referring Provider: Peter Gonzalez, [address], [place], [address]. tel:[phone] OFFICE/OUTPA TIENT VISIT, EST [facility] of , [address], [place], [id number], [place] tel:[phone] [facility] Main Office Follow Up of Osteoarthrit is (chief complaint) Osteoarthrit is, GeneralizedL TU-TERM (CURRENT) USE OF NON-STEROIDA L ANTI-INFLAMM ATORIES 4 Fabio Paul. [address], [place], [address] , [place]. tel:[phone] Referring Provider: Leif Gonzalez, [address], [place], [address]. tel:[phone] OFFICE/OUTPA TIENT VISIT, EST [facility] of , [address], [place], [address], [place] tel:[phone] [facility] Main Office Osteoarthrit is (chief complaint) Disorders of bursae and tendons in shoulder region, unspecifiedO steoarthriti s, Generalized 4 Fabio Paul. [address], [place], [address] , [place]. tel:[phone] Referring Provider: Leif Gonzalez, [address], [place], [address]. tel:[phone] OFFICE/OUTPA TIENT VISIT, EST [facility] of , [address], [place], [address], [place] tel:[phone] [facility] Main Office Osteoarthrit is (chief complaint) Osteoarthrit is, GeneralizedD isorders of bursae and tendons in shoulder region, unspecifiedL TU-TERM (CURRENT) USE OF NON-STEROIDA L ANTI-INFLAMM ATORIES 4 Fabio Paul. [address], [place], [address] , [place]. tel:[phone] Referring Provider: Leif Gonzalez [address], [place], [address]. tel:[phone] OFFICE/OUTPA TIENT VISIT, EST [facility] of , [address], [place], [address], [place] tel:[phone] [facility] Main Office Osteoarthrit is (chief complaint) Osteoarthrit is, Generalized 3 Fabio Paul. [address], [place], [address] , [place]. tel:[phone] Referring Provider: Leif Gonzalez, [address], [place], [address]. tel:[phone] OFFICE/OUTPA TIENT VISIT, EST [facility] of , [address], [place], [id number], [place] tel:[phone] [facility] Main Office for joint pain (chief complaint) Osteoarthrit is, GeneralizedA rticular cartilage disorder involving forearmRadia l styloid tenosynoviti s 3 Fabio Paul. [address], [place], [address] , [place]. tel:[phone] Referring Provider: Leif Gonzalez, [address], [place], [address]. tel:[phone] OFFICE/OUTPA TIENT VISIT, NEW [facility] of , [address], [place], [id number], [place] tel:[phone] [facility] Main Office myalgia (chief complaint) Fatigue / MalaisePain in joint involving multiple sites 3 Fabio Paul. [address], [place], [address] , [place]. tel:[phone] Referring Provider: Leif Gonzalez, [address], [place], [address]. tel:[phone] Family History Family Member Type Diagnosis Age [...] cified Payers Payer name Insurance type Covered constitution party ID Authoriza tion(s) Medicare MB [id number] [employer] [place] [id number] Medicare MB [id number] [employer] [place] [id number] Medicare MB [id number] [employer] [place] [id number] Medicare [place] [id number] [employer] [place] [id number] Social History Type Description Quantity Date Captured [...] OA) ordered Referral Referred To: Toan Berry [address] [place], [id number] Ordered: Referrals: Allopathic & Osteopathic Physicians : Anesthesiology. Toan Berry. Consult ordered Referral Ordered: Madi Holder -Allopathic & Osteopathic Physicians : Internal Medicine : Nephrology (related to CKD) ordered Referral Referred To: Madi Holder [address] [facility]
[address] [place], [id number] Ordered: Referrals: Allopathic & Osteopathic Physicians : [...] Future Order: Lab Order Lipid Pa rashard ([id number]), Ordered on: Ordered Future Order: Lab Order COMPREHE NSIVE METABOLIC PANEL (CMP), Collected on: , Sent on: Sent Future Order: Lab Order CBC Diff erential And Platlet (CBC PLT DIFF), Ordered on: Ordered Future Order: Lab Order CMP ([id number]), Orde red on: Ordered Future Order: Lab Order CBC Diff erential And Platlet (CBC PLT DIFF), Collected on: Ordered Future Order: Lab Order CMP ([id number]), Wally ected on: Ordered Future Order: Lab [...]
--- OUTSIDE RECORDS SUMMARY | 2024-11-28 06:00 | XMS_ITS | Continuity of Care Document ---
Author Organization [facility]it Address [address] [place] [address] Phone Care Team Providers Care Group Insurance Special Agent Name Role Phone Fabio MANCINI, Paul Unavailable Unavailable Allergies, Adverse Reactions, Alerts Substance Reaction Status Criticality No Known Allergies Active No Inform ation Medications Medication Instructions Dosage Effective Dates (start - stop) Status Comments ergocalciferol (vitamin D2) 1,250 mcg (50,000 unit) capsule take 1 capsule by oral route every week 74243 UNITS - Active Simponi ARIA 12.5 mg/mL [...] Providers Copied on Encounter OFFICE/OUTPA TIENT VISIT, [facility] , [address], [place], [id number], [place] tel:[phone] [facility] Main Office No Information Fabio Miller. [address], [place], [id number] , [place]. tel:[phone] Referring Provider: Rosalba Shaw, [address], [place], [address]. tel:[phone] OFFICE/OUTPA TIENT VISIT, EST [facility] anjelica MANCINI, [address], [place], [id number], [place] tel:[phone] [facility] Main Office Age-related osteoporosis without current pathological fracture 5 Fabio Paul. [address], [place], [id number] , [place]. tel:[phone] Referring Provider: Pilo Hinojosa, [address], [place], [address]. 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 [address], [place], [id number] , [place]. tel:[phone] Leif Arrington, [address], [place], [address]. tel:[phone] ist: Madi Gallo, [address] [facility] [address], [place], [address]. tel:[phone] ist: Sunni Ackerman, [address] [facility] [address], [place], [address]. tel:[phone] ng Provider: Pilo Hinojosa, [address], [place], [address]. tel:[phone] [facility] of , [address], [place], [id number], [place] tel:[phone] [facility] Main Office No Information 5 Fabio Paul. [address], [place], [id number] , [place]. 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 [address], [place], [id number] , [place]. tel:[phone] Leif Arrington, [address], [place], [address]. tel:[phone] ist: Madi Holder, [address] [facility] [address], [place], [address]. tel:[phone] ist: Sunni Ackerman, [address] [facility] [address], [place], [address]. tel:[phone] ng Provider: Rosalba Shaw, [address], [place], [address]. tel:[phone] OFFICE/OUTPA TIENT VISIT, EST [facility] of , [address], [place], [id number], [place] tel:[phone] [facility] Main Office No Information Jul- 5 Fabio Miller. [address], [place], [id number] , [place]. tel:[phone] Referring Provider: Pilo Hinojosa, [address] [facility] [address], [place], [address]. tel:[phone] OFFICE/OUTPA TIENT VISIT, EST [facility] of , [address], [place], [id number], [place] tel:[phone] [facility] Main Office Follow Up [...] [address], [place], [id number] , [place]. tel:[phone] Leif Arrington, [address], [place], [address]. tel:[phone] ist: Madi Holder, [address], [place], [address]. tel:[phone] ist: Sunni Ackerman, [address] [facility] [address], [place], [address]. tel:[phone] ng Provider: Rosalba Shaw, [address], [place], [address]. tel:[phone] OFFICE/OUTPA TIENT VISIT, EST [facility] of , [address], [place], [id number], [place] tel:[phone] [facility] Main Office No Information 4 Fabio Miller. [address], [place], [id number] , [place]. tel:[phone] Referring Provider: Pilo Hinojosa, [address] [facility] [address], [place], [address]. tel:[phone] OFFICE/OUTPA TIENT VISIT, EST [facility] of , [address] [facility] [facility] [address], [place], [id number], [place] tel:[phone] [facility] Main Office Follow Up [...] [address], [place], [id number] , [place]. tel:[phone] Leif Arrington, [address], [place], [address]. tel:[phone] ist: Madi Holder, [address], [place], [address]. tel:[phone] ist: Sunni Ackerman, [address] [facility] [address], [place], [address]. tel:[phone] ng Provider: Pilo Hinojosa, [address] [place] [address] [address], [place], [address]. tel:[phone] OFFICE/OUTPA TIENT VISIT, EST [facility] of , [address], [place], [id number], [place] tel:[phone] [facility] Main Office No Information 4 Fabio Paul. [address], [place], [id number] , [place]. tel:[phone] Referring Provider: Pilo Hinojosa, [address] [place] [address] [address], [place], [address]. [phone] OFFICE/OUTPA TIENT VISIT, EST [facility] of , [address], [place], [id number], [place] tel:[phone] [facility] Main Office No Information 4 Fabio Paul. [address], [place], [id number] , [place]. tel:[phone] Referring Provider: Pilo Hinojosa, [address] [facility] [address], [place], [address]. 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 [address], [place], [id number] , [place]. tel:[phone] Leif Arrington, [address], [place], [address]. tel:[phone] ist: Madi Holder, [address] [facility] [address], [place], [address]. tel:[phone] ist: Sunni Ackerman, [address], [place], [address]. tel:[phone] ng Provider: Pilo Hinojosa, [address], [place], [address]. tel:[phone] OFFICE/OUTPA TIENT VISIT, EST [facility] of , [address], [place], [id number], [place] tel:[phone] [facility] Main Office No Information 4 Fabio Paul. [address], [place], [address] , [place]. tel:[phone] Referring Provider: Pilo Hinojosa, [address], [place], [address]. tel:[phone] OFFICE/OUTPA TIENT VISIT, EST [facility] of , [address], [place], [id number], [place] tel:[phone] [facility] Main Office No Information 4 Fabio Paul. [address], [place], [address] , [place]. tel:[phone] Referring Provider: Pilo Hinojosa, [address], [place], [address]. tel:[phone] OFFICE/OUTPA TIENT VISIT, EST [facility] of , [address], [place], [address], [place] tel:[phone] [facility] Main Office No Information 4 Fabio Paul. [address], [place], [id number] , [place]. tel:[phone] Referring Provider: Pilo Hinojosa, [address], [place], [address]. tel:[phone] OFFICE/OUTPA TIENT VISIT, EST [facility] of , [address], [place], [id number], [place] tel:[phone] [facility] Main Office Follow Up [...] [address], [place], [id number] , [place]. tel:[phone] Leif Arrington, [address], [place], [address]. tel:[phone] ist: Madi Holder, [address], [place], [address]. tel:[phone] ist: Sunni Ackerman, [address], [place], [address]. tel:[phone] ng Provider: Pilo Hinojosa, [address], [place], [address]. tel:[phone] OFFICE/OUTPA TIENT VISIT, EST [facility] of , [address], [place], [id number], [place] tel:[phone] [facility] Main Office No Information 4 Fabio Paul. [address], [place], [address] , [place]. tel:[phone] Referring Provider: Pilo Hinojosa, [address], [place], [address]. tel:[phone] OFFICE/OUTPA TIENT VISIT, EST [facility] of , [address], [place], [id number], [place] tel:[phone] [facility] Main Office No Information 3 Fabio Paul. [address], [place], [address] , [place]. tel:[phone] Referring Provider: Pilo Hinojosa, [address], [place], [address]. tel:[phone] [facility] of , [address], [place], [id number], [place] tel:[phone] [facility] Main Office No Information 3 Fabio Paul. [address], [place], [id number] , [place]. 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 [address], [place], [address] , [place]. tel:[phone] Leif Arrington, [address], [place], [address]. tel:[phone] ist: Madi Holder, [address], [place], [address]. tel:[phone] ist: Sunni Ackerman, [address], [place], [address]. tel:[phone] ng Provider: Pilo Hinojosa, [address], [place], [address]. tel:[phone] [facility] of , [address], [place], [id number], [place] tel:[phone] [facility] Main Office No Information 0 3 Fabio Paul. [address], [place], [address] , [place]. tel:[phone] OFFICE/OUTPA TIENT VISIT, EST [facility] of , [address], [place], [id number], [place] tel:[phone] [facility] Main Office No Information 3 Fabio Paul. [address], [place], [id number] , [place]. tel:[phone] Referring Provider: Pilo Hinojosa, [address], [place], [address]. tel:[phone] OFFICE/OUTPA TIENT VISIT, EST [facility] of , [address], [place], [address], [place] tel:[phone] [facility] Main Office No Information 3 Fabio Paul. [address], [place], [id number] , [place]. tel:[phone] Referring Provider: Pilo Hinojosa, [address], [place], [address]. tel:[phone] OFFICE/OUTPA TIENT VISIT, EST [facility] of , [address], [place], [address], [place] tel:[phone] [facility] Main Office No Information 3 Fabio Paul. [address], [place], [address] , [place]. tel:[phone] Referring Provider: Pilo Hinojosa, [address], [place], [address]. tel:[phone] OFFICE/OUTPA TIENT VISIT, EST [facility] of , [address], [place], [id number], [place] tel:[phone] [facility] Main Office No Information 3 Fabio Paul. [address], [place], [address] , [place]. tel:[phone] Referring Provider: Pilo Hinojosa, [address], [place], [address]. tel:[phone] OFFICE/OUTPA TIENT VISIT, EST [facility] of , [address], [place], [id number], [place] tel:[phone] [facility] Main Office Follow Up of GOA (chief complaint)Fo llow Up of RA (chief complaint) Immunodefici ency due to drugsRA w/o rheumatoid factor of multiple sitesGeneral ized OAPain in unspecified jointCKDLong term (current) use of immunosuppre ssive biologicBody mass index (BMI) 30.0-30.9, adult 3 Fabio Paul. [address], [place], [address] , [place]. tel:[phone] Leif Arrington, [address], [place], [address]. tel:[phone] ist: Madi Holder, [address] [facility] [address], [place], [address]. tel:[phone] ist: Sunni Ackerman [address], [place], [address]. tel:[phone] ng Provider: Pilo Hinojosa, [address], [place], [address]. tel:[phone] OFFICE/OUTPA TIENT VISIT, EST [facility] of , [address], [place], [address], [place] tel:[phone] [facility] Main Office No Information 3 Fabio Paul. [address], [place], [address] , [place]. tel:[phone] Referring Provider: Pilo Hinojosa, [address], [place], [address]. tel:[phone] OFFICE/OUTPA TIENT VISIT, EST [facility] of , [address], [place], [address], [place] tel:[phone] [facility] Main Office No Information 3 Fabio Paul. [address], [place], [address] , [place]. tel:[phone] Referring Provider: Pilo Hinojosa, [address], [place], [address]. tel:[phone] OFFICE/OUTPA TIENT VISIT, EST [facility] of , [address], [place], [address], [place] tel:[phone] [facility] Main Office No Information 3 Fabio Paul. [address], [place], [address] , [place]. tel:[phone] Referring Provider: Pilo Hinojosa, [address], [place], [address]. tel:[phone] OFFICE/OUTPA TIENT VISIT, EST [facility] of , [address], [place], [address], [place] tel:[phone] [facility] Main Office No Information Jul-0 3 Fabio Paul. [address], [place], [address] , [place]. tel:[phone] Referring Provider: Pilo Hinojosa, [address], [place], [address]. tel:[phone] OFFICE/OUTPA TIENT VISIT, EST [facility] of , [address], [place], [id number], [place] tel:[phone] [facility] Main Office Follow Up of GOA (chief complaint)Fo llow Up of RA (chief complaint) Immunodefici ency due to drugsRA w/o rheumatoid factor of multiple sitesGeneral ized OACKDLong term (current) use of immunosuppre ssive biologicPain in unspecified joint Jun-2 3 Fabio Paul. [address], [place], [address] , [place]. tel:[phone] Leif Arrington, [address], [place], [address]. tel:[phone] ist: Madi Gallo, [address], [place], [address]. tel:[phone] ist: Sunni Ackerman, [address], [place], [address]. tel:[phone] ng Provider: Pilo Hinojosa, [address], [place], [address]. tel:[phone] OFFICE/OUTPA TIENT VISIT, EST [facility] of , [address], [place], [id number], [place] tel:[phone] [facility] Main Office No Information 0 3 Fabio Paul. [address], [place], [address] , [place]. tel:[phone] Referring Provider: Pilo Hinojosa, [address], [place], [address]. tel:[phone] OFFICE/OUTPA TIENT VISIT, EST [facility] of , [address], [place], [id number], [place] tel:[phone] [facility] Main Office No Information 3 Fabio Paul. [address], [place], [address] , [place]. tel: [phone] Referring Provider: Gulshan Stewart, [place], [address]. tel:[phone] OFFICE/OUTPA TIENT VISIT, EST [facility] of , [address], [place], [address], [place] tel:[phone] [facility] Main Office No Information 3 Fabio Paul. [address], [place], [address] , [place]. tel: [phone] Referring Provider: Gulshan Stewart, [address] Latoya Perry MD, . tel:[phone] OFFICE/OUTPA TIENT VISIT, EST [facility] of , [address], [place], [address], [place] tel:[phone] [facility] Main Office Follow Up of GOA (chief complaint)Fo llow Up of RA (chief complaint) Immunodefici ency due to drugsRA w/o rheumatoid factor of multiple sitesGeneral ized OACervicalgi aCKDLong term (current) use of opiate analgesicLon g term (current) use of immunosuppre ssive biologic 2 Fabio Paul. [address], [place], [id number] , [place]. tel: [phone] Leif Arrington, [address], [place], [address]. tel:[phone] ist: Madi Holder, [address] [facility] [address] [facility] [address], [place], [address]. tel:[phone] ng Provider: Gulshan Stewart, [address] [place], [address]. tel:[phone] OFFICE/OUTPA TIENT VISIT, EST [facility] of , [address], [place], [address], [place] tel: [phone] [facility] Main Office No Information 2 Fabio Paul. [address], [place], [address] , [place]. tel:[phone] Referring Provider: Gulshan Stewart, [place], [address]. tel:[phone] OFFICE/OUTPA TIENT VISIT, EST [facility] of , [address], [place], [address], [place] tel:[phone] [facility] Main Office No Information 2 Fabio Paul. [address], [place], [id number] , [place]. tel: [phone] Referring Provider: Gulshan Stewart, [address] [place], [address]. tel:[phone] OFFICE/OUTPA TIENT VISIT, EST [facility] of , [address], [place], [address], [place] tel:[phone] [facility] Main Office No Information 2 Fabio Paul. [address], [place], [address] , [place]. tel: [phone] Referring Provider: Gulshan Stewart, [address] [place], [address]. tel:[phone] OFFICE/OUTPA TIENT VISIT, EST [facility] of , [address], [place], [address], [place] tel:[phone] [facility] Main Office Follow Up of Rheumatoid Arthritis (chief complaint)Fo llow Up of Generalized OA (chief complaint) Immunodefici ency due to drugsRA w/o rheumatoid factor of multiple sitesGeneral ized OACervicalgi aCKDLong term (current) use of opiate analgesicOth er residential (current) drug therapyBody mass index (BMI) 33.0-33.9, adult 2 Fabio Paul. [address], [place], [address] , [place]. tel:[phone] Leif Arrington, [address], [place], [address]. tel:[phone] ist: Madi Holder, [address] [facility] [address], [place], [address]. tel:[phone] ng Provider: Gulshan Stewart, [place], [address]. tel:[phone] OFFICE/OUTPA TIENT VISIT, EST [facility] of , [address], [place], [address], [place] tel:[phone] [facility] Main Office No Information 2 Fabio Miller. [address], [place], [address] , [place]. tel:[phone] Referring Provider: Gulshan Stewart, [place], [address]. tel:[phone] OFFICE/OUTPA TIENT VISIT, EST [facility] of , [address], [place], [id number], [place] tel:[phone] [facility] Main Office No Information 2 Fabio Paul. [address], [place], [address] , [place]. tel:[phone] Referring Provider: Gulshan Stewart, [place], [address]. tel:[phone] OFFICE/OUTPA TIENT VISIT, EST [facility] of , [address], [place], [address], [place] tel:[phone] [facility] Main Office No Information 2 Fabio Paul. [address], [place], [id number] , [place]. tel:[phone] Referring Provider: Gulshan Stewart, [address] [place], [address]. tel:[phone] OFFICE/OUTPA TIENT VISIT, EST [facility] of , [address], [place], [id number], [place] tel:[phone] [facility] Main Office No Information 2 Fabio Paul. [address], [place], [address] , [place]. tel:[phone] Referring Provider: Pilo Hinojosa, [address] [facility] [address], [place], [address]. tel:[phone] OFFICE/OUTPA TIENT VISIT, EST [facility] of , [address], [place], [address], [place] tel:[phone] [facility] Main Office No Information 2 Fabio Paul. [address], [place], [address] , [place]. tel:[phone] Referring Provider: Gulshan Stewart, [address] [place], [address]. tel:[phone] OFFICE/OUTPA TIENT VISIT, EST [facility] of , [address], [place], [id number], [place] tel:[phone] [facility] Main Office Follow Up of Rheumatoid Arthritis (chief complaint)Fo llow Up of Generalized OA (chief complaint) Immunodefici ency due to drugsRA w/o rheumatoid factor of multiple sitesGeneral ized OALong term (current) use of opiate analgesicOth er terminal press operator (current) drug therapyCKDCe rvicalgia 2 Fabio Paul. [address], [place], [address] , [place]. tel: [phone] Leif Arrington, [address], [place], [address]. tel: [phone] ng Provider: Gulshan Stewart, [address] [place], [address]. tel: [phone] OFFICE/OUTPA TIENT VISIT, EST [facility] of , [address], [place], [address], [place] tel: [phone] [facility] Main Office No Information 2 Fabio Paul. [address], [place], [id number] , [place]. tel: [phone] Referring Provider: Gulshan Stewart, [address] [place], [address]. tel: [phone] OFFICE/OUTPA TIENT VISIT, EST [facility] of , [address], [place], [address], [place] tel: [phone] [facility] Main Office No Information 2 Fabio Paul. [address], [place], [id number] , [place]. tel: [phone] Referring Provider: Gulshan Stewart, [address] [place], [address]. tel:[phone] OFFICE/OUTPA TIENT VISIT, EST [facility] of , [address], [place], [id number], [place] tel: [phone] [facility] Main Office No Information 1 Fabio Paul. [address], [place], [id number] , [place]. tel: [phone] Referring Provider: Gulshan Stewart, [address] [place], [address]. tel:[phone] OFFICE/OUTPA TIENT VISIT, EST [facility] of , [address], [place], [id number], [place] tel:[phone] [facility] Main Office No Information 1 Fabio Paul. [address], [place], [address] , [place]. tel: [phone] Referring Provider: [place], [address]. tel:[phone] OFFICE/OUTPA TIENT VISIT, EST [facility] of , [address], [place], [id number], [place] tel:[phone] [facility] Main Office No Information 1 Fabio Paul. [address], [place], [id number] , [place]. tel: [phone] Referring Provider: Driss Glass [place], [place], . tel:[phone] OFFICE/OUTPA TIENT VISIT, EST [facility] of , [address], [place], [id number], [place] tel:[phone] [facility] Main Office Follow Up of Rheumatoid Arthritis (chief complaint)Fo llow Up of Generalized OA (chief complaint) Immunodefici ency due to drugsRA w/o rheumatoid factor of multiple sitesGeneral ized OALong term (current) use of opiate analgesicOth er residential (current) drug therapyEncou nter for immunization Body mass index (BMI) 33.0-33.9, adult 1 Fabio Paul. [address], [place], [id number] , [place]. tel:[phone] Leif Arrington, [address], [place], [address]. tel:[phone] ng Provider: Gulshan Stewart, [place], [address]. tel:[phone] OFFICE/OUTPA TIENT VISIT, EST [facility] of , [address], [place], [id number], [place] tel:[phone] [facility] Main Office No Information 1 Fabio Paul. [address], [place], [address] , [place]. tel: [phone] Referring Provider: Gulshan Stewart, [place], [address]. tel:[phone] OFFICE/OUTPA TIENT VISIT, EST [facility] of , [address], [place], [id number], [place] tel: [phone] [facility] Main Office No Information 1 Fabio Paul. [address], [place], [id number] , [place]. tel: [phone] Referring Provider: Gulshan Stewart, [address]ira[address] [place], [address]. tel:[phone] [facility] of , [address], [place], [id number], [place] tel: [phone] [facility] Main Office No Information 1 Fabio Paul. [address], [place], [id number] , [place]. tel: [phone] Referring Provider: Gulshan Stewart, [address]ira[address] [place], [address]. tel:[phone] OFFICE/OUTPA TIENT VISIT, EST [facility] of , [address], [place], [id number], [place] tel:[phone] [facility] Main Office No Information 1 Fabio Paul. [address], [place], [id number] , [place]. tel: [phone] Referring Provider: Gulshan Stewart, [address] [place], [address]. tel:[phone] OFFICE/OUTPA TIENT VISIT, EST [facility] of , [address], [place], [id number], [place] tel:[phone] [facility] Main Office Follow Up of Rheumatoid Arthritis (chief complaint)Fo llow Up of Generalized OA (chief complaint) Immunodefici ency due to drugsRA w/o rheumatoid factor of multiple sitesGeneral ized OALong term (current) use of opiate analgesicOth er terminal press operator (current) drug therapyBody mass index (BMI) 34.0-34.9, adult August- 1 Fabio Paul. [address], [place], [id number] , [place]. [phone] Leif Arrington, [address], [place], [address]. tel:[phone] ng Provider: Gulshan Stewart, [address] [place], [address]. tel:[phone] OFFICE/OUTPA TIENT VISIT, EST [facility] of , [address], [place], [id number], [place] tel:[phone] [facility] Main Office No Information 1 Fabio Paul. [address], [place], [id number] , [place]. tel:[phone] Referring Provider: Gulshan Stewart, [address] [place], [address]. tel:[phone] OFFICE/OUTPA TIENT VISIT, EST [facility] of , [address], [place], [id number], [place] tel:[phone] [facility] Main Office No Information 1 Fabio Paul. [address], [place], [id number] , [place]. tel:[phone] Referring Provider: Gulshan Stewart, [place], [address]. tel:[phone] OFFICE/OUTPA TIENT VISIT, EST [facility] of , [address], [place], [id number], [place] tel:[phone] [facility] Main Office No Information 1 Fabio Miller. [address], [place], [id number] , [place]. tel:[phone] Referring Provider: Gulshan Stewart, [address] [place], [address]. tel:[phone] OFFICE/OUTPA TIENT VISIT, EST [facility] of , [address], [place], [id number], [place] tel:[phone] [facility] Main Office No Information 1 Fabio Miller. [address], [place], [id number] , [place]. tel:[phone] Referring Provider: Gulshan Stewart, Edelmira2 Latoya Perry MD, . tel:[phone] OFFICE/OUTPA TIENT VISIT, EST [facility] of , [address], [place], [id number], [place] tel:[phone] [facility] Main Office Follow Up of Rheumatoid Arthritis (chief complaint)Fo llow Up of Generalized OA (chief complaint) RA w/o rheumatoid factor of multiple sitesGeneral ized OALong term (current) use of opiate analgesicOth er residential (current) drug therapyImmun odeficiency due to drugsBody mass index (BMI) 33.0-33.9, adult 1 Fabio Miller. [address], [place], [address] , [place]. tel:[phone] Referring Provider: Edelmira Glass2 [place], [address]. tel:[phone] OFFICE/OUTPA TIENT VISIT, EST [facility] of , [address], [place], [id number], [place] tel: [phone] [facility] Main Office No Information 1 Fabio Paul. [address], [place], [address] , [place]. tel: [phone] Referring Provider: Gulshan Stewart, [place], [address]. tel:[phone] OFFICE/OUTPA TIENT VISIT, EST [facility] of , [address], [place], [id number], [place] tel: [phone] [facility] Main Office No Information 0 Fabio Paul. [address], [place], [address] , [place]. tel: [phone] Referring Provider: Gulshan Stewart, [place], [address]. tel:[phone] [facility] of , [address], [place], [id number], [place] tel: [phone] [facility] Main Office No Information 0 Fabio Paul. [address], [place], [address] , [place]. tel: [phone] Referring Provider: Gulshan Stewart, [address] [place], [address]. tel:[phone] OFFICE/OUTPA TIENT VISIT, EST [facility] of , [address], [place], [id number], [place] tel:[phone] [facility] Main Office No Information 0 Fabio Paul. [address], [place], [id number] , [place]. tel: [phone] Referring Provider: Gulshan Stewart, [address] [place], [address]. tel:[phone] OFFICE/OUTPA TIENT VISIT, EST [facility] of , [address], [place], [id number], [place] tel:[phone] [facility] Main Office Follow Up of Rheumatoid Arthritis (chief complaint)Fo llow Up of Generalized OA (chief complaint) RA w/o rheumatoid factor of multiple sitesLong term (current) use of opiate analgesicOth er residential (current) drug therapyGener alized OAEncounter for immunization Body mass index (BMI) 34.0-34.9, adultElevate d blood-pressu re reading, w/o diagnosis of htn 0 Fabio Paul. [address], [place], [address] , [place]. tel:[phone] Leif Arrington, [address], [place], [address]. tel:[phone] ng Provider: Gulshan Stewart, [address] [place], [address]. tel:[phone] OFFICE/OUTPA TIENT VISIT, EST [facility] of , [address], [place], [id number], [place] tel:[phone] [facility] Main Office No Information 0 Fabio Paul. [address], [place], [address] , [place]. tel:[phone] Referring Provider: Gulshan Stewart, [address] [place], [address]. tel:[phone] OFFICE/OUTPA TIENT VISIT, EST [facility] of , [address], [place], [id number], [place] tel:[phone] [facility] Main Office No Information 0 Fabio Paul. [address], [place], [id number] , [place]. tel:[phone] Referring Provider: Gulshan Stewart [address] [place], [address]. tel:[phone] OFFICE/OUTPA TIENT VISIT, EST [facility] of , [address], [place], [id number], [place] tel:[phone] [facility] Main Office No Information 0 Fabio Paul. [address], [place], [id number] , [place]. tel:[phone] Referring Provider: Gulshan Stewart, [address] [place], [address]. tel:[phone] OFFICE/OUTPA TIENT VISIT, EST [facility] of , [address], [place], [id number], [place] tel:[phone] [facility] Main Office No Information 0 Fabio Paul. [address], [place], [id number] , [place]. tel:[phone] Referring Provider: Gulshan Stewart, [address] [place] MD, . tel:[phone] OFFICE/OUTPA TIENT VISIT, EST [facility] of , [address], [place], [id number], [place] tel:[phone] [facility] Main Office Follow Up of Rheumatoid Arthritis (chief complaint) RA w/o rheumatoid factor of multiple sitesOther spondylosis, cervical regionCervic algiaLong term (current) use of opiate analgesicOth er residential (current) drug therapy 0 Fabio Paul. [address], [place], [address] , [place]. tel:[phone] Leif Arrington, [address], [place], [address]. tel:[phone] ng Provider: Gulshan Stewart, [address] [place], [address]. 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 [address], [place], [id number] , [place]. tel:[phone] Leif Arrington, [address], [place], [address]. [phone] ng Provider: [place], [address]. [phone] OFFICE/OUTPA TIENT VISIT, EST [facility] of , [address], [place], [id number], [place] [phone] [facility] Main Office No Information 0 Fabio Paul. [address], [place], [id number] , [place]. [phone] Referring Provider: [place], [address]. tel:[phone] OFFICE/OUTPA TIENT VISIT, EST [facility] of , [address], [place], [id number], [place] tel:[phone] [facility] Main Office No Information 0 Fabio Paul. [address], [place], [address] , [place]. tel:[phone] Referring Provider: [place], [address]. [phone] OFFICE/OUTPA TIENT VISIT, EST [facility] of , [address], [place], [id number], [place] tel:[phone] [facility] Main Office No Information 0-202 0 Fabio Paul. [address], [place], [id number] , [place]. tel: [phone] Referring Provider: Gulshan Stewart, [place], [address]. tel:[phone] OFFICE/OUTPA TIENT VISIT, EST [facility] of , [address], [place], [id number], [place] tel:[phone] [facility] Main Office Follow Up of Rheumatoid Arthritis (chief complaint)Fo llow up (chief complaint) RA w/o rheumatoid factor of multiple sitesOther spondylosis, cervical regionCervic algiaOther terminal press operator (current) drug therapyLong term (current) use of opiate analgesicBod y mass index (BMI) 30.0-30.9, adult Jun-0 2- 0 Fabio Paul. [address], [place], [id number] , [place]. tel: [phone] Leif Arrington, [address], [place], [address]. tel:[phone] ng Provider: Gulshan Stewart, [place], [address]. tel:[phone] [facility] of , [address], [place], [id number], [place] tel:[phone] [facility] Main Office No Information 2 9 Fabio Paul. [address], [place], [address] , [place]. tel: [phone] Referring Provider: [place], [address]. tel:[phone] OFFICE/OUTPA TIENT VISIT, EST [facility] of , [address], [place], [address], [place] tel:[phone] [facility] Main Office Follow Up of Rheumatoid Arthritis (chief complaint) RA w/o rheumatoid factor of multiple sitesOther spondylosis, cervical regionCervic algiaOther terminal press operator (current) drug therapyBody mass index (BMI) 34.0-34.9, adultElevate d blood-pressu re reading, w/o diagnosis of htn 9 Fabio Paul. [address], [place], [id number] , [place]. tel: [phone] Leif Dominguezis, [address], [place], [address]. tel:[phone] ng Provider: [place], [address]. tel:[phone] OFFICE/OUTPA TIENT VISIT, EST [facility] of , [address], [place], [id number], [place] tel:[phone] [facility] Main Office No Information 9 Fabio Paul. [address], [place], [address] , [place]. tel: [phone] Referring Provider: [place], [address]. tel:[phone] OFFICE/OUTPA TIENT VISIT, EST [facility] of , [address], [place], [id number], [place] tel:[phone] [facility] Main Office No Information 9 Fabio Paul. [address], [place], [id number] , [place]. tel: [phone] Referring Provider: [place], [address]. tel:[phone] OFFICE/OUTPA TIENT VISIT, EST [facility] of , [address], [place], [address], [place] tel:[phone] [facility] Main Office Follow Up of Neck Pain (chief complaint)Fo llow Up of Rheumatoid Arthritis (chief complaint)Fo llow up (chief complaint) RA w/o rheumatoid factor of multiple sitesOther spondylosis, cervical regionCervic algiaBody mass index (BMI) 33.0-33.9, adultOther terminal press operator (current) drug therapyPain in left foot Sep-0 -201 9 Fabio Paul. [address], [place], [address] , [place]. tel:[phone] Leif Dominguezis, [address], [place], [address]. [phone] ng Provider: [place], [address]. tel:[phone] OFFICE/OUTPA TIENT VISIT, EST [facility] of , [address], [place], [id number], [place] tel:[phone] [facility] Main Office No Information 9 Fabio Paul. [address], [place], [address] , [place]. tel: [phone] Referring Provider: Driss Glass [place], [place], . tel:[phone] OFFICE/OUTPA TIENT VISIT, EST [facility] of , [address], [place], [address], [place] tel:[phone] [facility] Main Office No Information 9 Fabio Paul. [address], [place], [id number] , [place]. [phone] Referring Provider: [place], [address]. tel:[phone] OFFICE/OUTPA TIENT VISIT, EST [facility] of , [address], [place], [address], [place] tel:[phone] [facility] Main Office No Information 9 Fabio Paul. [address], [place], [address] , [place]. tel: [phone] Referring Provider: Gulshan Stewart, [address] [place], [address]. tel:[phone] [facility] of , [address], [place], [id number], [place] tel: [phone] [facility] Main Office No Information 9 Fabio Paul. [address], [place], [address] , [place]. tel: [phone] OFFICE/OUTPA TIENT VISIT, EST [facility] of , [address], [place], [id number], [place] tel: [phone] [facility] Main Office Follow Up of Neck Pain (chief complaint)Fo llow Up of Rheumatoid Arthritis (chief complaint) RA w/o rheumatoid factor of multiple sitesOther terminal press operator (current) drug therapyCervi calgiaOther spondylosis, cervical regionBody mass index (BMI) 33.0-33.9, adult 9 Fabio Paul. [address], [place], [address] , [place]. tel: [phone] Leif Arrington, [address], [place], [address]. tel:[phone] ng Provider: Gulshan Stewart, [address] [place], [address]. tel:[phone] OFFICE/OUTPA TIENT VISIT, EST [facility] of , [address], [place], [id number], [place] tel:[phone] [facility] Main Office No Information 9 Fabio Paul. [address], [place], [address] , [place]. tel: [phone] Referring Provider: Gulshan Stewart, [place], [address]. tel:[phone] OFFICE/OUTPA TIENT VISIT, EST [facility] of , [address], [place], [id number], [place] tel:[phone] [facility] Main Office Follow Up of Rheumatoid Arthritis (chief complaint) RA w/o rheumatoid factor of multiple sitesOther residential (current) drug therapyLong term (current) use of opiate analgesicBod y mass index (BMI) 33.0-33.9, adultPrimary generalized OA Apr-0 201 9 Fabio Paul. [address], [place], [address] , [place]. tel:[phone] Leif Arrington, [address], [place], [address]. tel:[phone] ng Provider: Gulshan Stewart, [place], [address]. tel:[phone] OFFICE/OUTPA TIENT VISIT, EST [facility] of , [address], [place], [address], [place] tel:[phone] [facility] Main Office No Information 9 Fabio Paul. [address], [place], [address] , [place]. [phone] Referring Provider: Gulshan Stewart, [place], [address]. tel:[phone] OFFICE/OUTPA TIENT VISIT, EST [facility] of , [address], [place], [id number], [place] tel:[phone] [facility] Main Office No Information 9 Fabio Paul. [address], [place], [address] , [place]. tel:[phone] Referring Provider: Gulshan Stewart, Edelmira2 Latoya Perry MD, . tel:[phone] OFFICE/OUTPA TIENT VISIT, EST [facility] of , [address], [place], [id number], [place] tel:[phone] [facility] Main Office No Information 9 Faibo Paul. [address], [place], [address] , [place]. tel:[phone] Referring Provider: Gulshan Stewart, Latoya Douglas MD, . tel:[phone] OFFICE/OUTPA TIENT VISIT, EST [facility] of , [address], [place], [id number], [place] tel:[phone] [facility] Main Office No Information 8 Fabio Paul. [address], [place], [address] , [place]. tel: [phone] Referring Provider: Gulshan Stewart, Latoya Douglas MD, . tel:[phone] OFFICE/OUTPA TIENT VISIT, EST [facility] of , [address], [place], [address], [place] tel:[phone] [facility] Main Office Follow Up of Rheumatoid Arthritis (chief complaint) RA w/o rheumatoid factor of multiple sitesOther residential (current) drug therapyBody mass index (BMI) 34.0-34.9, adultElevate d blood-pressu re reading, w/o diagnosis of htnPrimary OA of left knee 8 Fabio Paul. [address], [place], [address] , [place]. tel:[phone] Leif Arrington, [address], [place], [address]. tel:[phone] ng Provider: Gulshan Stewart, [place], [address]. tel:[phone] OFFICE/OUTPA TIENT VISIT, EST [facility] of , [address], [place], [address], [place] tel:[phone] [facility] Main Office No Information 5-201 8 Fabio Paul. [address], [place], [address] , [place]. tel:[phone] Referring Provider: [place], [address]. tel:[phone] OFFICE/OUTPA TIENT VISIT, EST [facility] of , [address], [place], [id number], [place] tel:[phone] [facility] Main Office No Information 8-201 8 Fabio Paul. [address], [place], [address] , [place]. tel:[phone] Referring Provider: Gulshan Stewart, [place], [address]. tel:[phone] OFFICE/OUTPA TIENT VISIT, EST [facility] of , [address], [place], [id number], [place] tel:[phone] [facility] Main Office No Information 0- 8 Fabio Paul. [address], [place], [address] , [place]. tel:[phone] Referring Provider: [place], [address]. tel:[phone] OFFICE/OUTPA TIENT VISIT, EST [facility] of , [address], [place], [address], [place] tel:[phone] [facility] Main Office Follow Up of Rheumatoid Arthritis (chief complaint) RA w/o rheumatoid factor of multiple sitesOther residential (current) drug therapyBody mass index (BMI) 32.0-32.9, adult Aug-0 6-201 8 Fabio Paul. [address], [place], [address] , [place]. tel:[phone] Leif Arrington, [address], [place], [address]. tel:[phone] ng Provider: Gulshan Stewart, [address] [place], [address]. tel:[phone] [facility] of , [address], [place], [id number], [place] tel:[phone] [facility] Main Office No Information 8 Fabio Paul. [address], [place], [id number] , [place]. tel:[phone] Referring Provider: Gulshan Stewart, [address] [place], [address]. tel:[phone] OFFICE/OUTPA TIENT VISIT, EST [facility] of , [address], [place], [id number], [place] tel:[phone] [facility] Main Office No Information 8 Fabio Paul. [address], [place], [address] , [place]. tel:[phone] Referring Provider: Gulshan Stewart, [address] [place], [address]. tel:[phone] OFFICE/OUTPA TIENT VISIT, EST [facility] of , [address], [place], [id number], [place] tel:[phone] [facility] Main Office Follow Up of Rheumatoid Arthritis (chief complaint) RA w/o rheumatoid factor of multiple sitesOther terminal press operator (current) drug therapyLong term (current) use of opiate analgesicLon g term (current) use of non-steroida l anti-inflamm atories (NSAID) 8 Fabio Paul. [address], [place], [address] , [place]. tel:[phone] Leif Arrington, [address], [place], [address]. tel:[phone] ng Provider: Gulshan Stewart, Latoya [place], [address]. tel:[phone] [facility] , [address], [place], [id number], [place] tel:[phone] [facility] Main Office No Information 8 Fabio Paul. [address], [place], [id number] , [place]. tel: [phone] Referring Provider: Gulshan Stewart, [place], [address]. tel:[phone] [facility] , [address], [place], [id number], [place] tel:[phone] [facility] Main Office Follow Up of Rheumatoid Arthritis (chief complaint) RA w/o rheumatoid factor of multiple sitesOther residential (current) drug therapyLong term (current) use of non-steroida l anti-inflamm atories (NSAID) 8 Fabio Paul. [address], [place], [id number] , [place]. tel: [phone] Leif Arrington, [address], [place], [address]. tel:[phone] ng Provider: Gulshan Stewart, [place], [address]. tel:[phone] [facility] of , [address], [place], [id number], [place] tel:[phone] [facility] Main Office No Information 8 Fabio Paul. [address], [place], [id number] , [place]. tel: [phone] Referring Provider: Gulshan Stewart, [address] [place], [address]. tel:[phone] [facility] , [address], [place], [id number], [place] tel:[phone] [facility] Main Office No Information Fabio Paul. [address], [place], [id number] , [place]. tel: [phone] Referring Provider: Gulshan Stewart, [address] [place], [address]. tel:[phone] [facility] , [address], [place], [id number], [place] tel:[phone] [facility] Main Office No Information Fabio Paul. [address], [place], [id number] , [place]. tel: [phone] Referring Provider: Gulshan Stewart, [address] [place], [address]. tel:[phone] OFFICE/OUTPA TIENT VISIT, EST [facility] of , [address], [place], [id number], [place] [phone] [facility] Main Office Follow Up of Rheumatoid Arthritis (chief complaint) RA w/o rheumatoid factor of multiple sitesOther residential (current) drug therapy Fabio Paul. [address], [place], [id number] , [place]. tel: [phone] Leif Arrington, [address], [place], [address]. tel:[phone] ng Provider: Gulshan Stewart, [address] [place], [address]. tel:[phone] [facility] , [address], [place], [id number], [place] tel:[phone] [facility] Main Office Follow Up of Rheumatoid Arthritis (chief complaint) RA w/o rheumatoid factor of multiple sitesOther terminal press operator drug therapyBody mass index (BMI) 30.0-30.9, adult Dec- 7 Fabio Paul. [address], [place], [id number] , [place]. tel:[phone] Leif Arrington, [address], [place], [address]. tel:[phone] OFFICE/OUTPA TIENT VISIT, EST [facility] of , [address], [place], [id number], [place] tel:[phone] [facility] Main Office Follow Up of Rheumatoid Arthritis (chief complaint) RA w/o rheumatoid factor of multiple sitesOther residential drug therapyBody mass index (BMI) 30.0-30.9, adult Nov- Fabio Paul. [address], [place], [id number] , [place]. tel:[phone] Leif Arrington, [address], [place], [address]. tel:[phone] Provider: Gulshan Stewart, [address], [place], [address]. tel:[phone] OFFICE/OUTPA TIENT VISIT, EST [facility] of , [address], [place], [id number], [place] tel:[phone] [facility] Main Office Follow Up of Rheumatoid Arthritis (chief complaint) RA w/o rheumatoid factor of multiple sitesOther residential drug therapyGener alized osteoarthrit isLong term (current) use of non-steroida l anti-inflamm atories (NSAID) 7 Fabio Paul. [address], [place], [id number] , [place]. tel:[phone] Leif Arrington, [address], [place], [address]. tel:[phone] masha Provider: Gulshan Stewart, [address] [place], . tel:[phone] [facility] of , [address], [place], [id number], [place] tel:[phone] [facility] Main Office No Information 7 Fabio Paul. [address], [place], [id number] , [place]. tel:[phone] Referring Provider: Gulshan Stewart, [address] [place] MD, . tel:[phone] OFFICE/OUTPA TIENT VISIT, EST [facility] of , [address], [place], [id number], [place] tel:[phone] [facility] Main Office Follow Up of Rheumatoid Arthritis (chief complaint) RA w/o rheumatoid factor of multiple sitesOther terminal press operator drug therapyGener alized osteoarthrit isLong term (current) use of non-steroida l anti-inflamm atories (NSAID) Jul- 7 Fabio Paul. [address], [place], [id number] , [place]. tel:[phone] Leif Arrington, [address], [place], [address]. tel:[phone] masha Provider: Gulshan Stewart, Edelmira2 [place]oya [place] MD, . tel:[phone] [facility] , [address], [place], [id number], [place] tel:[phone] [facility] Main Office No Information 7 Fabio Paul. [address], [place], [id number] , [place]. tel:[phone] Referring Provider: Gulshan Stewart, [address] [place], [address]. tel:[phone] [facility] of , [address], [place], [id number], [place] tel:[phone] [facility] Main Office No Information Fabio Paul. [address], [place], [id number] , [place]. tel:[phone] Referring Provider: Gulshan Stewart, Edelmira2 [place], [address]. tel:[phone] [facility] of , [address], [place], [id number], [place] tel:[phone] [facility] Main Office No Information Fabio Paul. [address], [place], [id number] , [place]. tel:[phone] Referring Provider: Gulshan Stewart, Edelmira2 [place], [address]. tel:[phone] [facility] , [address], [place], [id number], [place] tel:[phone] [facility] Main Office Follow Up of Rheumatoid Arthritis (chief complaint) RA w/o rheumatoid factor of multiple sitesOther residential drug therapyGener alized osteoarthrit isLong term (current) use of non-steroida l anti-inflamm atories (NSAID)Troch anteric bursitis, right hipPain in right hip Fabio Paul. [address], [place], [id number] , [place]. tel: [phone] Leif Arrington, [address], [place], [address]. tel:[phone] ng Provider: Gulshan Stewart, Edelmira2 [place], [address]. tel:[phone] OFFICE/OUTPA TIENT VISIT, EST [facility] of , [address], [place], [id number], [place] tel:[phone] [facility] Main Office Follow Up of Rheumatoid Arthritis (chief complaint) RA w/o rheumatoid factor of multiple sitesOther terminal press operator drug therapyGener alized osteoarthrit isLong term (current) use of non-steroida l anti-inflamm atories (NSAID) 7-201 6 Fabio Paul. [address], [place], [address] , [place]. tel:[phone] Leif Arrington, [address], [place], [address]. tel:[phone] ng Provider: Gulshan Stewart, [place], [address]. tel:[phone] OFFICE/OUTPA TIENT VISIT, EST [facility] of , [address], [place], [id number], [place] tel:[phone] [facility] Main Office Follow Up of Rheumatoid Arthritis (chief complaint) RA w/o rheumatoid factor of multiple sitesOther terminal press operator drug therapyGener alized osteoarthrit isLong term (current) use of non-steroida l anti-inflamm atories (NSAID) 6 Fabio Paul. [address], [place], [address] , [place]. tel:[phone] Leif Arrington, [address], [place], [address]. tel:[phone] ng Provider: Gulshan Stewart, Edelmira2 [place], [address]. tel:[phone] OFFICE/OUTPA TIENT VISIT, EST [facility] of , [address], [place], [id number], [place] tel:[phone] [facility] Main Office Follow Up of Rheumatoid Arthritis (chief complaint) RA w/o rheumatoid factor of multiple sitesOther terminal press operator drug therapyGener alized osteoarthrit isLong term (current) use of non-steroida l anti-inflamm atories (NSAID) 6 Fabio Paul. [address], [place], [address] , [place]. tel:[phone] Leif Arrington, [address], [place], [address]. tel:[phone] ng Provider: Gulshan Stewart, [address], [place], [address]. tel:[phone] OFFICE/OUTPA TIENT VISIT, EST [facility] of , [address], [place], [id number], [place] tel:[phone] [facility] Main Office Follow Up of Rheumatoid Arthritis (chief complaint) RA w/o rheumatoid factor of multiple sitesOther terminal press operator drug therapyGener alized osteoarthrit is 6 Fabio Paul. [address], [place], [address] , [place]. tel:[phone] Leif Arrington, [address], [place], [address]. tel:[phone] ng Provider: Venus Mont[address], [place], [address]. tel:[phone] OFFICE/OUTPA TIENT VISIT, EST [facility] of , [address], [place], [id number], [place] tel:[phone] [facility] Main Office Follow Up of Rheumatoid Arthritis (chief complaint) RA w/o rheumatoid factor of multiple sitesOther residential drug therapyGener alized osteoarthrit is 6 Fabio Paul. [address], [place], [address] , [place]. tel:[phone] Leif Arrington, [address], [place], [address]. tel:[phone] masha Provider: Venus Montoya [address], [place], [address]. tel:[phone] OFFICE/OUTPA TIENT VISIT, EST [facility] of , [address], [place], [id number], [place] tel:[phone] [facility] Main Office Inflammatory Polyarthropa thy (chief complaint) Inflammatory polyarthropa thyGeneraliz ed osteoarthrit is 6 Fabio Paul. [address], [place], [address] , [place]. tel:[phone] Leif Arrington, [address], [place], [address]. tel:[phone] ng Provider: Leif Gonzalez, [address], [place], [address]. tel:[phone] OFFICE/OUTPA TIENT VISIT, EST [facility] , [address], [place], [id number], [place] tel:[phone] [facility] Main Office Inflammatory Polyarthropa thy (chief complaint) Inflammatory polyarthropa thyPain in left hipPrimary generalized (osteo)arthr itisLong term (current) use of non-steroida l anti-inflamm atories (NSAID) 6 Fabio Paul. [address], [place], [address] , [place]. tel:[phone] Leif Arrington, [address], [place], [address]. tel:[phone] masha Provider: Leif Gonzalez, [address], [place], [address]. tel:[phone] OFFICE/OUTPA TIENT VISIT, EST [facility] of , [address], [place], [id number], [place] tel:[phone] [facility] Main Office Osteoarthrit is (chief complaint) Primary generalized (osteo)arthr itisLong term (current) use of non-steroida l anti-inflamm atories (NSAID) 6 Fabio Paul. [address], [place], [id number] , [place]. tel:[phone] Referring Provider: Leif Gonzalez, [address], [place], [address]. tel:[phone] OFFICE/OUTPA TIENT VISIT, EST [facility] of , [address], [place], [id number], [place] tel:[phone] [facility] Main Office Follow Up of Osteoarthrit is (chief complaint) Osteoarthros is, generalized, involving unspecified siteDisorder s of bursae and tendons in shoulder region, unspecified Jul- 5 Fabio Paul. [address], [place], [id number] , [place]. tel:[phone] Referring Provider: Leif Gonzalez, [address], [place], [address]. tel:[phone] OFFICE/OUTPA TIENT VISIT, EST [facility] of , [address], [place], [id number], [place] tel:[phone] [facility] Main Office Follow Up of Right shoulder pain (chief complaint) Disorders of bursae and tendons in shoulder region, unspecifiedP ainful shoulder 4 Fabio Paul. [address], [place], [address] , [place]. tel:[phone] Referring Provider: Leif Gonzalez, [address], [place], [address]. tel:[phone] OFFICE/OUTPA TIENT VISIT, EST [facility] of , [address], [place], [address], [place] tel:[phone] [facility] Main Office No Information 4 Fabio Paul. [address], [place], [address] , [place]. tel:[phone] Referring Provider: Peter Gonzalez, [address], [place], [address]. tel:[phone] OFFICE/OUTPA TIENT VISIT, EST [facility] of , [address], [place], [id number], [place] tel:[phone] [facility] Main Office Follow Up of Osteoarthrit is (chief complaint) Osteoarthrit is, GeneralizedL TU-TERM (CURRENT) USE OF NON-STEROIDA L ANTI-INFLAMM ATORIES 4 Fabio Paul. [address], [place], [address] , [place]. tel:[phone] Referring Provider: Leif Gonzalez, [address], [place], [address]. tel:[phone] OFFICE/OUTPA TIENT VISIT, EST [facility] of , [address], [place], [id number], [place] tel:[phone] [facility] Main Office Osteoarthrit is (chief complaint) Disorders of bursae and tendons in shoulder region, unspecifiedO steoarthriti s, Generalized 4 Fabio Paul. [address], [place], [address] , [place]. tel:[phone] Referring Provider: Leif Gonzalez, [address], [place], [address]. tel:[phone] OFFICE/OUTPA TIENT VISIT, EST [facility] of , [address], [place], [id number], [place] tel:[phone] [facility] Main Office Osteoarthrit is (chief complaint) Osteoarthrit is, GeneralizedD isorders of bursae and tendons in shoulder region, unspecifiedL TU-TERM (CURRENT) USE OF NON-STEROIDA L ANTI-INFLAMM ATORIES 4 Fabio Paul. [address], [place], [id number] , [place]. tel:[phone] Referring Provider: Leif Gonzalez [address], [place], [address]. tel:[phone] OFFICE/OUTPA TIENT VISIT, EST [facility] of , [address], [place], [id number], [place] tel:[phone] [facility] Main Office Osteoarthrit is (chief complaint) Osteoarthrit is, Generalized 3 Fabio Paul. [address], [place], [address] , [place]. tel:[phone] Referring Provider: Leif Gonzalez, [address], [place], [address]. tel:[phone] OFFICE/OUTPA TIENT VISIT, EST [facility] of , [address], [place], [address], [place] tel:[phone] [facility] Main Office for joint pain (chief complaint) Osteoarthrit is, GeneralizedA rticular cartilage disorder involving forearmRadia l styloid tenosynoviti s 3 Fabio Paul. [address], [place], [address] , [place]. tel:[phone] Referring Provider: Leif Gonzalez, [address], [place], [address]. tel:[phone] OFFICE/OUTPA TIENT VISIT, NEW [facility] of , [address], [place], [id number], [place] tel:[phone] [facility] Main Office myalgia (chief complaint) Fatigue / MalaisePain in joint involving multiple sites 3 Fabio Paul. [address], [place], [address] , [place]. tel:[phone] Referring Provider: Leif Gonzalez, [address], [place], [address]. tel:[phone] Family History Family Member Type Diagnosis Age [...] Covered libertarian ID Authoriza tion(s) Medicare MB [id number] [employer] [place] [id number] Medicare MB [id number] [employer] [place] [id number] Medicare MB [id number] [employer] [place] [id number] Medicare MB [id number] [employer] [place] [id number] Social History Type Description Quantity Date Captured [...] OA) ordered Referral Referred To: Toan Berry [address] [place], [id number] Ordered: Referrals: Allopathic & Osteopathic Physicians : Anesthesiology. Toan Berry. Consult ordered Referral Ordered: Madi Holder -Allopathic & Osteopathic Physicians : Internal Medicine : Nephrology (related to CKD) ordered Referral Referred To: Madi Holder [address] [facility]
[address] [place], [id number] Ordered: Referrals: Allopathic & Osteopathic Physicians : [...] Future Order: Lab Order Lipid Pa rashard ([id number]), Ordered on: Ordered Future Order: Lab Order COMPREHE NSIVE METABOLIC PANEL (CMP), Collected on: , Sent on: Sent Future Order: Lab Order CBC Diff erential And Platlet (CBC PLT DIFF), Ordered on: Ordered Future Order: Lab Order CMP ([id number]), Orde red on: Ordered Future Order: Lab Order CBC Diff erential And Platlet (CBC PLT DIFF), Collected on: Ordered Future Order: Lab Order CMP ([id number]), Wally ected on: Ordered Future Order: Lab [...]
--- OUTSIDE RECORDS SUMMARY | 2024-11-28 06:00 | XMS_ITS | Continuity of Care Document ---
Author Organization [facility] Manjit Address [address] [place] [address] Phone Care Team Providers Care Reel Worker Name Role Phone Fabio MANCINI, Paul Unavailable Unavailable Allergies, Adverse Reactions, Alerts Substance Reaction Status Criticality No Known Allergies Active No Inform ation Medications Medication Instructions Dosage Effective Dates (start - stop) Status Comments ergocalciferol (vitamin D2) 1,250 mcg (50,000 unit) capsule take 1 capsule by oral route every week 79797 UNITS - Active Simponi ARIA 12.5 mg/mL [...] Providers Copied on Encounter OFFICE/OUTPA TIENT VISIT, [facility] of , [address], [place], [id number], [place] tel:[phone] [facility] Main Office No Information Fabio Miller. [address], [place], [id number] , [place]. tel:[phone] Referring Provider: Rosalba Shaw, [address], [place], [address]. tel:[phone] OFFICE/OUTPA TIENT VISIT, EST [facility] anjelica MANCINI, [address], [place], [id number], [place] tel:[phone] [facility] Main Office Age-related osteoporosis without current pathological fracture 5 Fabio Paul. [address], [place], [id number] , [place]. tel:[phone] Referring Provider: Pilo Hinojosa, [address], [place], [address]. 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 [address], [place], [id number] , [place]. tel:[phone] Leif Arrington, [address], [place], [address]. tel:[phone] ist: Madi Gallo, [address], [place], [address]. tel:[phone] ist: Sunni Ackerman, [address], [place], [address]. tel:[phone] ng Provider: Pilo Hinojosa, [address], [place], [address]. tel:[phone] [facility] of , [address], [place], [id number], [place] tel:[phone] [facility] Main Office No Information 5 Fabio Paul. [address], [place], [id number] , [place]. 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 [address], [place], [id number] , [place]. tel:[phone] Leif Arrington, [address], [place], [address]. tel:[phone] ist: Madi Holder, [address] [facility] [address], [place], [address]. tel:[phone] ist: Sunni Ackerman, [address] [facility] [address], [place], [address]. tel:[phone] ng Provider: Rosalba Shaw, [address], [place], [address]. tel:[phone] OFFICE/OUTPA TIENT VISIT, EST [facility] of , [address], [place], [id number], [place] tel:[phone] [facility] Main Office No Information Jul- 5 Fabio Miller. [address], [place], [id number] , [place]. tel:[phone] Referring Provider: Pilo Hinojosa, [address] [facility] [facility] [address], [place], [address]. tel:[phone] OFFICE/OUTPA TIENT VISIT, EST [facility] of , [address], [place], [id number], [place] tel:[phone] [facility] Main Office Follow Up [...] [address], [place], [id number] , [place]. tel:[phone] Leif Arrington, [address], [place], [address]. tel:[phone] ist: Madi Holder, [address], [place], [address]. tel:[phone] ist: Sunni Ackerman, [address] [facility] [address], [place], [address]. tel:[phone] ng Provider: Rosalba Shaw, [address], [place], [address]. tel:[phone] OFFICE/OUTPA TIENT VISIT, EST [facility] of , [address], [place], [id number], [place] tel:[phone] [facility] Main Office No Information 4 Fabio Miller. [address], [place], [id number] , [place]. tel:[phone] Referring Provider: Pilo Hinojosa, [address] [facility] [address], [place], [address]. tel:[phone] OFFICE/OUTPA TIENT VISIT, EST [facility] of , [address], [place], [id number], [place] tel:[phone] [facility] Main Office Follow Up [...] [address], [place], [address] , [place]. tel:[phone] Leif Arrington, [address], [place], [address]. tel:[phone] ist: Madi Holder, [address], [place], [address]. tel:[phone] ist: Sunni Ackerman, [address] [facility] [address], [place], [address]. tel:[phone] ng Provider: Pilo Hionjosa, [address] [place] [address] [address], [place], [address]. tel:[phone] OFFICE/OUTPA TIENT VISIT, EST [facility] of , [address], [place], [id number], [place] tel:[phone] [facility] Main Office No Information 4 Fabio Paul. [address], [place], [id number] , [place]. tel:[phone] Referring Provider: Pilo Hinojosa, [address] [place] [address] [address], [place], [address]. [phone] OFFICE/OUTPA TIENT VISIT, EST [facility] of , [address], [place], [id number], [place] tel:[phone] [facility] Main Office No Information 4 Fabio Paul. [address], [place], [id number] , [place]. tel:[phone] Referring Provider: Pilo Hinojosa, [address], [place], [address]. 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 [address], [place], [id number] , [place]. tel:[phone] Leif Arrington, [address], [place], [address]. tel:[phone] ist: Madi Holder, [address], [place], [address]. tel:[phone] ist: Sunni Ackerman, [address], [place], [address]. tel:[phone] ng Provider: Pilo Hinojosa, [address], [place], [address]. tel:[phone] OFFICE/OUTPA TIENT VISIT, EST [facility] of , [address], [place], [id number], [place] tel:[phone] [facility] Main Office No Information 4 Fabio Paul. [address], [place], [id number] , [place]. tel:[phone] Referring Provider: Pilo Hinojosa, [address], [place], [address]. tel:[phone] OFFICE/OUTPA TIENT VISIT, EST [facility] of , [address], [place], [id number], [place] tel:[phone] [facility] Main Office No Information 4 Fabio Paul. [address], [place], [id number] , [place]. tel:[phone] Referring Provider: Pilo Hinojosa, [address], [place], [address]. tel:[phone] OFFICE/OUTPA TIENT VISIT, EST [facility] of , [address], [place], [id number], [place] tel:[phone] [facility] Main Office No Information 4 Fabio Paul. [address], [place], [address] , [place]. tel:[phone] Referring Provider: Pilo Hinojosa, [address], [place], [address]. tel:[phone] OFFICE/OUTPA TIENT VISIT, EST [facility] of , [address], [place], [id number], [place] tel:[phone] [facility] Main Office Follow Up [...] [address], [place], [id number] , [place]. tel:[phone] Leif Arrington, [address], [place], [address]. tel:[phone] ist: Madi Holder, [address], [place], [address]. tel:[phone] ist: Sunni Ackerman, [address], [place], [address]. tel:[phone] ng Provider: Pilo Hinojosa, [address], [place], [address]. tel:[phone] OFFICE/OUTPA TIENT VISIT, EST [facility] of , [address], [place], [id number], [place] tel:[phone] [facility] Main Office No Information 4 Fabio Paul. [address], [place], [id number] , [place]. tel:[phone] Referring Provider: Pilo Hinojosa, [address], [place], [address]. tel:[phone] OFFICE/OUTPA TIENT VISIT, EST [facility] of , [address], [place], [id number], [place] tel:[phone] [facility] Main Office No Information 3 Fabio Paul. [address], [place], [address] , [place]. tel:[phone] Referring Provider: Pilo Hinojosa, [address], [place], [address]. tel:[phone] [facility] of , [address], [place], [id number], [place] tel:[phone] [facility] Main Office No Information 3 Fabio Paul. [address], [place], [id number] , [place]. 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 [address], [place], [address] , [place]. tel:[phone] Leif Arrington, [address], [place], [address]. tel:[phone] ist: Madi Holder, [address], [place], [address]. tel:[phone] ist: Sunni Ackerman, [address], [place], [address]. tel:[phone] ng Provider: Pilo Hinojosa, [address], [place], [address]. tel:[phone] [facility] of , [address], [place], [id number], [place] tel:[phone] [facility] Main Office No Information 0 3 Fabio Paul. [address], [place], [id number] , [place]. tel:[phone] OFFICE/OUTPA TIENT VISIT, EST [facility] of , [address], [place], [id number], [place] tel:[phone] [facility] Main Office No Information 3 Fabio Paul. [address], [place], [id number] , [place]. tel:[phone] Referring Provider: Pilo Hinojosa, [address], [place], [address]. tel:[phone] OFFICE/OUTPA TIENT VISIT, EST [facility] of , [address], [place], [id number], [place] tel:[phone] [facility] Main Office No Information 3 Fabio Paul. [address], [place], [address] , [place]. tel:[phone] Referring Provider: Pilo Hinojosa, [address], [place], [address]. tel:[phone] OFFICE/OUTPA TIENT VISIT, EST [facility] of , [address], [place], [id number], [place] tel:[phone] [facility] Main Office No Information 3 Fabio Paul. [address], [place], [address] , [place]. tel:[phone] Referring Provider: Pilo Hinojosa, [address], [place], [address]. tel:[phone] OFFICE/OUTPA TIENT VISIT, EST [facility] of , [address], [place], [address], [place] tel:[phone] [facility] Main Office No Information 3 Fabio Paul. [address], [place], [address] , [place]. tel:[phone] Referring Provider: Pilo Hinojosa, [address], [place], [address]. tel:[phone] OFFICE/OUTPA TIENT VISIT, EST [facility] of , [address], [place], [id number], [place] tel:[phone] [facility] Main Office Follow Up of GOA (chief complaint)Fo llow Up of RA (chief complaint) Immunodefici ency due to drugsRA w/o rheumatoid factor of multiple sitesGeneral ized OAPain in unspecified jointCKDLong term (current) use of immunosuppre ssive biologicBody mass index (BMI) 30.0-30.9, adult 3 Fabio Paul. [address], [place], [address] , [place]. tel:[phone] Leif Arrington, [address], [place], [address]. tel:[phone] ist: Madi Holder, [address], [place], [address]. tel:[phone] ist: Sunni Ackerman [address], [place], [address]. tel:[phone] ng Provider: Pilo Hinojosa, [address], [place], [address]. tel:[phone] OFFICE/OUTPA TIENT VISIT, EST [facility] of , [address], [place], [id number], [place] tel:[phone] [facility] Main Office No Information 3 Fabio Paul. [address], [place], [address] , [place]. tel:[phone] Referring Provider: Pilo Hinojosa, [address], [place], [address]. tel:[phone] OFFICE/OUTPA TIENT VISIT, EST [facility] of , [address], [place], [id number], [place] tel:[phone] [facility] Main Office No Information 3 Fabio Paul. [address], [place], [id number] , [place]. tel:[phone] Referring Provider: Pilo Hinojosa, [address], [place], [address]. tel:[phone] OFFICE/OUTPA TIENT VISIT, EST [facility] of , [address], [place], [id number], [place] tel:[phone] [facility] Main Office No Information 3 Fabio Paul. [address], [place], [address] , [place]. tel:[phone] Referring Provider: Pilo Hinojosa, [address], [place], [address]. tel:[phone] OFFICE/OUTPA TIENT VISIT, EST [facility] of , [address], [place], [id number], [place] tel:[phone] [facility] Main Office No Information Jul-0 3 Fabio Paul. [address], [place], [address] , [place]. tel:[phone] Referring Provider: Pilo Hinojosa, [address], [place], [address]. tel:[phone] OFFICE/OUTPA TIENT VISIT, EST [facility] of , [address], [place], [address], [place] tel:[phone] [facility] Main Office Follow Up of GOA (chief complaint)Fo llow Up of RA (chief complaint) Immunodefici ency due to drugsRA w/o rheumatoid factor of multiple sitesGeneral ized OACKDLong term (current) use of immunosuppre ssive biologicPain in unspecified joint Jun-2 3 Fabio Paul. [address], [place], [address] , [place]. tel:[phone] Leif Arrington, [address], [place], [address]. tel:[phone] ist: Madi Gallo, [address], [place], [address]. tel:[phone] ist: Sunni Ackerman, [address], [place], [address]. tel:[phone] ng Provider: Pilo Hinojosa, [address], [place], [address]. tel:[phone] OFFICE/OUTPA TIENT VISIT, EST [facility] of , [address], [place], [address], [place] tel:[phone] [facility] Main Office No Information 0 3 Fabio Paul. [address], [place], [address] , [place]. tel:[phone] Referring Provider: Pilo Hinojosa, [address], [place], [address]. tel:[phone] OFFICE/OUTPA TIENT VISIT, EST [facility] of , [address], [place], [id number], [place] tel:[phone] [facility] Main Office No Information 3 Fabio Paul. [address], [place], [address] , [place]. tel: [phone] Referring Provider: Gulshan Stewart, [place], [address]. tel:[phone] OFFICE/OUTPA TIENT VISIT, EST [facility] of , [address], [place], [id number], [place] tel:[phone] [facility] Main Office No Information 3 Fabio Paul. [address], [place], [address] , [place]. tel: [phone] Referring Provider: Gulshan Stewart, [address]2 Latoya [place] MD, . tel:[phone] OFFICE/OUTPA TIENT VISIT, EST [facility] of , [address], [place], [id number], [place] tel:[phone] [facility] Main Office Follow Up of GOA (chief complaint)Fo llow Up of RA (chief complaint) Immunodefici ency due to drugsRA w/o rheumatoid factor of multiple sitesGeneral ized OACervicalgi aCKDLong term (current) use of opiate analgesicLon g term (current) use of immunosuppre ssive biologic 2 Fabio Paul. [address], [place], [address] , [place]. tel: [phone] Leif Arrington, [address], [place], [address]. tel:[phone] ist: Madi Holder, [address], [place], [address]. tel:[phone] ng Provider: Gulshan Stewart, [address] [place], [address]. tel:[phone] OFFICE/OUTPA TIENT VISIT, EST [facility] of , [address], [place], [address], [place] tel: [phone] [facility] Main Office No Information 2 Fabio Paul. [address], [place], [address] , [place]. tel:[phone] Referring Provider: Gulshan Stewart, [place], [address]. tel:[phone] OFFICE/OUTPA TIENT VISIT, EST [facility] of , [address], [place], [address], [place] tel:[phone] [facility] Main Office No Information 2 Fabio Paul. [address], [place], [address] , [place]. tel: [phone] Referring Provider: Gulshan Stewart, [address] [place], [address]. tel:[phone] OFFICE/OUTPA TIENT VISIT, EST [facility] of , [address], [place], [address], [place] tel:[phone] [facility] Main Office No Information 2 Fabio Paul. [address], [place], [address] , [place]. tel: [phone] Referring Provider: Gulshan Stewart, [address] [place], [address]. tel:[phone] OFFICE/OUTPA TIENT VISIT, EST [facility] of , [address], [place], [address], [place] tel:[phone] [facility] Main Office Follow Up of Rheumatoid Arthritis (chief complaint)Fo llow Up of Generalized OA (chief complaint) Immunodefici ency due to drugsRA w/o rheumatoid factor of multiple sitesGeneral ized OACervicalgi aCKDLong term (current) use of opiate analgesicOth er senior living (current) drug therapyBody mass index (BMI) 33.0-33.9, adult 2 Fabio Paul. [address], [place], [address] , [place]. tel:[phone] Leif Arrington, [address], [place], [address]. tel:[phone] ist: Madi Holder, [address], [place], [address]. tel:[phone] ng Provider: Gulshan Stewart, [place], [address]. tel:[phone] OFFICE/OUTPA TIENT VISIT, EST [facility] of , [address], [place], [address], [place] tel:[phone] [facility] Main Office No Information 2 Fabio Miller. [address], [place], [address] , [place]. tel:[phone] Referring Provider: Gulshan Stewart, [place], [address]. tel:[phone] OFFICE/OUTPA TIENT VISIT, EST [facility] of , [address], [place], [address], [place] tel:[phone] [facility] Main Office No Information 2 Fabio Paul. [address], [place], [id number] , [place]. tel:[phone] Referring Provider: Gulshan Stewart, [place], [address]. tel:[phone] OFFICE/OUTPA TIENT VISIT, EST [facility] of , [address], [place], [address], [place] tel:[phone] [facility] Main Office No Information 2 Fabio Paul. [address], [place], [address] , [place]. tel:[phone] Referring Provider: Gulshan Stewart, [address] [place], [address]. tel:[phone] OFFICE/OUTPA TIENT VISIT, EST [facility] of , [address], [place], [address], [place] tel:[phone] [facility] Main Office No Information 2 Fabio Paul. [address], [place], [address] , [place]. tel:[phone] Referring Provider: Pilo Hinojosa, [address] [facility] [address], [place], [address]. tel:[phone] OFFICE/OUTPA TIENT VISIT, EST [facility] of , [address], [place], [address], [place] tel:[phone] [facility] Main Office No Information 2 Fabio Paul. [address], [place], [address] , [place]. tel:[phone] Referring Provider: Gulshan Stewart, [address] [place], [address]. tel:[phone] OFFICE/OUTPA TIENT VISIT, EST [facility] of , [address], [place], [id number], [place] tel:[phone] [facility] Main Office Follow Up of Rheumatoid Arthritis (chief complaint)Fo llow Up of Generalized OA (chief complaint) Immunodefici ency due to drugsRA w/o rheumatoid factor of multiple sitesGeneral ized OALong term (current) use of opiate analgesicOth er terminal make up operator (current) drug therapyCKDCe rvicalgia 2 Fabio Paul. [address], [place], [id number] , [place]. tel: [phone] Leif Arrington, [address], [place], [address]. tel: [phone] ng Provider: Gulshan Stewart, [address] [place], [address]. tel: [phone] OFFICE/OUTPA TIENT VISIT, EST [facility] of , [address], [place], [id number], [place] tel: [phone] [facility] Main Office No Information 2 Fabio Paul. [address], [place], [address] , [place]. tel: [phone] Referring Provider: Gulshan Stewart, [address] [place], [address]. tel: [phone] OFFICE/OUTPA TIENT VISIT, EST [facility] of , [address], [place], [id number], [place] tel: [phone] [facility] Main Office No Information 2 Fabio Paul. [address], [place], [id number] , [place]. tel: [phone] Referring Provider: Gulshan Stewart, [address] [place], [address]. tel:[phone] OFFICE/OUTPA TIENT VISIT, EST [facility] of , [address], [place], [id number], [place] tel: [phone] [facility] Main Office No Information 1 Fabio Paul. [address], [place], [id number] , [place]. tel: [phone] Referring Provider: Gulshan Stewart, [address] [place], [address]. tel:[phone] OFFICE/OUTPA TIENT VISIT, EST [facility] of , [address], [place], [id number], [place] tel:[phone] [facility] Main Office No Information 1 Fabio Paul. [address], [place], [id number] , [place]. tel: [phone] Referring Provider: [place], [address]. tel:[phone] OFFICE/OUTPA TIENT VISIT, EST [facility] of , [address], [place], [id number], [place] tel:[phone] [facility] Main Office No Information 1 Fabio Paul. [address], [place], [id number] , [place]. tel: [phone] Referring Provider: Driss Glass [place], [place], . tel:[phone] OFFICE/OUTPA TIENT VISIT, EST [facility] of , [address], [place], [address], [place] tel:[phone] [facility] Main Office Follow Up of Rheumatoid Arthritis (chief complaint)Fo llow Up of Generalized OA (chief complaint) Immunodefici ency due to drugsRA w/o rheumatoid factor of multiple sitesGeneral ized OALong term (current) use of opiate analgesicOth er senior living (current) drug therapyEncou nter for immunization Body mass index (BMI) 33.0-33.9, adult 1 Fabio Paul. [address], [place], [id number] , [place]. tel:[phone] Leif Arrington, [address], [place], [address]. tel:[phone] ng Provider: Gulshan Stewart, [place], [address]. tel:[phone] OFFICE/OUTPA TIENT VISIT, EST [facility] of , [address], [place], [id number], [place] tel:[phone] [facility] Main Office No Information 1 Fabio Paul. [address], [place], [id number] , [place]. tel: [phone] Referring Provider: Gulshan Stewart, [place], [address]. tel:[phone] OFFICE/OUTPA TIENT VISIT, EST [facility] of , [address], [place], [id number], [place] tel: [phone] [facility] Main Office No Information 1 Fabio Paul. [address], [place], [id number] , [place]. tel: [phone] Referring Provider: Gulshan Stewart, Edelmira2 [place], [address]. tel:[phone] [facility] of , [address], [place], [id number], [place] tel: [phone] [facility] Main Office No Information 1 Fabio Paul. [address], [place], [address] , [place]. tel: [phone] Referring Provider: Gulshan Stewart, [address]ira[address] [place], [address]. tel:[phone] OFFICE/OUTPA TIENT VISIT, EST [facility] of , [address], [place], [id number], [place] tel:[phone] [facility] Main Office No Information 1 Fabio Paul. [address], [place], [id number] , [place]. tel: [phone] Referring Provider: Gulshan Stewart, [address] [place], [address]. tel:[phone] OFFICE/OUTPA TIENT VISIT, EST [facility] of , [address], [place], [id number], [place] tel:[phone] [facility] Main Office Follow Up of Rheumatoid Arthritis (chief complaint)Fo llow Up of Generalized OA (chief complaint) Immunodefici ency due to drugsRA w/o rheumatoid factor of multiple sitesGeneral ized OALong term (current) use of opiate analgesicOth er terminal make up operator (current) drug therapyBody mass index (BMI) 34.0-34.9, adult August- 1 Fabio Paul. [address], [place], [id number] , [place]. [phone] Leif Arrington, [address], [place], [address]. tel:[phone] ng Provider: Gulshan Stewart, [address] [place], [address]. tel:[phone] OFFICE/OUTPA TIENT VISIT, EST [facility] of , [address], [place], [id number], [place] tel:[phone] [facility] Main Office No Information 1 Fabio Paul. [address], [place], [id number] , [place]. tel:[phone] Referring Provider: Gulshan Stewart, [address] [place], [address]. tel:[phone] OFFICE/OUTPA TIENT VISIT, EST [facility] of , [address], [place], [address], [place] tel:[phone] [facility] Main Office No Information 1 Fabio Paul. [address], [place], [id number] , [place]. tel:[phone] Referring Provider: Gulshan Stewart, [place], [address]. tel:[phone] OFFICE/OUTPA TIENT VISIT, EST [facility] of , [address], [place], [id number], [place] tel:[phone] [facility] Main Office No Information 1 Fabio Miller. [address], [place], [id number] , [place]. tel:[phone] Referring Provider: Gulshan Stewart, [address]ira2 [place], [address]. tel:[phone] OFFICE/OUTPA TIENT VISIT, EST [facility] of , [address], [place], [id number], [place] tel:[phone] [facility] Main Office No Information 1 Fabio Miller. [address], [place], [id number] , [place]. tel:[phone] Referring Provider: Gulshan Stewart, Edelmria2 Latoya Perry MD, . tel:[phone] OFFICE/OUTPA TIENT VISIT, EST [facility] of , [address], [place], [id number], [place] tel:[phone] [facility] Main Office Follow Up of Rheumatoid Arthritis (chief complaint)Fo llow Up of Generalized OA (chief complaint) RA w/o rheumatoid factor of multiple sitesGeneral ized OALong term (current) use of opiate analgesicOth er senior living (current) drug therapyImmun odeficiency due to drugsBody mass index (BMI) 33.0-33.9, adult 1 Fabio Miller. [address], [place], [id number] , [place]. tel:[phone] Referring Provider: Edelmira Glass2 [place], [address]. tel:[phone] OFFICE/OUTPA TIENT VISIT, EST [facility] of , [address], [place], [id number], [place] tel: [phone] [facility] Main Office No Information 1 Fabio Paul. [address], [place], [id number] , [place]. tel: [phone] Referring Provider: Gulshan Stewart, [place], [address]. tel:[phone] OFFICE/OUTPA TIENT VISIT, EST [facility] of , [address], [place], [id number], [place] tel: [phone] [facility] Main Office No Information 0 Fabio Paul. [address], [place], [id number] , [place]. tel: [phone] Referring Provider: Gulshan Stewart, [place], [address]. tel:[phone] [facility] of , [address], [place], [id number], [place] tel: [phone] [facility] Main Office No Information 0 Fabio Paul. [address], [place], [address] , [place]. tel: [phone] Referring Provider: Gulshan Stewart, [address]ira[address] [place], [address]. tel:[phone] OFFICE/OUTPA TIENT VISIT, EST [facility] of , [address], [place], [id number], [place] tel:[phone] [facility] Main Office No Information 0 Fabio Paul. [address], [place], [id number] , [place]. tel: [phone] Referring Provider: Gulshan Stewart, Edelmira2 [place], [address]. tel:[phone] OFFICE/OUTPA TIENT VISIT, EST [facility] of , [address], [place], [id number], [place] tel:[phone] [facility] Main Office Follow Up of Rheumatoid Arthritis (chief complaint)Fo llow Up of Generalized OA (chief complaint) RA w/o rheumatoid factor of multiple sitesLong term (current) use of opiate analgesicOth er senior living (current) drug therapyGener alized OAEncounter for immunization Body mass index (BMI) 34.0-34.9, adultElevate d blood-pressu re reading, w/o diagnosis of htn 0 Fabio Paul. [address], [place], [address] , [place]. tel:[phone] Leif Arrington, [address], [place], [address]. tel:[phone] ng Provider: Gulshan Stewart, [address] [place], [address]. tel:[phone] OFFICE/OUTPA TIENT VISIT, EST [facility] of , [address], [place], [address], [place] tel:[phone] [facility] Main Office No Information 0 Fabio Paul. [address], [place], [address] , [place]. tel:[phone] Referring Provider: Gulshan Stewart, [address]ira[address] [place], [address]. tel:[phone] OFFICE/OUTPA TIENT VISIT, EST [facility] of , [address], [place], [id number], [place] tel:[phone] [facility] Main Office No Information 0 Fabio Paul. [address], [place], [address] , [place]. tel:[phone] Referring Provider: Gulshan Stewart Ed[address]2 [place], [address]. tel:[phone] OFFICE/OUTPA TIENT VISIT, EST [facility] of , [address], [place], [id number], [place] tel:[phone] [facility] Main Office No Information 0 Fabio Paul. [address], [place], [address] , [place]. tel:[phone] Referring Provider: Gulshan Stewart, [address] [place], [address]. tel:[phone] OFFICE/OUTPA TIENT VISIT, EST [facility] of , [address], [place], [id number], [place] tel:[phone] [facility] Main Office No Information 0 Fabio Paul. [address], [place], [id number] , [place]. tel:[phone] Referring Provider: Gulshan Stewart, [address] Perry MD, . tel:[phone] OFFICE/OUTPA TIENT VISIT, EST [facility] of , [address], [place], [address], [place] tel:[phone] [facility] Main Office Follow Up of Rheumatoid Arthritis (chief complaint) RA w/o rheumatoid factor of multiple sitesOther spondylosis, cervical regionCervic algiaLong term (current) use of opiate analgesicOth er senior living (current) drug therapy 0 Fabio Paul. [address], [place], [address] , [place]. tel:[phone] Leif Arrington, [address], [place], [address]. tel:[phone] ng Provider: Gulshan Stewart, [address] [place], [address]. tel:[phone] [facility] of , [address], [place], [id number], [place] tel:[phone] [facility] Main Office Follow Up of Rheumatoid Arthritis (chief complaint) RA w/o rheumatoid factor of multiple sitesOther spondylosis, cervical regionCervic algiaLong term (current) use of opiate analgesicOth er terminal make up operator (current) drug therapy 0 Fabio Paul. [address], [place], [address] , [place]. tel:[phone] Leif Arrington, [address], [place], [address]. [phone] ng Provider: [place], [address]. [phone] OFFICE/OUTPA TIENT VISIT, EST [facility] of , [address], [place], [id number], [place] [phone] [facility] Main Office No Information 0 Fabio Paul. [address], [place], [id number] , [place]. [phone] Referring Provider: [place], [address]. tel:[phone] OFFICE/OUTPA TIENT VISIT, EST [facility] of , [address], [place], [id number], [place] tel:[phone] [facility] Main Office No Information 0 Fabio Paul. [address], [place], [address] , [place]. tel:[phone] Referring Provider: [place], [address]. [phone] OFFICE/OUTPA TIENT VISIT, EST [facility] of , [address], [place], [address], [place] tel:[phone] [facility] Main Office No Information 0-202 0 Fabio Paul. [address], [place], [address] , [place]. tel: [phone] Referring Provider: Gulshan Stewart, [place], [address]. tel:[phone] OFFICE/OUTPA TIENT VISIT, EST [facility] of , [address], [place], [address], [place] tel:[phone] [facility] Main Office Follow Up of Rheumatoid Arthritis (chief complaint)Fo llow up (chief complaint) RA w/o rheumatoid factor of multiple sitesOther spondylosis, cervical regionCervic algiaOther terminal make up operator (current) drug therapyLong term (current) use of opiate analgesicBod y mass index (BMI) 30.0-30.9, adult Jun-0 2- 0 Fabio Paul. [address], [place], [id number] , [place]. tel: [phone] Leif Arrington, [address], [place], [address]. tel:[phone] ng Provider: Gulshan Stewart, [place], [address]. tel:[phone] [facility] of , [address], [place], [id number], [place] tel:[phone] [facility] Main Office No Information 2 9 Fabio Paul. [address], [place], [address] , [place]. tel: [phone] Referring Provider: [place], [address]. tel:[phone] OFFICE/OUTPA TIENT VISIT, EST [facility] of , [address], [place], [address], [place] tel:[phone] [facility] Main Office Follow Up of Rheumatoid Arthritis (chief complaint) RA w/o rheumatoid factor of multiple sitesOther spondylosis, cervical regionCervic algiaOther terminal make up operator (current) drug therapyBody mass index (BMI) 34.0-34.9, adultElevate d blood-pressu re reading, w/o diagnosis of htn 9 Fabio Paul. [address], [place], [address] , [place]. tel: [phone] Leif Dominguezis, [address], [place], [address]. tel:[phone] ng Provider: [place], [address]. tel:[phone] OFFICE/OUTPA TIENT VISIT, EST [facility] of , [address], [place], [id number], [place] tel:[phone] [facility] Main Office No Information 9 Fabio Paul. [address], [place], [address] , [place]. tel: [phone] Referring Provider: [place], [address]. tel:[phone] OFFICE/OUTPA TIENT VISIT, EST [facility] of , [address], [place], [address], [place] tel:[phone] [facility] Main Office No Information 9 Fabio Paul. [address], [place], [address] , [place]. tel: [phone] Referring Provider: [place], [address]. tel:[phone] OFFICE/OUTPA TIENT VISIT, EST [facility] of , [address], [place], [id number], [place] tel:[phone] [facility] Main Office Follow Up of Neck Pain (chief complaint)Fo llow Up of Rheumatoid Arthritis (chief complaint)Fo llow up (chief complaint) RA w/o rheumatoid factor of multiple sitesOther spondylosis, cervical regionCervic algiaBody mass index (BMI) 33.0-33.9, adultOther terminal make up operator (current) drug therapyPain in left foot Sep-0 -201 9 Fabio Paul. [address], [place], [address] , [place]. tel:[phone] Leif Dominguezis, [address], [place], [address]. [phone] ng Provider: [place], [address]. tel:[phone] OFFICE/OUTPA TIENT VISIT, EST [facility] of , [address], [place], [address], [place] tel:[phone] [facility] Main Office No Information 9 Fabio Paul. [address], [place], [address] , [place]. tel: [phone] Referring Provider: Driss Glass [place], MD, . tel:[phone] OFFICE/OUTPA TIENT VISIT, EST [facility] of , [address], [place], [id number], [place] tel:[phone] [facility] Main Office No Information 9 Fabio Paul. [address], [place], [address] , [place]. [phone] Referring Provider: [place], [address]. tel:[phone] OFFICE/OUTPA TIENT VISIT, EST [facility] of , [address], [place], [id number], [place] tel:[phone] [facility] Main Office No Information 9 Fabio Paul. [address], [place], [address] , [place]. tel: [phone] Referring Provider: Gulshan Stewart, [address] [place], [address]. tel:[phone] [facility] of , [address], [place], [address], [place] tel: [phone] [facility] Main Office No Information 9 Fabio Paul. [address], [place], [address] , [place]. tel: [phone] OFFICE/OUTPA TIENT VISIT, EST [facility] of , [address], [place], [address], [place] tel: [phone] [facility] Main Office Follow Up of Neck Pain (chief complaint)Fo llow Up of Rheumatoid Arthritis (chief complaint) RA w/o rheumatoid factor of multiple sitesOther terminal make up operator (current) drug therapyCervi calgiaOther spondylosis, cervical regionBody mass index (BMI) 33.0-33.9, adult 9 Fabio Paul. [address], [place], [address] , [place]. tel: [phone] Leif Arrington, [address], [place], [address]. tel:[phone] ng Provider: Gulshan Stewart, [address] [place], [address]. tel:[phone] OFFICE/OUTPA TIENT VISIT, EST [facility] of , [address], [place], [address], [place] tel:[phone] [facility] Main Office No Information 9 Fabio Paul. [address], [place], [address] , [place]. tel: [phone] Referring Provider: Gulshan Stewart, [place], [address]. tel:[phone] OFFICE/OUTPA TIENT VISIT, EST [facility] of , [address], [place], [address], [place] tel:[phone] [facility] Main Office Follow Up of Rheumatoid Arthritis (chief complaint) RA w/o rheumatoid factor of multiple sitesOther senior living (current) drug therapyLong term (current) use of opiate analgesicBod y mass index (BMI) 33.0-33.9, adultPrimary generalized OA Apr-0 201 9 Fabio Paul. [address], [place], [address] , [place]. tel:[phone] Leif Arrington, [address], [place], [address]. tel:[phone] ng Provider: Gulshan Stewart, [place], [address]. tel:[phone] OFFICE/OUTPA TIENT VISIT, EST [facility] of , [address], [place], [id number], [place] tel:[phone] [facility] Main Office No Information 9 Fabio Paul. [address], [place], [address] , [place]. [phone] Referring Provider: Gulshan Stewart, [place], [address]. tel:[phone] OFFICE/OUTPA TIENT VISIT, EST [facility] of , [address], [place], [id number], [place] tel:[phone] [facility] Main Office No Information 9 Fabio Paul. [address], [place], [address] , [place]. tel:[phone] Referring Provider: Gulshan Stewart, Edelmira2 Latoya Perry MD, . tel:[phone] OFFICE/OUTPA TIENT VISIT, EST [facility] of , [address], [place], [address], [place] tel:[phone] [facility] Main Office No Information 9 Fabio Paul. [address], [place], [address] , [place]. tel:[phone] Referring Provider: Gulshan Stewart, Latoya Douglas MD, . tel:[phone] OFFICE/OUTPA TIENT VISIT, EST [facility] of , [address], [place], [address], [place] tel:[phone] [facility] Main Office No Information 8 Fabio Paul. [address], [place], [address] , [place]. tel: [phone] Referring Provider: Gulshan Stewart, Latoya Douglas MD, . tel:[phone] OFFICE/OUTPA TIENT VISIT, EST [facility] of , [address], [place], [address], [place] tel:[phone] [facility] Main Office Follow Up of Rheumatoid Arthritis (chief complaint) RA w/o rheumatoid factor of multiple sitesOther senior living (current) drug therapyBody mass index (BMI) 34.0-34.9, adultElevate d blood-pressu re reading, w/o diagnosis of htnPrimary OA of left knee 8 Fabio Paul. [address], [place], [address] , [place]. tel:[phone] Leif Arrington, [address], [place], [address]. tel:[phone] ng Provider: Gulshan Stewart, [place], [address]. tel:[phone] OFFICE/OUTPA TIENT VISIT, EST [facility] of , [address], [place], [id number], [place] tel:[phone] [facility] Main Office No Information 5-201 8 Fabio Paul. [address], [place], [address] , [place]. tel:[phone] Referring Provider: [place], [address]. tel:[phone] OFFICE/OUTPA TIENT VISIT, EST [facility] of , [address], [place], [id number], [place] tel:[phone] [facility] Main Office No Information 8-201 8 Fabio Paul. [address], [place], [address] , [place]. tel:[phone] Referring Provider: Gulshan Stewart, [place], [address]. tel:[phone] OFFICE/OUTPA TIENT VISIT, EST [facility] of , [address], [place], [id number], [place] tel:[phone] [facility] Main Office No Information 0- 8 Fabio Paul. [address], [place], [address] , [place]. tel:[phone] Referring Provider: [place], [address]. tel:[phone] OFFICE/OUTPA TIENT VISIT, EST [facility] of , [address], [place], [id number], [place] tel:[phone] [facility] Main Office Follow Up of Rheumatoid Arthritis (chief complaint) RA w/o rheumatoid factor of multiple sitesOther senior living (current) drug therapyBody mass index (BMI) 32.0-32.9, adult Aug-0 6-201 8 Fabio Paul. [address], [place], [address] , [place]. tel:[phone] Leif Arrington, [address], [place], [address]. tel:[phone] ng Provider: Gulshan Stewart, [address] [place], [address]. tel:[phone] [facility] of , [address], [place], [id number], [place] tel:[phone] [facility] Main Office No Information 8 Fabio Paul. [address], [place], [address] , [place]. tel:[phone] Referring Provider: Gulshan Stewart, [address] [place], [address]. tel:[phone] OFFICE/OUTPA TIENT VISIT, EST [facility] of , [address], [place], [id number], [place] tel:[phone] [facility] Main Office No Information 8 Fabio Paul. [address], [place], [id number] , [place]. tel:[phone] Referring Provider: Gulshan Stewart, [address] [place], [address]. tel:[phone] OFFICE/OUTPA TIENT VISIT, EST [facility] of , [address], [place], [id number], [place] tel:[phone] [facility] Main Office Follow Up of Rheumatoid Arthritis (chief complaint) RA w/o rheumatoid factor of multiple sitesOther terminal make up operator (current) drug therapyLong term (current) use of opiate analgesicLon g term (current) use of non-steroida l anti-inflamm atories (NSAID) 8 Fabio Paul. [address], [place], [id number] , [place]. tel:[phone] Leif Arrington, [address], [place], [address]. tel:[phone] ng Provider: Gulshan Stewart, [place], [address]. tel:[phone] [facility] , [address], [place], [id number], [place] tel:[phone] [facility] Main Office No Information 8 Fabio Paul. [address], [place], [id number] , [place]. tel: [phone] Referring Provider: Gulshan Stewart, [place], [address]. tel:[phone] [facility] of , [address], [place], [id number], [place] tel:[phone] [facility] Main Office Follow Up of Rheumatoid Arthritis (chief complaint) RA w/o rheumatoid factor of multiple sitesOther senior living (current) drug therapyLong term (current) use of non-steroida l anti-inflamm atories (NSAID) 8 Fabio Paul. [address], [place], [id number] , [place]. tel: [phone] Leif Arrington, [address], [place], [address]. tel:[phone] ng Provider: Gulshan Stewart, [place], [address]. tel:[phone] [facility] of , [address], [place], [id number], [place] tel:[phone] [facility] Main Office No Information 8 Fabio Paul. [address], [place], [id number] , [place]. tel: [phone] Referring Provider: Gulshan Stewart, [address] [place], [address]. tel:[phone] [facility] of , [address], [place], [id number], [place] tel:[phone] [facility] Main Office No Information Fabio Paul. [address], [place], [id number] , [place]. tel: [phone] Referring Provider: Gulshan Stewart, [address] [place], [address]. tel:[phone] [facility] of , [address], [place], [id number], [place] tel:[phone] [facility] Main Office No Information Fabio Paul. [address], [place], [address] , [place]. tel: [phone] Referring Provider: Gulshan Stewart, [address] [place], [address]. tel:[phone] OFFICE/OUTPA TIENT VISIT, EST [facility] of , [address], [place], [id number], [place] [phone] [facility] Main Office Follow Up of Rheumatoid Arthritis (chief complaint) RA w/o rheumatoid factor of multiple sitesOther senior living (current) drug therapy Fabio Paul. [address], [place], [id number] , [place]. tel: [phone] Leif Arrington, [address], [place], [address]. tel:[phone] ng Provider: Gulshan Stewart, [address] [place], [address]. tel:[phone] [facility] of , [address], [place], [id number], [place] tel:[phone] [facility] Main Office Follow Up of Rheumatoid Arthritis (chief complaint) RA w/o rheumatoid factor of multiple sitesOther terminal make up operator drug therapyBody mass index (BMI) 30.0-30.9, adult Dec- 7 Fabio Paul. [address], [place], [id number] , [place]. tel:[phone] Leif Arrington, [address], [place], [address]. tel:[phone] OFFICE/OUTPA TIENT VISIT, EST [facility] of , [address], [place], [id number], [place] tel:[phone] [facility] Main Office Follow Up of Rheumatoid Arthritis (chief complaint) RA w/o rheumatoid factor of multiple sitesOther senior living drug therapyBody mass index (BMI) 30.0-30.9, adult Nov- Fabio Paul. [address], [place], [id number] , [place]. tel:[phone] Leif Arrington, [address], [place], [address]. tel:[phone] Provider: Gulshan Stewart, [address], [place], [address]. tel:[phone] OFFICE/OUTPA TIENT VISIT, EST [facility] of , [address], [place], [id number], [place] tel:[phone] [facility] Main Office Follow Up of Rheumatoid Arthritis (chief complaint) RA w/o rheumatoid factor of multiple sitesOther senior living drug therapyGener alized osteoarthrit isLong term (current) use of non-steroida l anti-inflamm atories (NSAID) 7 Fabio Paul. [address], [place], [id number] , [place]. tel:[phone] Leif Arrington, [address], [place], [address]. tel:[phone] masha Provider: Gulshan Stewart, [address] [place], . tel:[phone] [facility] of , [address], [place], [id number], [place] tel:[phone] [facility] Main Office No Information 7 Fabio Paul. [address], [place], [id number] , [place]. tel:[phone] Referring Provider: Gulshan Stewart, [address] [place] MD, . tel:[phone] OFFICE/OUTPA TIENT VISIT, EST [facility] of , [address], [place], [id number], [place] tel:[phone] [facility] Main Office Follow Up of Rheumatoid Arthritis (chief complaint) RA w/o rheumatoid factor of multiple sitesOther terminal make up operator drug therapyGener alized osteoarthrit isLong term (current) use of non-steroida l anti-inflamm atories (NSAID) Jul- 7 Fabio Paul. [address], [place], [id number] , [place]. tel:[phone] Leif Arrington, [address], [place], [address]. tel:[phone] masha Provider: Gulshan Stewart, Edelmira2 Lat[place] MD, . tel:[phone] [facility] of , [address], [place], [id number], [place] tel:[phone] [facility] Main Office No Information 7 Fabio Paul. [address], [place], [address] , [place]. tel:[phone] Referring Provider: Gulshan Stewart, [address] [place], [address]. tel:[phone] [facility] of , [address], [place], [id number], [place] tel:[phone] [facility] Main Office No Information Fabio Paul. [address], [place], [id number] , [place]. tel:[phone] Referring Provider: Gulshan Stewart, [address]2 [place], [address]. tel:[phone] [facility] of , [address], [place], [id number], [place] tel:[phone] [facility] Main Office No Information Fabio Paul. [address], [place], [address] , [place]. tel:[phone] Referring Provider: Gulshan Stewart, [address]2 [place], [address]. tel:[phone] [facility] of , [address], [place], [id number], [place] tel:[phone] [facility] Main Office Follow Up of Rheumatoid Arthritis (chief complaint) RA w/o rheumatoid factor of multiple sitesOther senior living drug therapyGener alized osteoarthrit isLong term (current) use of non-steroida l anti-inflamm atories (NSAID)Troch anteric bursitis, right hipPain in right hip Fabio Paul. [address], [place], [id number] , [place]. tel: [phone] Leif Arrington, [address], [place], [address]. tel:[phone] ng Provider: Gulshan Stewart, [address]2 [place], [address]. tel:[phone] OFFICE/OUTPA TIENT VISIT, EST [facility] of , [address], [place], [id number], [place] tel:[phone] [facility] Main Office Follow Up of Rheumatoid Arthritis (chief complaint) RA w/o rheumatoid factor of multiple sitesOther terminal make up operator drug therapyGener alized osteoarthrit isLong term (current) use of non-steroida l anti-inflamm atories (NSAID) 7-201 6 Fabio Paul. [address], [place], [address] , [place]. tel:[phone] Leif Arrington, [address], [place], [address]. tel:[phone] ng Provider: Gulshan Stewart, [place], [address]. tel:[phone] OFFICE/OUTPA TIENT VISIT, EST [facility] of , [address], [place], [id number], [place] tel:[phone] [facility] Main Office Follow Up of Rheumatoid Arthritis (chief complaint) RA w/o rheumatoid factor of multiple sitesOther terminal make up operator drug therapyGener alized osteoarthrit isLong term (current) use of non-steroida l anti-inflamm atories (NSAID) 6 Fabio Paul. [address], [place], [address] , [place]. tel:[phone] Leif Arrington, [address], [place], [address]. tel:[phone] ng Provider: Gulshan Stewart, [address]2 [place], [address]. tel:[phone] OFFICE/OUTPA TIENT VISIT, EST [facility] of , [address], [place], [id number], [place] tel:[phone] [facility] Main Office Follow Up of Rheumatoid Arthritis (chief complaint) RA w/o rheumatoid factor of multiple sitesOther terminal make up operator drug therapyGener alized osteoarthrit isLong term (current) use of non-steroida l anti-inflamm atories (NSAID) 6 Fabio Paul. [address], [place], [address] , [place]. tel:[phone] Leif Arrington, [address], [place], [address]. tel:[phone] ng Provider: Gulshan Stewart, [address], [place], [address]. tel:[phone] OFFICE/OUTPA TIENT VISIT, EST [facility] of , [address], [place], [id number], [place] tel:[phone] [facility] Main Office Follow Up of Rheumatoid Arthritis (chief complaint) RA w/o rheumatoid factor of multiple sitesOther terminal make up operator drug therapyGener alized osteoarthrit is 6 Fabio Paul. [address], [place], [address] , [place]. tel:[phone] Leif Arrington, [address], [place], [address]. tel:[phone] ng Provider: Venus [address], [place], [address]. tel:[phone] OFFICE/OUTPA TIENT VISIT, EST [facility] of , [address], [place], [address], [place] tel:[phone] [facility] Main Office Follow Up of Rheumatoid Arthritis (chief complaint) RA w/o rheumatoid factor of multiple sitesOther senior living drug therapyGener alized osteoarthrit is 6 Fabio Paul. [address], [place], [address] , [place]. tel:[phone] Leif Arrington, [address], [place], [address]. tel:[phone] masha Provider: Venus Mont[address], [place], [address]. tel:[phone] OFFICE/OUTPA TIENT VISIT, EST [facility] of , [address], [place], [id number], [place] tel:[phone] [facility] Main Office Inflammatory Polyarthropa thy (chief complaint) Inflammatory polyarthropa thyGeneraliz ed osteoarthrit is 6 Fabio Paul. [address], [place], [id number] , [place]. tel:[phone] Leif Arrington, [address], [place], [address]. tel:[phone] ng Provider: Leif Gonzalez, [address], [place], [address]. tel:[phone] OFFICE/OUTPA TIENT VISIT, EST [facility] , [address], [place], [id number], [place] tel:[phone] [facility] Main Office Inflammatory Polyarthropa thy (chief complaint) Inflammatory polyarthropa thyPain in left hipPrimary generalized (osteo)arthr itisLong term (current) use of non-steroida l anti-inflamm atories (NSAID) 6 Fabio Paul. [address], [place], [address] , [place]. tel:[phone] Leif Arrington, [address], [place], [address]. tel:[phone] masha Provider: Leif Gonzalez, [address], [place], [address]. tel:[phone] OFFICE/OUTPA TIENT VISIT, EST [facility] of , [address], [place], [id number], [place] tel:[phone] [facility] Main Office Osteoarthrit is (chief complaint) Primary generalized (osteo)arthr itisLong term (current) use of non-steroida l anti-inflamm atories (NSAID) 6 Fabio Paul. [address], [place], [address] , [place]. tel:[phone] Referring Provider: Leif Gonzalez, [address], [place], [address]. tel:[phone] OFFICE/OUTPA TIENT VISIT, EST [facility] of , [address], [place], [id number], [place] tel:[phone] [facility] Main Office Follow Up of Osteoarthrit is (chief complaint) Osteoarthros is, generalized, involving unspecified siteDisorder s of bursae and tendons in shoulder region, unspecified Jul- 5 Fabio Paul. [address], [place], [id number] , [place]. tel:[phone] Referring Provider: Leif Gonzalez, [address], [place], [address]. tel:[phone] OFFICE/OUTPA TIENT VISIT, EST [facility] of , [address], [place], [id number], [place] tel:[phone] [facility] Main Office Follow Up of Right shoulder pain (chief complaint) Disorders of bursae and tendons in shoulder region, unspecifiedP ainful shoulder 4 Fabio Paul. [address], [place], [address] , [place]. tel:[phone] Referring Provider: Leif Gonzalez, [address], [place], [address]. tel:[phone] OFFICE/OUTPA TIENT VISIT, EST [facility] of , [address], [place], [id number], [place] tel:[phone] [facility] Main Office No Information 4 Fabio Paul. [address], [place], [address] , [place]. tel:[phone] Referring Provider: Peter Gonzalez, [address], [place], [address]. tel:[phone] OFFICE/OUTPA TIENT VISIT, EST [facility] of , [address], [place], [id number], [place] tel:[phone] [facility] Main Office Follow Up of Osteoarthrit is (chief complaint) Osteoarthrit is, GeneralizedL TU-TERM (CURRENT) USE OF NON-STEROIDA L ANTI-INFLAMM ATORIES 4 Fabio Paul. [address], [place], [address] , [place]. tel:[phone] Referring Provider: Leif Gonzalez, [address], [place], [address]. tel:[phone] OFFICE/OUTPA TIENT VISIT, EST [facility] of , [address], [place], [address], [place] tel:[phone] [facility] Main Office Osteoarthrit is (chief complaint) Disorders of bursae and tendons in shoulder region, unspecifiedO steoarthriti s, Generalized 4 Fabio Paul. [address], [place], [address] , [place]. tel:[phone] Referring Provider: Leif Gonzalez, [address], [place], [address]. tel:[phone] OFFICE/OUTPA TIENT VISIT, EST [facility] of , [address], [place], [id number], [place] tel:[phone] [facility] Main Office Osteoarthrit is (chief complaint) Osteoarthrit is, GeneralizedD isorders of bursae and tendons in shoulder region, unspecifiedL TU-TERM (CURRENT) USE OF NON-STEROIDA L ANTI-INFLAMM ATORIES 4 Fabio Paul. [address], [place], [address] , [place]. tel:[phone] Referring Provider: Leif Gonzalez [address], [place], [address]. tel:[phone] OFFICE/OUTPA TIENT VISIT, EST [facility] of , [address], [place], [id number], [place] tel:[phone] [facility] Main Office Osteoarthrit is (chief complaint) Osteoarthrit is, Generalized 3 Fabio Paul. [address], [place], [address] , [place]. tel:[phone] Referring Provider: Leif Gonzalez, [address], [place], [address]. tel:[phone] OFFICE/OUTPA TIENT VISIT, EST [facility] of , [address], [place], [id number], [place] tel:[phone] [facility] Main Office for joint pain (chief complaint) Osteoarthrit is, GeneralizedA rticular cartilage disorder involving forearmRadia l styloid tenosynoviti s 3 Fabio Paul. [address], [place], [address] , [place]. tel:[phone] Referring Provider: Leif Gonzalez, [address], [place], [address]. tel:[phone] OFFICE/OUTPA TIENT VISIT, NEW [facility] of , [address], [place], [id number], [place] tel:[phone] [facility] Main Office myalgia (chief complaint) Fatigue / MalaisePain in joint involving multiple sites 3 Fabio Paul. [address], [place], [address] , [place]. tel:[phone] Referring Provider: Leif Gonzalez, [address], [place], [address]. tel:[phone] Family History Family Member Type Diagnosis Age [...] cified Payers Payer name Insurance type Covered alliance party ID Authoriza tion(s) Medicare MB [id number] [employer] [place] [id number] Medicare MB [id number] [employer] [place] [id number] Medicare MB [id number] [employer] [place] [id number] Medicare MB [id number] [employer] [place] [id number] Social History Type Description Quantity Date Captured [...] OA) ordered Referral Referred To: Toan Berry [address] [place], [id number] Ordered: Referrals: Allopathic & Osteopathic Physicians : Anesthesiology. Toan Berry. Consult ordered Referral Ordered: Madi Holder -Allopathic & Osteopathic Physicians : Internal Medicine : Nephrology (related to CKD) ordered Referral Referred To: Madi Holder [address] [facility]
[address] [place], [phone] Ordered: Referrals: Allopathic & Osteopathic Physicians : [...] Future Order: Lab Order Lipid Pa rashard ([id number]), Ordered on: Ordered Future Order: Lab Order COMPREHE NSIVE METABOLIC PANEL (CMP), Collected on: , Sent on: Sent Future Order: Lab Order CBC Diff erential And Platlet (CBC PLT DIFF), Ordered on: Ordered Future Order: Lab Order CMP ([id number]), Orde red on: Ordered Future Order: Lab Order CBC Diff erential And Platlet (CBC PLT DIFF), Collected on: Ordered Future Order: Lab Order CMP ([id number]), Wally ected on: Ordered Future Order: Lab [...] to Body mass index (BMI) 33.0-33.9, adult Dietary management e ducation, guidance, and counseling Related to Body mass index (BMI) 33.0-33.9, adult Weight monitoring Related to Bod y mass index (BMI) 33.0-33.9, adult Weight loss [...] to Body mass index (BMI) 32.0-32.9, adult Lifestyle education regarding di et Related to Body mass index (BMI) 30.0-30.9, adult Giving encouragement to exercise Related to [...]
--- OUTSIDE RECORDS SUMMARY | 2024-11-28 06:00 | XMS_ITS | Continuity of Care Document ---
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 Flame Degreaser Name Role Phone Fabio MANCINI, Paul Unavailable Unavailable Allergies, Adverse Reactions, Alerts Substance Reaction Status Criticality No Known Allergies Active No Inform ation Medications Medication Instructions Dosage Effective Dates (start - stop) Status Comments ergocalciferol (vitamin D2) 1,250 mcg (50,000 unit) capsule take 1 capsule by oral route every week 39502 UNITS - Active Simponi ARIA 12.5 mg/mL [...] Providers Copied on Encounter OFFICE/OUTPA TIENT VISIT, [facility] , [address], [place], [id number], [place] tel:[phone] [facility] Main Office No Information Fabio Miller. [address], [place], [id number] , [place]. tel:[phone] Referring Provider: Rosalba Shaw, [address], [place], [address]. tel:[phone] OFFICE/OUTPA TIENT VISIT, EST [facility] anjelica MANCINI, [address], [place], [id number], [place] tel:[phone] [facility] Main Office Age-related osteoporosis without current pathological fracture 5 Fabio Paul. [address], [place], [id number] , [place]. tel:[phone] Referring Provider: Pilo Hinojosa, [address], [place], [address]. 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 [address], [place], [id number] , [place]. tel:[phone] Leif Arrington, [address], [place], [address]. tel:[phone] ist: Madi Gallo, [address], [place], [address]. tel:[phone] ist: Sunni Ackerman, [address], [place], [address]. tel:[phone] ng Provider: Pilo Hinojosa, [address], [place], [address]. tel:[phone] [facility] of , [address], [place], [id number], [place] tel:[phone] [facility] Main Office No Information 5 Fabio Paul. [address], [place], [id number] , [place]. 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 [address], [place], [id number] , [place]. tel:[phone] Leif Arrington, [address], [place], [address]. tel:[phone] ist: Madi Holder, [address] [facility] [facility] [address], [place], [address]. tel:[phone] ist: Sunni Ackerman, [address], [place], [address]. tel:[phone] ng Provider: Rosalba Shaw, [address], [place], [address]. tel:[phone] OFFICE/OUTPA TIENT VISIT, EST [facility] of , [address], [place], [id number], [place] tel:[phone] [facility] Main Office No Information Jul- 5 Fabio Miller. [address], [place], [id number] , [place]. tel:[phone] Referring Provider: Pilo Hinojosa, [address], [place], [address]. tel:[phone] OFFICE/OUTPA TIENT VISIT, EST [facility] of , [address], [place], [id number], [place] tel:[phone] [facility] Main Office Follow Up [...] [address], [place], [id number] , [place]. tel:[phone] Lief Arrington, [address], [place], [address]. tel:[phone] ist: Madi Holder, [address], [place], [address]. tel:[phone] ist: Sunni Ackerman, [address], [place], [address]. tel:[phone] ng Provider: Rosalba Shaw, [address], [place], [address]. tel:[phone] OFFICE/OUTPA TIENT VISIT, EST [facility] of , [address], [place], [id number], [place] tel:[phone] [facility] Main Office No Information 4 Fabio Miller. [address], [place], [id number] , [place]. tel:[phone] Referring Provider: Pilo Hinojosa, [address], [place], [address]. tel:[phone] OFFICE/OUTPA TIENT VISIT, EST [facility] of , [address], [place], [id number], [place] tel:[phone] [facility] Main Office Follow Up [...] [address], [place], [id number] , [place]. tel:[phone] Leif Arrington, [address], [place], [address]. tel:[phone] ist: Madi Holder, [address], [place], [address]. tel:[phone] ist: Sunni Ackerman, [address], [place], [address]. tel:[phone] ng Provider: Pilo Hinojosa, [address] [place] [address] [address], [place], [address]. tel:[phone] OFFICE/OUTPA TIENT VISIT, EST [facility] of , [address], [place], [id number], [place] tel:[phone] [facility] Main Office No Information 4 Fabio Paul. [address], [place], [id number] , [place]. tel:[phone] Referring Provider: Pilo Hinojosa, [address] [place] [address] [address], [place], [address]. [phone] OFFICE/OUTPA TIENT VISIT, EST [facility] of , [address], [place], [id number], [place] tel:[phone] [facility] Main Office No Information 4 Fabio Paul. [address], [place], [id number] , [place]. tel:[phone] Referring Provider: Pilo Hinojosa, [address] [facility] [facility] [address], [place], [address]. 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 [address], [place], [id number] , [place]. tel:[phone] Leif Arrington, [address], [place], [address]. tel:[phone] ist: Madi Holder, [address], [place], [address]. tel:[phone] ist: Sunni Ackerman, [address], [place], [address]. tel:[phone] ng Provider: Pilo Hinojosa, [address], [place], [address]. tel:[phone] OFFICE/OUTPA TIENT VISIT, EST [facility] of , [address], [place], [id number], [place] tel:[phone] [facility] Main Office No Information 4 Fabio Paul. [address], [place], [id number] , [place]. tel:[phone] Referring Provider: Pilo Hinojosa, [address], [place], [address]. tel:[phone] OFFICE/OUTPA TIENT VISIT, EST [facility] of , [address], [place], [id number], [place] tel:[phone] [facility] Main Office No Information 4 Fabio Paul. [address], [place], [address] , [place]. tel:[phone] Referring Provider: Pilo Hinojosa, [address], [place], [address]. tel:[phone] OFFICE/OUTPA TIENT VISIT, EST [facility] of , [address], [place], [id number], [place] tel:[phone] [facility] Main Office No Information 4 Fabio Paul. [address], [place], [address] , [place]. tel:[phone] Referring Provider: Pilo Hinojosa, [address], [place], [address]. tel:[phone] OFFICE/OUTPA TIENT VISIT, EST [facility] of , [address], [place], [id number], [place] tel:[phone] [facility] Main Office Follow Up [...] [address], [place], [id number] , [place]. tel:[phone] Leif Arrington, [address], [place], [address]. tel:[phone] ist: Madi Holder, [address], [place], [address]. tel:[phone] ist: Sunni Ackerman, [address], [place], [address]. tel:[phone] ng Provider: Pilo Hinojosa, [address], [place], [address]. tel:[phone] OFFICE/OUTPA TIENT VISIT, EST [facility] of , [address], [place], [id number], [place] tel:[phone] [facility] Main Office No Information 4 Fabio Paul. [address], [place], [address] , [place]. tel:[phone] Referring Provider: Pilo Hinojosa, [address], [place], [address]. tel:[phone] OFFICE/OUTPA TIENT VISIT, EST [facility] of , [address], [place], [id number], [place] tel:[phone] [facility] Main Office No Information 3 Fabio Paul. [address], [place], [address] , [place]. tel:[phone] Referring Provider: Pilo Hinojosa, [address], [place], [address]. tel:[phone] [facility] of , [address], [place], [id number], [place] tel:[phone] [facility] Main Office No Information 3 Fabio Paul. [address], [place], [id number] , [place]. 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 [address], [place], [address] , [place]. tel:[phone] Leif Arrington, [address], [place], [address]. tel:[phone] ist: Madi Holder, [address], [place], [address]. tel:[phone] ist: Sunni Ackerman, [address], [place], [address]. tel:[phone] ng Provider: Pilo Hinojosa, [address], [place], [address]. tel:[phone] [facility] of , [address], [place], [id number], [place] tel:[phone] [facility] Main Office No Information 0 3 Fabio Paul. [address], [place], [address] , [place]. tel:[phone] OFFICE/OUTPA TIENT VISIT, EST [facility] of , [address], [place], [address], [place] tel:[phone] [facility] Main Office No Information 3 Fabio Paul. [address], [place], [address] , [place]. tel:[phone] Referring Provider: Pilo Hinojosa, [address], [place], [address]. tel:[phone] OFFICE/OUTPA TIENT VISIT, EST [facility] of , [address], [place], [address], [place] tel:[phone] [facility] Main Office No Information 3 Fabio Paul. [address], [place], [id number] , [place]. tel:[phone] Referring Provider: Pilo Hinojosa, [address], [place], [address]. tel:[phone] OFFICE/OUTPA TIENT VISIT, EST [facility] of , [address], [place], [address], [place] tel:[phone] [facility] Main Office No Information 3 Fabio Paul. [address], [place], [address] , [place]. tel:[phone] Referring Provider: Pilo Hinojosa, [address], [place], [address]. tel:[phone] OFFICE/OUTPA TIENT VISIT, EST [facility] of , [address], [place], [address], [place] tel:[phone] [facility] Main Office No Information 3 Fabio Paul. [address], [place], [address] , [place]. tel:[phone] Referring Provider: Pilo Hinojosa, [address], [place], [address]. tel:[phone] OFFICE/OUTPA TIENT VISIT, EST [facility] of , [address], [place], [id number], [place] tel:[phone] [facility] Main Office Follow Up of GOA (chief complaint)Fo llow Up of RA (chief complaint) Immunodefici ency due to drugsRA w/o rheumatoid factor of multiple sitesGeneral ized OAPain in unspecified jointCKDLong term (current) use of immunosuppre ssive biologicBody mass index (BMI) 30.0-30.9, adult 3 Fabio Paul. [address], [place], [address] , [place]. tel:[phone] Leif Arrington, [address], [place], [address]. tel:[phone] ist: Madi Holder, [address], [place], [address]. tel:[phone] ist: Sunni Ackerman [address], [place], [address]. tel:[phone] ng Provider: Pilo Hinojosa, [address], [place], [address]. tel:[phone] OFFICE/OUTPA TIENT VISIT, EST [facility] of , [address], [place], [id number], [place] tel:[phone] [facility] Main Office No Information 3 Fabio Paul. [address], [place], [id number] , [place]. tel:[phone] Referring Provider: Pilo Hinojosa, [address], [place], [address]. tel:[phone] OFFICE/OUTPA TIENT VISIT, EST [facility] of , [address], [place], [id number], [place] tel:[phone] [facility] Main Office No Information 3 Fabio Paul. [address], [place], [address] , [place]. tel:[phone] Referring Provider: Pilo Hinojosa, [address], [place], [address]. tel:[phone] OFFICE/OUTPA TIENT VISIT, EST [facility] of , [address], [place], [id number], [place] tel:[phone] [facility] Main Office No Information 3 Fabio Paul. [address], [place], [address] , [place]. tel:[phone] Referring Provider: Pilo Hinojosa, [address], [place], [address]. tel:[phone] OFFICE/OUTPA TIENT VISIT, EST [facility] of , [address], [place], [address], [place] tel:[phone] [facility] Main Office No Information Jul-0 3 Fabio Paul. [address], [place], [address] , [place]. tel:[phone] Referring Provider: Pilo Hinojosa, [address], [place], [address]. tel:[phone] OFFICE/OUTPA TIENT VISIT, EST [facility] of , [address], [place], [id number], [place] tel:[phone] [facility] Main Office Follow Up of GOA (chief complaint)Fo llow Up of RA (chief complaint) Immunodefici ency due to drugsRA w/o rheumatoid factor of multiple sitesGeneral ized OACKDLong term (current) use of immunosuppre ssive biologicPain in unspecified joint Jun-2 3 Fabio Paul. [address], [place], [address] , [place]. tel:[phone] Leif Arrington, [address], [place], [address]. tel:[phone] ist: Madi Gallo, [address], [place], [address]. tel:[phone] ist: Sunni Ackerman, [address], [place], [address]. tel:[phone] ng Provider: Pilo Hinojosa, [address], [place], [address]. tel:[phone] OFFICE/OUTPA TIENT VISIT, EST [facility] of , [address], [place], [id number], [place] tel:[phone] [facility] Main Office No Information 0 3 Fabio Paul. [address], [place], [address] , [place]. tel:[phone] Referring Provider: Pilo Hinojosa, [address], [place], [address]. tel:[phone] OFFICE/OUTPA TIENT VISIT, EST [facility] of , [address], [place], [address], [place] tel:[phone] [facility] Main Office No Information 3 Fabio Palu. [address], [place], [address] , [place]. tel: [phone] Referring Provider: Gulshan Stewart, [place], [address]. tel:[phone] OFFICE/OUTPA TIENT VISIT, EST [facility] of , [address], [place], [address], [place] tel:[phone] [facility] Main Office No Information 3 Fabio Paul. [address], [place], [address] , [place]. tel: [phone] Referring Provider: Gulshan Stewart, [address] Latoya Perry MD, . tel:[phone] OFFICE/OUTPA TIENT VISIT, EST [facility] of , [address], [place], [address], [place] tel:[phone] [facility] Main Office Follow Up of GOA (chief complaint)Fo llow Up of RA (chief complaint) Immunodefici ency due to drugsRA w/o rheumatoid factor of multiple sitesGeneral ized OACervicalgi aCKDLong term (current) use of opiate analgesicLon g term (current) use of immunosuppre ssive biologic 2 Fabio Paul. [address], [place], [address] , [place]. tel: [phone] Leif Arrington, [address], [place], [address]. tel:[phone] ist: Madi Holder, [address], [place], [address]. tel:[phone] ng Provider: Gulshan Stewart, [address] [place], [address]. tel:[phone] OFFICE/OUTPA TIENT VISIT, EST [facility] of , [address], [place], [id number], [place] tel: [phone] [facility] Main Office No Information 2 Fabio Paul. [address], [place], [address] , [place]. tel:[phone] Referring Provider: Gulshan Stewart, [place], [address]. tel:[phone] OFFICE/OUTPA TIENT VISIT, EST [facility] of , [address], [place], [id number], [place] tel:[phone] [facility] Main Office No Information 2 Fabio Paul. [address], [place], [address] , [place]. tel: [phone] Referring Provider: Gulshan Stewart, [address] [place], [address]. tel:[phone] OFFICE/OUTPA TIENT VISIT, EST [facility] of , [address], [place], [address], [place] tel:[phone] [facility] Main Office No Information 2 Fabio Paul. [address], [place], [address] , [place]. tel: [phone] Referring Provider: Gulshan Stewart, [address] [place], [address]. tel:[phone] OFFICE/OUTPA TIENT VISIT, EST [facility] of , [address], [place], [id number], [place] tel:[phone] [facility] Main Office Follow Up of Rheumatoid Arthritis (chief complaint)Fo llow Up of Generalized OA (chief complaint) Immunodefici ency due to drugsRA w/o rheumatoid factor of multiple sitesGeneral ized OACervicalgi aCKDLong term (current) use of opiate analgesicOth er senior living (current) drug therapyBody mass index (BMI) 33.0-33.9, adult 2 Fabio Paul. [address], [place], [address] , [place]. tel:[phone] Leif Arrington, [address], [place], [address]. tel:[phone] ist: Madi Holder, [address], [place], [address]. tel:[phone] ng Provider: Gulshan Stewart, [place], [address]. tel:[phone] OFFICE/OUTPA TIENT VISIT, EST [facility] of , [address], [place], [address], [place] tel:[phone] [facility] Main Office No Information 2 Fabio Miller. [address], [place], [address] , [place]. tel:[phone] Referring Provider: Gulshan Stewart, [place], [address]. tel:[phone] OFFICE/OUTPA TIENT VISIT, EST [facility] of , [address], [place], [id number], [place] tel:[phone] [facility] Main Office No Information 2 Fabio Paul. [address], [place], [address] , [place]. tel:[phone] Referring Provider: Gulshan Stewart, [place], [address]. tel:[phone] OFFICE/OUTPA TIENT VISIT, EST [facility] of , [address], [place], [id number], [place] tel:[phone] [facility] Main Office No Information 2 Fabio Paul. [address], [place], [address] , [place]. tel:[phone] Referring Provider: Gulshan Stewart, [address] [place], [address]. tel:[phone] OFFICE/OUTPA TIENT VISIT, EST [facility] of , [address], [place], [id number], [place] tel:[phone] [facility] Main Office No Information 2 Fabio Paul. [address], [place], [address] , [place]. tel:[phone] Referring Provider: Pilo Hinojosa, [address] [facility] [address], [place], [address]. tel:[phone] OFFICE/OUTPA TIENT VISIT, EST [facility] of , [address], [place], [id number], [place] tel:[phone] [facility] Main Office No Information 2 Fabio Paul. [address], [place], [id number] , [place]. tel:[phone] Referring Provider: Gulshan Stewart, [address] [place], [address]. tel:[phone] OFFICE/OUTPA TIENT VISIT, EST [facility] of , [address], [place], [id number], [place] tel:[phone] [facility] Main Office Follow Up of Rheumatoid Arthritis (chief complaint)Fo llow Up of Generalized OA (chief complaint) Immunodefici ency due to drugsRA w/o rheumatoid factor of multiple sitesGeneral ized OALong term (current) use of opiate analgesicOth er longitudinal float operator (current) drug therapyCKDCe rvicalgia 2 Fabio Paul. [address], [place], [address] , [place]. tel: [phone] Leif Arrington, [address], [place], [address]. tel: [phone] ng Provider: Gulshan Stewart, [address] [place], [address]. tel: [phone] OFFICE/OUTPA TIENT VISIT, EST [facility] of , [address], [place], [id number], [place] tel: [phone] [facility] Main Office No Information 2 Fabio Paul. [address], [place], [address] , [place]. tel: [phone] Referring Provider: Gulshan Stewart, [address] [place], [address]. tel: [phone] OFFICE/OUTPA TIENT VISIT, EST [facility] of , [address], [place], [address], [place] tel: [phone] [facility] Main Office No Information 2 Fabio Paul. [address], [place], [id number] , [place]. tel: [phone] Referring Provider: Gulshan Stewart, [address] [place], [address]. tel:[phone] OFFICE/OUTPA TIENT VISIT, EST [facility] of , [address], [place], [id number], [place] tel: [phone] [facility] Main Office No Information 1 Fabio Paul. [address], [place], [id number] , [place]. tel: [phone] Referring Provider: Gulshan Stewart, [address] [place], [address]. tel:[phone] OFFICE/OUTPA TIENT VISIT, EST [facility] of , [address], [place], [id number], [place] tel:[phone] [facility] Main Office No Information 1 Fabio Paul. [address], [place], [id number] , [place]. tel: [phone] Referring Provider: [place], [address]. tel:[phone] OFFICE/OUTPA TIENT VISIT, EST [facility] of , [address], [place], [id number], [place] tel:[phone] [facility] Main Office No Information 1 Fabio Paul. [address], [place], [id number] , [place]. tel: [phone] Referring Provider: Driss Glass [place], [place], . tel:[phone] OFFICE/OUTPA TIENT VISIT, EST [facility] of , [address], [place], [id number], [place] tel:[phone] [facility] Main Office Follow Up [...] [address], [place], [id number] , [place]. tel:[phone] Leif Arrington, [address], [place], [address]. tel:[phone] ng Provider: Gulshan Stewart, [place], [address]. tel:[phone] OFFICE/OUTPA TIENT VISIT, EST [facility] of , [address], [place], [id number], [place] tel:[phone] [facility] Main Office No Information 1 Fabio Paul. [address], [place], [id number] , [place]. tel: [phone] Referring Provider: Gulshan Stewart, [place], [address]. tel:[phone] OFFICE/OUTPA TIENT VISIT, EST [facility] of , [address], [place], [address], [place] tel: [phone] [facility] Main Office No Information 1 Fabio Paul. [address], [place], [address] , [place]. tel: [phone] Referring Provider: Gulshan Stewart, [address] [place], [address]. tel:[phone] [facility] of , [address], [place], [id number], [place] tel: [phone] [facility] Main Office No Information 1 Fabio Paul. [address], [place], [address] , [place]. tel: [phone] Referring Provider: Gulshan Stewart, [address] [place], [address]. tel:[phone] OFFICE/OUTPA TIENT VISIT, EST [facility] of , [address], [place], [id number], [place] tel:[phone] [facility] Main Office No Information 1 Fabio Paul. [address], [place], [address] , [place]. tel: [phone] Referring Provider: Gulshan Stewart, [address] [place], [address]. tel:[phone] OFFICE/OUTPA TIENT VISIT, EST [facility] of , [address], [place], [id number], [place] tel:[phone] [facility] Main Office Follow Up of Rheumatoid Arthritis (chief complaint)Fo llow Up of Generalized OA (chief complaint) Immunodefici ency due to drugsRA w/o rheumatoid factor of multiple sitesGeneral ized OALong term (current) use of opiate analgesicOth er longitudinal float operator (current) drug therapyBody mass index (BMI) 34.0-34.9, adult August- 1 Fabio Paul. [address], [place], [address] , [place]. [phone] Leif Arrington, [address], [place], [address]. tel:[phone] ng Provider: Gulshan Stewart, [address] [place], [address]. tel:[phone] OFFICE/OUTPA TIENT VISIT, EST [facility] of , [address], [place], [id number], [place] tel:[phone] [facility] Main Office No Information 1 Fabio Paul. [address], [place], [id number] , [place]. tel:[phone] Referring Provider: Gulshan Stewart, [address] [place], [address]. tel:[phone] OFFICE/OUTPA TIENT VISIT, EST [facility] of , [address], [place], [id number], [place] tel:[phone] [facility] Main Office No Information 1 Fabio Paul. [address], [place], [id number] , [place]. tel:[phone] Referring Provider: Gulshan Stewart, [place], [address]. tel:[phone] OFFICE/OUTPA TIENT VISIT, EST [facility] of , [address], [place], [id number], [place] tel:[phone] [facility] Main Office No Information 1 Fabio Miller. [address], [place], [id number] , [place]. tel:[phone] Referring Provider: Gulshan Stewart, [address] [place], [address]. tel:[phone] OFFICE/OUTPA TIENT VISIT, EST [facility] of , [address], [place], [id number], [place] tel:[phone] [facility] Main Office No Information 1 Fabio Miller. [address], [place], [id number] , [place]. tel:[phone] Referring Provider: Gulshan Stewart, Ed[address]ira2 Latoya Perry MD, . tel:[phone] OFFICE/OUTPA TIENT VISIT, EST [facility] of , [address], [place], [id number], [place] tel:[phone] [facility] Main Office Follow Up of Rheumatoid Arthritis (chief complaint)Fo llow Up of Generalized OA (chief complaint) RA w/o rheumatoid factor of multiple sitesGeneral ized OALong term (current) use of opiate analgesicOth er senior living (current) drug therapyImmun odeficiency due to drugsBody mass index (BMI) 33.0-33.9, adult 1 Fabio Miller. [address], [place], [address] , [place]. tel:[phone] Referring Provider: Edelmira Glass2 [place], [address]. tel:[phone] OFFICE/OUTPA TIENT VISIT, EST [facility] of , [address], [place], [id number], [place] tel: [phone] [facility] Main Office No Information 1 Fabio Paul. [address], [place], [address] , [place]. tel: [phone] Referring Provider: Gulshan Stewart, [place], [address]. tel:[phone] OFFICE/OUTPA TIENT VISIT, EST [facility] of , [address], [place], [id number], [place] tel: [phone] [facility] Main Office No Information 0 Fabio Paul. [address], [place], [id number] , [place]. tel: [phone] Referring Provider: Gulshan Stewart, [place], [address]. tel:[phone] [facility] of , [address], [place], [id number], [place] tel: [phone] [facility] Main Office No Information 0 Fabio Paul. [address], [place], [address] , [place]. tel: [phone] Referring Provider: Gulshan Stewart, [address] [place], [address]. tel:[phone] OFFICE/OUTPA TIENT VISIT, EST [facility] of , [address], [place], [id number], [place] tel:[phone] [facility] Main Office No Information 0 Fabio Paul. [address], [place], [address] , [place]. tel: [phone] Referring Provider: Gulshan Stewart, [address] [place], [address]. tel:[phone] OFFICE/OUTPA TIENT VISIT, EST [facility] of , [address], [place], [id number], [place] tel:[phone] [facility] Main Office Follow Up [...] [address], [place], [address] , [place]. tel:[phone] Leif Arrington, [address], [place], [address]. tel:[phone] ng Provider: Gulshan Stewart, [address] [place], [address]. tel:[phone] OFFICE/OUTPA TIENT VISIT, EST [facility] of , [address], [place], [id number], [place] tel:[phone] [facility] Main Office No Information 0 Fabio Paul. [address], [place], [id number] , [place]. tel:[phone] Referring Provider: Gulshan Stewart, [address] [place], [address]. tel:[phone] OFFICE/OUTPA TIENT VISIT, EST [facility] of , [address], [place], [id number], [place] tel:[phone] [facility] Main Office No Information 0 Fabio Paul. [address], [place], [id number] , [place]. tel:[phone] Referring Provider: Gulshan Stewart [address] [place], [address]. tel:[phone] OFFICE/OUTPA TIENT VISIT, EST [facility] of , [address], [place], [id number], [place] tel:[phone] [facility] Main Office No Information 0 Fabio Paul. [address], [place], [address] , [place]. tel:[phone] Referring Provider: Gulshan Stewart, [address] [place], [address]. tel:[phone] OFFICE/OUTPA TIENT VISIT, EST [facility] of , [address], [place], [id number], [place] tel:[phone] [facility] Main Office No Information 0 Fabio Paul. [address], [place], [id number] , [place]. tel:[phone] Referring Provider: Gulshan Stewart, [address] MD, . tel:[phone] OFFICE/OUTPA TIENT VISIT, EST [facility] of , [address], [place], [address], [place] tel:[phone] [facility] Main Office Follow Up of Rheumatoid Arthritis (chief complaint) RA w/o rheumatoid factor of multiple sitesOther spondylosis, cervical regionCervic algiaLong term (current) use of opiate analgesicOth er senior living (current) drug therapy 0 Fabio Paul. [address], [place], [address] , [place]. tel:[phone] Leif Arrington, [address], [place], [address]. tel:[phone] ng Provider: Gulshan Stewart, [address] [place], [address]. tel:[phone] [facility] of , [address], [place], [id number], [place] tel:[phone] [facility] Main Office Follow Up of Rheumatoid Arthritis (chief complaint) RA w/o rheumatoid factor of multiple sitesOther spondylosis, cervical regionCervic algiaLong term (current) use of opiate analgesicOth er longitudinal float operator (current) drug therapy 0 Fabio Paul. [address], [place], [id number] , [place]. tel:[phone] Leif Arrington, [address], [place], [address]. [phone] ng Provider: [place], [address]. [phone] OFFICE/OUTPA TIENT VISIT, EST [facility] of , [address], [place], [id number], [place] [phone] [facility] Main Office No Information 0 Fabio Paul. [address], [place], [address] , [place]. [phone] Referring Provider: [place], [address]. tel:[phone] OFFICE/OUTPA TIENT VISIT, EST [facility] of , [address], [place], [id number], [place] tel:[phone] [facility] Main Office No Information 0 Fabio Paul. [address], [place], [id number] , [place]. tel:[phone] Referring Provider: [place], [address]. [phone] OFFICE/OUTPA TIENT VISIT, EST [facility] of , [address], [place], [address], [place] tel:[phone] [facility] Main Office No Information 0-202 0 Fabio Paul. [address], [place], [address] , [place]. tel: [phone] Referring Provider: Gulshan Stewart, [place], [address]. tel:[phone] OFFICE/OUTPA TIENT VISIT, EST [facility] of , [address], [place], [address], [place] tel:[phone] [facility] Main Office Follow Up of Rheumatoid Arthritis (chief complaint)Fo llow up (chief complaint) RA w/o rheumatoid factor of multiple sitesOther spondylosis, cervical regionCervic algiaOther longitudinal float operator (current) drug therapyLong term (current) use of opiate analgesicBod y mass index (BMI) 30.0-30.9, adult Jun-0 2- 0 Fabio Paul. [address], [place], [address] , [place]. tel: [phone] Leif Arrington, [address], [place], [address]. tel:[phone] ng Provider: Gulshan Stewart, [place], [address]. tel:[phone] [facility] of , [address], [place], [address], [place] tel:[phone] [facility] Main Office No Information 2 9 Fabio Paul. [address], [place], [address] , [place]. tel: [phone] Referring Provider: [place], [address]. tel:[phone] OFFICE/OUTPA TIENT VISIT, EST [facility] of , [address], [place], [id number], [place] tel:[phone] [facility] Main Office Follow Up of Rheumatoid Arthritis (chief complaint) RA w/o rheumatoid factor of multiple sitesOther spondylosis, cervical regionCervic algiaOther longitudinal float operator (current) drug therapyBody mass index (BMI) 34.0-34.9, adultElevate d blood-pressu re reading, w/o diagnosis of htn 9 Fabio Paul. [address], [place], [address] , [place]. tel: [phone] Leif Dominguezis, [address], [place], [address]. tel:[phone] ng Provider: [place], [address]. tel:[phone] OFFICE/OUTPA TIENT VISIT, EST [facility] of , [address], [place], [id number], [place] tel:[phone] [facility] Main Office No Information 9 Fabio Paul. [address], [place], [address] , [place]. tel: [phone] Referring Provider: [place], [address]. tel:[phone] OFFICE/OUTPA TIENT VISIT, EST [facility] of , [address], [place], [id number], [place] tel:[phone] [facility] Main Office No Information 9 Fabio Paul. [address], [place], [id number] , [place]. tel: [phone] Referring Provider: [place], [address]. tel:[phone] OFFICE/OUTPA TIENT VISIT, EST [facility] of , [address], [place], [id number], [place] tel:[phone] [facility] Main Office Follow Up of Neck Pain (chief complaint)Fo llow Up of Rheumatoid Arthritis (chief complaint)Fo llow up (chief complaint) RA w/o rheumatoid factor of multiple sitesOther spondylosis, cervical regionCervic algiaBody mass index (BMI) 33.0-33.9, adultOther longitudinal float operator (current) drug therapyPain in left foot Sep-0 -201 9 Fabio Paul. [address], [place], [id number] , [place]. tel:[phone] Leif Dominguezis, [address], [place], [address]. [phone] ng Provider: [place], [address]. tel:[phone] OFFICE/OUTPA TIENT VISIT, EST [facility] of , [address], [place], [id number], [place] tel:[phone] [facility] Main Office No Information 9 Fabio Paul. [address], [place], [address] , [place]. tel: [phone] Referring Provider: Driss Glass [place], MD, . tel:[phone] OFFICE/OUTPA TIENT VISIT, EST [facility] of , [address], [place], [id number], [place] tel:[phone] [facility] Main Office No Information 9 Fabio Paul. [address], [place], [address] , [place]. [phone] Referring Provider: [place], [address]. tel:[phone] OFFICE/OUTPA TIENT VISIT, EST [facility] of , [address], [place], [address], [place] tel:[phone] [facility] Main Office No Information 9 Fabio Paul. [address], [place], [address] , [place]. tel: [phone] Referring Provider: Gulshan Stewart, [address] [place], [address]. tel:[phone] [facility] of , [address], [place], [address], [place] tel: [phone] [facility] Main Office No Information 9 Fabio Paul. [address], [place], [id number] , [place]. tel: [phone] OFFICE/OUTPA TIENT VISIT, EST [facility] of , [address], [place], [address], [place] tel: [phone] [facility] Main Office Follow Up of Neck Pain (chief complaint)Fo llow Up of Rheumatoid Arthritis (chief complaint) RA w/o rheumatoid factor of multiple sitesOther longitudinal float operator (current) drug therapyCervi calgiaOther spondylosis, cervical regionBody mass index (BMI) 33.0-33.9, adult 9 Fabio Paul. [address], [place], [address] , [place]. tel: [phone] Leif Arrington, [address], [place], [address]. tel:[phone] ng Provider: Gulshan Stewart, [address] [place], [address]. tel:[phone] OFFICE/OUTPA TIENT VISIT, EST [facility] of , [address], [place], [id number], [place] tel:[phone] [facility] Main Office No Information 9 Fabio Paul. [address], [place], [address] , [place]. tel: [phone] Referring Provider: Gulshan Stewart, [place], [address]. tel:[phone] OFFICE/OUTPA TIENT VISIT, EST [facility] of , [address], [place], [address], [place] tel:[phone] [facility] Main Office Follow Up of Rheumatoid Arthritis (chief complaint) RA w/o rheumatoid factor of multiple sitesOther senior living (current) drug therapyLong term (current) use of opiate analgesicBod y mass index (BMI) 33.0-33.9, adultPrimary generalized OA Apr-0 201 9 Fabio Paul. [address], [place], [address] , [place]. tel:[phone] Leif Arrington, [address], [place], [address]. tel:[phone] ng Provider: Gulshan Stewart, [place], [address]. tel:[phone] OFFICE/OUTPA TIENT VISIT, EST [facility] of , [address], [place], [address], [place] tel:[phone] [facility] Main Office No Information 9 Fabio Paul. [address], [place], [id number] , [place]. [phone] Referring Provider: Gulshan Stewart, [place], [address]. tel:[phone] OFFICE/OUTPA TIENT VISIT, EST [facility] of , [address], [place], [id number], [place] tel:[phone] [facility] Main Office No Information 9 Fabio Paul. [address], [place], [address] , [place]. tel:[phone] Referring Provider: Gulshan Stewart, Ed[place]ira2 Latoya Perry MD, . tel:[phone] OFFICE/OUTPA TIENT VISIT, EST [facility] of , [address], [place], [address], [place] tel:[phone] [facility] Main Office No Information 9 Fabio Paul. [address], [place], [address] , [place]. tel:[phone] Referring Provider: Gulshan Stewart, Latoya Douglas MD, . tel:[phone] OFFICE/OUTPA TIENT VISIT, EST [facility] of , [address], [place], [id number], [place] tel:[phone] [facility] Main Office No Information 8 Fabio Paul. [address], [place], [address] , [place]. tel: [phone] Referring Provider: Gulshan Stewart, Latoya Douglas MD, . tel:[phone] OFFICE/OUTPA TIENT VISIT, EST [facility] of , [address], [place], [address], [place] tel:[phone] [facility] Main Office Follow Up of Rheumatoid Arthritis (chief complaint) RA w/o rheumatoid factor of multiple sitesOther senior living (current) drug therapyBody mass index (BMI) 34.0-34.9, adultElevate d blood-pressu re reading, w/o diagnosis of htnPrimary OA of left knee 8 Fabio Paul. [address], [place], [address] , [place]. tel:[phone] Leif Arrington, [address], [place], [address]. tel:[phone] ng Provider: Gulshan Stewart, [place], [address]. tel:[phone] OFFICE/OUTPA TIENT VISIT, EST [facility] of , [address], [place], [id number], [place] tel:[phone] [facility] Main Office No Information 5-201 8 Fabio Paul. [address], [place], [address] , [place]. tel:[phone] Referring Provider: [place], [address]. tel:[phone] OFFICE/OUTPA TIENT VISIT, EST [facility] of , [address], [place], [id number], [place] tel:[phone] [facility] Main Office No Information 8-201 8 Fabio Paul. [address], [place], [address] , [place]. tel:[phone] Referring Provider: Gulshan Stewart, [place], [address]. tel:[phone] OFFICE/OUTPA TIENT VISIT, EST [facility] of , [address], [place], [id number], [place] tel:[phone] [facility] Main Office No Information 0- 8 Fabio Paul. [address], [place], [address] , [place]. tel:[phone] Referring Provider: [place], [address]. tel:[phone] OFFICE/OUTPA TIENT VISIT, EST [facility] of , [address], [place], [id number], [place] tel:[phone] [facility] Main Office Follow Up of Rheumatoid Arthritis (chief complaint) RA w/o rheumatoid factor of multiple sitesOther senior living (current) drug therapyBody mass index (BMI) 32.0-32.9, adult Aug-0 6-201 8 Fabio Paul. [address], [place], [address] , [place]. tel:[phone] Leif Arrington, [address], [place], [address]. tel:[phone] ng Provider: Gulshan Stewart, [address] [place], [address]. tel:[phone] [facility] of , [address], [place], [id number], [place] tel:[phone] [facility] Main Office No Information 8 Fabio Paul. [address], [place], [address] , [place]. tel:[phone] Referring Provider: Gulshan Stewart, [address] [place], [address]. tel:[phone] OFFICE/OUTPA TIENT VISIT, EST [facility] of , [address], [place], [id number], [place] tel:[phone] [facility] Main Office No Information 8 Fabio Paul. [address], [place], [address] , [place]. tel:[phone] Referring Provider: Gulshan Stewart, [address] [place], [address]. tel:[phone] OFFICE/OUTPA TIENT VISIT, EST [facility] of , [address], [place], [id number], [place] tel:[phone] [facility] Main Office Follow Up of Rheumatoid Arthritis (chief complaint) RA w/o rheumatoid factor of multiple sitesOther longitudinal float operator (current) drug therapyLong term (current) use of opiate analgesicLon g term (current) use of non-steroida l anti-inflamm atories (NSAID) 8 Fabio Paul. [address], [place], [id number] , [place]. tel:[phone] Leif Arrington, [address], [place], [address]. tel:[phone] ng Provider: Gulshan Stewart, [place], [address]. tel:[phone] [facility] of , [address], [place], [id number], [place] tel:[phone] [facility] Main Office No Information 8 Fabio Paul. [address], [place], [address] , [place]. tel: [phone] Referring Provider: Gulshan Stewart, [place], [address]. tel:[phone] [facility] of , [address], [place], [id number], [place] tel:[phone] [facility] Main Office Follow Up of Rheumatoid Arthritis (chief complaint) RA w/o rheumatoid factor of multiple sitesOther senior living (current) drug therapyLong term (current) use of non-steroida l anti-inflamm atories (NSAID) 8 Fabio Paul. [address], [place], [id number] , [place]. tel: [phone] Leif Arrington, [address], [place], [address]. tel:[phone] ng Provider: Gulshan Stewart, [place], [address]. tel:[phone] [facility] , [address], [place], [id number], [place] tel:[phone] [facility] Main Office No Information 8 Fabio Paul. [address], [place], [id number] , [place]. tel: [phone] Referring Provider: Gulshan Stewart, [address] [place], [address]. tel:[phone] [facility] of , [address], [place], [id number], [place] tel:[phone] [facility] Main Office No Information Fabio Paul. [address], [place], [id number] , [place]. tel: [phone] Referring Provider: Gulshan Stewart, [address] [place], [address]. tel:[phone] [facility] of , [address], [place], [id number], [place] tel:[phone] [facility] Main Office No Information Fabio Paul. [address], [place], [id number] , [place]. tel: [phone] Referring Provider: Gulshan Stewart, [address] [place], [address]. tel:[phone] OFFICE/OUTPA TIENT VISIT, EST [facility] of , [address], [place], [id number], [place] [phone] [facility] Main Office Follow Up of Rheumatoid Arthritis (chief complaint) RA w/o rheumatoid factor of multiple sitesOther senior living (current) drug therapy Fabio Paul. [address], [place], [id number] , [place]. tel: [phone] Leif Arrington, [address], [place], [address]. tel:[phone] ng Provider: Gulshan Stewart, [address] [place], [address]. tel:[phone] [facility] of , [address], [place], [id number], [place] tel:[phone] [facility] Main Office Follow Up of Rheumatoid Arthritis (chief complaint) RA w/o rheumatoid factor of multiple sitesOther longitudinal float operator drug therapyBody mass index (BMI) 30.0-30.9, adult Dec- 7 Fabio Paul. [address], [place], [id number] , [place]. tel:[phone] Leif Arrington, [address], [place], [address]. tel:[phone] OFFICE/OUTPA TIENT VISIT, EST [facility] of , [address], [place], [id number], [place] tel:[phone] [facility] Main Office Follow Up of Rheumatoid Arthritis (chief complaint) RA w/o rheumatoid factor of multiple sitesOther senior living drug therapyBody mass index (BMI) 30.0-30.9, adult Nov- Fabio Paul. [address], [place], [id number] , [place]. tel:[phone] Leif Arrington, [address], [place], [address]. tel:[phone] Provider: Gulshan Stewart, [address], [place], [address]. tel:[phone] OFFICE/OUTPA TIENT VISIT, EST [facility] of , [address], [place], [id number], [place] tel:[phone] [facility] Main Office Follow Up of Rheumatoid Arthritis (chief complaint) RA w/o rheumatoid factor of multiple sitesOther senior living drug therapyGener alized osteoarthrit isLong term (current) use of non-steroida l anti-inflamm atories (NSAID) 7 Fabio Paul. [address], [place], [id number] , [place]. tel:[phone] Leif Arrington, [address], [place], [address]. tel:[phone] masha Provider: Gulshan Stewart, [address] [place], . tel:[phone] [facility] of , [address], [place], [id number], [place] tel:[phone] [facility] Main Office No Information 7 Fabio Paul. [address], [place], [id number] , [place]. tel:[phone] Referring Provider: Gulshan Stewart, [address] [place] MD, . tel:[phone] OFFICE/OUTPA TIENT VISIT, EST [facility] of , [address], [place], [id number], [place] tel:[phone] [facility] Main Office Follow Up of Rheumatoid Arthritis (chief complaint) RA w/o rheumatoid factor of multiple sitesOther longitudinal float operator drug therapyGener alized osteoarthrit isLong term (current) use of non-steroida l anti-inflamm atories (NSAID) Jul- 7 Fabio Paul. [address], [place], [id number] , [place]. tel:[phone] Leif Arrington, [address], [place], [address]. tel:[phone] masha Provider: Gulshan Stewart, [address]2 [place] MD, . tel:[phone] [facility] of , [address], [place], [id number], [place] tel:[phone] [facility] Main Office No Information 7 Fabio Paul. [address], [place], [id number] , [place]. tel:[phone] Referring Provider: Gulshan Stewart, [address] [place], [address]. tel:[phone] [facility] of , [address], [place], [id number], [place] tel:[phone] [facility] Main Office No Information Fabio Paul. [address], [place], [id number] , [place]. tel:[phone] Referring Provider: Gulshan Stewart, [address] [place], [address]. tel:[phone] [facility] of , [address], [place], [id number], [place] tel:[phone] [facility] Main Office No Information Fabio Paul. [address], [place], [address] , [place]. tel:[phone] Referring Provider: Gulshan Stewart, [address] [place], [address]. tel:[phone] [facility] , [address], [place], [id number], [place] tel:[phone] [facility] Main Office Follow Up of Rheumatoid Arthritis (chief complaint) RA w/o rheumatoid factor of multiple sitesOther senior living drug therapyGener alized osteoarthrit isLong term (current) use of non-steroida l anti-inflamm atories (NSAID)Troch anteric bursitis, right hipPain in right hip Fabio Paul. [address], [place], [id number] , [place]. tel: [phone] Leif Arrington, [address], [place], [address]. tel:[phone] ng Provider: Gulshan Stewart, [address] [place], [address]. tel:[phone] OFFICE/OUTPA TIENT VISIT, EST [facility] of , [address], [place], [id number], [place] tel:[phone] [facility] Main Office Follow Up of Rheumatoid Arthritis (chief complaint) RA w/o rheumatoid factor of multiple sitesOther longitudinal float operator drug therapyGener alized osteoarthrit isLong term (current) use of non-steroida l anti-inflamm atories (NSAID) 7-201 6 Fabio Paul. [address], [place], [address] , [place]. tel:[phone] Leif Arrington, [address], [place], [address]. tel:[phone] ng Provider: Gulshan Stewart, [place], [address]. tel:[phone] OFFICE/OUTPA TIENT VISIT, EST [facility] of , [address], [place], [id number], [place] tel:[phone] [facility] Main Office Follow Up of Rheumatoid Arthritis (chief complaint) RA w/o rheumatoid factor of multiple sitesOther longitudinal float operator drug therapyGener alized osteoarthrit isLong term (current) use of non-steroida l anti-inflamm atories (NSAID) 6 Fabio Paul. [address], [place], [id number] , [place]. tel:[phone] Leif Arrington, [address], [place], [address]. tel:[phone] ng Provider: Gulshan Stewart, [address] [place], [address]. tel:[phone] OFFICE/OUTPA TIENT VISIT, EST [facility] of , [address], [place], [id number], [place] tel:[phone] [facility] Main Office Follow Up of Rheumatoid Arthritis (chief complaint) RA w/o rheumatoid factor of multiple sitesOther longitudinal float operator drug therapyGener alized osteoarthrit isLong term (current) use of non-steroida l anti-inflamm atories (NSAID) 6 Fabio Paul. [address], [place], [address] , [place]. tel:[phone] Leif Arrington, [address], [place], [address]. tel:[phone] ng Provider: Gulshan Stewart, [address], [place], [address]. tel:[phone] OFFICE/OUTPA TIENT VISIT, EST [facility] of , [address], [place], [id number], [place] tel:[phone] [facility] Main Office Follow Up of Rheumatoid Arthritis (chief complaint) RA w/o rheumatoid factor of multiple sitesOther longitudinal float operator drug therapyGener alized osteoarthrit is 6 Fabio Paul. [address], [place], [id number] , [place]. tel:[phone] Leif Arrington, [address], [place], [address]. tel:[phone] ng Provider: [address], [place], [address]. tel:[phone] OFFICE/OUTPA TIENT VISIT, EST [facility] of , [address], [place], [id number], [place] tel:[phone] [facility] Main Office Follow Up of Rheumatoid Arthritis (chief complaint) RA w/o rheumatoid factor of multiple sitesOther senior living drug therapyGener alized osteoarthrit is 6 Fabio Paul. [address], [place], [id number] , [place]. tel:[phone] Leif Arrington, [address], [place], [address]. tel:[phone] masha Provider: Venus Mont[address], [place], [address]. tel:[phone] OFFICE/OUTPA TIENT VISIT, EST [facility] of , [address], [place], [id number], [place] tel:[phone] [facility] Main Office Inflammatory Polyarthropa thy (chief complaint) Inflammatory polyarthropa thyGeneraliz ed osteoarthrit is 6 Fabio Paul. [address], [place], [address] , [place]. tel:[phone] Leif Arrington, [address], [place], [address]. tel:[phone] ng Provider: Leif Gonzalez, [address], [place], [address]. tel:[phone] OFFICE/OUTPA TIENT VISIT, EST [facility] , [address], [place], [id number], [place] tel:[phone] [facility] Main Office Inflammatory Polyarthropa thy (chief complaint) Inflammatory polyarthropa thyPain in left hipPrimary generalized (osteo)arthr itisLong term (current) use of non-steroida l anti-inflamm atories (NSAID) 6 Fabio Paul. [address], [place], [address] , [place]. tel:[phone] Leif Arrington, [address], [place], [address]. tel:[phone] masha Provider: Leif Gonzalez, [address], [place], [address]. tel:[phone] OFFICE/OUTPA TIENT VISIT, EST [facility] of , [address], [place], [id number], [place] tel:[phone] [facility] Main Office Osteoarthrit is (chief complaint) Primary generalized (osteo)arthr itisLong term (current) use of non-steroida l anti-inflamm atories (NSAID) 6 Fabio Paul. [address], [place], [id number] , [place]. tel:[phone] Referring Provider: Leif Gonzalez, [address], [place], [address]. tel:[phone] OFFICE/OUTPA TIENT VISIT, EST [facility] of , [address], [place], [id number], [place] tel:[phone] [facility] Main Office Follow Up of Osteoarthrit is (chief complaint) Osteoarthros is, generalized, involving unspecified siteDisorder s of bursae and tendons in shoulder region, unspecified Jul- 5 Fabio Paul. [address], [place], [id number] , [place]. tel:[phone] Referring Provider: Leif Gonzalez, [address], [place], [address]. tel:[phone] OFFICE/OUTPA TIENT VISIT, EST [facility] of , [address], [place], [id number], [place] tel:[phone] [facility] Main Office Follow Up of Right shoulder pain (chief complaint) Disorders of bursae and tendons in shoulder region, unspecifiedP ainful shoulder 4 Fabio Paul. [address], [place], [address] , [place]. tel:[phone] Referring Provider: Leif Gonzalez, [address], [place], [address]. tel:[phone] OFFICE/OUTPA TIENT VISIT, EST [facility] of , [address], [place], [address], [place] tel:[phone] [facility] Main Office No Information 4 Fabio Paul. [address], [place], [address] , [place]. tel:[phone] Referring Provider: Peter Gonzalez, [address], [place], [address]. tel:[phone] OFFICE/OUTPA TIENT VISIT, EST [facility] of , [address], [place], [id number], [place] tel:[phone] [facility] Main Office Follow Up of Osteoarthrit is (chief complaint) Osteoarthrit is, GeneralizedL TU-TERM (CURRENT) USE OF NON-STEROIDA L ANTI-INFLAMM ATORIES 4 Fabio Paul. [address], [place], [address] , [place]. tel:[phone] Referring Provider: Leif Gonzalez, [address], [place], [address]. tel:[phone] OFFICE/OUTPA TIENT VISIT, EST [facility] of , [address], [place], [id number], [place] tel:[phone] [facility] Main Office Osteoarthrit is (chief complaint) Disorders of bursae and tendons in shoulder region, unspecifiedO steoarthriti s, Generalized 4 Fabio Paul. [address], [place], [address] , [place]. tel:[phone] Referring Provider: Leif Gonzalez, [address], [place], [address]. tel:[phone] OFFICE/OUTPA TIENT VISIT, EST [facility] of , [address], [place], [id number], [place] tel:[phone] [facility] Main Office Osteoarthrit is (chief complaint) Osteoarthrit is, GeneralizedD isorders of bursae and tendons in shoulder region, unspecifiedL TU-TERM (CURRENT) USE OF NON-STEROIDA L ANTI-INFLAMM ATORIES 4 Fabio Paul. [address], [place], [address] , [place]. tel:[phone] Referring Provider: Leif Gonzalez [address], [place], [address]. tel:[phone] OFFICE/OUTPA TIENT VISIT, EST [facility] of , [address], [place], [id number], [place] tel:[phone] [facility] Main Office Osteoarthrit is (chief complaint) Osteoarthrit is, Generalized 3 Fabio Paul. [address], [place], [address] , [place]. tel:[phone] Referring Provider: Leif Gonzalez, [address], [place], [address]. tel:[phone] OFFICE/OUTPA TIENT VISIT, EST [facility] of , [address], [place], [id number], [place] tel:[phone] [facility] Main Office for joint pain (chief complaint) Osteoarthrit is, GeneralizedA rticular cartilage disorder involving forearmRadia l styloid tenosynoviti s 3 Fabio Paul. [address], [place], [address] , [place]. tel:[phone] Referring Provider: Leif Gonzalez, [address], [place], [address]. tel:[phone] OFFICE/OUTPA TIENT VISIT, NEW [facility] of , [address], [place], [id number], [place] tel:[phone] [facility] Main Office myalgia (chief complaint) Fatigue / MalaisePain in joint involving multiple sites 3 Fabio Paul. [address], [place], [address] , [place]. tel:[phone] Referring Provider: Leif Gonzalez, [address], [place], [address]. tel:[phone] Family History Family Member Type Diagnosis Age [...] constitution party ID Authoriza tion(s) Medicare [place] [id number] [employer] [place] [id number] Medicare [place] [id number] [employer] [place] [id number] Medicare [place] [id number] [employer] [place] [id number] Medicare [place] [id number] [employer] [place] [id number] Social History Type Description Quantity Date Captured [...] OA) ordered Referral Referred To: Toan Berry [address] [place], [id number] Ordered: Referrals: Allopathic & Osteopathic Physicians : Anesthesiology. Toan Berry. Consult ordered Referral Ordered: Madi Holder -Allopathic & Osteopathic Physicians : Internal Medicine : Nephrology (related to CKD) ordered Referral Referred To: Madi Holder [address] [facility]
[address] [place], [phone] Ordered: Referrals: Allopathic & Osteopathic Physicians : [...] Future Order: Lab Order Lipid Pa rashard ([id number]), Ordered on: Ordered Future Order: Lab Order COMPREHE NSIVE METABOLIC PANEL (CMP), Collected on: , Sent on: Sent Future Order: Lab Order CBC Diff erential And Platlet (CBC PLT DIFF), Ordered on: Ordered Future Order: Lab Order CMP ([id number]), Orde red on: Ordered Future Order: Lab Order CBC Diff erential And Platlet (CBC PLT DIFF), Collected on: Ordered Future Order: Lab Order CMP ([id number]), Wally ected on: Ordered Future Order: Lab [...]
--- OUTSIDE RECORDS SUMMARY | 2024-11-28 06:00 | XMS_ITS | Continuity of Care Document ---
Author Organization [facility] Address [address] [place] [address] Phone Care Team Providers Care Line Installation Supervisor Name Role Phone Fabio MANCINI, Paul Unavailable Unavailable Allergies, Adverse Reactions, Alerts Substance Reaction Status Criticality No Known Allergies Active No Inform ation Medications Medication Instructions Dosage Effective Dates (start - stop) Status Comments ergocalciferol (vitamin D2) 1,250 mcg (50,000 unit) capsule take 1 capsule by oral route every week 85454 UNITS - Active Simponi ARIA 12.5 mg/mL [...] Providers Copied on Encounter OFFICE/OUTPA TIENT VISIT, [facility] , [address], [place], [id number], [place] tel:[phone] [facility] Main Office No Information Fabio Miller. [address], [place], [id number] , [place]. tel:[phone] Referring Provider: Rosalba Shaw, [address], [place], [address]. tel:[phone] OFFICE/OUTPA TIENT VISIT, EST [facility] anjelica MANCINI, [address], [place], [id number], [place] tel:[phone] [facility] Main Office Age-related osteoporosis without current pathological fracture 5 Fabio Paul. [address], [place], [id number] , [place]. tel:[phone] Referring Provider: Pilo Hinojosa, [address], [place], [address]. tel:[phone] OFFICE/OUTPA TIENT VISIT, EST [facility] of , [address], [place], [id number], [place] tel:[phone] [facility] Main Office Follow Up of GOA (chief complaint)Fo llow Up of RA (chief complaint) Immunodefici ency due to drugsRA w/o rheumatoid factor of multiple sitesGeneral ized OAPain in unspecified jointOsteopo rosisCKDLong term (current) use of immunosuppre ssive biologicBody mass index (BMI) 29.0-29.9, adult Byron- 5 Fabio Paul. [address], [place], [id number] , [place]. tel:[phone] Leif Arrington, [address], [place], [address]. tel:[phone] ist: Madi Gallo, [address] [facility] [address], [place], [address]. tel:[phone] ist: uSnni Ackerman, [address] [facility] [address], [place], [address]. tel:[phone] ng Provider: Pilo Hinojosa, [address], [place], [address]. tel:[phone] [facility] of , [address], [place], [id number], [place] tel:[phone] [facility] Main Office No Information 5 Fabio Paul. [address], [place], [id number] , [place]. 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 [address], [place], [id number] , [place]. tel:[phone] Leif Arrington, [address], [place], [address]. tel:[phone] ist: Madi Holder, [address] [facility] [address], [place], [address]. tel:[phone] ist: Sunni Ackerman, [address] [facility] [address], [place], [address]. tel:[phone] ng Provider: Rosalba Shaw, [address], [place], [address]. tel:[phone] OFFICE/OUTPA TIENT VISIT, EST [facility] of , [address], [place], [id number], [place] tel:[phone] [facility] Main Office No Information Jul- 5 Fabio Miller. [address], [place], [id number] , [place]. tel:[phone] Referring Provider: Pilo Hinojosa, [address] [facility] [address], [place], [address]. tel:[phone] OFFICE/OUTPA TIENT VISIT, EST [facility] of , [address], [place], [id number], [place] tel:[phone] [facility] Main Office Follow Up [...] [address], [place], [id number] , [place]. tel:[phone] Leif Arrington, [address], [place], [address]. tel:[phone] ist: Madi Holedr, [address], [place], [address]. tel:[phone] ist: Sunni Ackerman, [address] [facility] [address], [place], [address]. tel:[phone] ng Provider: Rosalba Shaw, [address], [place], [address]. tel:[phone] OFFICE/OUTPA TIENT VISIT, EST [facility] of , [address], [place], [id number], [place] tel:[phone] [facility] Main Office No Information 4 Fabio Miller. [address], [place], [id number] , [place]. tel:[phone] Referring Provider: Pilo Hinojosa, [address] [facility] [address], [place], [address]. tel:[phone] OFFICE/OUTPA TIENT VISIT, EST [facility] of , [address] [facility] [address], [place], [id number], [place] tel:[phone] [facility] Main Office Follow Up [...] [address], [place], [id number] , [place]. tel:[phone] Leif Arrington, [address], [place], [address]. tel:[phone] ist: Madi Holder, [address], [place], [address]. tel:[phone] ist: Sunni Ackerman, [address] [facility] [address], [place], [address]. tel:[phone] ng Provider: Pilo Hinojosa, [address] [place] [address] [address], [place], [address]. tel:[phone] OFFICE/OUTPA TIENT VISIT, EST [facility] of , [address], [place], [id number], [place] tel:[phone] [facility] Main Office No Information 4 Fabio Paul. [address], [place], [id number] , [place]. tel:[phone] Referring Provider: Pilo Hinojosa, [address] [place] [address] [address], [place], [address]. [phone] OFFICE/OUTPA TIENT VISIT, EST [facility] of , [address], [place], [id number], [place] tel:[phone] [facility] Main Office No Information 4 Fabio Paul. [address], [place], [id number] , [place]. tel:[phone] Referring Provider: Pilo Hinojosa, [address] [address], [place], [address]. 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 [address], [place], [id number] , [place]. tel:[phone] Leif Arrington, [address], [place], [address]. tel:[phone] ist: Madi Holder, [address], [place], [address]. tel:[phone] ist: Sunni Ackerman, [address], [place], [address]. tel:[phone] ng Provider: Pilo Hinojosa, [address], [place], [address]. tel:[phone] OFFICE/OUTPA TIENT VISIT, EST [facility] of , [address], [place], [id number], [place] tel:[phone] [facility] Main Office No Information 4 Fabio Paul. [address], [place], [id number] , [place]. tel:[phone] Referring Provider: Pilo Hinojosa, [address], [place], [address]. tel:[phone] OFFICE/OUTPA TIENT VISIT, EST [facility] of , [address], [place], [id number], [place] tel:[phone] [facility] Main Office No Information 4 Fabio Paul. [address], [place], [id number] , [place]. tel:[phone] Referring Provider: Pilo Hinojosa, [address], [place], [address]. tel:[phone] OFFICE/OUTPA TIENT VISIT, EST [facility] of , [address], [place], [id number], [place] tel:[phone] [facility] Main Office No Information 4 Fabio Paul. [address], [place], [address] , [place]. tel:[phone] Referring Provider: Pilo Hinojosa, [address], [place], [address]. tel:[phone] OFFICE/OUTPA TIENT VISIT, EST [facility] of , [address], [place], [id number], [place] tel:[phone] [facility] Main Office Follow Up [...] [address], [place], [address] , [place]. tel:[phone] Leif Arrington, [address], [place], [address]. tel:[phone] ist: Madi Holder, [address], [place], [address]. tel:[phone] ist: Sunni Ackerman, [address], [place], [address]. tel:[phone] ng Provider: Pilo Hinojosa, [address], [place], [address]. tel:[phone] OFFICE/OUTPA TIENT VISIT, EST [facility] of , [address], [place], [id number], [place] tel:[phone] [facility] Main Office No Information 4 Fabio Paul. [address], [place], [id number] , [place]. tel:[phone] Referring Provider: Pilo Hinojosa, [address], [place], [address]. tel:[phone] OFFICE/OUTPA TIENT VISIT, EST [facility] of , [address], [place], [address], [place] tel:[phone] [facility] Main Office No Information 3 Fabio Paul. [address], [place], [address] , [place]. tel:[phone] Referring Provider: Pilo Hinojosa, [address], [place], [address]. tel:[phone] [facility] of , [address], [place], [id number], [place] tel:[phone] [facility] Main Office No Information 3 Fabio Paul. [address], [place], [id number] , [place]. 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 [address], [place], [id number] , [place]. tel:[phone] Leif Arrington, [address], [place], [address]. tel:[phone] ist: Madi Holder, [address], [place], [address]. tel:[phone] ist: Sunni Ackerman, [address], [place], [address]. tel:[phone] ng Provider: Pilo Hinojosa, [address], [place], [address]. tel:[phone] [facility] of , [address], [place], [id number], [place] tel:[phone] [facility] Main Office No Information 0 3 Fabio Paul. [address], [place], [address] , [place]. tel:[phone] OFFICE/OUTPA TIENT VISIT, EST [facility] of , [address], [place], [id number], [place] tel:[phone] [facility] Main Office No Information 3 Fabio Paul. [address], [place], [id number] , [place]. tel:[phone] Referring Provider: Pilo Hinojosa, [address], [place], [address]. tel:[phone] OFFICE/OUTPA TIENT VISIT, EST [facility] of , [address], [place], [address], [place] tel:[phone] [facility] Main Office No Information 3 Fabio Paul. [address], [place], [id number] , [place]. tel:[phone] Referring Provider: Pilo Hinojosa, [address], [place], [address]. tel:[phone] OFFICE/OUTPA TIENT VISIT, EST [facility] of , [address], [place], [id number], [place] tel:[phone] [facility] Main Office No Information 3 Fabio Paul. [address], [place], [address] , [place]. tel:[phone] Referring Provider: Pilo Hinojosa, [address], [place], [address]. tel:[phone] OFFICE/OUTPA TIENT VISIT, EST [facility] of , [address], [place], [id number], [place] tel:[phone] [facility] Main Office No Information 3 Fabio Paul. [address], [place], [address] , [place]. tel:[phone] Referring Provider: Pilo Hinojosa, [address], [place], [address]. tel:[phone] OFFICE/OUTPA TIENT VISIT, EST [facility] of , [address], [place], [id number], [place] tel:[phone] [facility] Main Office Follow Up of GOA (chief complaint)Fo llow Up of RA (chief complaint) Immunodefici ency due to drugsRA w/o rheumatoid factor of multiple sitesGeneral ized OAPain in unspecified jointCKDLong term (current) use of immunosuppre ssive biologicBody mass index (BMI) 30.0-30.9, adult 3 Fabio Paul. [address], [place], [address] , [place]. tel:[phone] Leif Arrington, [address], [place], [address]. tel:[phone] ist: Madi Holder, [address], [place], [address]. tel:[phone] ist: Sunni Ackerman [address], [place], [address]. tel:[phone] ng Provider: Pilo Hinojosa, [address], [place], [address]. tel:[phone] OFFICE/OUTPA TIENT VISIT, EST [facility] of , [address], [place], [address], [place] tel:[phone] [facility] Main Office No Information 3 Fabio Paul. [address], [place], [id number] , [place]. tel:[phone] Referring Provider: Pilo Hinojosa, [address], [place], [address]. tel:[phone] OFFICE/OUTPA TIENT VISIT, EST [facility] of , [address], [place], [address], [place] tel:[phone] [facility] Main Office No Information 3 Fabio Paul. [address], [place], [address] , [place]. tel:[phone] Referring Provider: Pilo Hinojosa, [address], [place], [address]. tel:[phone] OFFICE/OUTPA TIENT VISIT, EST [facility] of , [address], [place], [address], [place] tel:[phone] [facility] Main Office No Information 3 Fabio Paul. [address], [place], [address] , [place]. tel:[phone] Referring Provider: Pilo Hinojosa, [address], [place], [address]. tel:[phone] OFFICE/OUTPA TIENT VISIT, EST [facility] of , [address], [place], [address], [place] tel:[phone] [facility] Main Office No Information Jul-0 3 Fabio Paul. [address], [place], [address] , [place]. tel:[phone] Referring Provider: Pilo Hinojosa, [address], [place], [address]. tel:[phone] OFFICE/OUTPA TIENT VISIT, EST [facility] of , [address], [place], [address], [place] tel:[phone] [facility] Main Office Follow Up of GOA (chief complaint)Fo llow Up of RA (chief complaint) Immunodefici ency due to drugsRA w/o rheumatoid factor of multiple sitesGeneral ized OACKDLong term (current) use of immunosuppre ssive biologicPain in unspecified joint Jun-2 3 Fabio Paul. [address], [place], [address] , [place]. tel:[phone] Leif Arrington, [address], [place], [address]. tel:[phone] ist: Madi Gallo, [address], [place], [address]. tel:[phone] ist: Sunni Ackerman, [address], [place], [address]. tel:[phone] ng Provider: Pilo Hinojosa, [address], [place], [address]. tel:[phone] OFFICE/OUTPA TIENT VISIT, EST [facility] of , [address], [place], [address], [place] tel:[phone] [facility] Main Office No Information 0 3 Fabio Paul. [address], [place], [address] , [place]. tel:[phone] Referring Provider: Pilo Hinojosa, [address], [place], [address]. tel:[phone] OFFICE/OUTPA TIENT VISIT, EST [facility] of , [address], [place], [id number], [place] tel:[phone] [facility] Main Office No Information 3 Fabio Paul. [address], [place], [id number] , [place]. tel: [phone] Referring Provider: Gulshan Stewart, [place], [address]. tel:[phone] OFFICE/OUTPA TIENT VISIT, EST [facility] of , [address], [place], [address], [place] tel:[phone] [facility] Main Office No Information 3 Fabio Paul. [address], [place], [address] , [place]. tel: [phone] Referring Provider: Gulshan Stewart, [address]2 Latoya Perry MD, . tel:[phone] OFFICE/OUTPA TIENT VISIT, EST [facility] of , [address], [place], [id number], [place] tel:[phone] [facility] Main Office Follow Up of GOA (chief complaint)Fo llow Up of RA (chief complaint) Immunodefici ency due to drugsRA w/o rheumatoid factor of multiple sitesGeneral ized OACervicalgi aCKDLong term (current) use of opiate analgesicLon g term (current) use of immunosuppre ssive biologic 2 Fabio Paul. [address], [place], [address] , [place]. tel: [phone] Leif Arrington, [address], [place], [address]. tel:[phone] ist: Madi Holder, [address], [place], [address]. tel:[phone] ng Provider: Gulshan Stewart, [address] [place], [address]. tel:[phone] OFFICE/OUTPA TIENT VISIT, EST [facility] of , [address], [place], [address], [place] tel: [phone] [facility] Main Office No Information 2 Fabio Paul. [address], [place], [address] , [place]. tel:[phone] Referring Provider: Gulshan Stewart, [place], [address]. tel:[phone] OFFICE/OUTPA TIENT VISIT, EST [facility] of , [address], [place], [address], [place] tel:[phone] [facility] Main Office No Information 2 Fabio Paul. [address], [place], [address] , [place]. tel: [phone] Referring Provider: Gulshan Stewart, [address] [place], [address]. tel:[phone] OFFICE/OUTPA TIENT VISIT, EST [facility] of , [address], [place], [id number], [place] tel:[phone] [facility] Main Office No Information 2 Fabio Paul. [address], [place], [address] , [place]. tel: [phone] Referring Provider: Gulshan Stewart, [address] [place], [address]. tel:[phone] OFFICE/OUTPA TIENT VISIT, EST [facility] of , [address], [place], [id number], [place] tel:[phone] [facility] Main Office Follow Up of Rheumatoid Arthritis (chief complaint)Fo llow Up of Generalized OA (chief complaint) Immunodefici ency due to drugsRA w/o rheumatoid factor of multiple sitesGeneral ized OACervicalgi aCKDLong term (current) use of opiate analgesicOth er intermediate (current) drug therapyBody mass index (BMI) 33.0-33.9, adult 2 Fabio Paul. [address], [place], [address] , [place]. tel:[phone] Leif Arrington, [address], [place], [address]. tel:[phone] ist: Madi Holder, [address], [place], [address]. tel:[phone] ng Provider: Gulshan Stewart, [place], [address]. tel:[phone] OFFICE/OUTPA TIENT VISIT, EST [facility] of , [address], [place], [id number], [place] tel:[phone] [facility] Main Office No Information 2 Fabio Miller. [address], [place], [id number] , [place]. tel:[phone] Referring Provider: Gulshan Stewart, [place], [address]. tel:[phone] OFFICE/OUTPA TIENT VISIT, EST [facility] of , [address], [place], [address], [place] tel:[phone] [facility] Main Office No Information 2 Fabio Paul. [address], [place], [id number] , [place]. tel:[phone] Referring Provider: Gulshan Stewart, [place], [address]. tel:[phone] OFFICE/OUTPA TIENT VISIT, EST [facility] of , [address], [place], [id number], [place] tel:[phone] [facility] Main Office No Information 2 Fabio Paul. [address], [place], [address] , [place]. tel:[phone] Referring Provider: Gulshan Stewart, [address] [place], [address]. tel:[phone] OFFICE/OUTPA TIENT VISIT, EST [facility] of , [address], [place], [id number], [place] tel:[phone] [facility] Main Office No Information 2 Fabio Paul. [address], [place], [address] , [place]. tel:[phone] Referring Provider: Pilo Hinojosa, [address] [facility] [address], [place], [address]. tel:[phone] OFFICE/OUTPA TIENT VISIT, EST [facility] of , [address], [place], [address], [place] tel:[phone] [facility] Main Office No Information 2 Fabio Paul. [address], [place], [address] , [place]. tel:[phone] Referring Provider: Gulshan Stewart, [address] [place], [address]. tel:[phone] OFFICE/OUTPA TIENT VISIT, EST [facility] of , [address], [place], [address], [place] tel:[phone] [facility] Main Office Follow Up of Rheumatoid Arthritis (chief complaint)Fo llow Up of Generalized OA (chief complaint) Immunodefici ency due to drugsRA w/o rheumatoid factor of multiple sitesGeneral ized OALong term (current) use of opiate analgesicOth er block operator (current) drug therapyCKDCe rvicalgia 2 Fabio Paul. [address], [place], [address] , [place]. tel: [phone] Leif Arrington, [address], [place], [address]. tel: [phone] ng Provider: Gulshan Stewart, [address] [place], [address]. tel: [phone] OFFICE/OUTPA TIENT VISIT, EST [facility] of , [address], [place], [id number], [place] tel: [phone] [facility] Main Office No Information 2 Fabio Paul. [address], [place], [address] , [place]. tel: [phone] Referring Provider: Gulshan Stewart, [address] [place], [address]. tel: [phone] OFFICE/OUTPA TIENT VISIT, EST [facility] of , [address], [place], [id number], [place] tel: [phone] [facility] Main Office No Information 2 Fabio Paul. [address], [place], [id number] , [place]. tel: [phone] Referring Provider: Gulshan Stewart, [address] [place], [address]. tel:[phone] OFFICE/OUTPA TIENT VISIT, EST [facility] of , [address], [place], [id number], [place] tel: [phone] [facility] Main Office No Information 1 Fabio Paul. [address], [place], [address] , [place]. tel: [phone] Referring Provider: Gulshan Stewart, [address] [place], [address]. tel:[phone] OFFICE/OUTPA TIENT VISIT, EST [facility] of , [address], [place], [id number], [place] tel:[phone] [facility] Main Office No Information 1 Fabio Paul. [address], [place], [id number] , [place]. tel: [phone] Referring Provider: [place], [address]. tel:[phone] OFFICE/OUTPA TIENT VISIT, EST [facility] of , [address], [place], [id number], [place] tel:[phone] [facility] Main Office No Information 1 Fabio Paul. [address], [place], [id number] , [place]. tel: [phone] Referring Provider: Driss Glass [place], [place], . tel:[phone] OFFICE/OUTPA TIENT VISIT, EST [facility] of , [address], [place], [id number], [place] tel:[phone] [facility] Main Office Follow Up of Rheumatoid Arthritis (chief complaint)Fo llow Up of Generalized OA (chief complaint) Immunodefici ency due to drugsRA w/o rheumatoid factor of multiple sitesGeneral ized OALong term (current) use of opiate analgesicOth er intermediate (current) drug therapyEncou nter for immunization Body mass index (BMI) 33.0-33.9, adult 1 Fabio Paul. [address], [place], [id number] , [place]. tel:[phone] Leif Arrington, [address], [place], [address]. tel:[phone] ng Provider: Gulshan Stewart, [place], [address]. tel:[phone] OFFICE/OUTPA TIENT VISIT, EST [facility] of , [address], [place], [id number], [place] tel:[phone] [facility] Main Office No Information 1 Fabio Paul. [address], [place], [address] , [place]. tel: [phone] Referring Provider: Gulshan Stewart, [place], [address]. tel:[phone] OFFICE/OUTPA TIENT VISIT, EST [facility] of , [address], [place], [id number], [place] tel: [phone] [facility] Main Office No Information 1 Fabio Paul. [address], [place], [id number] , [place]. tel: [phone] Referring Provider: Gulshan Stewart, [address]ira[address] [place], [address]. tel:[phone] [facility] of , [address], [place], [id number], [place] tel: [phone] [facility] Main Office No Information 1 Fabio Paul. [address], [place], [id number] , [place]. tel: [phone] Referring Provider: Gulshan Stewart, [address] [place], [address]. tel:[phone] OFFICE/OUTPA TIENT VISIT, EST [facility] of , [address], [place], [id number], [place] tel:[phone] [facility] Main Office No Information 1 Fabio Paul. [address], [place], [id number] , [place]. tel: [phone] Referring Provider: Gulshan Stewart, [address] [place], [address]. tel:[phone] OFFICE/OUTPA TIENT VISIT, EST [facility] of , [address], [place], [id number], [place] tel:[phone] [facility] Main Office Follow Up of Rheumatoid Arthritis (chief complaint)Fo llow Up of Generalized OA (chief complaint) Immunodefici ency due to drugsRA w/o rheumatoid factor of multiple sitesGeneral ized OALong term (current) use of opiate analgesicOth er block operator (current) drug therapyBody mass index (BMI) 34.0-34.9, adult August- 1 Fabio Paul. [address], [place], [id number] , [place]. [phone] Leif Arrington, [address], [place], [address]. tel:[phone] ng Provider: Gulshan Stewart, [address] [place], [address]. tel:[phone] OFFICE/OUTPA TIENT VISIT, EST [facility] of , [address], [place], [id number], [place] tel:[phone] [facility] Main Office No Information 1 Fabio Paul. [address], [place], [id number] , [place]. tel:[phone] Referring Provider: Gulshan Stewart, [address] [place], [address]. tel:[phone] OFFICE/OUTPA TIENT VISIT, EST [facility] of , [address], [place], [id number], [place] tel:[phone] [facility] Main Office No Information 1 Fabio Paul. [address], [place], [id number] , [place]. tel:[phone] Referring Provider: Gulshan Stewart, [place], [address]. tel:[phone] OFFICE/OUTPA TIENT VISIT, EST [facility] of , [address], [place], [id number], [place] tel:[phone] [facility] Main Office No Information 1 Fabio Miller. [address], [place], [address] , [place]. tel:[phone] Referring Provider: Gulshan Stewart, [address] [place], [address]. tel:[phone] OFFICE/OUTPA TIENT VISIT, EST [facility] of , [address], [place], [id number], [place] tel:[phone] [facility] Main Office No Information 1 Fabio Miller. [address], [place], [address] , [place]. tel:[phone] Referring Provider: Gulshan Stewart, Edelmira2 Latoya Perry MD, . tel:[phone] OFFICE/OUTPA TIENT VISIT, EST [facility] of , [address], [place], [id number], [place] tel:[phone] [facility] Main Office Follow Up of Rheumatoid Arthritis (chief complaint)Fo llow Up of Generalized OA (chief complaint) RA w/o rheumatoid factor of multiple sitesGeneral ized OALong term (current) use of opiate analgesicOth er intermediate (current) drug therapyImmun odeficiency due to drugsBody mass index (BMI) 33.0-33.9, adult 1 Fabio Miller. [address], [place], [address] , [place]. tel:[phone] Referring Provider: Edelmira Glass2 [place], [address]. tel:[phone] OFFICE/OUTPA TIENT VISIT, EST [facility] of , [address], [place], [id number], [place] tel: [phone] [facility] Main Office No Information 1 Fabio Paul. [address], [place], [address] , [place]. tel: [phone] Referring Provider: Gulshan Stewart, [place], [address]. tel:[phone] OFFICE/OUTPA TIENT VISIT, EST [facility] of , [address], [place], [address], [place] tel: [phone] [facility] Main Office No Information 0 Fabio Paul. [address], [place], [address] , [place]. tel: [phone] Referring Provider: Gulshan Stewart, [place], [address]. tel:[phone] [facility] of , [address], [place], [id number], [place] tel: [phone] [facility] Main Office No Information 0 Fabio Paul. [address], [place], [address] , [place]. tel: [phone] Referring Provider: Gulshan Stewart, [address] [place], [address]. tel:[phone] OFFICE/OUTPA TIENT VISIT, EST [facility] of , [address], [place], [id number], [place] tel:[phone] [facility] Main Office No Information 0 Fabio Paul. [address], [place], [id number] , [place]. tel: [phone] Referring Provider: Gulshan Stewart, [address] [place], [address]. tel:[phone] OFFICE/OUTPA TIENT VISIT, EST [facility] of , [address], [place], [id number], [place] tel:[phone] [facility] Main Office Follow Up [...] [address], [place], [id number] , [place]. tel:[phone] Leif Arrington, [address], [place], [address]. tel:[phone] ng Provider: Gulshan Stewart, [address] [place], [address]. tel:[phone] OFFICE/OUTPA TIENT VISIT, EST [facility] of , [address], [place], [id number], [place] tel:[phone] [facility] Main Office No Information 0 Fabio Paul. [address], [place], [address] , [place]. tel:[phone] Referring Provider: Gulshan Stewart, [address] [place], [address]. tel:[phone] OFFICE/OUTPA TIENT VISIT, EST [facility] of , [address], [place], [address], [place] tel:[phone] [facility] Main Office No Information 0 Fabio Paul. [address], [place], [id number] , [place]. tel:[phone] Referring Provider: Gulshan Stewart [address] [place], [address]. tel:[phone] OFFICE/OUTPA TIENT VISIT, EST [facility] of , [address], [place], [address], [place] tel:[phone] [facility] Main Office No Information 0 Fabio Paul. [address], [place], [id number] , [place]. tel:[phone] Referring Provider: Gulshan Stewart, [address] [place], [address]. tel:[phone] OFFICE/OUTPA TIENT VISIT, EST [facility] of , [address], [place], [id number], [place] tel:[phone] [facility] Main Office No Information 0 Fabio Paul. [address], [place], [id number] , [place]. tel:[phone] Referring Provider: Gulshan Stewart, [address] [place] MD, . tel:[phone] OFFICE/OUTPA TIENT VISIT, EST [facility] of , [address], [place], [id number], [place] tel:[phone] [facility] Main Office Follow Up of Rheumatoid Arthritis (chief complaint) RA w/o rheumatoid factor of multiple sitesOther spondylosis, cervical regionCervic algiaLong term (current) use of opiate analgesicOth er intermediate (current) drug therapy 0 Fabio Paul. [address], [place], [address] , [place]. tel:[phone] Leif Arrington, [address], [place], [address]. tel:[phone] ng Provider: Gulshan Stewart, [address] [place], [address]. tel:[phone] [facility] of , [address], [place], [id number], [place] tel:[phone] [facility] Main Office Follow Up of Rheumatoid Arthritis (chief complaint) RA w/o rheumatoid factor of multiple sitesOther spondylosis, cervical regionCervic algiaLong term (current) use of opiate analgesicOth er block operator (current) drug therapy 0 Fabio Paul. [address], [place], [address] , [place]. tel:[phone] Leif Arrington, [address], [place], [address]. [phone] ng Provider: [place], [address]. [phone] OFFICE/OUTPA TIENT VISIT, EST [facility] of , [address], [place], [id number], [place] [phone] [facility] Main Office No Information 0 Fabio Paul. [address], [place], [address] , [place]. [phone] Referring Provider: [place], [address]. tel:[phone] OFFICE/OUTPA TIENT VISIT, EST [facility] of , [address], [place], [id number], [place] tel:[phone] [facility] Main Office No Information 0 Fabio Paul. [address], [place], [address] , [place]. tel:[phone] Referring Provider: [place], [address]. [phone] OFFICE/OUTPA TIENT VISIT, EST [facility] of , [address], [place], [address], [place] tel:[phone] [facility] Main Office No Information 0-202 0 Fabio Paul. [address], [place], [id number] , [place]. tel: [phone] Referring Provider: Gulshan Stewart, [place], [address]. tel:[phone] OFFICE/OUTPA TIENT VISIT, EST [facility] of , [address], [place], [address], [place] tel:[phone] [facility] Main Office Follow Up of Rheumatoid Arthritis (chief complaint)Fo llow up (chief complaint) RA w/o rheumatoid factor of multiple sitesOther spondylosis, cervical regionCervic algiaOther block operator (current) drug therapyLong term (current) use of opiate analgesicBod y mass index (BMI) 30.0-30.9, adult Jun-0 2- 0 Fabio Paul. [address], [place], [id number] , [place]. tel: [phone] Leif Arrington, [address], [place], [address]. tel:[phone] ng Provider: Gulshan Stewart, [place], [address]. tel:[phone] [facility] of , [address], [place], [id number], [place] tel:[phone] [facility] Main Office No Information 2 9 Fabio Paul. [address], [place], [id number] , [place]. tel: [phone] Referring Provider: [place], [address]. tel:[phone] OFFICE/OUTPA TIENT VISIT, EST [facility] of , [address], [place], [address], [place] tel:[phone] [facility] Main Office Follow Up of Rheumatoid Arthritis (chief complaint) RA w/o rheumatoid factor of multiple sitesOther spondylosis, cervical regionCervic algiaOther block operator (current) drug therapyBody mass index (BMI) 34.0-34.9, adultElevate d blood-pressu re reading, w/o diagnosis of htn 9 Fabio Paul. [address], [place], [address] , [place]. tel: [phone] Leif Dominguezis, [address], [place], [address]. tel:[phone] ng Provider: [place], [address]. tel:[phone] OFFICE/OUTPA TIENT VISIT, EST [facility] of , [address], [place], [id number], [place] tel:[phone] [facility] Main Office No Information 9 Fabio Paul. [address], [place], [address] , [place]. tel: [phone] Referring Provider: [place], [address]. tel:[phone] OFFICE/OUTPA TIENT VISIT, EST [facility] of , [address], [place], [id number], [place] tel:[phone] [facility] Main Office No Information 9 Fabio Paul. [address], [place], [id number] , [place]. tel: [phone] Referring Provider: [place], [address]. tel:[phone] OFFICE/OUTPA TIENT VISIT, EST [facility] of , [address], [place], [id number], [place] tel:[phone] [facility] Main Office Follow Up of Neck Pain (chief complaint)Fo llow Up of Rheumatoid Arthritis (chief complaint)Fo llow up (chief complaint) RA w/o rheumatoid factor of multiple sitesOther spondylosis, cervical regionCervic algiaBody mass index (BMI) 33.0-33.9, adultOther block operator (current) drug therapyPain in left foot Sep-0 -201 9 Fabio Paul. [address], [place], [id number] , [place]. tel:[phone] Leif Dominguezis, [address], [place], [address]. [phone] ng Provider: [place], [address]. tel:[phone] OFFICE/OUTPA TIENT VISIT, EST [facility] of , [address], [place], [id number], [place] tel:[phone] [facility] Main Office No Information 9 Fabio Paul. [address], [place], [address] , [place]. tel: [phone] Referring Provider: Driss Glass [place], [place], . tel:[phone] OFFICE/OUTPA TIENT VISIT, EST [facility] of , [address], [place], [address], [place] tel:[phone] [facility] Main Office No Information 9 Fabio Paul. [address], [place], [address] , [place]. [phone] Referring Provider: [place], [address]. tel:[phone] OFFICE/OUTPA TIENT VISIT, EST [facility] of , [address], [place], [id number], [place] tel:[phone] [facility] Main Office No Information 9 Fabio Paul. [address], [place], [id number] , [place]. tel: [phone] Referring Provider: Gulshan Stewart, [address] [place], [address]. tel:[phone] [facility] of , [address], [place], [id number], [place] tel: [phone] [facility] Main Office No Information 9 Fabio Paul. [address], [place], [id number] , [place]. tel: [phone] OFFICE/OUTPA TIENT VISIT, EST [facility] of , [address], [place], [address], [place] tel: [phone] [facility] Main Office Follow Up of Neck Pain (chief complaint)Fo llow Up of Rheumatoid Arthritis (chief complaint) RA w/o rheumatoid factor of multiple sitesOther block operator (current) drug therapyCervi calgiaOther spondylosis, cervical regionBody mass index (BMI) 33.0-33.9, adult 9 Fabio Paul. [address], [place], [address] , [place]. tel: [phone] Leif Arrington, [address], [place], [address]. tel:[phone] ng Provider: Gulshan Stewart, [address] [place], [address]. tel:[phone] OFFICE/OUTPA TIENT VISIT, EST [facility] of , [address], [place], [id number], [place] tel:[phone] [facility] Main Office No Information 9 Fabio Paul. [address], [place], [address] , [place]. tel: [phone] Referring Provider: Gulshan Stewart, [place], [address]. tel:[phone] OFFICE/OUTPA TIENT VISIT, EST [facility] of , [address], [place], [id number], [place] tel:[phone] [facility] Main Office Follow Up of Rheumatoid Arthritis (chief complaint) RA w/o rheumatoid factor of multiple sitesOther intermediate (current) drug therapyLong term (current) use of opiate analgesicBod y mass index (BMI) 33.0-33.9, adultPrimary generalized OA Apr-0 201 9 Fabio Paul. [address], [place], [address] , [place]. tel:[phone] Leif Arrington, [address], [place], [address]. tel:[phone] ng Provider: Gulshan Stewart, [place], [address]. tel:[phone] OFFICE/OUTPA TIENT VISIT, EST [facility] of , [address], [place], [address], [place] tel:[phone] [facility] Main Office No Information 9 Fabio Paul. [address], [place], [address] , [place]. [phone] Referring Provider: Gulshan Stewart, [place], [address]. tel:[phone] OFFICE/OUTPA TIENT VISIT, EST [facility] of , [address], [place], [id number], [place] tel:[phone] [facility] Main Office No Information 9 Fabio Paul. [address], [place], [id number] , [place]. tel:[phone] Referring Provider: Gulshan Stewart, Edelmira2 Latoya Perry MD, . tel:[phone] OFFICE/OUTPA TIENT VISIT, EST [facility] of , [address], [place], [address], [place] tel:[phone] [facility] Main Office No Information 9 Fabio Paul. [address], [place], [address] , [place]. tel:[phone] Referring Provider: Gulshan Stewart, Latoya Douglas MD, . tel:[phone] OFFICE/OUTPA TIENT VISIT, EST [facility] of , [address], [place], [id number], [place] tel:[phone] [facility] Main Office No Information 8 Fabio Paul. [address], [place], [id number] , [place]. tel: [phone] Referring Provider: Gulshan Stewart, Latoya Douglas MD, . tel:[phone] OFFICE/OUTPA TIENT VISIT, EST [facility] of , [address], [place], [address], [place] tel:[phone] [facility] Main Office Follow Up of Rheumatoid Arthritis (chief complaint) RA w/o rheumatoid factor of multiple sitesOther intermediate (current) drug therapyBody mass index (BMI) 34.0-34.9, adultElevate d blood-pressu re reading, w/o diagnosis of htnPrimary OA of left knee 8 Fabio Paul. [address], [place], [id number] , [place]. tel:[phone] Leif Arrington, [address], [place], [address]. tel:[phone] ng Provider: Gulshan Stewart, [place], [address]. tel:[phone] OFFICE/OUTPA TIENT VISIT, EST [facility] of , [address], [place], [id number], [place] tel:[phone] [facility] Main Office No Information 5-201 8 Fabio Paul. [address], [place], [address] , [place]. tel:[phone] Referring Provider: [place], [address]. tel:[phone] OFFICE/OUTPA TIENT VISIT, EST [facility] of , [address], [place], [id number], [place] tel:[phone] [facility] Main Office No Information 8-201 8 Fabio Paul. [address], [place], [address] , [place]. tel:[phone] Referring Provider: Gulshan Stewart, [place], [address]. tel:[phone] OFFICE/OUTPA TIENT VISIT, EST [facility] of , [address], [place], [id number], [place] tel:[phone] [facility] Main Office No Information 0- 8 Fabio Paul. [address], [place], [id number] , [place]. tel:[phone] Referring Provider: [place], [address]. tel:[phone] OFFICE/OUTPA TIENT VISIT, EST [facility] of , [address], [place], [id number], [place] tel:[phone] [facility] Main Office Follow Up of Rheumatoid Arthritis (chief complaint) RA w/o rheumatoid factor of multiple sitesOther intermediate (current) drug therapyBody mass index (BMI) 32.0-32.9, adult Aug-0 6-201 8 Fabio Paul. [address], [place], [address] , [place]. tel:[phone] Leif Arrington, [address], [place], [address]. tel:[phone] ng Provider: Gulshan Stewart, [address] [place], [address]. tel:[phone] [facility] of , [address], [place], [address], [place] tel:[phone] [facility] Main Office No Information 8 Fabio Paul. [address], [place], [id number] , [place]. tel:[phone] Referring Provider: Gulshan Stewart, [address] [place], [address]. tel:[phone] OFFICE/OUTPA TIENT VISIT, EST [facility] of , [address], [place], [address], [place] tel:[phone] [facility] Main Office No Information 8 Fabio Paul. [address], [place], [address] , [place]. tel:[phone] Referring Provider: Gulshan Stewart, [address] [place], [address]. tel:[phone] OFFICE/OUTPA TIENT VISIT, EST [facility] of , [address], [place], [id number], [place] tel:[phone] [facility] Main Office Follow Up of Rheumatoid Arthritis (chief complaint) RA w/o rheumatoid factor of multiple sitesOther block operator (current) drug therapyLong term (current) use of opiate analgesicLon g term (current) use of non-steroida l anti-inflamm atories (NSAID) 8 Fabio Paul. [address], [place], [address] , [place]. tel:[phone] Leif Arrington, [address], [place], [address]. tel:[phone] ng Provider: Gulshan Stewart, [place], [address]. tel:[phone] [facility] of , [address], [place], [id number], [place] tel:[phone] [facility] Main Office No Information 8 Fabio Paul. [address], [place], [address] , [place]. tel: [phone] Referring Provider: Gulshan Stewart, [place], [address]. tel:[phone] [facility] , [address], [place], [id number], [place] tel:[phone] [facility] Main Office Follow Up of Rheumatoid Arthritis (chief complaint) RA w/o rheumatoid factor of multiple sitesOther intermediate (current) drug therapyLong term (current) use of non-steroida l anti-inflamm atories (NSAID) 8 Fabio Paul. [address], [place], [id number] , [place]. tel: [phone] Leif Arrington, [address], [place], [address]. tel:[phone] ng Provider: Gulshan Stewart, [place], [address]. tel:[phone] [facility] , [address], [place], [id number], [place] tel:[phone] [facility] Main Office No Information 8 Fabio Paul. [address], [place], [id number] , [place]. tel: [phone] Referring Provider: Gulshan Stewart, [address] [place], [address]. tel:[phone] [facility] , [address], [place], [id number], [place] tel:[phone] [facility] Main Office No Information Fabio Paul. [address], [place], [id number] , [place]. tel: [phone] Referring Provider: Gulshan Stewart, [address] [place], [address]. tel:[phone] [facility] , [address], [place], [id number], [place] tel:[phone] [facility] Main Office No Information Fabio Paul. [address], [place], [id number] , [place]. tel: [phone] Referring Provider: Gulshan Stewart, [address] [place], [address]. tel:[phone] OFFICE/OUTPA TIENT VISIT, EST [facility] of , [address], [place], [id number], [place] [phone] [facility] Main Office Follow Up of Rheumatoid Arthritis (chief complaint) RA w/o rheumatoid factor of multiple sitesOther intermediate (current) drug therapy Fabio Paul. [address], [place], [id number] , [place]. tel: [phone] Leif Arrington, [address], [place], [address]. tel:[phone] ng Provider: Gulshan Stewart, [address] [place], [address]. tel:[phone] [facility] , [address], [place], [id number], [place] tel:[phone] [facility] Main Office Follow Up of Rheumatoid Arthritis (chief complaint) RA w/o rheumatoid factor of multiple sitesOther block operator drug therapyBody mass index (BMI) 30.0-30.9, adult Dec- 7 Fabio Paul. [address], [place], [id number] , [place]. tel:[phone] Leif Arrington, [address], [place], [address]. tel:[phone] OFFICE/OUTPA TIENT VISIT, EST [facility] of , [address], [place], [id number], [place] tel:[phone] [facility] Main Office Follow Up of Rheumatoid Arthritis (chief complaint) RA w/o rheumatoid factor of multiple sitesOther intermediate drug therapyBody mass index (BMI) 30.0-30.9, adult Nov- Fabio Paul. [address], [place], [id number] , [place]. tel:[phone] Leif Arrington, [address], [place], [address]. tel:[phone] Provider: Gulshan Stewart, [address], [place], [address]. tel:[phone] OFFICE/OUTPA TIENT VISIT, EST [facility] , [address], [place], [id number], [place] tel:[phone] [facility] Main Office Follow Up of Rheumatoid Arthritis (chief complaint) RA w/o rheumatoid factor of multiple sitesOther intermediate drug therapyGener alized osteoarthrit isLong term (current) use of non-steroida l anti-inflamm atories (NSAID) 7 Fabio Paul. [address], [place], [id number] , [place]. tel:[phone] Leif Arrington, [address], [place], [address]. tel:[phone] masha Provider: Gulshan Stewart, [address] [place] MD, . tel:[phone] [facility] , [address], [place], [id number], [place] tel:[phone] [facility] Main Office No Information 7 Fbaio Paul. [address], [place], [id number] , [place]. tel:[phone] Referring Provider: Gulshan Stewart, [address] [place] MD, . tel:[phone] OFFICE/OUTPA TIENT VISIT, EST [facility] , [address], [place], [id number], [place] tel:[phone] [facility] Main Office Follow Up of Rheumatoid Arthritis (chief complaint) RA w/o rheumatoid factor of multiple sitesOther block operator drug therapyGener alized osteoarthrit isLong term (current) use of non-steroida l anti-inflamm atories (NSAID) Jul- 7 Fabio Paul. [address], [place], [id number] , [place]. tel:[phone] Leif Arrington, [address], [place], [address]. tel:[phone] masha Provider: Gulshan Stewart, Edelmira2 Latoya [place] MD, . tel:[phone] [facility] , [address], [place], [id number], [place] tel:[phone] [facility] Main Office No Information 7 Fabio Paul. [address], [place], [id number] , [place]. tel:[phone] Referring Provider: Gulshan Stewart, [address] [place], [address]. tel:[phone] [facility] , [address], [place], [id number], [place] tel:[phone] [facility] Main Office No Information Fabio Paul. [address], [place], [id number] , [place]. tel:[phone] Referring Provider: Gulshan Stewart, [address]2 [place], [address]. tel:[phone] [facility] of , [address], [place], [id number], [place] tel:[phone] [facility] Main Office No Information Fabio Paul. [address], [place], [id number] , [place]. tel:[phone] Referring Provider: Gulshan Stewart, [address]2 [place], [address]. tel:[phone] [facility] , [address], [place], [id number], [place] tel:[phone] [facility] Main Office Follow Up of Rheumatoid Arthritis (chief complaint) RA w/o rheumatoid factor of multiple sitesOther intermediate drug therapyGener alized osteoarthrit isLong term (current) use of non-steroida l anti-inflamm atories (NSAID)Troch anteric bursitis, right hipPain in right hip Fabio Paul. [address], [place], [id number] , [place]. tel: [phone] Leif Arrington, [address], [place], [address]. tel:[phone] ng Provider: Gulshan Stewart, [address]ira2 [place], [address]. tel:[phone] OFFICE/OUTPA TIENT VISIT, EST [facility] of , [address], [place], [id number], [place] tel:[phone] [facility] Main Office Follow Up of Rheumatoid Arthritis (chief complaint) RA w/o rheumatoid factor of multiple sitesOther block operator drug therapyGener alized osteoarthrit isLong term (current) use of non-steroida l anti-inflamm atories (NSAID) 7-201 6 Fabio Paul. [address], [place], [address] , [place]. tel:[phone] Leif Arrington, [address], [place], [address]. tel:[phone] ng Provider: Gulshan Stewart, [place], [address]. tel:[phone] OFFICE/OUTPA TIENT VISIT, EST [facility] , [address], [place], [id number], [place] tel:[phone] [facility] Main Office Follow Up of Rheumatoid Arthritis (chief complaint) RA w/o rheumatoid factor of multiple sitesOther block operator drug therapyGener alized osteoarthrit isLong term (current) use of non-steroida l anti-inflamm atories (NSAID) 6 Fabio Paul. [address], [place], [address] , [place]. tel:[phone] Leif Arrington, [address], [place], [address]. tel:[phone] ng Provider: Gulshan Stewart, [address]2 [place], [address]. tel:[phone] OFFICE/OUTPA TIENT VISIT, EST [facility] of , [address], [place], [id number], [place] tel:[phone] [facility] Main Office Follow Up of Rheumatoid Arthritis (chief complaint) RA w/o rheumatoid factor of multiple sitesOther block operator drug therapyGener alized osteoarthrit isLong term (current) use of non-steroida l anti-inflamm atories (NSAID) 6 Fabio Paul. [address], [place], [address] , [place]. tel:[phone] Leif Arrington, [address], [place], [address]. tel:[phone] ng Provider: Gulshan Stewart, [address], [place], [address]. tel:[phone] OFFICE/OUTPA TIENT VISIT, EST [facility] , [address], [place], [id number], [place] tel:[phone] [facility] Main Office Follow Up of Rheumatoid Arthritis (chief complaint) RA w/o rheumatoid factor of multiple sitesOther block operator drug therapyGener alized osteoarthrit is 6 Fabio Paul. [address], [place], [id number] , [place]. tel:[phone] Leif Arrington, [address], [place], [address]. tel:[phone] ng Provider: Venus Mont[address], [place], [address]. tel:[phone] OFFICE/OUTPA TIENT VISIT, EST [facility] , [address], [place], [id number], [place] tel:[phone] [facility] Main Office Follow Up of Rheumatoid Arthritis (chief complaint) RA w/o rheumatoid factor of multiple sitesOther intermediate drug therapyGener alized osteoarthrit is 6 Fabio Paul. [address], [place], [id number] , [place]. tel:[phone] Leif Arrington, [address], [place], [address]. tel:[phone] masha Provider: Venus Montoya [address], [place], [address]. tel:[phone] OFFICE/OUTPA TIENT VISIT, EST [facility] , [address], [place], [id number], [place] tel:[phone] [facility] Main Office Inflammatory Polyarthropa thy (chief complaint) Inflammatory polyarthropa thyGeneraliz ed osteoarthrit is 6 Fabio Paul. [address], [place], [address] , [place]. tel:[phone] Leif Arrington, [address], [place], [address]. tel:[phone] ng Provider: Leif Gonzalez, [address], [place], [address]. tel:[phone] OFFICE/OUTPA TIENT VISIT, EST [facility] , [address], [place], [id number], [place] tel:[phone] [facility] Main Office Inflammatory Polyarthropa thy (chief complaint) Inflammatory polyarthropa thyPain in left hipPrimary generalized (osteo)arthr itisLong term (current) use of non-steroida l anti-inflamm atories (NSAID) 6 Fabio Paul. [address], [place], [address] , [place]. tel:[phone] Leif Arrington, [address], [place], [address]. tel:[phone] masha Provider: Leif Gonzalez, [address], [place], [address]. tel:[phone] OFFICE/OUTPA TIENT VISIT, EST [facility] , [address], [place], [id number], [place] tel:[phone] [facility] Main Office Osteoarthrit is (chief complaint) Primary generalized (osteo)arthr itisLong term (current) use of non-steroida l anti-inflamm atories (NSAID) 6 Fabio Paul. [address], [place], [address] , [place]. tel:[phone] Referring Provider: Leif Gonzalez, [address], [place], [address]. tel:[phone] OFFICE/OUTPA TIENT VISIT, EST [facility] of , [address], [place], [id number], [place] tel:[phone] [facility] Main Office Follow Up of Osteoarthrit is (chief complaint) Osteoarthros is, generalized, involving unspecified siteDisorder s of bursae and tendons in shoulder region, unspecified Jul- 5 Fabio Paul. [address], [place], [id number] , [place]. tel:[phone] Referring Provider: Leif Gonzalez, [address], [place], [address]. tel:[phone] OFFICE/OUTPA TIENT VISIT, EST [facility] , [address], [place], [id number], [place] tel:[phone] [facility] Main Office Follow Up of Right shoulder pain (chief complaint) Disorders of bursae and tendons in shoulder region, unspecifiedP ainful shoulder 4 Fabio Paul. [address], [place], [address] , [place]. tel:[phone] Referring Provider: Leif Gonzalez, [address], [place], [address]. tel:[phone] OFFICE/OUTPA TIENT VISIT, EST [facility] , [address], [place], [id number], [place] tel:[phone] [facility] Main Office No Information 4 Fabio Paul. [address], [place], [address] , [place]. tel:[phone] Referring Provider: Peter Gonzalez, [address], [place], [address]. tel:[phone] OFFICE/OUTPA TIENT VISIT, EST [facility] , [address], [place], [id number], [place] tel:[phone] [facility] Main Office Follow Up of Osteoarthrit is (chief complaint) Osteoarthrit is, GeneralizedL TU-TERM (CURRENT) USE OF NON-STEROIDA L ANTI-INFLAMM ATORIES 4 Fabio Paul. [address], [place], [address] , [place]. tel:[phone] Referring Provider: Leif Gonzalez, [address], [place], [address]. tel:[phone] OFFICE/OUTPA TIENT VISIT, EST [facility] , [address], [place], [id number], [place] tel:[phone] [facility] Main Office Osteoarthrit is (chief complaint) Disorders of bursae and tendons in shoulder region, unspecifiedO steoarthriti s, Generalized 4 Fabio Paul. [address], [place], [id number] , [place]. tel:[phone] Referring Provider: Leif Gonzalez, [address], [place], [address]. tel:[phone] OFFICE/OUTPA TIENT VISIT, EST [facility] of , [address], [place], [id number], [place] tel:[phone] [facility] Main Office Osteoarthrit is (chief complaint) Osteoarthrit is, GeneralizedD isorders of bursae and tendons in shoulder region, unspecifiedL TU-TERM (CURRENT) USE OF NON-STEROIDA L ANTI-INFLAMM ATORIES 4 Fabio Paul. [address], [place], [address] , [place]. tel:[phone] Referring Provider: Leif Gonzalez [address], [place], [address]. tel:[phone] OFFICE/OUTPA TIENT VISIT, EST [facility] of , [address], [place], [address], [place] tel:[phone] [facility] Main Office Osteoarthrit is (chief complaint) Osteoarthrit is, Generalized 3 Fabio Paul. [address], [place], [address] , [place]. tel:[phone] Referring Provider: Leif Gonzalez, [address], [place], [address]. tel:[phone] OFFICE/OUTPA TIENT VISIT, EST [facility] of , [address], [place], [id number], [place] tel:[phone] [facility] Main Office for joint pain (chief complaint) Osteoarthrit is, GeneralizedA rticular cartilage disorder involving forearmRadia l styloid tenosynoviti s 3 Fabio Paul. [address], [place], [address] , [place]. tel:[phone] Referring Provider: Leif Gonzalez, [address], [place], [address]. tel:[phone] OFFICE/OUTPA TIENT VISIT, NEW [facility] of , [address], [place], [id number], [place] tel:[phone] [facility] Main Office myalgia (chief complaint) Fatigue / MalaisePain in joint involving multiple sites 3 Fabio Paul. [address], [place], [address] , [place]. tel:[phone] Referring Provider: Leif Gonzalez, [address], [place], [address]. tel:[phone] Family History Family Member Type Diagnosis Age [...] constitution party ID Authoriza tion(s) Medicare [place] [id number] [employer] [place] [id number] Medicare MB [id number] [employer] [place] [id number] Medicare MB [id number] [employer] [place] [id number] Medicare MB [id number] [employer] [place] [id number] Social History Type Description Quantity Date Captured [...] OA) ordered Referral Referred To: Toan Berry [address] [place], [id number] Ordered: Referrals: Allopathic & Osteopathic Physicians : Anesthesiology. Toan Berry. Consult ordered Referral Ordered: Madi Holder -Allopathic & Osteopathic Physicians : Internal Medicine : Nephrology (related to CKD) ordered Referral Referred To: Madi Holder [address] [facility]
[address] [place], [phone] Ordered: Referrals: Allopathic & Osteopathic Physicians : [...] Future Order: Lab Order Lipid Pa rashard ([id number]), Ordered on: Ordered Future Order: Lab Order COMPREHE NSIVE METABOLIC PANEL (CMP), Collected on: , Sent on: Sent Future Order: Lab Order CBC Diff erential And Platlet (CBC PLT DIFF), Ordered on: Ordered Future Order: Lab Order CMP ([id number]), Orde red on: Ordered Future Order: Lab Order CBC Diff erential And Platlet (CBC PLT DIFF), Collected on: Ordered Future Order: Lab Order CMP ([id number]), Wally ected on: Ordered Future Order: Lab [...]
--- OUTSIDE RECORDS SUMMARY | 2024-11-28 06:00 | XMS_ITS | Continuity of Care Document ---
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 Name Role Phone Fabio MANCINI, Paul Unavailable Unavailable Allergies, Adverse Reactions, Alerts Substance Reaction Status Criticality No Known Allergies Active No Inform ation Medications Medication Instructions Dosage Effective Dates (start - stop) Status Comments ergocalciferol (vitamin D2) 1,250 mcg (50,000 unit) capsule take 1 capsule by oral route every week [address]642 UNITS - Active Simponi ARIA 12.5 mg/mL [...] Providers Copied on Encounter OFFICE/OUTPA TIENT VISIT, [facility] , [address], [place], [id number], [place] tel:[phone] [facility] Main Office No Information Fabio Miller. [address], [place], [id number] , [place]. tel:[phone] Referring Provider: Rosalba Shaw, [address], [place], [address]. tel:[phone] OFFICE/OUTPA TIENT VISIT, EST [facility] anjelica MANCINI, [address], [place], [id number], [place] tel:[phone] [facility] Main Office Age-related osteoporosis without current pathological fracture 5 Fabio Paul. [address], [place], [id number] , [place]. tel:[phone] Referring Provider: Pilo Hinojosa, [address], [place], [address]. 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 [address], [place], [id number] , [place]. tel:[phone] Leif Arrington, [address], [place], [address]. tel:[phone] ist: Madi Gallo, [address], [place], [address]. tel:[phone] ist: Sunni Ackerman, [address], [place], [address]. tel:[phone] ng Provider: Pilo Hinojosa, [address], [place], [address]. tel:[phone] [facility] of , [address], [place], [id number], [place] tel:[phone] [facility] Main Office No Information 5 Fabio Paul. [address], [place], [id number] , [place]. 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 [address], [place], [id number] , [place]. tel:[phone] Leif Arrington, [address], [place], [address]. tel:[phone] ist: Madi Holder, [address] [facility] [address] [facility] [address], [place], [address]. tel:[phone] ist: Sunni Ackerman, [address], [place], [address]. tel:[phone] ng Provider: Rosalba Shaw, [address], [place], [address]. tel:[phone] OFFICE/OUTPA TIENT VISIT, EST [facility] of , [address], [place], [id number], [place] tel:[phone] [facility] Main Office No Information Jul- 5 Fabio Miller. [address], [place], [id number] , [place]. tel:[phone] Referring Provider: Pilo Hinojosa, [address], [place], [address]. tel:[phone] OFFICE/OUTPA TIENT VISIT, EST [facility] of , [address], [place], [id number], [place] tel:[phone] [facility] Main Office Follow Up [...] [address], [place], [id number] , [place]. tel:[phone] Leif Arrington, [address], [place], [address]. tel:[phone] ist: Madi Holder, [address], [place], [address]. tel:[phone] ist: Sunni Ackerman, [address], [place], [address]. tel:[phone] ng Provider: Rosalba Shaw, [address], [place], [address]. tel:[phone] OFFICE/OUTPA TIENT VISIT, EST [facility] of , [address], [place], [id number], [place] tel:[phone] [facility] Main Office No Information 4 Fabio Miller. [address], [place], [id number] , [place]. tel:[phone] Referring Provider: Pilo Hinojosa, [address], [place], [address]. tel:[phone] OFFICE/OUTPA TIENT VISIT, EST [facility] of , [address], [place], [id number], [place] tel:[phone] [facility] Main Office Follow Up [...] [address], [place], [id number] , [place]. tel:[phone] Leif Arrington, [address], [place], [address]. tel:[phone] ist: Madi Holder, [address], [place], [address]. tel:[phone] ist: Sunni Ackerman, [address], [place], [address]. tel:[phone] ng Provider: Pilo Hinojosa, [address] [place] [address] [address], [place], [address]. tel:[phone] OFFICE/OUTPA TIENT VISIT, EST [facility] of , [address], [place], [id number], [place] tel:[phone] [facility] Main Office No Information 4 Fabio Paul. [address], [place], [id number] , [place]. tel:[phone] Referring Provider: Pilo Hinojosa, [address] [place] [address] [address], [place], [address]. [phone] OFFICE/OUTPA TIENT VISIT, EST [facility] of , [address], [place], [id number], [place] tel:[phone] [facility] Main Office No Information 4 Fabio Paul. [address], [place], [id number] , [place]. tel:[phone] Referring Provider: Pilo Hinojosa, [address], [place], [address]. 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 [address], [place], [id number] , [place]. tel:[phone] Leif Arrington, [address], [place], [address]. tel:[phone] ist: Madi Holder, [address], [place], [address]. tel:[phone] ist: Sunni Ackerman, [address], [place], [address]. tel:[phone] ng Provider: Pilo Hinojosa, [address], [place], [address]. tel:[phone] OFFICE/OUTPA TIENT VISIT, EST [facility] of , [address], [place], [id number], [place] tel:[phone] [facility] Main Office No Information 4 Fabio Paul. [address], [place], [id number] , [place]. tel:[phone] Referring Provider: Pilo Hinojosa, [address], [place], [address]. tel:[phone] OFFICE/OUTPA TIENT VISIT, EST [facility] of , [address], [place], [id number], [place] tel:[phone] [facility] Main Office No Information 4 Fabio Paul. [address], [place], [id number] , [place]. tel:[phone] Referring Provider: Pilo Hinojosa, [address], [place], [address]. tel:[phone] OFFICE/OUTPA TIENT VISIT, EST [facility] of , [address], [place], [id number], [place] tel:[phone] [facility] Main Office No Information 4 Fabio Paul. [address], [place], [address] , [place]. tel:[phone] Referring Provider: Pilo Hinojosa, [address], [place], [address]. tel:[phone] OFFICE/OUTPA TIENT VISIT, EST [facility] of , [address], [place], [address], [place] tel:[phone] [facility] Main Office Follow Up [...] [address], [place], [address] , [place]. tel:[phone] Leif Arrington, [address], [place], [address]. tel:[phone] ist: Madi Holder, [address], [place], [address]. tel:[phone] ist: Sunni Ackerman, [address], [place], [address]. tel:[phone] ng Provider: Pilo Hinojosa, [address], [place], [address]. tel:[phone] OFFICE/OUTPA TIENT VISIT, EST [facility] of , [address], [place], [id number], [place] tel:[phone] [facility] Main Office No Information 4 Fabio Paul. [address], [place], [address] , [place]. tel:[phone] Referring Provider: Pilo Hinojosa, [address], [place], [address]. tel:[phone] OFFICE/OUTPA TIENT VISIT, EST [facility] of , [address], [place], [id number], [place] tel:[phone] [facility] Main Office No Information 3 Fabio Paul. [address], [place], [address] , [place]. tel:[phone] Referring Provider: Pilo Hinojosa, [address], [place], [address]. tel:[phone] [facility] of , [address], [place], [id number], [place] tel:[phone] [facility] Main Office No Information 3 Fabio Paul. [address], [place], [address] , [place]. 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 [address], [place], [id number] , [place]. tel:[phone] Leif Arrington, [address], [place], [address]. tel:[phone] ist: Madi Holder, [address], [place], [address]. tel:[phone] ist: Sunni Ackerman, [address], [place], [address]. tel:[phone] ng Provider: Pilo Hinojosa, [address], [place], [address]. tel:[phone] [facility] of , [address], [place], [id number], [place] tel:[phone] [facility] Main Office No Information 0 3 Fabio Paul. [address], [place], [id number] , [place]. tel:[phone] OFFICE/OUTPA TIENT VISIT, EST [facility] of , [address], [place], [id number], [place] tel:[phone] [facility] Main Office No Information 3 Fabio Paul. [address], [place], [address] , [place]. tel:[phone] Referring Provider: Pilo Hinojosa, [address], [place], [address]. tel:[phone] OFFICE/OUTPA TIENT VISIT, EST [facility] of , [address], [place], [address], [place] tel:[phone] [facility] Main Office No Information 3 Fabio Paul. [address], [place], [address] , [place]. tel:[phone] Referring Provider: Pilo Hinojosa, [address], [place], [address]. tel:[phone] OFFICE/OUTPA TIENT VISIT, EST [facility] of , [address], [place], [id number], [place] tel:[phone] [facility] Main Office No Information 3 Fabio Paul. [address], [place], [address] , [place]. tel:[phone] Referring Provider: Pilo Hinojosa, [address], [place], [address]. tel:[phone] OFFICE/OUTPA TIENT VISIT, EST [facility] of , [address], [place], [address], [place] tel:[phone] [facility] Main Office No Information 3 Fabio Paul. [address], [place], [id number] , [place]. tel:[phone] Referring Provider: Pilo Hinojosa, [address], [place], [address]. tel:[phone] OFFICE/OUTPA TIENT VISIT, EST [facility] of , [address], [place], [address], [place] tel:[phone] [facility] Main Office Follow Up of GOA (chief complaint)Fo llow Up of RA (chief complaint) Immunodefici ency due to drugsRA w/o rheumatoid factor of multiple sitesGeneral ized OAPain in unspecified jointCKDLong term (current) use of immunosuppre ssive biologicBody mass index (BMI) 30.0-30.9, adult 3 Fabio Paul. [address], [place], [address] , [place]. tel:[phone] Leif Arrington, [address], [place], [address]. tel:[phone] ist: Madi Holder, [address], [place], [address]. tel:[phone] ist: Sunni Ackerman [address], [place], [address]. tel:[phone] ng Provider: Pilo Hinojosa, [address], [place], [address]. tel:[phone] OFFICE/OUTPA TIENT VISIT, EST [facility] of , [address], [place], [id number], [place] tel:[phone] [facility] Main Office No Information 3 Fabio Paul. [address], [place], [id number] , [place]. tel:[phone] Referring Provider: Pilo Hinojosa, [address], [place], [address]. tel:[phone] OFFICE/OUTPA TIENT VISIT, EST [facility] of , [address], [place], [id number], [place] tel:[phone] [facility] Main Office No Information 3 Fabio Paul. [address], [place], [address] , [place]. tel:[phone] Referring Provider: Pilo Hinojosa, [address], [place], [address]. tel:[phone] OFFICE/OUTPA TIENT VISIT, EST [facility] of , [address], [place], [address], [place] tel:[phone] [facility] Main Office No Information 3 Fabio Paul. [address], [place], [address] , [place]. tel:[phone] Referring Provider: Pilo Hinojosa, [address], [place], [address]. tel:[phone] OFFICE/OUTPA TIENT VISIT, EST [facility] of , [address], [place], [id number], [place] tel:[phone] [facility] Main Office No Information Jul-0 3 Fabio Paul. [address], [place], [address] , [place]. tel:[phone] Referring Provider: Pilo Hinojosa, [address], [place], [address]. tel:[phone] OFFICE/OUTPA TIENT VISIT, EST [facility] of , [address], [place], [id number], [place] tel:[phone] [facility] Main Office Follow Up of GOA (chief complaint)Fo llow Up of RA (chief complaint) Immunodefici ency due to drugsRA w/o rheumatoid factor of multiple sitesGeneral ized OACKDLong term (current) use of immunosuppre ssive biologicPain in unspecified joint Jun-2 3 Fabio Paul. [address], [place], [address] , [place]. tel:[phone] Leif Arrington, [address], [place], [address]. tel:[phone] ist: Madi Gallo, [address], [place], [address]. tel:[phone] ist: Sunni Ackerman, [address], [place], [address]. tel:[phone] ng Provider: Pilo Hinojosa, [address], [place], [address]. tel:[phone] OFFICE/OUTPA TIENT VISIT, EST [facility] of , [address], [place], [address], [place] tel:[phone] [facility] Main Office No Information 0 3 Fabio Paul. [address], [place], [address] , [place]. tel:[phone] Referring Provider: Pilo Hinojosa, [address], [place], [address]. tel:[phone] OFFICE/OUTPA TIENT VISIT, EST [facility] of , [address], [place], [address], [place] tel:[phone] [facility] Main Office No Information 3 Fabio Paul. [address], [place], [address] , [place]. tel: [phone] Referring Provider: Gulshan Stewart, [place], [address]. tel:[phone] OFFICE/OUTPA TIENT VISIT, EST [facility] of , [address], [place], [address], [place] tel:[phone] [facility] Main Office No Information 3 Fabio Paul. [address], [place], [address] , [place]. tel: [phone] Referring Provider: Gulshan Stewart, [address]2 Latoya Perry MD, . tel:[phone] OFFICE/OUTPA TIENT VISIT, EST [facility] of , [address], [place], [address], [place] tel:[phone] [facility] Main Office Follow Up of GOA (chief complaint)Fo llow Up of RA (chief complaint) Immunodefici ency due to drugsRA w/o rheumatoid factor of multiple sitesGeneral ized OACervicalgi aCKDLong term (current) use of opiate analgesicLon g term (current) use of immunosuppre ssive biologic 2 Fabio Paul. [address], [place], [address] , [place]. tel: [phone] Leif Arrington, [address], [place], [address]. tel:[phone] ist: Madi Holder, [address], [place], [address]. tel:[phone] ng Provider: Gulshan Stewart, [address] [place], [address]. tel:[phone] OFFICE/OUTPA TIENT VISIT, EST [facility] of , [address], [place], [address], [place] tel: [phone] [facility] Main Office No Information 2 Fabio Paul. [address], [place], [address] , [place]. tel:[phone] Referring Provider: Gulshan Stewart, [place], [address]. tel:[phone] OFFICE/OUTPA TIENT VISIT, EST [facility] of , [address], [place], [address], [place] tel:[phone] [facility] Main Office No Information 2 Fabio Paul. [address], [place], [address] , [place]. tel: [phone] Referring Provider: Gulshan Stewart, [address] [place], [address]. tel:[phone] OFFICE/OUTPA TIENT VISIT, EST [facility] of , [address], [place], [id number], [place] tel:[phone] [facility] Main Office No Information 2 Fabio Paul. [address], [place], [address] , [place]. tel: [phone] Referring Provider: Gulshan Stewart, [address] [place], [address]. tel:[phone] OFFICE/OUTPA TIENT VISIT, EST [facility] of , [address], [place], [address], [place] tel:[phone] [facility] Main Office Follow Up of Rheumatoid Arthritis (chief complaint)Fo llow Up of Generalized OA (chief complaint) Immunodefici ency due to drugsRA w/o rheumatoid factor of multiple sitesGeneral ized OACervicalgi aCKDLong term (current) use of opiate analgesicOth er mcc (current) drug therapyBody mass index (BMI) 33.0-33.9, adult 2 Fabio Paul. [address], [place], [address] , [place]. tel:[phone] Leif Arrington, [address], [place], [address]. tel:[phone] ist: Madi Holder, [address], [place], [address]. tel:[phone] ng Provider: Gulshan Stewart, [place], [address]. tel:[phone] OFFICE/OUTPA TIENT VISIT, EST [facility] of , [address], [place], [address], [place] tel:[phone] [facility] Main Office No Information 2 Fabio Miller. [address], [place], [address] , [place]. tel:[phone] Referring Provider: Gulshan Stewart, [place], [address]. tel:[phone] OFFICE/OUTPA TIENT VISIT, EST [facility] of , [address], [place], [id number], [place] tel:[phone] [facility] Main Office No Information 2 Fabio Paul. [address], [place], [address] , [place]. tel:[phone] Referring Provider: Gulshan Stewart, [place], [address]. tel:[phone] OFFICE/OUTPA TIENT VISIT, EST [facility] of , [address], [place], [address], [place] tel:[phone] [facility] Main Office No Information 2 Fabio Paul. [address], [place], [address] , [place]. tel:[phone] Referring Provider: Gulshan Stewart, [address] [place], [address]. tel:[phone] OFFICE/OUTPA TIENT VISIT, EST [facility] of , [address], [place], [address], [place] tel:[phone] [facility] Main Office No Information 2 Fabio Paul. [address], [place], [address] , [place]. tel:[phone] Referring Provider: Pilo Hinojosa, [address], [place], [address]. tel:[phone] OFFICE/OUTPA TIENT VISIT, EST [facility] of , [address], [place], [id number], [place] tel:[phone] [facility] Main Office No Information 2 Fabio Paul. [address], [place], [id number] , [place]. tel:[phone] Referring Provider: Gulshan Stewart, [address] [place], [address]. tel:[phone] OFFICE/OUTPA TIENT VISIT, EST [facility] of , [address], [place], [id number], [place] tel:[phone] [facility] Main Office Follow Up of Rheumatoid Arthritis (chief complaint)Fo llow Up of Generalized OA (chief complaint) Immunodefici ency due to drugsRA w/o rheumatoid factor of multiple sitesGeneral ized OALong term (current) use of opiate analgesicOth er intermediate frame tender (current) drug therapyCKDCe rvicalgia 2 Fabio Paul. [address], [place], [address] , [place]. tel: [phone] Leif Arrington, [address], [place], [address]. tel: [phone] ng Provider: Gulshan Stewart, [address] [place], [address]. tel: [phone] OFFICE/OUTPA TIENT VISIT, EST [facility] of , [address], [place], [id number], [place] tel: [phone] [facility] Main Office No Information 2 Fabio Paul. [address], [place], [address] , [place]. tel: [phone] Referring Provider: Gulshan Stewart, [address] [place], [address]. tel: [phone] OFFICE/OUTPA TIENT VISIT, EST [facility] of , [address], [place], [address], [place] tel: [phone] [facility] Main Office No Information 2 Fabio Paul. [address], [place], [address] , [place]. tel: [phone] Referring Provider: Gulshan Stewart, [address] [place], [address]. tel:[phone] OFFICE/OUTPA TIENT VISIT, EST [facility] of , [address], [place], [id number], [place] tel: [phone] [facility] Main Office No Information 1 Fabio Paul. [address], [place], [id number] , [place]. tel: [phone] Referring Provider: Gulshan Stewart, [address] [place], [address]. tel:[phone] OFFICE/OUTPA TIENT VISIT, EST [facility] of , [address], [place], [id number], [place] tel:[phone] [facility] Main Office No Information 1 Fabio Paul. [address], [place], [id number] , [place]. tel: [phone] Referring Provider: [place], [address]. tel:[phone] OFFICE/OUTPA TIENT VISIT, EST [facility] of , [address], [place], [id number], [place] tel:[phone] [facility] Main Office No Information 1 Fabio Paul. [address], [place], [id number] , [place]. tel: [phone] Referring Provider: Driss Glass [place], [place], . tel:[phone] OFFICE/OUTPA TIENT VISIT, EST [facility] of , [address], [place], [id number], [place] tel:[phone] [facility] Main Office Follow Up of Rheumatoid Arthritis (chief complaint)Fo llow Up of Generalized OA (chief complaint) Immunodefici ency due to drugsRA w/o rheumatoid factor of multiple sitesGeneral ized OALong term (current) use of opiate analgesicOth er mcc (current) drug therapyEncou nter for immunization Body mass index (BMI) 33.0-33.9, adult 1 Fabio Paul. [address], [place], [id number] , [place]. tel:[phone] Leif Arrington, [address], [place], [address]. tel:[phone] ng Provider: Gulshan Stewart, [place], [address]. tel:[phone] OFFICE/OUTPA TIENT VISIT, EST [facility] of , [address], [place], [id number], [place] tel:[phone] [facility] Main Office No Information 1 Fabio Paul. [address], [place], [address] , [place]. tel: [phone] Referring Provider: Gulshan Stewart, [place], [address]. tel:[phone] OFFICE/OUTPA TIENT VISIT, EST [facility] of , [address], [place], [id number], [place] tel: [phone] [facility] Main Office No Information 1 Fabio Paul. [address], [place], [address] , [place]. tel: [phone] Referring Provider: Gulshan Stewart, [address] [place], [address]. tel:[phone] [facility] of , [address], [place], [id number], [place] tel: [phone] [facility] Main Office No Information 1 Fabio Paul. [address], [place], [id number] , [place]. tel: [phone] Referring Provider: Gulshan Stewart, [address] [place], [address]. tel:[phone] OFFICE/OUTPA TIENT VISIT, EST [facility] of , [address], [place], [id number], [place] tel:[phone] [facility] Main Office No Information 1 Fabio Paul. [address], [place], [id number] , [place]. tel: [phone] Referring Provider: Gulshan Stewart, [address] [place], [address]. tel:[phone] OFFICE/OUTPA TIENT VISIT, EST [facility] of , [address], [place], [id number], [place] tel:[phone] [facility] Main Office Follow Up of Rheumatoid Arthritis (chief complaint)Fo llow Up of Generalized OA (chief complaint) Immunodefici ency due to drugsRA w/o rheumatoid factor of multiple sitesGeneral ized OALong term (current) use of opiate analgesicOth er intermediate frame tender (current) drug therapyBody mass index (BMI) 34.0-34.9, adult August- 1 Fabio Paul. [address], [place], [id number] , [place]. [phone] Leif Arrington, [address], [place], [address]. tel:[phone] ng Provider: Gulshan Stewart, [address] [place], [address]. tel:[phone] OFFICE/OUTPA TIENT VISIT, EST [facility] of , [address], [place], [id number], [place] tel:[phone] [facility] Main Office No Information 1 Fabio Paul. [address], [place], [id number] , [place]. tel:[phone] Referring Provider: Gulshan Stewart, [address] [place], [address]. tel:[phone] OFFICE/OUTPA TIENT VISIT, EST [facility] of , [address], [place], [id number], [place] tel:[phone] [facility] Main Office No Information 1 Fabio Paul. [address], [place], [address] , [place]. tel:[phone] Referring Provider: Gulshan Stewart, [place], [address]. tel:[phone] OFFICE/OUTPA TIENT VISIT, EST [facility] of , [address], [place], [id number], [place] tel:[phone] [facility] Main Office No Information 1 Fabio Miller. [address], [place], [address] , [place]. tel:[phone] Referring Provider: Gulshan Stewart, [address] [place], [address]. tel:[phone] OFFICE/OUTPA TIENT VISIT, EST [facility] of , [address], [place], [id number], [place] tel:[phone] [facility] Main Office No Information 1 Fabio Miller. [address], [place], [id number] , [place]. tel:[phone] Referring Provider: Gulshan Stewart, [address] MD, . tel:[phone] OFFICE/OUTPA TIENT VISIT, EST [facility] of , [address], [place], [id number], [place] tel:[phone] [facility] Main Office Follow Up of Rheumatoid Arthritis (chief complaint)Fo llow Up of Generalized OA (chief complaint) RA w/o rheumatoid factor of multiple sitesGeneral ized OALong term (current) use of opiate analgesicOth er mcc (current) drug therapyImmun odeficiency due to drugsBody mass index (BMI) 33.0-33.9, adult 1 Fabio Miller. [address], [place], [address] , [place]. tel:[phone] Referring Provider: Edelmira Glass[address] [place], [address]. tel:[phone] OFFICE/OUTPA TIENT VISIT, EST [facility] of , [address], [place], [id number], [place] tel: [phone] [facility] Main Office No Information 1 Fabio Paul. [address], [place], [address] , [place]. tel: [phone] Referring Provider: Gulshan Stewart, [place], [address]. tel:[phone] OFFICE/OUTPA TIENT VISIT, EST [facility] of , [address], [place], [id number], [place] tel: [phone] [facility] Main Office No Information 0 Fabio Paul. [address], [place], [address] , [place]. tel: [phone] Referring Provider: Gulshan Stewart, [place], [address]. tel:[phone] [facility] of , [address], [place], [id number], [place] tel: [phone] [facility] Main Office No Information 0 Fabio Paul. [address], [place], [address] , [place]. tel: [phone] Referring Provider: Gulshan Stewart, [address] [place], [address]. tel:[phone] OFFICE/OUTPA TIENT VISIT, EST [facility] of , [address], [place], [address], [place] tel:[phone] [facility] Main Office No Information 0 Fabio Paul. [address], [place], [address] , [place]. tel: [phone] Referring Provider: Gulshan Stewart, [address] [place], [address]. tel:[phone] OFFICE/OUTPA TIENT VISIT, EST [facility] of , [address], [place], [address], [place] tel:[phone] [facility] Main Office Follow Up of Rheumatoid Arthritis (chief complaint)Fo llow Up of Generalized OA (chief complaint) RA w/o rheumatoid factor of multiple sitesLong term (current) use of opiate analgesicOth er mcc (current) drug therapyGener alized OAEncounter for immunization Body mass index (BMI) 34.0-34.9, adultElevate d blood-pressu re reading, w/o diagnosis of htn 0 Fabio Paul. [address], [place], [id number] , [place]. tel:[phone] Leif Arrington, [address], [place], [address]. tel:[phone] ng Provider: Gulshan Stewart, [address] [place], [address]. tel:[phone] OFFICE/OUTPA TIENT VISIT, EST [facility] of , [address], [place], [id number], [place] tel:[phone] [facility] Main Office No Information 0 Fabio Paul. [address], [place], [address] , [place]. tel:[phone] Referring Provider: Gulshan Stewart, [address] [place], [address]. tel:[phone] OFFICE/OUTPA TIENT VISIT, EST [facility] of , [address], [place], [id number], [place] tel:[phone] [facility] Main Office No Information 0 Fabio Paul. [address], [place], [id number] , [place]. tel:[phone] Referring Provider: Gulshan Stewart [address] [place], [address]. tel:[phone] OFFICE/OUTPA TIENT VISIT, EST [facility] of , [address], [place], [id number], [place] tel:[phone] [facility] Main Office No Information 0 Fabio Paul. [address], [place], [id number] , [place]. tel:[phone] Referring Provider: Gulshan Stewart, [address] [place], [address]. tel:[phone] OFFICE/OUTPA TIENT VISIT, EST [facility] of , [address], [place], [id number], [place] tel:[phone] [facility] Main Office No Information 0 Fabio Paul. [address], [place], [id number] , [place]. tel:[phone] Referring Provider: Gulshan Stewart, [address] MD, . tel:[phone] OFFICE/OUTPA TIENT VISIT, EST [facility] of , [address], [place], [id number], [place] tel:[phone] [facility] Main Office Follow Up of Rheumatoid Arthritis (chief complaint) RA w/o rheumatoid factor of multiple sitesOther spondylosis, cervical regionCervic algiaLong term (current) use of opiate analgesicOth er mcc (current) drug therapy 0 Fabio Paul. [address], [place], [address] , [place]. tel:[phone] Leif Arrington, [address], [place], [address]. tel:[phone] ng Provider: Gulshan Stewart, [address] [place], [address]. tel:[phone] [facility] of , [address], [place], [id number], [place] tel:[phone] [facility] Main Office Follow Up of Rheumatoid Arthritis (chief complaint) RA w/o rheumatoid factor of multiple sitesOther spondylosis, cervical regionCervic algiaLong term (current) use of opiate analgesicOth er intermediate frame tender (current) drug therapy 0 Fabio Paul. [address], [place], [address] , [place]. tel:[phone] Leif Arrington, [address], [place], [address]. [phone] ng Provider: [place], [address]. [phone] OFFICE/OUTPA TIENT VISIT, EST [facility] of , [address], [place], [id number], [place] [phone] [facility] Main Office No Information 0 Fabio Paul. [address], [place], [address] , [place]. [phone] Referring Provider: [place], [address]. tel:[phone] OFFICE/OUTPA TIENT VISIT, EST [facility] of , [address], [place], [id number], [place] tel:[phone] [facility] Main Office No Information 0 Fabio Paul. [address], [place], [address] , [place]. tel:[phone] Referring Provider: [place], [address]. [phone] OFFICE/OUTPA TIENT VISIT, EST [facility] of , [address], [place], [id number], [place] tel:[phone] [facility] Main Office No Information 0-202 0 Fabio Paul. [address], [place], [id number] , [place]. tel: [phone] Referring Provider: Gulshan Stewart, [place], [address]. tel:[phone] OFFICE/OUTPA TIENT VISIT, EST [facility] of , [address], [place], [id number], [place] tel:[phone] [facility] Main Office Follow Up of Rheumatoid Arthritis (chief complaint)Fo llow up (chief complaint) RA w/o rheumatoid factor of multiple sitesOther spondylosis, cervical regionCervic algiaOther intermediate frame tender (current) drug therapyLong term (current) use of opiate analgesicBod y mass index (BMI) 30.0-30.9, adult Jun-0 2- 0 Fabio Paul. [address], [place], [id number] , [place]. tel: [phone] Leif Arrington, [address], [place], [address]. tel:[phone] ng Provider: Gulshan Stewart, [place], [address]. tel:[phone] [facility] of , [address], [place], [id number], [place] tel:[phone] [facility] Main Office No Information 2 9 Fabio Paul. [address], [place], [address] , [place]. tel: [phone] Referring Provider: [place], [address]. tel:[phone] OFFICE/OUTPA TIENT VISIT, EST [facility] of , [address], [place], [id number], [place] tel:[phone] [facility] Main Office Follow Up of Rheumatoid Arthritis (chief complaint) RA w/o rheumatoid factor of multiple sitesOther spondylosis, cervical regionCervic algiaOther intermediate frame tender (current) drug therapyBody mass index (BMI) 34.0-34.9, adultElevate d blood-pressu re reading, w/o diagnosis of htn 9 Fabio Paul. [address], [place], [address] , [place]. tel: [phone] Leif Dominguezis, [address], [place], [address]. tel:[phone] ng Provider: [place], [address]. tel:[phone] OFFICE/OUTPA TIENT VISIT, EST [facility] of , [address], [place], [id number], [place] tel:[phone] [facility] Main Office No Information 9 Fabio Paul. [address], [place], [address] , [place]. tel: [phone] Referring Provider: [place], [address]. tel:[phone] OFFICE/OUTPA TIENT VISIT, EST [facility] of , [address], [place], [id number], [place] tel:[phone] [facility] Main Office No Information 9 Fabio Paul. [address], [place], [address] , [place]. tel: [phone] Referring Provider: [place], [address]. tel:[phone] OFFICE/OUTPA TIENT VISIT, EST [facility] of , [address], [place], [address], [place] tel:[phone] [facility] Main Office Follow Up of Neck Pain (chief complaint)Fo llow Up of Rheumatoid Arthritis (chief complaint)Fo llow up (chief complaint) RA w/o rheumatoid factor of multiple sitesOther spondylosis, cervical regionCervic algiaBody mass index (BMI) 33.0-33.9, adultOther intermediate frame tender (current) drug therapyPain in left foot Sep-0 -201 9 Fabio Paul. [address], [place], [address] , [place]. tel:[phone] Leif Dominguezis, [address], [place], [address]. [phone] ng Provider: [place], [address]. tel:[phone] OFFICE/OUTPA TIENT VISIT, EST [facility] of , [address], [place], [address], [place] tel:[phone] [facility] Main Office No Information 9 Fabio Paul. [address], [place], [address] , [place]. tel: [phone] Referring Provider: Driss Glass [place], MD, . tel:[phone] OFFICE/OUTPA TIENT VISIT, EST [facility] of , [address], [place], [id number], [place] tel:[phone] [facility] Main Office No Information 9 Fabio Paul. [address], [place], [address] , [place]. [phone] Referring Provider: [place], [address]. tel:[phone] OFFICE/OUTPA TIENT VISIT, EST [facility] of , [address], [place], [id number], [place] tel:[phone] [facility] Main Office No Information 9 Fabio Paul. [address], [place], [address] , [place]. tel: [phone] Referring Provider: Gulshan Stewart, [address] [place], [address]. tel:[phone] [facility] of , [address], [place], [id number], [place] tel: [phone] [facility] Main Office No Information 9 Fabio Paul. [address], [place], [address] , [place]. tel: [phone] OFFICE/OUTPA TIENT VISIT, EST [facility] of , [address], [place], [id number], [place] tel: [phone] [facility] Main Office Follow Up of Neck Pain (chief complaint)Fo llow Up of Rheumatoid Arthritis (chief complaint) RA w/o rheumatoid factor of multiple sitesOther intermediate frame tender (current) drug therapyCervi calgiaOther spondylosis, cervical regionBody mass index (BMI) 33.0-33.9, adult 9 Fabio Paul. [address], [place], [address] , [place]. tel: [phone] Leif Arrington, [address], [place], [address]. tel:[phone] ng Provider: Gulshan Stewart, [address] [place], [address]. tel:[phone] OFFICE/OUTPA TIENT VISIT, EST [facility] of , [address], [place], [id number], [place] tel:[phone] [facility] Main Office No Information 9 Fabio Paul. [address], [place], [id number] , [place]. tel: [phone] Referring Provider: Gulshan Stewart, [place], [address]. tel:[phone] OFFICE/OUTPA TIENT VISIT, EST [facility] of , [address], [place], [id number], [place] tel:[phone] [facility] Main Office Follow Up of Rheumatoid Arthritis (chief complaint) RA w/o rheumatoid factor of multiple sitesOther mcc (current) drug therapyLong term (current) use of opiate analgesicBod y mass index (BMI) 33.0-33.9, adultPrimary generalized OA Apr-0 201 9 Fabio Paul. [address], [place], [address] , [place]. tel:[phone] Leif Arrington, [address], [place], [address]. tel:[phone] ng Provider: Gulshan Stewart, [place], [address]. tel:[phone] OFFICE/OUTPA TIENT VISIT, EST [facility] of , [address], [place], [id number], [place] tel:[phone] [facility] Main Office No Information 9 Fabio Paul. [address], [place], [address] , [place]. [phone] Referring Provider: Gulshan Stewart, [place], [address]. tel:[phone] OFFICE/OUTPA TIENT VISIT, EST [facility] of , [address], [place], [id number], [place] tel:[phone] [facility] Main Office No Information 9 Fabio Paul. [address], [place], [address] , [place]. tel:[phone] Referring Provider: Gulshan Stewart, [address] [place] MD, . tel:[phone] OFFICE/OUTPA TIENT VISIT, EST [facility] of , [address], [place], [id number], [place] tel:[phone] [facility] Main Office No Information 9 Fabio Paul. [address], [place], [id number] , [place]. tel:[phone] Referring Provider: Gulshan Stewart, Latoya Douglas MD, . tel:[phone] OFFICE/OUTPA TIENT VISIT, EST [facility] of , [address], [place], [id number], [place] tel:[phone] [facility] Main Office No Information 8 Fabio Paul. [address], [place], [id number] , [place]. tel: [phone] Referring Provider: Gulshan Stewart, Latoya Douglas MD, . tel:[phone] OFFICE/OUTPA TIENT VISIT, EST [facility] of , [address], [place], [id number], [place] tel:[phone] [facility] Main Office Follow Up of Rheumatoid Arthritis (chief complaint) RA w/o rheumatoid factor of multiple sitesOther mcc (current) drug therapyBody mass index (BMI) 34.0-34.9, adultElevate d blood-pressu re reading, w/o diagnosis of htnPrimary OA of left knee 8 Fabio Paul. [address], [place], [id number] , [place]. tel:[phone] Leif Arrington, [address], [place], [address]. tel:[phone] ng Provider: Gulshan Stewart, [place], [address]. tel:[phone] OFFICE/OUTPA TIENT VISIT, EST [facility] of , [address], [place], [id number], [place] tel:[phone] [facility] Main Office No Information 5-201 8 Fabio Paul. [address], [place], [address] , [place]. tel:[phone] Referring Provider: [place], [address]. tel:[phone] OFFICE/OUTPA TIENT VISIT, EST [facility] of , [address], [place], [id number], [place] tel:[phone] [facility] Main Office No Information 8-201 8 Fabio Paul. [address], [place], [address] , [place]. tel:[phone] Referring Provider: Gulshan Stewart, [place], [address]. tel:[phone] OFFICE/OUTPA TIENT VISIT, EST [facility] of , [address], [place], [id number], [place] tel:[phone] [facility] Main Office No Information 0- 8 Fabio Paul. [address], [place], [id number] , [place]. tel:[phone] Referring Provider: [place], [address]. tel:[phone] OFFICE/OUTPA TIENT VISIT, EST [facility] of , [address], [place], [id number], [place] tel:[phone] [facility] Main Office Follow Up of Rheumatoid Arthritis (chief complaint) RA w/o rheumatoid factor of multiple sitesOther mcc (current) drug therapyBody mass index (BMI) 32.0-32.9, adult Aug-0 6-201 8 Fabio Paul. [address], [place], [address] , [place]. tel:[phone] Leif Arrington, [address], [place], [address]. tel:[phone] ng Provider: Gulshan Stewart, [address] [place], [address]. tel:[phone] [facility] of , [address], [place], [id number], [place] tel:[phone] [facility] Main Office No Information 8 Fabio Paul. [address], [place], [address] , [place]. tel:[phone] Referring Provider: Gulshan Stewart, [address] [place], [address]. tel:[phone] OFFICE/OUTPA TIENT VISIT, EST [facility] of , [address], [place], [id number], [place] tel:[phone] [facility] Main Office No Information 8 Fabio Paul. [address], [place], [address] , [place]. tel:[phone] Referring Provider: Gulshan Stewart, [address] [place], [address]. tel:[phone] OFFICE/OUTPA TIENT VISIT, EST [facility] of , [address], [place], [id number], [place] tel:[phone] [facility] Main Office Follow Up of Rheumatoid Arthritis (chief complaint) RA w/o rheumatoid factor of multiple sitesOther intermediate frame tender (current) drug therapyLong term (current) use of opiate analgesicLon g term (current) use of non-steroida l anti-inflamm atories (NSAID) 8 Fabio Paul. [address], [place], [address] , [place]. tel:[phone] Leif Arrington, [address], [place], [address]. tel:[phone] ng Provider: Gulshan Stewart, [place], [address]. tel:[phone] [facility] of , [address], [place], [address], [place] tel:[phone] [facility] Specialists Main Office No Information 8 Fabio Paul. [address], [place], [id number] , [place]. tel: [phone] Referring Provider: Gulshan Stewart, [place], [address]. tel:[phone] [facility] , [address], [place], [id number], [place] tel:[phone] [facility] Main Office Follow Up of Rheumatoid Arthritis (chief complaint) RA w/o rheumatoid factor of multiple sitesOther mcc (current) drug therapyLong term (current) use of non-steroida l anti-inflamm atories (NSAID) 8 Fabio Paul. [address], [place], [id number] , [place]. tel: [phone] Leif Arrington, [address], [place], [address]. tel:[phone] ng Provider: Gulshan Stewart, [place], [address]. tel:[phone] [facility] of , [address], [place], [id number], [place] tel:[phone] [facility] Main Office No Information 8 Fabio Paul. [address], [place], [id number] , [place]. tel: [phone] Referring Provider: Gulshan Stewart, [address] [place], [address]. tel:[phone] [facility] , [address], [place], [id number], [place] tel:[phone] [facility] Main Office No Information Fabio Paul. [address], [place], [id number] , [place]. tel: [phone] Referring Provider: Gulshan Stewart, [address] [place], [address]. tel:[phone] [facility] of , [address], [place], [id number], [place] tel:[phone] [facility] Main Office No Information Fabio Paul. [address], [place], [id number] , [place]. tel: [phone] Referring Provider: Gulshan Stewart, [address] [place], [address]. tel:[phone] OFFICE/OUTPA TIENT VISIT, EST [facility] of , [address], [place], [id number], [place] [phone] [facility] Main Office Follow Up of Rheumatoid Arthritis (chief complaint) RA w/o rheumatoid factor of multiple sitesOther mcc (current) drug therapy Fabio Paul. [address], [place], [id number] , [place]. tel: [phone] Leif Arrington, [address], [place], [address]. tel:[phone] ng Provider: Gulshan Stewart, [address] [place], [address]. tel:[phone] [facility] of , [address], [place], [id number], [place] tel:[phone] [facility] Main Office Follow Up of Rheumatoid Arthritis (chief complaint) RA w/o rheumatoid factor of multiple sitesOther intermediate frame tender drug therapyBody mass index (BMI) 30.0-30.9, adult Dec- 7 Fabio Paul. [address], [place], [id number] , [place]. tel:[phone] Leif Arrington, [address], [place], [address]. tel:[phone] OFFICE/OUTPA TIENT VISIT, EST [facility] of , [address], [place], [id number], [place] tel:[phone] [facility] Main Office Follow Up of Rheumatoid Arthritis (chief complaint) RA w/o rheumatoid factor of multiple sitesOther mcc drug therapyBody mass index (BMI) 30.0-30.9, adult Nov- Fabio Paul. [address], [place], [id number] , [place]. tel:[phone] Leif Arrington, [address], [place], [address]. tel:[phone] Provider: Gulshan Stewart, [address], [place], [address]. tel:[phone] OFFICE/OUTPA TIENT VISIT, EST [facility] of , [address], [place], [id number], [place] tel:[phone] [facility] Main Office Follow Up of Rheumatoid Arthritis (chief complaint) RA w/o rheumatoid factor of multiple sitesOther mcc drug therapyGener alized osteoarthrit isLong term (current) use of non-steroida l anti-inflamm atories (NSAID) 7 Fabio Paul. [address], [place], [id number] , [place]. tel:[phone] Leif Arrington, [address], [place], [address]. tel:[phone] masha Provider: Gulshan Stewart, [address] Latoya [place] MD, . tel:[phone] [facility] , [address], [place], [id number], [place] tel:[phone] [facility] Main Office No Information 7 Fabio Paul. [address], [place], [id number] , [place]. tel:[phone] Referring Provider: Gulshan Stewart, [address] Latoya Perry MD, . tel:[phone] OFFICE/OUTPA TIENT VISIT, EST [facility] of , [address], [place], [id number], [place] tel:[phone] [facility] Main Office Follow Up of Rheumatoid Arthritis (chief complaint) RA w/o rheumatoid factor of multiple sitesOther intermediate frame tender drug therapyGener alized osteoarthrit isLong term (current) use of non-steroida l anti-inflamm atories (NSAID) Jul- 7 Fabio Paul. [address], [place], [id number] , [place]. tel:[phone] Leif Arrington, [address], [place], [address]. tel:[phone] masha Provider: Gulshan Stewart, Edelmira2 Latoya Perry MD, . tel:[phone] [facility] of , [address], [place], [id number], [place] tel:[phone] [facility] Main Office No Information 7 Fabio Paul. [address], [place], [id number] , [place]. tel:[phone] Referring Provider: Gulshan Stewart, [address] [place], [address]. tel:[phone] [facility] , [address], [place], [id number], [place] tel:[phone] [facility] Main Office No Information Fabio Paul. [address], [place], [id number] , [place]. tel:[phone] Referring Provider: Gulshan Stewart, Edelmira2 [place], [address]. tel:[phone] [facility] of , [address], [place], [id number], [place] tel:[phone] [facility] Main Office No Information Fabio Paul. [address], [place], [id number] , [place]. tel:[phone] Referring Provider: Gulshan Stewart, Edelmira2 [place], [address]. tel:[phone] [facility] , [address], [place], [id number], [place] tel:[phone] [facility] Main Office Follow Up of Rheumatoid Arthritis (chief complaint) RA w/o rheumatoid factor of multiple sitesOther mcc drug therapyGener alized osteoarthrit isLong term (current) use of non-steroida l anti-inflamm atories (NSAID)Troch anteric bursitis, right hipPain in right hip Fabio Paul. [address], [place], [address] , [place]. tel: [phone] Leif Arrington, [address], [place], [address]. tel:[phone] ng Provider: Gulshan tSewart, Edelmira2 [place], [address]. tel:[phone] OFFICE/OUTPA TIENT VISIT, EST [facility] of , [address], [place], [id number], [place] tel:[phone] [facility] Main Office Follow Up of Rheumatoid Arthritis (chief complaint) RA w/o rheumatoid factor of multiple sitesOther intermediate frame tender drug therapyGener alized osteoarthrit isLong term (current) use of non-steroida l anti-inflamm atories (NSAID) 7-201 6 Fabio Paul. [address], [place], [address] , [place]. tel:[phone] Leif Arrington, [address], [place], [address]. tel:[phone] ng Provider: Gulshan Stewart, [place], [address]. tel:[phone] OFFICE/OUTPA TIENT VISIT, EST [facility] of , [address], [place], [id number], [place] tel:[phone] [facility] Main Office Follow Up of Rheumatoid Arthritis (chief complaint) RA w/o rheumatoid factor of multiple sitesOther intermediate frame tender drug therapyGener alized osteoarthrit isLong term (current) use of non-steroida l anti-inflamm atories (NSAID) 6 Fabio Paul. [address], [place], [address] , [place]. tel:[phone] Leif Arrington, [address], [place], [address]. tel:[phone] ng Provider: Gulshan Stewart, Edelmira2 [place], [address]. tel:[phone] OFFICE/OUTPA TIENT VISIT, EST [facility] of , [address], [place], [id number], [place] tel:[phone] [facility] Main Office Follow Up of Rheumatoid Arthritis (chief complaint) RA w/o rheumatoid factor of multiple sitesOther intermediate frame tender drug therapyGener alized osteoarthrit isLong term (current) use of non-steroida l anti-inflamm atories (NSAID) 6 Fabio Paul. [address], [place], [address] , [place]. tel:[phone] Leif Arrington, [address], [place], [address]. tel:[phone] ng Provider: Gulshan Stewart, [address], [place], [address]. tel:[phone] OFFICE/OUTPA TIENT VISIT, EST [facility] of , [address], [place], [id number], [place] tel:[phone] [facility] Main Office Follow Up of Rheumatoid Arthritis (chief complaint) RA w/o rheumatoid factor of multiple sitesOther intermediate frame tender drug therapyGener alized osteoarthrit is 6 Fabio Paul. [address], [place], [address] , [place]. tel:[phone] Leif Arrington, [address], [place], [address]. tel:[phone] ng Provider: Venus Mont[address], [place], [address]. tel:[phone] OFFICE/OUTPA TIENT VISIT, EST [facility] of , [address], [place], [id number], [place] tel:[phone] [facility] Main Office Follow Up of Rheumatoid Arthritis (chief complaint) RA w/o rheumatoid factor of multiple sitesOther mcc drug therapyGener alized osteoarthrit is 6 Fabio Paul. [address], [place], [address] , [place]. tel:[phone] Leif Arrington, [address], [place], [address]. tel:[phone] masha Provider: Venus Montoya [address], [place], [address]. tel:[phone] OFFICE/OUTPA TIENT VISIT, EST [facility] , [address], [place], [id number], [place] tel:[phone] [facility] Main Office Inflammatory Polyarthropa thy (chief complaint) Inflammatory polyarthropa thyGeneraliz ed osteoarthrit is 6 Fabio Paul. [address], [place], [id number] , [place]. tel:[phone] Leif Arrington, [address], [place], [address]. tel:[phone] ng Provider: Leif Gonzalez, [address], [place], [address]. tel:[phone] OFFICE/OUTPA TIENT VISIT, EST [facility] , [address], [place], [id number], [place] tel:[phone] [facility] Main Office Inflammatory Polyarthropa thy (chief complaint) Inflammatory polyarthropa thyPain in left hipPrimary generalized (osteo)arthr itisLong term (current) use of non-steroida l anti-inflamm atories (NSAID) 6 Fabio Paul. [address], [place], [address] , [place]. tel:[phone] Leif Arrington, [address], [place], [address]. tel:[phone] masha Provider: Leif Gonzalez, [address], [place], [address]. tel:[phone] OFFICE/OUTPA TIENT VISIT, EST [facility] of , [address], [place], [id number], [place] tel:[phone] [facility] Main Office Osteoarthrit is (chief complaint) Primary generalized (osteo)arthr itisLong term (current) use of non-steroida l anti-inflamm atories (NSAID) 6 Fabio Paul. [address], [place], [address] , [place]. tel:[phone] Referring Provider: Leif Gonzalez, [address], [place], [address]. tel:[phone] OFFICE/OUTPA TIENT VISIT, EST [facility] of , [address], [place], [id number], [place] tel:[phone] [facility] Main Office Follow Up of Osteoarthrit is (chief complaint) Osteoarthros is, generalized, involving unspecified siteDisorder s of bursae and tendons in shoulder region, unspecified Jul- 5 Fabio Paul. [address], [place], [id number] , [place]. tel:[phone] Referring Provider: Leif Gonzalez, [address], [place], [address]. tel:[phone] OFFICE/OUTPA TIENT VISIT, EST [facility] of , [address], [place], [id number], [place] tel:[phone] [facility] Main Office Follow Up of Right shoulder pain (chief complaint) Disorders of bursae and tendons in shoulder region, unspecifiedP ainful shoulder 4 Fabio Paul. [address], [place], [address] , [place]. tel:[phone] Referring Provider: Leif Gonzalez, [address], [place], [address]. tel:[phone] OFFICE/OUTPA TIENT VISIT, EST [facility] of , [address], [place], [id number], [place] tel:[phone] [facility] Main Office No Information 4 Fabio Paul. [address], [place], [address] , [place]. tel:[phone] Referring Provider: Peter Gonzalez, [address], [place], [address]. tel:[phone] OFFICE/OUTPA TIENT VISIT, EST [facility] , [address], [place], [id number], [place] tel:[phone] [facility] Main Office Follow Up of Osteoarthrit is (chief complaint) Osteoarthrit is, GeneralizedL TU-TERM (CURRENT) USE OF NON-STEROIDA L ANTI-INFLAMM ATORIES 4 Fabio Paul. [address], [place], [address] , [place]. tel:[phone] Referring Provider: Leif Gonzalez, [address], [place], [address]. tel:[phone] OFFICE/OUTPA TIENT VISIT, EST [facility] , [address], [place], [address], [place] tel:[phone] [facility] Main Office Osteoarthrit is (chief complaint) Disorders of bursae and tendons in shoulder region, unspecifiedO steoarthriti s, Generalized 4 Fabio Paul. [address], [place], [id number] , [place]. tel:[phone] Referring Provider: Leif Gonzalez, [address], [place], [address]. tel:[phone] OFFICE/OUTPA TIENT VISIT, EST [facility] of , [address], [place], [id number], [place] tel:[phone] [facility] Main Office Osteoarthrit is (chief complaint) Osteoarthrit is, GeneralizedD isorders of bursae and tendons in shoulder region, unspecifiedL TU-TERM (CURRENT) USE OF NON-STEROIDA L ANTI-INFLAMM ATORIES 4 Fabio Paul. [address], [place], [address] , [place]. tel:[phone] Referring Provider: Leif Gonzalez [address], [place], [address]. tel:[phone] OFFICE/OUTPA TIENT VISIT, EST [facility] of , [address], [place], [id number], [place] tel:[phone] [facility] Main Office Osteoarthrit is (chief complaint) Osteoarthrit is, Generalized 3 Fabio Paul. [address], [place], [address] , [place]. tel:[phone] Referring Provider: Leif Gonzalez, [address], [place], [address]. tel:[phone] OFFICE/OUTPA TIENT VISIT, EST [facility] of , [address], [place], [id number], [place] tel:[phone] [facility] Main Office for joint pain (chief complaint) Osteoarthrit is, GeneralizedA rticular cartilage disorder involving forearmRadia l styloid tenosynoviti s 3 Fabio Paul. [address], [place], [address] , [place]. tel:[phone] Referring Provider: Leif Gonzalez, [address], [place], [address]. tel:[phone] OFFICE/OUTPA TIENT VISIT, NEW [facility] of , [address], [place], [id number], [place] tel:[phone] [facility] Main Office myalgia (chief complaint) Fatigue / MalaisePain in joint involving multiple sites 3 Fabio Paul. [address], [place], [address] , [place]. tel:[phone] Referring Provider: Leif Gonzalez, [address], [place], [address]. tel:[phone] Family History Family Member Type Diagnosis Age [...] alliance party ID Authoriza tion(s) Medicare MB [id number] [employer] [place] [id number] Medicare MB [id number] [employer] [place] [id number] Medicare MB [id number] [employer] [place] [id number] Medicare MB [id number] [employer] [place] [id number] Social History Type Description Quantity Date Captured [...] OA) ordered Referral Referred To: Toan Berry [address] [place], [id number] Ordered: Referrals: Allopathic & Osteopathic Physicians : Anesthesiology. Toan Berry. Consult ordered Referral Ordered: Madi Holder -Allopathic & Osteopathic Physicians : Internal Medicine : Nephrology (related to CKD) ordered Referral Referred To: Madi Holder [address] [facility]
[address] [place], [phone] Ordered: Referrals: Allopathic & Osteopathic Physicians : [...] Future Order: Lab Order Lipid Pa rashard ([id number]), Ordered on: Ordered Future Order: Lab Order COMPREHE NSIVE METABOLIC PANEL (CMP), Collected on: , Sent on: Sent Future Order: Lab Order CBC Diff erential And Platlet (CBC PLT DIFF), Ordered on: Ordered Future Order: Lab Order CMP ([id number]), Orde red on: Ordered Future Order: Lab Order CBC Diff erential And Platlet (CBC PLT DIFF), Collected on: Ordered Future Order: Lab Order CMP ([id number]), Wally ected on: Ordered Future Order: Lab [...]
--- OUTSIDE RECORDS SUMMARY | 2024-11-28 06:00 | XMS_ITS | Continuity of Care Document ---
Author Organization [facility]it Address [address] [place] [address] Phone Care Team Providers Care Oracle Architect Name Role Phone Fabio MANCINI, Paul Unavailable Unavailable Allergies, Adverse Reactions, Alerts Substance Reaction Status Criticality No Known Allergies Active No Inform ation Medications Medication Instructions Dosage Effective Dates (start - stop) Status Comments ergocalciferol (vitamin D2) 1,250 mcg (50,000 unit) capsule take 1 capsule by oral route every week 72252 UNITS - Active Simponi ARIA 12.5 mg/mL [...] Providers Copied on Encounter OFFICE/OUTPA TIENT VISIT, [facility] , [address], [place], [id number], [place] tel:[phone] [facility] Main Office No Information Fabio Miller. [address], [place], [id number] , [place]. tel:[phone] Referring Provider: Rosalba Shaw, [address], [place], [address]. tel:[phone] OFFICE/OUTPA TIENT VISIT, EST [facility] anjelica MANCINI, [address], [place], [id number], [place] tel:[phone] [facility] Main Office Age-related osteoporosis without current pathological fracture 5 Fabio Paul. [address], [place], [id number] , [place]. tel:[phone] Referring Provider: Pilo Hinojosa, [address], [place], [address]. 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 [address], [place], [id number] , [place]. tel:[phone] Leif Arrington, [address], [place], [address]. tel:[phone] ist: Madi Gallo, [address] [facility] [address], [place], [address]. tel:[phone] ist: Sunni Ackerman, [address] [facility] [address], [place], [address]. tel:[phone] ng Provider: Pilo Hinojosa, [address], [place], [address]. tel:[phone] [facility] of , [address], [place], [id number], [place] tel:[phone] [facility] Main Office No Information 5 Fabio Paul. [address], [place], [id number] , [place]. 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 [address], [place], [id number] , [place]. tel:[phone] Leif Arrington, [address], [place], [address]. tel:[phone] ist: Madi Holder, [address] [facility] [address], [place], [address]. tel:[phone] ist: Sunni Ackerman, [address] [facility] [address], [place], [address]. tel:[phone] ng Provider: Rosalba Shaw, [address], [place], [address]. tel:[phone] OFFICE/OUTPA TIENT VISIT, EST [facility] of , [address], [place], [id number], [place] tel:[phone] [facility] Main Office No Information Jul- 5 Fabio Miller. [address], [place], [id number] , [place]. tel:[phone] Referring Provider: Pilo Hinojosa, [address] [facility] [address], [place], [address]. tel:[phone] OFFICE/OUTPA TIENT VISIT, EST [facility] of , [address], [place], [id number], [place] tel:[phone] [facility] Main Office Follow Up [...] [address], [place], [id number] , [place]. tel:[phone] Leif Arrington, [address], [place], [address]. tel:[phone] ist: Madi Holder, [address], [place], [address]. tel:[phone] ist: Sunni Ackerman, [address] [facility] [address], [place], [address]. tel:[phone] ng Provider: Rosalba Shaw, [address], [place], [address]. tel:[phone] OFFICE/OUTPA TIENT VISIT, EST [facility] of , [address], [place], [id number], [place] tel:[phone] [facility] Main Office No Information 4 Fabio Miller. [address], [place], [id number] , [place]. tel:[phone] Referring Provider: Pilo Hinojosa, [address] [facility] [address], [place], [address]. tel:[phone] OFFICE/OUTPA TIENT VISIT, EST [facility] of , [address] [facility] [address], [place], [id number], [place] tel:[phone] [facility] Main Office Follow Up [...] [address], [place], [address] , [place]. tel:[phone] Leif Arrington, [address], [place], [address]. tel:[phone] ist: Madi Holder, [address], [place], [address]. tel:[phone] ist: Sunni Ackerman, [address] [facility] [address], [place], [address]. tel:[phone] ng Provider: Pilo Hinojosa, [address] [place] [address] [address], [place], [address]. tel:[phone] OFFICE/OUTPA TIENT VISIT, EST [facility] of , [address], [place], [id number], [place] tel:[phone] [facility] Main Office No Information 4 Fabio Paul. [address], [place], [address] , [place]. tel:[phone] Referring Provider: Pilo Hinojosa, [address] [place] [address] [address], [place], [address]. [phone] OFFICE/OUTPA TIENT VISIT, EST [facility] of , [address], [place], [id number], [place] tel:[phone] [facility] Main Office No Information 4 Fabio Paul. [address], [place], [id number] , [place]. tel:[phone] Referring Provider: Pilo Hinojosa, [address] [facility] [address], [place], [address]. 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 [address], [place], [id number] , [place]. tel:[phone] Leif Arrington, [address], [place], [address]. tel:[phone] ist: Madi Holder, [address], [place], [address]. tel:[phone] ist: Sunni Ackerman, [address], [place], [address]. tel:[phone] ng Provider: Pilo Hinojosa, [address], [place], [address]. tel:[phone] OFFICE/OUTPA TIENT VISIT, EST [facility] of , [address], [place], [id number], [place] tel:[phone] [facility] Main Office No Information 4 Fabio Paul. [address], [place], [id number] , [place]. tel:[phone] Referring Provider: Pilo Hinojosa, [address], [place], [address]. tel:[phone] OFFICE/OUTPA TIENT VISIT, EST [facility] of , [address], [place], [address], [place] tel:[phone] [facility] Main Office No Information 4 Fabio Paul. [address], [place], [address] , [place]. tel:[phone] Referring Provider: Pilo Hinojosa, [address], [place], [address]. tel:[phone] OFFICE/OUTPA TIENT VISIT, EST [facility] of , [address], [place], [address], [place] tel:[phone] [facility] Main Office No Information 4 Fabio Paul. [address], [place], [id number] , [place]. tel:[phone] Referring Provider: Pilo Hinojosa, [address], [place], [address]. tel:[phone] OFFICE/OUTPA TIENT VISIT, EST [facility] of , [address], [place], [id number], [place] tel:[phone] [facility] Main Office Follow Up [...] [address], [place], [id number] , [place]. tel:[phone] Leif Arrington, [address], [place], [address]. tel:[phone] ist: Madi Holder, [address], [place], [address]. tel:[phone] ist: Sunni Ackerman, [address], [place], [address]. tel:[phone] ng Provider: Pilo Hinojosa, [address], [place], [address]. tel:[phone] OFFICE/OUTPA TIENT VISIT, EST [facility] of , [address], [place], [id number], [place] tel:[phone] [facility] Main Office No Information 4 Fabio Paul. [address], [place], [address] , [place]. tel:[phone] Referring Provider: Pilo Hinojosa, [address], [place], [address]. tel:[phone] OFFICE/OUTPA TIENT VISIT, EST [facility] of , [address], [place], [address], [place] tel:[phone] [facility] Main Office No Information 3 Fabio Paul. [address], [place], [id number] , [place]. tel:[phone] Referring Provider: Pilo Hinojosa, [address], [place], [address]. tel:[phone] [facility] of , [address], [place], [id number], [place] tel:[phone] [facility] Main Office No Information 3 Fabio Paul. [address], [place], [address] , [place]. 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 [address], [place], [id number] , [place]. tel:[phone] Leif Arrington, [address], [place], [address]. tel:[phone] ist: Madi oHlder, [address], [place], [address]. tel:[phone] ist: Sunni Ackerman, [address], [place], [address]. tel:[phone] ng Provider: Pilo Hinojosa, [address], [place], [address]. tel:[phone] [facility] of , [address], [place], [id number], [place] tel:[phone] [facility] Main Office No Information 0 3 Fabio Paul. [address], [place], [id number] , [place]. tel:[phone] OFFICE/OUTPA TIENT VISIT, EST [facility] of , [address], [place], [id number], [place] tel:[phone] [facility] Main Office No Information 3 Fabio Paul. [address], [place], [address] , [place]. tel:[phone] Referring Provider: Pilo Hinojosa, [address], [place], [address]. tel:[phone] OFFICE/OUTPA TIENT VISIT, EST [facility] of , [address], [place], [address], [place] tel:[phone] [facility] Main Office No Information 3 Fabio Paul. [address], [place], [address] , [place]. tel:[phone] Referring Provider: Pilo Hinojosa, [address], [place], [address]. tel:[phone] OFFICE/OUTPA TIENT VISIT, EST [facility] of , [address], [place], [id number], [place] tel:[phone] [facility] Main Office No Information 3 Fabio Paul. [address], [place], [address] , [place]. tel:[phone] Referring Provider: Pilo Hinojosa, [address], [place], [address]. tel:[phone] OFFICE/OUTPA TIENT VISIT, EST [facility] of , [address], [place], [address], [place] tel:[phone] [facility] Main Office No Information 3 Fabio Paul. [address], [place], [address] , [place]. tel:[phone] Referring Provider: Pilo Hinojosa, [address], [place], [address]. tel:[phone] OFFICE/OUTPA TIENT VISIT, EST [facility] of , [address], [place], [address], [place] tel:[phone] [facility] Main Office Follow Up of GOA (chief complaint)Fo llow Up of RA (chief complaint) Immunodefici ency due to drugsRA w/o rheumatoid factor of multiple sitesGeneral ized OAPain in unspecified jointCKDLong term (current) use of immunosuppre ssive biologicBody mass index (BMI) 30.0-30.9, adult 3 Fabio Paul. [address], [place], [id number] , [place]. tel:[phone] Leif Arrington, [address], [place], [address]. tel:[phone] ist: Madi Holder, [address], [place], [address]. tel:[phone] ist: Sunni Ackerman [address], [place], [address]. tel:[phone] ng Provider: Pilo Hinojosa, [address], [place], [address]. tel:[phone] OFFICE/OUTPA TIENT VISIT, EST [facility] of , [address], [place], [id number], [place] tel:[phone] [facility] Main Office No Information 3 Fabio Paul. [address], [place], [id number] , [place]. tel:[phone] Referring Provider: Pilo Hinojosa, [address], [place], [address]. tel:[phone] OFFICE/OUTPA TIENT VISIT, EST [facility] of , [address], [place], [address], [place] tel:[phone] [facility] Main Office No Information 3 Fabio Paul. [address], [place], [address] , [place]. tel:[phone] Referring Provider: Pilo Hinojosa, [address], [place], [address]. tel:[phone] OFFICE/OUTPA TIENT VISIT, EST [facility] of , [address], [place], [id number], [place] tel:[phone] [facility] Main Office No Information 3 Fabio Paul. [address], [place], [address] , [place]. tel:[phone] Referring Provider: Pilo Hinojosa, [address], [place], [address]. tel:[phone] OFFICE/OUTPA TIENT VISIT, EST [facility] of , [address], [place], [address], [place] tel:[phone] [facility] Main Office No Information Jul-0 3 Fabio Paul. [address], [place], [address] , [place]. tel:[phone] Referring Provider: Pilo Hinojosa, [address], [place], [address]. tel:[phone] OFFICE/OUTPA TIENT VISIT, EST [facility] of , [address], [place], [address], [place] tel:[phone] [facility] Main Office Follow Up of GOA (chief complaint)Fo llow Up of RA (chief complaint) Immunodefici ency due to drugsRA w/o rheumatoid factor of multiple sitesGeneral ized OACKDLong term (current) use of immunosuppre ssive biologicPain in unspecified joint Jun-2 3 Fabio Paul. [address], [place], [address] , [place]. tel:[phone] Leif Arrington, [address], [place], [address]. tel:[phone] ist: Madi Gallo, [address], [place], [address]. tel:[phone] ist: Sunni Ackerman, [address], [place], [address]. tel:[phone] ng Provider: Pilo Hinojosa, [address], [place], [address]. tel:[phone] OFFICE/OUTPA TIENT VISIT, EST [facility] of , [address], [place], [address], [place] tel:[phone] [facility] Main Office No Information 0 3 Fabio Paul. [address], [place], [id number] , [place]. tel:[phone] Referring Provider: Pilo Hinojosa, [address], [place], [address]. tel:[phone] OFFICE/OUTPA TIENT VISIT, EST [facility] of , [address], [place], [address], [place] tel:[phone] [facility] Main Office No Information 3 Fabio Paul. [address], [place], [address] , [place]. tel: [phone] Referring Provider: Gulshan Stewart, [place], [address]. tel:[phone] OFFICE/OUTPA TIENT VISIT, EST [facility] of , [address], [place], [id number], [place] tel:[phone] [facility] Main Office No Information 3 Fabio Paul. [address], [place], [address] , [place]. tel: [phone] Referring Provider: Gulshan Stewart, [address] Latoya [place] MD, . tel:[phone] OFFICE/OUTPA TIENT VISIT, EST [facility] of , [address], [place], [address], [place] tel:[phone] [facility] Main Office Follow Up of GOA (chief complaint)Fo llow Up of RA (chief complaint) Immunodefici ency due to drugsRA w/o rheumatoid factor of multiple sitesGeneral ized OACervicalgi aCKDLong term (current) use of opiate analgesicLon g term (current) use of immunosuppre ssive biologic 2 Fabio Paul. [address], [place], [address] , [place]. tel: [phone] Leif Arrington, [address], [place], [address]. tel:[phone] ist: Madi Holder, [address], [place], [address]. tel:[phone] ng Provider: Gulshan Stewart, [address] [place], [address]. tel:[phone] OFFICE/OUTPA TIENT VISIT, EST [facility] of , [address], [place], [address], [place] tel: [phone] [facility] Main Office No Information 2 Fabio Paul. [address], [place], [address] , [place]. tel:[phone] Referring Provider: Gulshan Stewart, [place], [address]. tel:[phone] OFFICE/OUTPA TIENT VISIT, EST [facility] of , [address], [place], [address], [place] tel:[phone] [facility] Main Office No Information 2 Fabio Paul. [address], [place], [address] , [place]. tel: [phone] Referring Provider: Gulshan Stewart, [address] [place], [address]. tel:[phone] OFFICE/OUTPA TIENT VISIT, EST [facility] of , [address], [place], [address], [place] tel:[phone] [facility] Main Office No Information 2 Fabio Paul. [address], [place], [address] , [place]. tel: [phone] Referring Provider: Gulshan Stewart, [address] [place], [address]. tel:[phone] OFFICE/OUTPA TIENT VISIT, EST [facility] of , [address], [place], [address], [place] tel:[phone] [facility] Main Office Follow Up of Rheumatoid Arthritis (chief complaint)Fo llow Up of Generalized OA (chief complaint) Immunodefici ency due to drugsRA w/o rheumatoid factor of multiple sitesGeneral ized OACervicalgi aCKDLong term (current) use of opiate analgesicOth er shelter (current) drug therapyBody mass index (BMI) 33.0-33.9, adult 2 Fabio Paul. [address], [place], [address] , [place]. tel:[phone] Leif Arrington, [address], [place], [address]. tel:[phone] ist: Madi Holder, [address], [place], [address]. tel:[phone] ng Provider: Gulshan Stewart, [place], [address]. tel:[phone] OFFICE/OUTPA TIENT VISIT, EST [facility] of , [address], [place], [id number], [place] tel:[phone] [facility] Main Office No Information 2 Fabio Miller. [address], [place], [address] , [place]. tel:[phone] Referring Provider: Gulshan Stewart, [place], [address]. tel:[phone] OFFICE/OUTPA TIENT VISIT, EST [facility] of , [address], [place], [address], [place] tel:[phone] [facility] Main Office No Information 2 Fabio Paul. [address], [place], [address] , [place]. tel:[phone] Referring Provider: Gulshan Stewart, [place], [address]. tel:[phone] OFFICE/OUTPA TIENT VISIT, EST [facility] of , [address], [place], [id number], [place] tel:[phone] [facility] Main Office No Information 2 Fabio Paul. [address], [place], [address] , [place]. tel:[phone] Referring Provider: Gulshan Stewart, [address] [place], [address]. tel:[phone] OFFICE/OUTPA TIENT VISIT, EST [facility] of , [address], [place], [address], [place] tel:[phone] [facility] Main Office No Information 2 Fabio Paul. [address], [place], [address] , [place]. tel:[phone] Referring Provider: Pilo Hinojosa, [address] [facility] [address], [place], [address]. tel:[phone] OFFICE/OUTPA TIENT VISIT, EST [facility] of , [address], [place], [id number], [place] tel:[phone] [facility] Main Office No Information 2 Fabio Paul. [address], [place], [address] , [place]. tel:[phone] Referring Provider: Gulshan Stewart, [address] [place], [address]. tel:[phone] OFFICE/OUTPA TIENT VISIT, EST [facility] of , [address], [place], [address], [place] tel:[phone] [facility] Main Office Follow Up of Rheumatoid Arthritis (chief complaint)Fo llow Up of Generalized OA (chief complaint) Immunodefici ency due to drugsRA w/o rheumatoid factor of multiple sitesGeneral ized OALong term (current) use of opiate analgesicOth er ad terminal makeup operator (current) drug therapyCKDCe rvicalgia 2 Fabio Paul. [address], [place], [address] , [place]. tel: [phone] Leif Arrington, [address], [place], [address]. tel: [phone] ng Provider: Gulshan Stewart, [address] [place], [address]. tel: [phone] OFFICE/OUTPA TIENT VISIT, EST [facility] of , [address], [place], [id number], [place] tel: [phone] [facility] Main Office No Information 2 Fabio Paul. [address], [place], [address] , [place]. tel: [phone] Referring Provider: Gulshan Stewart, [address] [place], [address]. tel: [phone] OFFICE/OUTPA TIENT VISIT, EST [facility] of , [address], [place], [id number], [place] tel: [phone] [facility] Main Office No Information 2 Fabio Paul. [address], [place], [id number] , [place]. tel: [phone] Referring Provider: Gulshan Stewart, [address] [place], [address]. tel:[phone] OFFICE/OUTPA TIENT VISIT, EST [facility] of , [address], [place], [id number], [place] tel: [phone] [facility] Main Office No Information 1 Fabio Paul. [address], [place], [id number] , [place]. tel: [phone] Referring Provider: Gulshan Stewart, [address] [place], [address]. tel:[phone] OFFICE/OUTPA TIENT VISIT, EST [facility] of , [address], [place], [id number], [place] tel:[phone] [facility] Main Office No Information 1 Fabio Paul. [address], [place], [id number] , [place]. tel: [phone] Referring Provider: [place], [address]. tel:[phone] OFFICE/OUTPA TIENT VISIT, EST [facility] of , [address], [place], [id number], [place] tel:[phone] [facility] Main Office No Information 1 Fabio Paul. [address], [place], [id number] , [place]. tel: [phone] Referring Provider: Driss Glass [place], [place], . tel:[phone] OFFICE/OUTPA TIENT VISIT, EST [facility] of , [address], [place], [id number], [place] tel:[phone] [facility] Main Office Follow Up of Rheumatoid Arthritis (chief complaint)Fo llow Up of Generalized OA (chief complaint) Immunodefici ency due to drugsRA w/o rheumatoid factor of multiple sitesGeneral ized OALong term (current) use of opiate analgesicOth er shelter (current) drug therapyEncou nter for immunization Body mass index (BMI) 33.0-33.9, adult 1 Fabio Paul. [address], [place], [id number] , [place]. tel:[phone] Leif Arrington, [address], [place], [address]. tel:[phone] ng Provider: Gulshan Stewart, [place], [address]. tel:[phone] OFFICE/OUTPA TIENT VISIT, EST [facility] of , [address], [place], [id number], [place] tel:[phone] [facility] Main Office No Information 1 Fabio Paul. [address], [place], [address] , [place]. tel: [phone] Referring Provider: Gulshan Stewart, [place], [address]. tel:[phone] OFFICE/OUTPA TIENT VISIT, EST [facility] of , [address], [place], [id number], [place] tel: [phone] [facility] Main Office No Information 1 Fabio Paul. [address], [place], [address] , [place]. tel: [phone] Referring Provider: Gulshan Stewart, [address] [place], [address]. tel:[phone] [facility] of , [address], [place], [id number], [place] tel: [phone] [facility] Main Office No Information 1 Fabio Paul. [address], [place], [id number] , [place]. tel: [phone] Referring Provider: Gulshan Stewart, [address] [place], [address]. tel:[phone] OFFICE/OUTPA TIENT VISIT, EST [facility] of , [address], [place], [id number], [place] tel:[phone] [facility] Main Office No Information 1 Fabio Paul. [address], [place], [address] , [place]. tel: [phone] Referring Provider: Gulshan Stewart, [address] [place], [address]. tel:[phone] OFFICE/OUTPA TIENT VISIT, EST [facility] of , [address], [place], [id number], [place] tel:[phone] [facility] Main Office Follow Up of Rheumatoid Arthritis (chief complaint)Fo llow Up of Generalized OA (chief complaint) Immunodefici ency due to drugsRA w/o rheumatoid factor of multiple sitesGeneral ized OALong term (current) use of opiate analgesicOth er ad terminal makeup operator (current) drug therapyBody mass index (BMI) 34.0-34.9, adult August- 1 Fabio Paul. [address], [place], [id number] , [place]. [phone] Leif Arrington, [address], [place], [address]. tel:[phone] ng Provider: Gulshan Stewart, [address] [place], [address]. tel:[phone] OFFICE/OUTPA TIENT VISIT, EST [facility] of , [address], [place], [id number], [place] tel:[phone] [facility] Main Office No Information 1 Fabio Paul. [address], [place], [address] , [place]. tel:[phone] Referring Provider: Gulshan Stewart, [address] [place], [address]. tel:[phone] OFFICE/OUTPA TIENT VISIT, EST [facility] of , [address], [place], [id number], [place] tel:[phone] [facility] Main Office No Information 1 Fabio Paul. [address], [place], [id number] , [place]. tel:[phone] Referring Provider: Gulshan Stewart, [place], [address]. tel:[phone] OFFICE/OUTPA TIENT VISIT, EST [facility] of , [address], [place], [id number], [place] tel:[phone] [facility] Main Office No Information 1 Fabio Miller. [address], [place], [id number] , [place]. tel:[phone] Referring Provider: Gulshan Stewart, [address] [place], [address]. tel:[phone] OFFICE/OUTPA TIENT VISIT, EST [facility] of , [address], [place], [id number], [place] tel:[phone] [facility] Main Office No Information 1 Fabio Miller. [address], [place], [id number] , [place]. tel:[phone] Referring Provider: Gulshan Stewart, Edelmira2 Latoya Perry MD, . tel:[phone] OFFICE/OUTPA TIENT VISIT, EST [facility] of , [address], [place], [id number], [place] tel:[phone] [facility] Main Office Follow Up of Rheumatoid Arthritis (chief complaint)Fo llow Up of Generalized OA (chief complaint) RA w/o rheumatoid factor of multiple sitesGeneral ized OALong term (current) use of opiate analgesicOth er shelter (current) drug therapyImmun odeficiency due to drugsBody mass index (BMI) 33.0-33.9, adult 1 Fabio Miller. [address], [place], [address] , [place]. tel:[phone] Referring Provider: Edelmira Glass2 [place], [address]. tel:[phone] OFFICE/OUTPA TIENT VISIT, EST [facility] of , [address], [place], [id number], [place] tel: [phone] [facility] Main Office No Information 1 Fabio Paul. [address], [place], [id number] , [place]. tel: [phone] Referring Provider: Gulshan Stewart, [place], [address]. tel:[phone] OFFICE/OUTPA TIENT VISIT, EST [facility] of , [address], [place], [id number], [place] tel: [phone] [facility] Main Office No Information 0 Fabio Paul. [address], [place], [id number] , [place]. tel: [phone] Referring Provider: Gulshan Stewart, [place], [address]. tel:[phone] [facility] of , [address], [place], [id number], [place] tel: [phone] [facility] Main Office No Information 0 Fabio Paul. [address], [place], [address] , [place]. tel: [phone] Referring Provider: Gulshan Stewart, [address] [place], [address]. tel:[phone] OFFICE/OUTPA TIENT VISIT, EST [facility] of , [address], [place], [id number], [place] tel:[phone] [facility] Main Office No Information 0 Fabio Paul. [address], [place], [address] , [place]. tel: [phone] Referring Provider: Gulshan Stewart, [address]ira[address] [place], [address]. tel:[phone] OFFICE/OUTPA TIENT VISIT, EST [facility] of , [address], [place], [id number], [place] tel:[phone] [facility] Main Office Follow Up of Rheumatoid Arthritis (chief complaint)Fo llow Up of Generalized OA (chief complaint) RA w/o rheumatoid factor of multiple sitesLong term (current) use of opiate analgesicOth er shelter (current) drug therapyGener alized OAEncounter for immunization Body mass index (BMI) 34.0-34.9, adultElevate d blood-pressu re reading, w/o diagnosis of htn 0 Fabio Paul. [address], [place], [address] , [place]. tel:[phone] Leif Arrington, [address], [place], [address]. tel:[phone] ng Provider: Gulshan Stewart, [address] [place], [address]. tel:[phone] OFFICE/OUTPA TIENT VISIT, EST [facility] of , [address], [place], [address], [place] tel:[phone] [facility] Main Office No Information 0 Fabio Paul. [address], [place], [id number] , [place]. tel:[phone] Referring Provider: Gulshan Stewart, [address] [place], [address]. tel:[phone] OFFICE/OUTPA TIENT VISIT, EST [facility] of , [address], [place], [address], [place] tel:[phone] [facility] Main Office No Information 0 Fabio Paul. [address], [place], [id number] , [place]. tel:[phone] Referring Provider: Gulshan Stewart [address] [place], [address]. tel:[phone] OFFICE/OUTPA TIENT VISIT, EST [facility] of , [address], [place], [id number], [place] tel:[phone] [facility] Main Office No Information 0 Fabio Paul. [address], [place], [address] , [place]. tel:[phone] Referring Provider: Gulshan Stewart, [address] [place], [address]. tel:[phone] OFFICE/OUTPA TIENT VISIT, EST [facility] of , [address], [place], [id number], [place] tel:[phone] [facility] Main Office No Information 0 Fabio Paul. [address], [place], [id number] , [place]. tel:[phone] Referring Provider: Gulshan Stewart, [address] MD, . tel:[phone] OFFICE/OUTPA TIENT VISIT, EST [facility] of , [address], [place], [id number], [place] tel:[phone] [facility] Main Office Follow Up of Rheumatoid Arthritis (chief complaint) RA w/o rheumatoid factor of multiple sitesOther spondylosis, cervical regionCervic algiaLong term (current) use of opiate analgesicOth er shelter (current) drug therapy 0 Fabio Paul. [address], [place], [address] , [place]. tel:[phone] Leif Arrington, [address], [place], [address]. tel:[phone] ng Provider: Gulshan Stewart, [address] [place], [address]. tel:[phone] [facility] of , [address], [place], [address], [place] tel:[phone] [facility] Main Office Follow Up of Rheumatoid Arthritis (chief complaint) RA w/o rheumatoid factor of multiple sitesOther spondylosis, cervical regionCervic algiaLong term (current) use of opiate analgesicOth er ad terminal makeup operator (current) drug therapy 0 Fabio Paul. [address], [place], [id number] , [place]. tel:[phone] Leif Arrington, [address], [place], [address]. [phone] ng Provider: [place], [address]. [phone] OFFICE/OUTPA TIENT VISIT, EST [facility] of , [address], [place], [id number], [place] [phone] [facility] Main Office No Information 0 Fabio Paul. [address], [place], [address] , [place]. [phone] Referring Provider: [place], [address]. tel:[phone] OFFICE/OUTPA TIENT VISIT, EST [facility] of , [address], [place], [address], [place] tel:[phone] [facility] Main Office No Information 0 Fabio Paul. [address], [place], [address] , [place]. tel:[phone] Referring Provider: [place], [address]. [phone] OFFICE/OUTPA TIENT VISIT, EST [facility] of , [address], [place], [id number], [place] tel:[phone] [facility] Main Office No Information 0-202 0 Fabio Paul. [address], [place], [address] , [place]. tel: [phone] Referring Provider: Gulshan Stewart, [place], [address]. tel:[phone] OFFICE/OUTPA TIENT VISIT, EST [facility] of , [address], [place], [id number], [place] tel:[phone] [facility] Main Office Follow Up of Rheumatoid Arthritis (chief complaint)Fo llow up (chief complaint) RA w/o rheumatoid factor of multiple sitesOther spondylosis, cervical regionCervic algiaOther ad terminal makeup operator (current) drug therapyLong term (current) use of opiate analgesicBod y mass index (BMI) 30.0-30.9, adult Jun-0 2- 0 Fabio Paul. [address], [place], [address] , [place]. tel: [phone] Leif Arrington, [address], [place], [address]. tel:[phone] ng Provider: Gulshan Stewart, [place], [address]. tel:[phone] [facility] of , [address], [place], [id number], [place] tel:[phone] [facility] Main Office No Information 2 9 Fabio Paul. [address], [place], [address] , [place]. tel: [phone] Referring Provider: [place], [address]. tel:[phone] OFFICE/OUTPA TIENT VISIT, EST [facility] of , [address], [place], [address], [place] tel:[phone] [facility] Main Office Follow Up of Rheumatoid Arthritis (chief complaint) RA w/o rheumatoid factor of multiple sitesOther spondylosis, cervical regionCervic algiaOther ad terminal makeup operator (current) drug therapyBody mass index (BMI) 34.0-34.9, adultElevate d blood-pressu re reading, w/o diagnosis of htn 9 Fabio Paul. [address], [place], [id number] , [place]. tel: [phone] Leif Dominguezis, [address], [place], [address]. tel:[phone] ng Provider: [place], [address]. tel:[phone] OFFICE/OUTPA TIENT VISIT, EST [facility] of , [address], [place], [id number], [place] tel:[phone] [facility] Main Office No Information 9 Fabio Paul. [address], [place], [address] , [place]. tel: [phone] Referring Provider: [place], [address]. tel:[phone] OFFICE/OUTPA TIENT VISIT, EST [facility] of , [address], [place], [id number], [place] tel:[phone] [facility] Main Office No Information 9 Fabio Paul. [address], [place], [address] , [place]. tel: [phone] Referring Provider: [place], [address]. tel:[phone] OFFICE/OUTPA TIENT VISIT, EST [facility] of , [address], [place], [id number], [place] tel:[phone] [facility] Main Office Follow Up of Neck Pain (chief complaint)Fo llow Up of Rheumatoid Arthritis (chief complaint)Fo llow up (chief complaint) RA w/o rheumatoid factor of multiple sitesOther spondylosis, cervical regionCervic algiaBody mass index (BMI) 33.0-33.9, adultOther ad terminal makeup operator (current) drug therapyPain in left foot Sep-0 -201 9 Fabio Paul. [address], [place], [id number] , [place]. tel:[phone] Leif Dominguezis, [address], [place], [address]. [phone] ng Provider: [place], [address]. tel:[phone] OFFICE/OUTPA TIENT VISIT, EST [facility] of , [address], [place], [id number], [place] tel:[phone] [facility] Main Office No Information 9 Fabio Paul. [address], [place], [address] , [place]. tel: [phone] Referring Provider: Driss Glass [place], [place], . tel:[phone] OFFICE/OUTPA TIENT VISIT, EST [facility] of , [address], [place], [address], [place] tel:[phone] [facility] Main Office No Information 9 Fabio Paul. [address], [place], [address] , [place]. [phone] Referring Provider: [place], [address]. tel:[phone] OFFICE/OUTPA TIENT VISIT, EST [facility] of , [address], [place], [id number], [place] tel:[phone] [facility] Main Office No Information 9 Fabio Paul. [address], [place], [address] , [place]. tel: [phone] Referring Provider: Gulshan Stewart, [address] [place], [address]. tel:[phone] [facility] of , [address], [place], [id number], [place] tel: [phone] [facility] Main Office No Information 9 Fabio Paul. [address], [place], [address] , [place]. tel: [phone] OFFICE/OUTPA TIENT VISIT, EST [facility] of , [address], [place], [id number], [place] tel: [phone] [facility] Main Office Follow Up of Neck Pain (chief complaint)Fo llow Up of Rheumatoid Arthritis (chief complaint) RA w/o rheumatoid factor of multiple sitesOther ad terminal makeup operator (current) drug therapyCervi calgiaOther spondylosis, cervical regionBody mass index (BMI) 33.0-33.9, adult 9 Fabio Paul. [address], [place], [address] , [place]. tel: [phone] Leif Arrington, [address], [place], [address]. tel:[phone] ng Provider: Gulshan Stewart, [address] [place], [address]. tel:[phone] OFFICE/OUTPA TIENT VISIT, EST [facility] of , [address], [place], [address], [place] tel:[phone] [facility] Main Office No Information 9 Fabio Paul. [address], [place], [address] , [place]. tel: [phone] Referring Provider: Gulshan Stewart, [place], [address]. tel:[phone] OFFICE/OUTPA TIENT VISIT, EST [facility] of , [address], [place], [address], [place] tel:[phone] [facility] Main Office Follow Up of Rheumatoid Arthritis (chief complaint) RA w/o rheumatoid factor of multiple sitesOther shelter (current) drug therapyLong term (current) use of opiate analgesicBod y mass index (BMI) 33.0-33.9, adultPrimary generalized OA Apr-0 201 9 Fabio Paul. [address], [place], [id number] , [place]. tel:[phone] Leif Arrington, [address], [place], [address]. tel:[phone] ng Provider: Gulshan Stewart, [place], [address]. tel:[phone] OFFICE/OUTPA TIENT VISIT, EST [facility] of , [address], [place], [address], [place] tel:[phone] [facility] Main Office No Information 9 Fabio Paul. [address], [place], [address] , [place]. [phone] Referring Provider: Gulshan Stewart, [place], [address]. tel:[phone] OFFICE/OUTPA TIENT VISIT, EST [facility] of , [address], [place], [id number], [place] tel:[phone] [facility] Main Office No Information 9 Fabio Paul. [address], [place], [address] , [place]. tel:[phone] Referring Provider: Gulshan Stewart, Edelmira2 Latoya Perry MD, . tel:[phone] OFFICE/OUTPA TIENT VISIT, EST [facility] of , [address], [place], [address], [place] tel:[phone] [facility] Main Office No Information 9 Fabio Paul. [address], [place], [id number] , [place]. tel:[phone] Referring Provider: Gulshan Stewart, Latoya Douglas MD, . tel:[phone] OFFICE/OUTPA TIENT VISIT, EST [facility] of , [address], [place], [id number], [place] tel:[phone] [facility] Main Office No Information 8 Fabio Paul. [address], [place], [address] , [place]. tel: [phone] Referring Provider: Gulshan Stewart, Latoya Douglas MD, . tel:[phone] OFFICE/OUTPA TIENT VISIT, EST [facility] of , [address], [place], [address], [place] tel:[phone] [facility] Main Office Follow Up of Rheumatoid Arthritis (chief complaint) RA w/o rheumatoid factor of multiple sitesOther shelter (current) drug therapyBody mass index (BMI) 34.0-34.9, adultElevate d blood-pressu re reading, w/o diagnosis of htnPrimary OA of left knee 8 Fabio Paul. [address], [place], [address] , [place]. tel:[phone] Leif Arrington, [address], [place], [address]. tel:[phone] ng Provider: Gulshan Stewart, [place], [address]. tel:[phone] OFFICE/OUTPA TIENT VISIT, EST [facility] of , [address], [place], [id number], [place] tel:[phone] [facility] Main Office No Information 5-201 8 Fabio Paul. [address], [place], [id number] , [place]. tel:[phone] Referring Provider: [place], [address]. tel:[phone] OFFICE/OUTPA TIENT VISIT, EST [facility] of , [address], [place], [id number], [place] tel:[phone] [facility] Main Office No Information 8-201 8 Fabio Paul. [address], [place], [address] , [place]. tel:[phone] Referring Provider: Gulshan Stewart, [place], [address]. tel:[phone] OFFICE/OUTPA TIENT VISIT, EST [facility] of , [address], [place], [address], [place] tel:[phone] [facility] Main Office No Information 0- 8 Fabio Paul. [address], [place], [id number] , [place]. tel:[phone] Referring Provider: [place], [address]. tel:[phone] OFFICE/OUTPA TIENT VISIT, EST [facility] of , [address], [place], [address], [place] tel:[phone] [facility] Main Office Follow Up of Rheumatoid Arthritis (chief complaint) RA w/o rheumatoid factor of multiple sitesOther shelter (current) drug therapyBody mass index (BMI) 32.0-32.9, adult Aug-0 6-201 8 Fabio Paul. [address], [place], [id number] , [place]. tel:[phone] Leif Arrington, [address], [place], [address]. tel:[phone] ng Provider: Gulshan Stewart, [address] [place], [address]. tel:[phone] [facility] of , [address], [place], [id number], [place] tel:[phone] [facility] Main Office No Information 8 Fabio Paul. [address], [place], [id number] , [place]. tel:[phone] Referring Provider: Gulshan Stewart, [address] [place], [address]. tel:[phone] OFFICE/OUTPA TIENT VISIT, EST [facility] of , [address], [place], [id number], [place] tel:[phone] [facility] Main Office No Information 8 Fabio Paul. [address], [place], [address] , [place]. tel:[phone] Referring Provider: Gulshan Stewart, [address] [place], [address]. tel:[phone] OFFICE/OUTPA TIENT VISIT, EST [facility] of , [address], [place], [id number], [place] tel:[phone] [facility] Main Office Follow Up of Rheumatoid Arthritis (chief complaint) RA w/o rheumatoid factor of multiple sitesOther ad terminal makeup operator (current) drug therapyLong term (current) use of opiate analgesicLon g term (current) use of non-steroida l anti-inflamm atories (NSAID) 8 Fabio Paul. [address], [place], [id number] , [place]. tel:[phone] Leif Arrington, [address], [place], [address]. tel:[phone] ng Provider: Gulshan Stewart, [place], [address]. tel:[phone] [facility] , [address], [place], [id number], [place] tel:[phone] [facility] Main Office No Information 8 Fabio Paul. [address], [place], [id number] , [place]. tel: [phone] Referring Provider: Gulshan Stewart, [place], [address]. tel:[phone] [facility] , [address], [place], [id number], [place] tel:[phone] [facility] Main Office Follow Up of Rheumatoid Arthritis (chief complaint) RA w/o rheumatoid factor of multiple sitesOther shelter (current) drug therapyLong term (current) use of non-steroida l anti-inflamm atories (NSAID) 8 Fabio Paul. [address], [place], [id number] , [place]. tel: [phone] Leif Arrington, [address], [place], [address]. tel:[phone] ng Provider: Gulshan Stewart, [place], [address]. tel:[phone] [facility] , [address], [place], [id number], [place] tel:[phone] [facility] Main Office No Information 8 Fabio Paul. [address], [place], [id number] , [place]. tel: [phone] Referring Provider: Gulshan Stewart, [address] [place], [address]. tel:[phone] [facility] , [address], [place], [id number], [place] tel:[phone] [facility] Main Office No Information Fabio Paul. [address], [place], [id number] , [place]. tel: [phone] Referring Provider: Gulshan Stewart, [address] [place], [address]. tel:[phone] [facility] , [address], [place], [id number], [place] tel:[phone] [facility] Main Office No Information Fabio Paul. [address], [place], [id number] , [place]. tel: [phone] Referring Provider: Gulshan Stewart, [address] [place], [address]. tel:[phone] OFFICE/OUTPA TIENT VISIT, EST [facility] , [address], [place], [id number], [place] [phone] [facility] Main Office Follow Up of Rheumatoid Arthritis (chief complaint) RA w/o rheumatoid factor of multiple sitesOther shelter (current) drug therapy Fabio Paul. [address], [place], [id number] , [place]. tel: [phone] Leif Arrington, [address], [place], [address]. tel:[phone] ng Provider: Gulshan Stewart, [address] [place], [address]. tel:[phone] [facility] , [address], [place], [id number], [place] tel:[phone] [facility] Main Office Follow Up of Rheumatoid Arthritis (chief complaint) RA w/o rheumatoid factor of multiple sitesOther ad terminal makeup operator drug therapyBody mass index (BMI) 30.0-30.9, adult Dec- 7 Fabio Paul. [address], [place], [id number] , [place]. tel:[phone] Leif Arrington, [address], [place], [address]. tel:[phone] OFFICE/OUTPA TIENT VISIT, EST [facility] of , [address], [place], [id number], [place] tel:[phone] [facility] Main Office Follow Up of Rheumatoid Arthritis (chief complaint) RA w/o rheumatoid factor of multiple sitesOther shelter drug therapyBody mass index (BMI) 30.0-30.9, adult Nov- Fabio Paul. [address], [place], [id number] , [place]. tel:[phone] Leif Arrington, [address], [place], [address]. tel:[phone] Provider: Gulshan Stewart, [address], [place], [address]. tel:[phone] OFFICE/OUTPA TIENT VISIT, EST [facility] , [address], [place], [id number], [place] tel:[phone] [facility] Main Office Follow Up of Rheumatoid Arthritis (chief complaint) RA w/o rheumatoid factor of multiple sitesOther shelter drug therapyGener alized osteoarthrit isLong term (current) use of non-steroida l anti-inflamm atories (NSAID) 7 Fabio Paul. [address], [place], [id number] , [place]. tel:[phone] Leif Arrington, [address], [place], [address]. tel:[phone] masha Provider: Gulshan Stewart, [address] [place]oya Perry MD, . tel:[phone] [facility] , [address], [place], [id number], [place] tel:[phone] [facility] Main Office No Information 7 Fabio Paul. [address], [place], [id number] , [place]. tel:[phone] Referring Provider: Gulshan Stewart, [address] [place] Perry MD, . tel:[phone] OFFICE/OUTPA TIENT VISIT, EST [facility] of , [address], [place], [id number], [place] tel:[phone] [facility] Main Office Follow Up of Rheumatoid Arthritis (chief complaint) RA w/o rheumatoid factor of multiple sitesOther ad terminal makeup operator drug therapyGener alized osteoarthrit isLong term (current) use of non-steroida l anti-inflamm atories (NSAID) Jul- 7 Fabio Paul. [address], [place], [id number] , [place]. tel:[phone] Leif Arrington, [address], [place], [address]. tel:[phone] masha Provider: Gulshan Stewart, Edelmira2 Latoya Perry MD, . tel:[phone] [facility] , [address], [place], [id number], [place] tel:[phone] [facility] Main Office No Information 7 Fabio Paul. [address], [place], [id number] , [place]. tel:[phone] Referring Provider: Gulshan Stewart, [address] [place], [address]. tel:[phone] [facility] , [address], [place], [id number], [place] tel:[phone] [facility] Main Office No Information Fabio Paul. [address], [place], [id number] , [place]. tel:[phone] Referring Provider: Gulshan Stewart, Edelmira2 [place], [address]. tel:[phone] [facility] , [address], [place], [id number], [place] tel:[phone] [facility] Main Office No Information Fabio Paul. [address], [place], [id number] , [place]. tel:[phone] Referring Provider: Gulshan Stewart, Edelmira2 [place], [address]. tel:[phone] [facility] , [address], [place], [id number], [place] tel:[phone] [facility] Main Office Follow Up of Rheumatoid Arthritis (chief complaint) RA w/o rheumatoid factor of multiple sitesOther shelter drug therapyGener alized osteoarthrit isLong term (current) use of non-steroida l anti-inflamm atories (NSAID)Troch anteric bursitis, right hipPain in right hip Fabio Paul. [address], [place], [id number] , [place]. tel: [phone] Leif Arrington, [address], [place], [address]. tel:[phone] ng Provider: Gulshan Stewart, Edelmira2 [place], [address]. tel:[phone] OFFICE/OUTPA TIENT VISIT, EST [facility] , [address], [place], [id number], [place] tel:[phone] [facility] Main Office Follow Up of Rheumatoid Arthritis (chief complaint) RA w/o rheumatoid factor of multiple sitesOther ad terminal makeup operator drug therapyGener alized osteoarthrit isLong term (current) use of non-steroida l anti-inflamm atories (NSAID) 7-201 6 Fabio Paul. [address], [place], [address] , [place]. tel:[phone] Leif Arrington, [address], [place], [address]. tel:[phone] ng Provider: Gulshan Stewart, [place], [address]. tel:[phone] OFFICE/OUTPA TIENT VISIT, EST [facility] , [address], [place], [id number], [place] tel:[phone] [facility] Main Office Follow Up of Rheumatoid Arthritis (chief complaint) RA w/o rheumatoid factor of multiple sitesOther ad terminal makeup operator drug therapyGener alized osteoarthrit isLong term (current) use of non-steroida l anti-inflamm atories (NSAID) 6 Fabio Paul. [address], [place], [id number] , [place]. tel:[phone] Leif Arrington, [address], [place], [address]. tel:[phone] ng Provider: Gulshan Stewart, Edelmira2 [place], [address]. tel:[phone] OFFICE/OUTPA TIENT VISIT, EST [facility] , [address], [place], [id number], [place] tel:[phone] [facility] Main Office Follow Up of Rheumatoid Arthritis (chief complaint) RA w/o rheumatoid factor of multiple sitesOther ad terminal makeup operator drug therapyGener alized osteoarthrit isLong term (current) use of non-steroida l anti-inflamm atories (NSAID) 6 Fabio Paul. [address], [place], [id number] , [place]. tel:[phone] Leif Arrington, [address], [place], [address]. tel:[phone] ng Provider: Gulshan Stewart, [address] E, [place], [address]. tel:[phone] OFFICE/OUTPA TIENT VISIT, EST [facility] of , [address], [place], [id number], [place] tel:[phone] [facility] Main Office Follow Up of Rheumatoid Arthritis (chief complaint) RA w/o rheumatoid factor of multiple sitesOther ad terminal makeup operator drug therapyGener alized osteoarthrit is 6 Fabio Paul. [address], [place], [id number] , [place]. tel:[phone] Leif Arrington, [address], [place], [address]. tel:[phone] ng Provider: Venus Mont[address], [place], [address]. tel:[phone] OFFICE/OUTPA TIENT VISIT, EST [facility] , [address], [place], [id number], [place] tel:[phone] [facility] Main Office Follow Up of Rheumatoid Arthritis (chief complaint) RA w/o rheumatoid factor of multiple sitesOther shelter drug therapyGener alized osteoarthrit is 6 Fabio Paul. [address], [place], [id number] , [place]. tel:[phone] Leif Arrington, [address], [place], [address]. tel:[phone] masha Provider: Venus Montoya [address], [place], [address]. tel:[phone] OFFICE/OUTPA TIENT VISIT, EST [facility] , [address], [place], [id number], [place] tel:[phone] [facility] Main Office Inflammatory Polyarthropa thy (chief complaint) Inflammatory polyarthropa thyGeneraliz ed osteoarthrit is 6 Fabio Paul. [address], [place], [address] , [place]. tel:[phone] Leif Arrington, [address], [place], [address]. tel:[phone] ng Provider: Leif Gonzalez, [address], [place], [address]. tel:[phone] OFFICE/OUTPA TIENT VISIT, EST [facility] , [address], [place], [id number], [place] tel:[phone] [facility] Main Office Inflammatory Polyarthropa thy (chief complaint) Inflammatory polyarthropa thyPain in left hipPrimary generalized (osteo)arthr itisLong term (current) use of non-steroida l anti-inflamm atories (NSAID) 6 Fabio Paul. [address], [place], [address] , [place]. tel:[phone] Leif Arrington, [address], [place], [address]. tel:[phone] masha Provider: Leif Gonzalez, [address], [place], [address]. tel:[phone] OFFICE/OUTPA TIENT VISIT, EST [facility] , [address], [place], [id number], [place] tel:[phone] [facility] Main Office Osteoarthrit is (chief complaint) Primary generalized (osteo)arthr itisLong term (current) use of non-steroida l anti-inflamm atories (NSAID) 6 Fabio Paul. [address], [place], [address] , [place]. tel:[phone] Referring Provider: Leif Gonzalez, [address], [place], [address]. tel:[phone] OFFICE/OUTPA TIENT VISIT, EST [facility] , [address], [place], [id number], [place] tel:[phone] [facility] Main Office Follow Up of Osteoarthrit is (chief complaint) Osteoarthros is, generalized, involving unspecified siteDisorder s of bursae and tendons in shoulder region, unspecified Jul- 5 Fabio Paul. [address], [place], [id number] , [place]. tel:[phone] Referring Provider: Leif Gonzalez, [address], [place], [address]. tel:[phone] OFFICE/OUTPA TIENT VISIT, EST [facility] , [address], [place], [id number], [place] tel:[phone] [facility] Main Office Follow Up of Right shoulder pain (chief complaint) Disorders of bursae and tendons in shoulder region, unspecifiedP ainful shoulder 4 Fabio Paul. [address], [place], [address] , [place]. tel:[phone] Referring Provider: Leif Gonzalez, [address], [place], [address]. tel:[phone] OFFICE/OUTPA TIENT VISIT, EST [facility] , [address], [place], [id number], [place] tel:[phone] [facility] Main Office No Information 4 Fabio Paul. [address], [place], [id number] , [place]. tel:[phone] Referring Provider: Peter Gonzalez, [address], [place], [address]. tel:[phone] OFFICE/OUTPA TIENT VISIT, EST [facility] , [address], [place], [id number], [place] tel:[phone] [facility] Main Office Follow Up of Osteoarthrit is (chief complaint) Osteoarthrit is, GeneralizedL TU-TERM (CURRENT) USE OF NON-STEROIDA L ANTI-INFLAMM ATORIES 4 Fabio Paul. [address], [place], [address] , [place]. tel:[phone] Referring Provider: Leif Gonzalez, [address], [place], [address]. tel:[phone] OFFICE/OUTPA TIENT VISIT, EST [facility] , [address], [place], [id number], [place] tel:[phone] [facility] Main Office Osteoarthrit is (chief complaint) Disorders of bursae and tendons in shoulder region, unspecifiedO steoarthriti s, Generalized 4 Fabio Paul. [address], [place], [address] , [place]. tel:[phone] Referring Provider: Leif Gonzalez, [address], [place], [address]. tel:[phone] OFFICE/OUTPA TIENT VISIT, EST [facility] , [address], [place], [id number], [place] tel:[phone] [facility] Main Office Osteoarthrit is (chief complaint) Osteoarthrit is, GeneralizedD isorders of bursae and tendons in shoulder region, unspecifiedL TU-TERM (CURRENT) USE OF NON-STEROIDA L ANTI-INFLAMM ATORIES 4 Fabio Paul. [address], [place], [address] , [place]. tel:[phone] Referring Provider: Leif Gonzalez [address], [place], [address]. tel:[phone] OFFICE/OUTPA TIENT VISIT, EST [facility] , [address], [place], [id number], [place] tel:[phone] [facility] Main Office Osteoarthrit is (chief complaint) Osteoarthrit is, Generalized 3 Fabio Paul. [address], [place], [address] , [place]. tel:[phone] Referring Provider: Leif Gonzalez, [address], [place], [address]. tel:[phone] OFFICE/OUTPA TIENT VISIT, EST [facility] of , [address], [place], [id number], [place] tel:[phone] [facility] Main Office for joint pain (chief complaint) Osteoarthrit is, GeneralizedA rticular cartilage disorder involving forearmRadia l styloid tenosynoviti s 3 Fabio Paul. [address], [place], [address] , [place]. tel:[phone] Referring Provider: Leif Gonzalez, [address], [place], [address]. tel:[phone] OFFICE/OUTPA TIENT VISIT, NEW [facility] , [address], [place], [id number], [place] tel:[phone] [facility] Main Office myalgia (chief complaint) Fatigue / MalaisePain in joint involving multiple sites 3 Fabio Paul. [address], [place], [address] , [place]. tel:[phone] Referring Provider: Leif Gonzalez, [address], [place], [address]. tel:[phone] Family History Family Member Type Diagnosis Age [...] Covered republican ID Authoriza tion(s) Medicare [place] [id number] [employer] [place] [id number] Medicare [place] [id number] [employer] [place] [id number] Medicare MB [id number] [employer] [place] [id number] Medicare MB [id number] [employer] [place] [id number] Social History Type Description Quantity Date Captured [...] OA) ordered Referral Referred To: Toan Berry [address] [place], [id number] Ordered: Referrals: Allopathic & Osteopathic Physicians : Anesthesiology. Toan Berry. Consult ordered Referral Ordered: Madi Holder -Allopathic & Osteopathic Physicians : Internal Medicine : Nephrology (related to CKD) ordered Referral Referred To: Madi Holder [address] [facility]
[address] [place], [phone] Ordered: Referrals: Allopathic & Osteopathic Physicians : [...] Future Order: Lab Order Lipid Pa rashard ([id number]), Ordered on: Ordered Future Order: Lab Order COMPREHE NSIVE METABOLIC PANEL (CMP), Collected on: , Sent on: Sent Future Order: Lab Order CBC Diff erential And Platlet (CBC PLT DIFF), Ordered on: Ordered Future Order: Lab Order CMP ([id number]), Orde red on: Ordered Future Order: Lab Order CBC Diff erential And Platlet (CBC PLT DIFF), Collected on: Ordered Future Order: Lab Order CMP ([id number]), Wally ected on: Ordered Future Order: Lab [...]
--- OUTSIDE RECORDS SUMMARY | 2024-11-28 06:00 | XMS_ITS | Continuity of Care Document ---
Author Organization [facility] Address [address] [place] [address] Phone Care Team Providers Care Plumber Cub Name Role Phone Fabio MANCINI, Paul Unavailable Unavailable Allergies, Adverse Reactions, Alerts Substance Reaction Status Criticality No Known Allergies Active No Inform ation Medications Medication Instructions Dosage Effective Dates (start - stop) Status Comments ergocalciferol (vitamin D2) 1,250 mcg (50,000 unit) capsule take 1 capsule by oral route every week 26283 UNITS - Active Simponi ARIA 12.5 mg/mL [...] Providers Copied on Encounter OFFICE/OUTPA TIENT VISIT, [facility] of , [address], [place], [id number], [place] tel:[phone] [facility] Main Office No Information Fabio Miller. [address], [place], [id number] , [place]. tel:[phone] Referring Provider: Rosalba Shaw, [address], [place], [address]. tel:[phone] OFFICE/OUTPA TIENT VISIT, EST [facility] anjelica MANCINI, [address], [place], [id number], [place] tel:[phone] [facility] Main Office Age-related osteoporosis without current pathological fracture 5 Fabio Paul. [address], [place], [id number] , [place]. tel:[phone] Referring Provider: Pilo Hinojosa, [address], [place], [address]. 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 [address], [place], [id number] , [place]. tel:[phone] Leif Arrington, [address], [place], [address]. tel:[phone] ist: Madi Gallo, [address], [place], [address]. tel:[phone] ist: Sunni Ackerman, [address], [place], [address]. tel:[phone] ng Provider: Pilo Hinojosa, [address], [place], [address]. tel:[phone] [facility] of , [address], [place], [id number], [place] tel:[phone] [facility] Main Office No Information 5 Fabio Paul. [address], [place], [id number] , [place]. 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 [address], [place], [id number] , [place]. tel:[phone] Leif Arrington, [address], [place], [address]. tel:[phone] ist: Madi Holder, [address], [place], [address]. tel:[phone] ist: Sunni Ackerman, [address], [place], [address]. tel:[phone] ng Provider: Rosalba Shaw, [address], [place], [address]. tel:[phone] OFFICE/OUTPA TIENT VISIT, EST [facility] of , [address], [place], [id number], [place] tel:[phone] [facility] Main Office No Information Jul- 5 Fabio Miller. [address], [place], [id number] , [place]. tel:[phone] Referring Provider: Pilo Hinojosa, [address], [place], [address]. tel:[phone] OFFICE/OUTPA TIENT VISIT, EST [facility] of , [address], [place], [id number], [place] tel:[phone] [facility] Main Office Follow Up [...] [address], [place], [id number] , [place]. tel:[phone] Leif Arrington, [address], [place], [address]. tel:[phone] ist: Madi Holder, [address], [place], [address]. tel:[phone] ist: Sunni Ackerman, [address], [place], [address]. tel:[phone] ng Provider: Rosalba Shaw, [address], [place], [address]. tel:[phone] OFFICE/OUTPA TIENT VISIT, EST [facility] of , [address], [place], [id number], [place] tel:[phone] [facility] Main Office No Information 4 Fabio Miller. [address], [place], [id number] , [place]. tel:[phone] Referring Provider: Pilo Hinojosa, [address], [place], [address]. tel:[phone] OFFICE/OUTPA TIENT VISIT, EST [facility] of , [address], [place], [address], [place] tel:[phone] [facility] Main Office Follow Up [...] [address], [place], [id number] , [place]. tel:[phone] Leif Arrington, [address], [place], [address]. tel:[phone] ist: Madi Holder, [address], [place], [address]. tel:[phone] ist: Sunni Ackerman, [address], [place], [address]. tel:[phone] ng Provider: Pilo Hinojosa, [address] [place] [address] [address], [place], [address]. tel:[phone] OFFICE/OUTPA TIENT VISIT, EST [facility] of , [address], [place], [id number], [place] tel:[phone] [facility] Main Office No Information 4 Fabio Paul. [address], [place], [id number] , [place]. tel:[phone] Referring Provider: Pilo Hinojosa, [address] [place] [address] [address], [place], [address]. [phone] OFFICE/OUTPA TIENT VISIT, EST [facility] of , [address], [place], [id number], [place] tel:[phone] [facility] Main Office No Information 4 Fabio Paul. [address], [place], [id number] , [place]. tel:[phone] Referring Provider: Pilo Hinojosa, [address] [facility] [address], [place], [address]. 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 [address], [place], [address] , [place]. tel:[phone] Leif Arrintgon, [address], [place], [address]. tel:[phone] ist: Madi Holder, [address], [place], [address]. tel:[phone] ist: Sunni Ackerman, [address], [place], [address]. tel:[phone] ng Provider: Pilo Hinojosa, [address], [place], [address]. tel:[phone] OFFICE/OUTPA TIENT VISIT, EST [facility] of , [address], [place], [address], [place] tel:[phone] [facility] Main Office No Information 4 Fabio Paul. [address], [place], [id number] , [place]. tel:[phone] Referring Provider: Pilo Hinojosa, [address], [place], [address]. tel:[phone] OFFICE/OUTPA TIENT VISIT, EST [facility] of , [address], [place], [address], [place] tel:[phone] [facility] Main Office No Information 4 Fabio Paul. [address], [place], [id number] , [place]. tel:[phone] Referring Provider: Pilo Hinojosa, [address], [place], [address]. tel:[phone] OFFICE/OUTPA TIENT VISIT, EST [facility] of , [address], [place], [address], [place] tel:[phone] [facility] Main Office No Information 4 Fabio Paul. [address], [place], [address] , [place]. tel:[phone] Referring Provider: Pilo Hinojosa, [address], [place], [address]. tel:[phone] OFFICE/OUTPA TIENT VISIT, EST [facility] of , [address], [place], [id number], [place] tel:[phone] [facility] Main Office Follow Up [...] [address], [place], [address] , [place]. tel:[phone] Leif Arrington, [address], [place], [address]. tel:[phone] ist: Madi Holder, [address], [place], [address]. tel:[phone] ist: Sunni Ackerman, [address], [place], [address]. tel:[phone] ng Provider: Pilo Hinojosa, [address], [place], [address]. tel:[phone] OFFICE/OUTPA TIENT VISIT, EST [facility] of , [address], [place], [address], [place] tel:[phone] [facility] Main Office No Information 4 Fabio Paul. [address], [place], [id number] , [place]. tel:[phone] Referring Provider: Pilo Hinojosa, [address], [place], [address]. tel:[phone] OFFICE/OUTPA TIENT VISIT, EST [facility] of , [address], [place], [id number], [place] tel:[phone] [facility] Main Office No Information 3 Fabio Paul. [address], [place], [id number] , [place]. tel:[phone] Referring Provider: Pilo Hinojosa, [address], [place], [address]. tel:[phone] [facility] of , [address], [place], [id number], [place] tel:[phone] [facility] Main Office No Information 3 Fabio Paul. [address], [place], [address] , [place]. 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 [address], [place], [address] , [place]. tel:[phone] Leif Arrington, [address], [place], [address]. tel:[phone] ist: Madi Holder, [address], [place], [address]. tel:[phone] ist: Sunni Ackerman, [address], [place], [address]. tel:[phone] ng Provider: Pilo Hinojosa, [address], [place], [address]. tel:[phone] [facility] of , [address], [place], [id number], [place] tel:[phone] [facility] Main Office No Information 0 3 Fabio Paul. [address], [place], [id number] , [place]. tel:[phone] OFFICE/OUTPA TIENT VISIT, EST [facility] of , [address], [place], [id number], [place] tel:[phone] [facility] Main Office No Information 3 Fabio Paul. [address], [place], [address] , [place]. tel:[phone] Referring Provider: Pilo Hinojosa, [address], [place], [address]. tel:[phone] OFFICE/OUTPA TIENT VISIT, EST [facility] of , [address], [place], [address], [place] tel:[phone] [facility] Main Office No Information 3 Fabio Paul. [address], [place], [address] , [place]. tel:[phone] Referring Provider: Pilo Hinojosa, [address], [place], [address]. tel:[phone] OFFICE/OUTPA TIENT VISIT, EST [facility] of , [address], [place], [address], [place] tel:[phone] [facility] Main Office No Information 3 Fabio Paul. [address], [place], [address] , [place]. tel:[phone] Referring Provider: iPlo Hinojosa, [address], [place], [address]. tel:[phone] OFFICE/OUTPA TIENT VISIT, EST [facility] of , [address], [place], [id number], [place] tel:[phone] [facility] Main Office No Information 3 Fabio Paul. [address], [place], [address] , [place]. tel:[phone] Referring Provider: Pilo Hinojosa, [address], [place], [address]. 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 [address], [place], [address] , [place]. tel:[phone] Leif Arrington, [address], [place], [address]. tel:[phone] ist: Madi Holder, [address], [place], [address]. tel:[phone] ist: Sunni Ackerman [address], [place], [address]. tel:[phone] ng Provider: Pilo Hinojosa, [address], [place], [address]. tel:[phone] OFFICE/OUTPA TIENT VISIT, EST [facility] of , [address], [place], [id number], [place] tel:[phone] [facility] Main Office No Information 3 Fabio Paul. [address], [place], [id number] , [place]. tel:[phone] Referring Provider: Pilo Hinojosa, [address], [place], [address]. tel:[phone] OFFICE/OUTPA TIENT VISIT, EST [facility] of , [address], [place], [address], [place] tel:[phone] [facility] Main Office No Information 3 Fabio Paul. [address], [place], [id number] , [place]. tel:[phone] Referring Provider: Pilo Hinojosa, [address], [place], [address]. tel:[phone] OFFICE/OUTPA TIENT VISIT, EST [facility] of , [address], [place], [id number], [place] tel:[phone] [facility] Main Office No Information 3 Fabio Paul. [address], [place], [address] , [place]. tel:[phone] Referring Provider: Pilo Hinojosa, [address], [place], [address]. tel:[phone] OFFICE/OUTPA TIENT VISIT, EST [facility] of , [address], [place], [address], [place] tel:[phone] [facility] Main Office No Information Jul-0 3 Fabio Paul. [address], [place], [id number] , [place]. tel:[phone] Referring Provider: Pilo Hinojosa, [address], [place], [address]. tel:[phone] OFFICE/OUTPA TIENT VISIT, EST [facility] of , [address], [place], [address], [place] tel:[phone] [facility] Main Office Follow Up of GOA (chief complaint)Fo llow Up of RA (chief complaint) Immunodefici ency due to drugsRA w/o rheumatoid factor of multiple sitesGeneral ized OACKDLong term (current) use of immunosuppre ssive biologicPain in unspecified joint Jun-2 3 Fabio Paul. [address], [place], [address] , [place]. tel:[phone] Leif Arrington, [address], [place], [address]. tel:[phone] ist: Madi Gallo, [address], [place], [address]. tel:[phone] ist: Sunni Ackerman, [address], [place], [address]. tel:[phone] ng Provider: Pilo Hinojosa, [address], [place], [address]. tel:[phone] OFFICE/OUTPA TIENT VISIT, EST [facility] of , [address], [place], [address], [place] tel:[phone] [facility] Main Office No Information 0 3 Fabio Paul. [address], [place], [address] , [place]. tel:[phone] Referring Provider: Pilo Hinojosa, [address], [place], [address]. tel:[phone] OFFICE/OUTPA TIENT VISIT, EST [facility] of , [address], [place], [address], [place] tel:[phone] [facility] Main Office No Information 3 Fabio Paul. [address], [place], [address] , [place]. tel: [phone] Referring Provider: Gulshan Stewart, [place], [address]. tel:[phone] OFFICE/OUTPA TIENT VISIT, EST [facility] of , [address], [place], [address], [place] tel:[phone] [facility] Main Office No Information 3 Fabio Paul. [address], [place], [address] , [place]. tel: [phone] Referring Provider: Gulshan Stewart, Edelm[address]2 Latoya Perry MD, . tel:[phone] OFFICE/OUTPA TIENT VISIT, EST [facility] of , [address], [place], [address], [place] tel:[phone] [facility] Main Office Follow Up of GOA (chief complaint)Fo llow Up of RA (chief complaint) Immunodefici ency due to drugsRA w/o rheumatoid factor of multiple sitesGeneral ized OACervicalgi aCKDLong term (current) use of opiate analgesicLon g term (current) use of immunosuppre ssive biologic 2 Fabio Paul. [address], [place], [address] , [place]. tel: [phone] Leif Arrington, [address], [place], [address]. tel:[phone] ist: Madi Holder, [address], [place], [address]. tel:[phone] ng Provider: Gulshan Stewart, [address] [place], [address]. tel:[phone] OFFICE/OUTPA TIENT VISIT, EST [facility] of , [address], [place], [id number], [place] tel: [phone] [facility] Main Office No Information 2 Fabio Paul. [address], [place], [address] , [place]. tel:[phone] Referring Provider: Gulshan Stewart, [place], [address]. tel:[phone] OFFICE/OUTPA TIENT VISIT, EST [facility] of , [address], [place], [address], [place] tel:[phone] [facility] Main Office No Information 2 Fabio Paul. [address], [place], [address] , [place]. tel: [phone] Referring Provider: Gulshan Stewart, [address] [place], [address]. tel:[phone] OFFICE/OUTPA TIENT VISIT, EST [facility] of , [address], [place], [id number], [place] tel:[phone] [facility] Main Office No Information 2 Fabio Paul. [address], [place], [id number] , [place]. tel: [phone] Referring Provider: Gulshan Stewart, [address] [place], [address]. tel:[phone] OFFICE/OUTPA TIENT VISIT, EST [facility] of , [address], [place], [address], [place] tel:[phone] [facility] Main Office Follow Up of Rheumatoid Arthritis (chief complaint)Fo llow Up of Generalized OA (chief complaint) Immunodefici ency due to drugsRA w/o rheumatoid factor of multiple sitesGeneral ized OACervicalgi aCKDLong term (current) use of opiate analgesicOth er [facility] ([facility]) drug therapyBody mass index (BMI) 33.0-33.9, adult 2 Fabio Paul. [address], [place], [address] , [place]. tel:[phone] Leif Arrington, [address], [place], [address]. tel:[phone] ist: Madi Holder, [address], [place], [address]. tel:[phone] ng Provider: Gulshan Stewart, [place], [address]. tel:[phone] OFFICE/OUTPA TIENT VISIT, EST [facility] of , [address], [place], [address], [place] tel:[phone] [facility] Main Office No Information 2 Fabio Miller. [address], [place], [address] , [place]. tel:[phone] Referring Provider: Gulshan Stewart, [place], [address]. tel:[phone] OFFICE/OUTPA TIENT VISIT, EST [facility] of , [address], [place], [address], [place] tel:[phone] [facility] Main Office No Information 2 Fabio Paul. [address], [place], [address] , [place]. tel:[phone] Referring Provider: Gulshan Stewart, [place], [address]. tel:[phone] OFFICE/OUTPA TIENT VISIT, EST [facility] of , [address], [place], [address], [place] tel:[phone] [facility] Main Office No Information 2 Fabio Paul. [address], [place], [address] , [place]. tel:[phone] Referring Provider: Gulshan Stewart, [address] [place], [address]. tel:[phone] OFFICE/OUTPA TIENT VISIT, EST [facility] of , [address], [place], [address], [place] tel:[phone] [facility] Main Office No Information 2 Fabio Paul. [address], [place], [address] , [place]. tel:[phone] Referring Provider: Pilo Hinojosa, [address] [facility] [address], [place], [address]. tel:[phone] OFFICE/OUTPA TIENT VISIT, EST [facility] of , [address], [place], [address], [place] tel:[phone] [facility] Main Office No Information 2 Fabio Paul. [address], [place], [address] , [place]. tel:[phone] Referring Provider: Gulshan Stewart, [address] [place], [address]. tel:[phone] OFFICE/OUTPA TIENT VISIT, EST [facility] of , [address], [place], [address], [place] tel:[phone] [facility] Main Office Follow Up of Rheumatoid Arthritis (chief complaint)Fo llow Up of Generalized OA (chief complaint) Immunodefici ency due to drugsRA w/o rheumatoid factor of multiple sitesGeneral ized OALong term (current) use of opiate analgesicOth er [facility] terminal (current) drug therapyCKDCe rvicalgia 2 Fabio Paul. [address], [place], [address] , [place]. tel: [phone] Leif Arrington, [address], [place], [address]. tel: [phone] ng Provider: Gulshan Stewart, [address] [place], [address]. tel: [phone] OFFICE/OUTPA TIENT VISIT, EST [facility] of , [address], [place], [address], [place] tel: [phone] [facility] Main Office No Information 2 Fabio Paul. [address], [place], [address] , [place]. tel: [phone] Referring Provider: Gulshan Stewart, [address] [place], [address]. tel: [phone] OFFICE/OUTPA TIENT VISIT, EST [facility] of , [address], [place], [address], [place] tel: [phone] [facility] Main Office No Information 2 Fabio Paul. [address], [place], [id number] , [place]. tel: [phone] Referring Provider: Gulshan Stewart, [address] [place], [address]. tel:[phone] OFFICE/OUTPA TIENT VISIT, EST [facility] of , [address], [place], [id number], [place] tel: [phone] [facility] Main Office No Information 1 Fabio Paul. [address], [place], [id number] , [place]. tel: [phone] Referring Provider: Gulshan Stewart, [address] [place], [address]. tel:[phone] OFFICE/OUTPA TIENT VISIT, EST [facility] of , [address], [place], [id number], [place] tel:[phone] [facility] Main Office No Information 1 Fabio Paul. [address], [place], [id number] , [place]. tel: [phone] Referring Provider: [place], [address]. tel:[phone] OFFICE/OUTPA TIENT VISIT, EST [facility] of , [address], [place], [id number], [place] tel:[phone] [facility] Main Office No Information 1 Fabio Paul. [address], [place], [id number] , [place]. tel: [phone] Referring Provider: Driss Glass [place], [place], . tel:[phone] OFFICE/OUTPA TIENT VISIT, EST [facility] of , [address], [place], [id number], [place] tel:[phone] [facility] Main Office Follow Up of Rheumatoid Arthritis (chief complaint)Fo llow Up of Generalized OA (chief complaint) Immunodefici ency due to drugsRA w/o rheumatoid factor of multiple sitesGeneral ized OALong term (current) use of opiate analgesicOth er [facility] ([facility]) drug therapyEncou nter for immunization Body mass index (BMI) 33.0-33.9, adult 1 Fabio Paul. [address], [place], [id number] , [place]. tel:[phone] Leif Arrington, [address], [place], [address]. tel:[phone] ng Provider: Gulshan Stewart, [place], [address]. tel:[phone] OFFICE/OUTPA TIENT VISIT, EST [facility] of , [address], [place], [id number], [place] tel:[phone] [facility] Main Office No Information 1 Fabio Paul. [address], [place], [id number] , [place]. tel: [phone] Referring Provider: Gulshan Stewart, [place], [address]. tel:[phone] OFFICE/OUTPA TIENT VISIT, EST [facility] of , [address], [place], [id number], [place] tel: [phone] [facility] Main Office No Information 1 Fabio Paul. [address], [place], [id number] , [place]. tel: [phone] Referring Provider: Gulshan Stewart, [address]ira[address] [place], [address]. tel:[phone] [facility] of , [address], [place], [id number], [place] tel: [phone] [facility] Main Office No Information 1 Fabio Paul. [address], [place], [id number] , [place]. tel: [phone] Referring Provider: Gulshan Stewart, [address] [place], [address]. tel:[phone] OFFICE/OUTPA TIENT VISIT, EST [facility] of , [address], [place], [id number], [place] tel:[phone] [facility] Main Office No Information 1 Fabio Paul. [address], [place], [id number] , [place]. tel: [phone] Referring Provider: Gulshan Stewart, [address] [place], [address]. tel:[phone] OFFICE/OUTPA TIENT VISIT, EST [facility] of , [address], [place], [id number], [place] tel:[phone] [facility] Main Office Follow Up of Rheumatoid Arthritis (chief complaint)Fo llow Up of Generalized OA (chief complaint) Immunodefici ency due to drugsRA w/o rheumatoid factor of multiple sitesGeneral ized OALong term (current) use of opiate analgesicOth er [facility] (current) drug therapyBody mass index (BMI) 34.0-34.9, adult August- 1 Fabio Paul. [address], [place], [id number] , [place]. [phone] Leif Arrington, [address], [place], [address]. tel:[phone] ng Provider: Gulshan Stewart, [address] [place], [address]. tel:[phone] OFFICE/OUTPA TIENT VISIT, EST [facility] of , [address], [place], [id number], [place] tel:[phone] [facility] Main Office No Information 1 Fabio Paul. [address], [place], [id number] , [place]. tel:[phone] Referring Provider: Gulshan Stewart, [address] [place], [address]. tel:[phone] OFFICE/OUTPA TIENT VISIT, EST [facility] of , [address], [place], [id number], [place] tel:[phone] [facility] Main Office No Information 1 Fabio Paul. [address], [place], [id number] , [place]. tel:[phone] Referring Provider: Gulshan Stewart, [place], [address]. tel:[phone] OFFICE/OUTPA TIENT VISIT, EST [facility] of , [address], [place], [id number], [place] tel:[phone] [facility] Main Office No Information 1 Fabio Miller. [address], [place], [id number] , [place]. tel:[phone] Referring Provider: Gulshan Stewart, [address] [place], [address]. tel:[phone] OFFICE/OUTPA TIENT VISIT, EST [facility] of , [address], [place], [id number], [place] tel:[phone] [facility] Main Office No Information 1 Fabio Miller. [address], [place], [id number] , [place]. tel:[phone] Referring Provider: Gulshan Stewart, Edelmira2 Latoya Perry MD, . tel:[phone] OFFICE/OUTPA TIENT VISIT, EST [facility] of , [address], [place], [id number], [place] tel:[phone] [facility] Main Office Follow Up of Rheumatoid Arthritis (chief complaint)Fo llow Up of Generalized OA (chief complaint) RA w/o rheumatoid factor of multiple sitesGeneral ized OALong term (current) use of opiate analgesicOth er [facility] ([facility]) drug therapyImmun odeficiency due to drugsBody mass index (BMI) 33.0-33.9, adult 1 Fabio Miller. [address], [place], [address] , [place]. tel:[phone] Referring Provider: Edelmira Glass2 [place], [address]. tel:[phone] OFFICE/OUTPA TIENT VISIT, EST [facility] of , [address], [place], [id number], [place] tel: [phone] [facility] Main Office No Information 1 Fabio Paul. [address], [place], [id number] , [place]. tel: [phone] Referring Provider: Gulshan Stewart, [place], [address]. tel:[phone] OFFICE/OUTPA TIENT VISIT, EST [facility] of , [address], [place], [id number], [place] tel: [phone] [facility] Main Office No Information 0 Fabio Paul. [address], [place], [id number] , [place]. tel: [phone] Referring Provider: Gulshan tSewart, [place], [address]. tel:[phone] [facility] of , [address], [place], [id number], [place] tel: [phone] [facility] Main Office No Information 0 Fabio Paul. [address], [place], [id number] , [place]. tel: [phone] Referring Provider: Gulshan Stewart, [address] [place], [address]. tel:[phone] OFFICE/OUTPA TIENT VISIT, EST [facility] of , [address], [place], [id number], [place] tel:[phone] [facility] Main Office No Information 0 Fabio Paul. [address], [place], [id number] , [place]. tel: [phone] Referring Provider: Gulshan Stewart, [address] [place], [address]. tel:[phone] OFFICE/OUTPA TIENT VISIT, EST [facility] of , [address], [place], [id number], [place] tel:[phone] [facility] Main Office Follow Up of Rheumatoid Arthritis (chief complaint)Fo llow Up of Generalized OA (chief complaint) RA w/o rheumatoid factor of multiple sitesLong term (current) use of opiate analgesicOth er [facility] (current) drug therapyGener alized OAEncounter for immunization Body mass index (BMI) 34.0-34.9, adultElevate d blood-pressu re reading, w/o diagnosis of htn 0 Fabio Paul. [address], [place], [address] , [place]. tel:[phone] Leif Arrington, [address], [place], [address]. tel:[phone] ng Provider: Gulshan Stewart, [address] [place], [address]. tel:[phone] OFFICE/OUTPA TIENT VISIT, EST [facility] of , [address], [place], [id number], [place] tel:[phone] [facility] Main Office No Information 0 Fabio Paul. [address], [place], [id number] , [place]. tel:[phone] Referring Provider: Gulshan Stewart, [address] [place], [address]. tel:[phone] OFFICE/OUTPA TIENT VISIT, EST [facility] of , [address], [place], [id number], [place] tel:[phone] [facility] Main Office No Information 0 Fabio Paul. [address], [place], [id number] , [place]. tel:[phone] Referring Provider: Gulshan Stewart [address] [place], [address]. tel:[phone] OFFICE/OUTPA TIENT VISIT, EST [facility] of , [address], [place], [id number], [place] tel:[phone] [facility] Main Office No Information 0 Fabio Paul. [address], [place], [id number] , [place]. tel:[phone] Referring Provider: Gulshan Stewart, [address] [place], [address]. tel:[phone] OFFICE/OUTPA TIENT VISIT, EST [facility] of , [address], [place], [id number], [place] tel:[phone] [facility] Main Office No Information 0 Fabio Paul. [address], [place], [id number] , [place]. tel:[phone] Referring Provider: Gulshan Stewart, [address] [place] MD, . tel:[phone] OFFICE/OUTPA TIENT VISIT, EST [facility] of , [address], [place], [id number], [place] tel:[phone] [facility] Main Office Follow Up of Rheumatoid Arthritis (chief complaint) RA w/o rheumatoid factor of multiple sitesOther spondylosis, cervical regionCervic algiaLong term (current) use of opiate analgesicOth er [facility] drug therapy 0 Fabio Paul. [address], [place], [id number] , [place]. tel:[phone] Leif Arrington, [address], [place], [address]. tel:[phone] ng Provider: Gulshan Stewart, [address] [place], [address]. tel:[phone] [facility] of , [address], [place], [id number], [place] tel:[phone] [facility] Main Office Follow Up of Rheumatoid Arthritis (chief complaint) RA w/o rheumatoid factor of multiple sitesOther spondylosis, cervical regionCervic algiaLong term (current) use of opiate analgesicOth er [facility] (current) drug therapy 0 Fabio Paul. [address], [place], [id number] , [place]. tel:[phone] Leif Arrington, [address], [place], [address]. [phone] ng Provider: [place], [address]. [phone] OFFICE/OUTPA TIENT VISIT, EST [facility] of , [address], [place], [id number], [place] [phone] [facility] Main Office No Information 0 Fabio Paul. [address], [place], [id number] , [place]. [phone] Referring Provider: [place], [address]. tel:[phone] OFFICE/OUTPA TIENT VISIT, EST [facility] of , [address], [place], [id number], [place] tel:[phone] [facility] Main Office No Information 0 Fabio Paul. [address], [place], [id number] , [place]. tel:[phone] Referring Provider: [place], [address]. [phone] OFFICE/OUTPA TIENT VISIT, EST [facility] of , [address], [place], [id number], [place] tel:[phone] [facility] Main Office No Information 0-202 0 Fabio Paul. [address], [place], [address] , [place]. tel: [phone] Referring Provider: Gulshan Stewart, [place], [address]. tel:[phone] OFFICE/OUTPA TIENT VISIT, EST [facility] of , [address], [place], [id number], [place] tel:[phone] [facility] Main Office Follow Up of Rheumatoid Arthritis (chief complaint)Fo llow up (chief complaint) RA w/o rheumatoid factor of multiple sitesOther spondylosis, cervical regionCervic algiaOther [facility] (current) drug therapyLong term (current) use of opiate analgesicBod y mass index (BMI) 30.0-30.9, adult Jun-0 2- 0 Fabio Paul. [address], [place], [address] , [place]. tel: [phone] Leif Arrington, [address], [place], [address]. tel:[phone] ng Provider: Gulshan Stewart, [place], [address]. tel:[phone] [facility] of , [address], [place], [id number], [place] tel:[phone] [facility] Main Office No Information 2 9 Fabio Paul. [address], [place], [id number] , [place]. tel: [phone] Referring Provider: [place], [address]. tel:[phone] OFFICE/OUTPA TIENT VISIT, EST [facility] of , [address], [place], [id number], [place] tel:[phone] [facility] Main Office Follow Up of Rheumatoid Arthritis (chief complaint) RA w/o rheumatoid factor of multiple sitesOther spondylosis, cervical regionCervic algiaOther [facility] (current) drug therapyBody mass index (BMI) 34.0-34.9, adultElevate d blood-pressu re reading, w/o diagnosis of htn 9 Fabio Paul. [address], [place], [address] , [place]. tel: [phone] Leif Dominguezis, [address], [place], [address]. tel:[phone] ng Provider: [place], [address]. tel:[phone] OFFICE/OUTPA TIENT VISIT, EST [facility] of , [address], [place], [id number], [place] tel:[phone] [facility] Main Office No Information 9 Fabio Paul. [address], [place], [address] , [place]. tel: [phone] Referring Provider: [place], [address]. tel:[phone] OFFICE/OUTPA TIENT VISIT, EST [facility] of , [address], [place], [id number], [place] tel:[phone] [facility] Main Office No Information 9 Fabio Paul. [address], [place], [id number] , [place]. tel: [phone] Referring Provider: [place], [address]. tel:[phone] OFFICE/OUTPA TIENT VISIT, EST [facility] of , [address], [place], [address], [place] tel:[phone] [facility] Main Office Follow Up of Neck Pain (chief complaint)Fo llow Up of Rheumatoid Arthritis (chief complaint)Fo llow up (chief complaint) RA w/o rheumatoid factor of multiple sitesOther spondylosis, cervical regionCervic algiaBody mass index (BMI) 33.0-33.9, adultOther [facility] (current) drug therapyPain in left foot Sep-0 -201 9 Fabio Paul. [address], [place], [id number] , [place]. tel:[phone] Leif Dominguezis, [address], [place], [address]. [phone] ng Provider: [place], [address]. tel:[phone] OFFICE/OUTPA TIENT VISIT, EST [facility] of , [address], [place], [id number], [place] tel:[phone] [facility] Main Office No Information 9 Fabio Paul. [address], [place], [id number] , [place]. tel: [phone] Referring Provider: Driss Glass [place], [place], . tel:[phone] OFFICE/OUTPA TIENT VISIT, EST [facility] of , [address], [place], [id number], [place] tel:[phone] [facility] Main Office No Information 9 Fabio Paul. [address], [place], [id number] , [place]. [phone] Referring Provider: [place], [address]. tel:[phone] OFFICE/OUTPA TIENT VISIT, EST [facility] of , [address], [place], [id number], [place] tel:[phone] [facility] Main Office No Information 9 Fabio Paul. [address], [place], [id number] , [place]. tel: [phone] Referring Provider: Gulshan Stewart, [address] [place], [address]. tel:[phone] [facility] of , [address], [place], [id number], [place] tel: [phone] [facility] Main Office No Information 9 Fabio Paul. [address], [place], [id number] , [place]. tel: [phone] OFFICE/OUTPA TIENT VISIT, EST [facility] of , [address], [place], [id number], [place] tel: [phone] [facility] Main Office Follow Up of Neck Pain (chief complaint)Fo llow Up of Rheumatoid Arthritis (chief complaint) RA w/o rheumatoid factor of multiple sitesOther [facility] (current) drug therapyCervi calgiaOther spondylosis, cervical regionBody mass index (BMI) 33.0-33.9, adult 9 Fabio Paul. [address], [place], [id number] , [place]. tel: [phone] Leif Arrington, [address], [place], [address]. tel:[phone] ng Provider: Gulshan Stewart, [address] [place], [address]. tel:[phone] OFFICE/OUTPA TIENT VISIT, EST [facility] of , [address], [place], [id number], [place] tel:[phone] [facility] Main Office No Information 9 Fabio Paul. [address], [place], [address] , [place]. tel: [phone] Referring Provider: Gulshan Stewart, [place], [address]. tel:[phone] OFFICE/OUTPA TIENT VISIT, EST [facility] of , [address], [place], [id number], [place] tel:[phone] [facility] Main Office Follow Up of Rheumatoid Arthritis (chief complaint) RA w/o rheumatoid factor of multiple sitesOther [facility] ([facility] drug therapyLong term (current) use of opiate analgesicBod y mass index (BMI) 33.0-33.9, adultPrimary generalized OA Apr-0 201 9 Fabio Paul. [address], [place], [id number] , [place]. tel:[phone] Leif Arrington, [address], [place], [address]. tel:[phone] ng Provider: Gulshan Stewart, [place], [address]. tel:[phone] OFFICE/OUTPA TIENT VISIT, EST [facility] of , [address], [place], [id number], [place] tel:[phone] [facility] Main Office No Information 9 Fabio Paul. [address], [place], [address] , [place]. [phone] Referring Provider: Gulshan Stewart, [place], [address]. tel:[phone] OFFICE/OUTPA TIENT VISIT, EST [facility] of , [address], [place], [address], [place] tel:[phone] [facility] Main Office No Information 9 Fabio Palu. [address], [place], [address] , [place]. tel:[phone] Referring Provider: Gulshan Stewart, Edelmira2 Latoya Perry MD, . tel:[phone] OFFICE/OUTPA TIENT VISIT, EST [facility] of , [address], [place], [id number], [place] tel:[phone] [facility] Main Office No Information 9 Fabio Paul. [address], [place], [id number] , [place]. tel:[phone] Referring Provider: Gulshan Stewart, Latoya Douglas MD, . tel:[phone] OFFICE/OUTPA TIENT VISIT, EST [facility] of , [address], [place], [id number], [place] tel:[phone] [facility] Main Office No Information 8 Fabio Paul. [address], [place], [id number] , [place]. tel: [phone] Referring Provider: Gulshan Stewart, Latoya Douglas MD, . tel:[phone] OFFICE/OUTPA TIENT VISIT, EST [facility] of , [address], [place], [id number], [place] tel:[phone] [facility] Main Office Follow Up of Rheumatoid Arthritis (chief complaint) RA w/o rheumatoid factor of multiple sitesOther [facility] ([facility]) drug therapyBody mass index (BMI) 34.0-34.9, adultElevate d blood-pressu re reading, w/o diagnosis of htnPrimary OA of left knee 8 Fabio Paul. [address], [place], [id number] , [place]. tel:[phone] Leif Arrington, [address], [place], [address]. tel:[phone] ng Provider: Gulshan Stewart, [place], [address]. tel:[phone] OFFICE/OUTPA TIENT VISIT, EST [facility] of , [address], [place], [id number], [place] tel:[phone] [facility] Main Office No Information 5-201 8 Fabio Paul. [address], [place], [address] , [place]. tel:[phone] Referring Provider: [place], [address]. tel:[phone] OFFICE/OUTPA TIENT VISIT, EST [facility] of , [address], [place], [address], [place] tel:[phone] [facility] Main Office No Information 8-201 8 Fabio Paul. [address], [place], [address] , [place]. tel:[phone] Referring Provider: Gulshan Stewart, [place], [address]. tel:[phone] OFFICE/OUTPA TIENT VISIT, EST [facility] of , [address], [place], [id number], [place] tel:[phone] [facility] Main Office No Information 0- 8 Fabio Paul. [address], [place], [id number] , [place]. tel:[phone] Referring Provider: [place], [address]. tel:[phone] OFFICE/OUTPA TIENT VISIT, EST [facility] of , [address], [place], [id number], [place] tel:[phone] [facility] Main Office Follow Up of Rheumatoid Arthritis (chief complaint) RA w/o rheumatoid factor of multiple sitesOther [facility] ([facility]) drug therapyBody mass index (BMI) 32.0-32.9, adult Aug-0 6-201 8 Fabio Paul. [address], [place], [address] , [place]. tel:[phone] Leif Arrington, [address], [place], [address]. tel:[phone] ng Provider: Gulshan Stewart, [address] [place], [address]. tel:[phone] [facility] of , [address], [place], [id number], [place] tel:[phone] [facility] Main Office No Information 8 Fabio Paul. [address], [place], [id number] , [place]. tel:[phone] Referring Provider: Gulshan Stewart, [address] [place], [address]. tel:[phone] OFFICE/OUTPA TIENT VISIT, EST [facility] of , [address], [place], [address], [place] tel:[phone] [facility] Main Office No Information 8 Fabio Paul. [address], [place], [address] , [place]. tel:[phone] Referring Provider: Gulshan Stewart, [address] [place], [address]. tel:[phone] OFFICE/OUTPA TIENT VISIT, EST [facility] of , [address], [place], [id number], [place] tel:[phone] [facility] Main Office Follow Up of Rheumatoid Arthritis (chief complaint) RA w/o rheumatoid factor of multiple sitesOther [facility] (current) drug therapyLong term (current) use of opiate analgesicLon g term (current) use of non-steroida l anti-inflamm atories (NSAID) 8 Fabio Paul. [address], [place], [id number] , [place]. tel:[phone] Leif Arrington, [address] [address], [place], [address]. tel:[phone] ng Provider: Gulshan Stewart, [place], [address]. tel:[phone] [facility] , [address], [place], [id number], [place] tel:[phone] [facility] Main Office No Information 8 Fabio Paul. [address], [place], [id number] , [place]. tel: [phone] Referring Provider: Gulshan Stewart, [place], [address]. tel:[phone] [facility] , [address], [place], [id number], [place] tel:[phone] [facility] Main Office Follow Up of Rheumatoid Arthritis (chief complaint) RA w/o rheumatoid factor of multiple sitesOther [facility] drug therapyLong term (current) use of non-steroida l anti-inflamm atories (NSAID) 8 Fabio Paul. [address], [place], [id number] , [place]. tel: [phone] Leif Arrington, [address], [place], [address]. tel:[phone] ng Provider: Gulshan Stewart, [place], [address]. tel:[phone] [facility] of , [address], [place], [id number], [place] tel:[phone] [facility] Main Office No Information 8 Fabio Paul. [address], [place], [id number] , [place]. tel: [phone] Referring Provider: Gulshan Stewart, [address] [place], [address]. tel:[phone] [facility] of , [address], [place], [id number], [place] tel:[phone] [facility] Main Office No Information Fabio Paul. [address], [place], [id number] , [place]. tel: [phone] Referring Provider: Gulshan Stewart, [address] [place], [address]. tel:[phone] [facility] , [address], [place], [id number], [place] tel:[phone] [facility] Main Office No Information Fabio Paul. [address], [place], [id number] , [place]. tel: [phone] Referring Provider: Gulshan Stewart, [address] [place], [address]. tel:[phone] OFFICE/OUTPA TIENT VISIT, EST [facility] of , [address], [place], [id number], [place] [phone] [facility] Main Office Follow Up of Rheumatoid Arthritis (chief complaint) RA w/o rheumatoid factor of multiple sitesOther [facility] therapy Fabio Paul. [address], [place], [address] , [place]. tel: [phone] Leif Arrington, [address], [place], [address]. tel:[phone] ng Provider: Gulshan Stewart, [address] [place], [address]. tel:[phone] [facility] , [address], [place], [id number], [place] tel:[phone] [facility] Main Office Follow Up of Rheumatoid Arthritis (chief complaint) RA w/o rheumatoid factor of multiple sitesOther [facility] therapyBody mass index (BMI) 30.0-30.9, adult Dec- 7 Fabio Paul. [address], [place], [id number] , [place]. tel:[phone] Leif Arrington, [address], [place], [address]. tel:[phone] OFFICE/OUTPA TIENT VISIT, EST [facility] of , [address], [place], [id number], [place] tel:[phone] [facility] Main Office Follow Up of Rheumatoid Arthritis (chief complaint) RA w/o rheumatoid factor of multiple sitesOther [facility] drug therapyBody mass index (BMI) 30.0-30.9, adult Nov- Fabio Paul. [address], [place], [id number] , [place]. tel:[phone] Leif Arrington, [address], [place], [address]. tel:[phone] Provider: Gulshan Stewart, [address], [place], [address]. tel:[phone] OFFICE/OUTPA TIENT VISIT, EST [facility] of , [address], [place], [id number], [place] tel:[phone] [facility] Main Office Follow Up of Rheumatoid Arthritis (chief complaint) RA w/o rheumatoid factor of multiple sitesOther [facility] drug therapyGener alized osteoarthrit isLong term (current) use of non-steroida l anti-inflamm atories (NSAID) 7 Fabio Paul. [address], [place], [address] , [place]. tel:[phone] Leif Arrington, [address], [place], [address]. tel:[phone] masha Provider: Gulshan Stewart, [address] [place] MD, . tel:[phone] [facility] , [address], [place], [id number], [place] tel:[phone] [facility] Main Office No Information 7 Fabio Paul. [address], [place], [id number] , [place]. tel:[phone] Referring Provider: Gulshan Stewart, [address] [place] MD, . tel:[phone] OFFICE/OUTPA TIENT VISIT, EST [facility] of , [address], [place], [id number], [place] tel:[phone] [facility] Main Office Follow Up of Rheumatoid Arthritis (chief complaint) RA w/o rheumatoid factor of multiple sitesOther [facility] drug therapyGener alized osteoarthrit isLong term (current) use of non-steroida l anti-inflamm atories (NSAID) Jul- 7 Fabio Paul. [address], [place], [id number] , [place]. tel:[phone] Leif Arrington, [address], [place], [address]. tel:[phone] masha Provider: Gulshan Stewart, Edelmira2 Latoya [place] MD, . tel:[phone] [facility] , [address], [place], [id number], [place] tel:[phone] [facility] Main Office No Information 7 Fabio Paul. [address], [place], [address] , [place]. tel:[phone] Referring Provider: Gulshan Stewart, [address] [place], [address]. tel:[phone] [facility] , [address], [place], [id number], [place] tel:[phone] [facility] Main Office No Information Fabio Paul. [address], [place], [id number] , [place]. tel:[phone] Referring Provider: Gulshan Stewart, [address]elmira2 [place], [address]. tel:[phone] [facility] , [address], [place], [id number], [place] tel:[phone] [facility] Main Office No Information Fabio Paul. [address], [place], [id number] , [place]. tel:[phone] Referring Provider: Gulshan Stewart, [address]ira2 [place], [address]. tel:[phone] [facility] of , [address], [place], [id number], [place] tel:[phone] [facility] Main Office Follow Up of Rheumatoid Arthritis (chief complaint) RA w/o rheumatoid factor of multiple sitesOther [facility] drug therapyGener alized osteoarthrit isLong term (current) use of non-steroida l anti-inflamm atories (NSAID)Troch anteric bursitis, right hipPain in right hip Fabio Paul. [address], [place], [id number] , [place]. tel: [phone] Leif Arrington, [address], [place], [address]. tel:[phone] ng Provider: Gulshan Stewart, Edelmira2 [place], [address]. tel:[phone] OFFICE/OUTPA TIENT VISIT, EST [facility] of , [address], [place], [id number], [place] tel:[phone] [facility] Main Office Follow Up of Rheumatoid Arthritis (chief complaint) RA w/o rheumatoid factor of multiple sitesOther [facility] therapyGener alized osteoarthrit isLong term (current) use of non-steroida l anti-inflamm atories (NSAID) 7-201 6 Fabio Paul. [address], [place], [address] , [place]. tel:[phone] Leif Arrington, [address], [place], [address]. tel:[phone] ng Provider: Gulshan Stewart, [place], [address]. tel:[phone] OFFICE/OUTPA TIENT VISIT, EST [facility] of , [address], [place], [id number], [place] tel:[phone] [facility] Main Office Follow Up of Rheumatoid Arthritis (chief complaint) RA w/o rheumatoid factor of multiple sitesOther [facility] drug therapyGener alized osteoarthrit isLong term (current) use of non-steroida l anti-inflamm atories (NSAID) 6 Fabio Paul. [address], [place], [id number] , [place]. tel:[phone] Leif Arrington, [address], [place], [address]. tel:[phone] ng Provider: Gulshan Stewart, [address]elmira2 [place], [address]. tel:[phone] OFFICE/OUTPA TIENT VISIT, EST [facility] of , [address], [place], [id number], [place] tel:[phone] [facility] Main Office Follow Up of Rheumatoid Arthritis (chief complaint) RA w/o rheumatoid factor of multiple sitesOther [facility] drug therapyGener alized osteoarthrit isLong term (current) use of non-steroida l anti-inflamm atories (NSAID) 6 Fabio Paul. [address], [place], [address] , [place]. tel:[phone] Leif Arrington, [address], [place], [address]. tel:[phone] ng Provider: Gulshan Stewart, [address], [place], [address]. tel:[phone] OFFICE/OUTPA TIENT VISIT, EST [facility] of , [address], [place], [address], [place] tel:[phone] [facility] Main Office Follow Up of Rheumatoid Arthritis (chief complaint) RA w/o rheumatoid factor of multiple sitesOther [facility] drug therapyGener alized osteoarthrit is 6 Fabio Paul. [address], [place], [id number] , [place]. tel:[phone] Leif Arrington, [address], [place], [address]. tel:[phone] ng Provider: Venus Montoya [address], [place], [address]. tel:[phone] OFFICE/OUTPA TIENT VISIT, EST [facility] of , [address], [place], [id number], [place] tel:[phone] [facility] Main Office Follow Up of Rheumatoid Arthritis (chief complaint) RA w/o rheumatoid factor of multiple sitesOther [facility] drug therapyGener alized osteoarthrit is 6 Fabio Paul. [address], [place], [id number] , [place]. tel:[phone] Leif Arrington, [address], [place], [address]. tel:[phone] masha Provider: Venus Montoya [address], [place], [address]. tel:[phone] OFFICE/OUTPA TIENT VISIT, EST [facility] of , [address], [place], [id number], [place] tel:[phone] [facility] Main Office Inflammatory Polyarthropa thy (chief complaint) Inflammatory polyarthropa thyGeneraliz ed osteoarthrit is 6 Fabio Paul. [address], [place], [address] , [place]. tel:[phone] Leif Arrington, [address], [place], [address]. tel:[phone] ng Provider: Leif Gonzalez, [address], [place], [address]. tel:[phone] OFFICE/OUTPA TIENT VISIT, EST [facility] , [address], [place], [address], [place] tel:[phone] [facility] Main Office Inflammatory Polyarthropa thy (chief complaint) Inflammatory polyarthropa thyPain in left hipPrimary generalized (osteo)arthr itisLong term (current) use of non-steroida l anti-inflamm atories (NSAID) 6 Fabio Paul. [address], [place], [id number] , [place]. tel:[phone] Leif Arrington, [address], [place], [address]. tel:[phone] masha Provider: Leif Gonzalez, [address], [place], [address]. tel:[phone] OFFICE/OUTPA TIENT VISIT, EST [facility] of , [address], [place], [id number], [place] tel:[phone] [facility] Main Office Osteoarthrit is (chief complaint) Primary generalized (osteo)arthr itisLong term (current) use of non-steroida l anti-inflamm atories (NSAID) 6 Fabio Paul. [address], [place], [address] , [place]. tel:[phone] Referring Provider: Leif Gonzalez, [address], [place], [address]. tel:[phone] OFFICE/OUTPA TIENT VISIT, EST [facility] of , [address], [place], [id number], [place] tel:[phone] [facility] Main Office Follow Up of Osteoarthrit is (chief complaint) Osteoarthros is, generalized, involving unspecified siteDisorder s of bursae and tendons in shoulder region, unspecified Jul- 5 Fabio Paul. [address], [place], [id number] , [place]. tel:[phone] Referring Provider: Leif Gonzalez, [address], [place], [address]. tel:[phone] OFFICE/OUTPA TIENT VISIT, EST [facility] of , [address], [place], [id number], [place] tel:[phone] [facility] Main Office Follow Up of Right shoulder pain (chief complaint) Disorders of bursae and tendons in shoulder region, unspecifiedP ainful shoulder 4 Fabio Paul. [address], [place], [address] , [place]. tel:[phone] Referring Provider: Leif Gonzalez, [address], [place], [address]. tel:[phone] OFFICE/OUTPA TIENT VISIT, EST [facility] of , [address], [place], [address], [place] tel:[phone] [facility] Main Office No Information 4 Fabio Paul. [address], [place], [address] , [place]. tel:[phone] Referring Provider: Peter Gonzalez, [address], [place], [address]. tel:[phone] OFFICE/OUTPA TIENT VISIT, EST [facility] of , [address], [place], [id number], [place] tel:[phone] [facility] Main Office Follow Up of Osteoarthrit is (chief complaint) Osteoarthrit is, GeneralizedL TU-TERM (CURRENT) USE OF NON-STEROIDA L ANTI-INFLAMM ATORIES 4 Fabio Paul. [address], [place], [address] , [place]. tel:[phone] Referring Provider: Leif Gonzalez, [address], [place], [address]. tel:[phone] OFFICE/OUTPA TIENT VISIT, EST [facility] of , [address], [place], [address], [place] tel:[phone] [facility] Main Office Osteoarthrit is (chief complaint) Disorders of bursae and tendons in shoulder region, unspecifiedO steoarthriti s, Generalized 4 Fabio Palu. [address], [place], [address] , [place]. tel:[phone] Referring Provider: Leif Gonzalez, [address], [place], [address]. tel:[phone] OFFICE/OUTPA TIENT VISIT, EST [facility] of , [address], [place], [id number], [place] tel:[phone] [facility] Main Office Osteoarthrit is (chief complaint) Osteoarthrit is, GeneralizedD isorders of bursae and tendons in shoulder region, unspecifiedL TU-TERM (CURRENT) USE OF NON-STEROIDA L ANTI-INFLAMM ATORIES 4 Fabio Paul. [address], [place], [address] , [place]. tel:[phone] Referring Provider: Leif Gonzalez [address], [place], [address]. tel:[phone] OFFICE/OUTPA TIENT VISIT, EST [facility] of , [address], [place], [address], [place] tel:[phone] [facility] Main Office Osteoarthrit is (chief complaint) Osteoarthrit is, Generalized 3 Fabio Paul. [address], [place], [address] , [place]. tel:[phone] Referring Provider: Leif Gonzalez, [address], [place], [address]. tel:[phone] OFFICE/OUTPA TIENT VISIT, EST [facility] of , [address], [place], [id number], [place] tel:[phone] [facility] Main Office for joint pain (chief complaint) Osteoarthrit is, GeneralizedA rticular cartilage disorder involving forearmRadia l styloid tenosynoviti s 3 Fabio Paul. [address], [place], [address] , [place]. tel:[phone] Referring Provider: Leif Gonzalez, [address], [place], [address]. tel:[phone] OFFICE/OUTPA TIENT VISIT, NEW [facility] of , [address], [place], [id number], [place] tel:[phone] [facility] Main Office myalgia (chief complaint) Fatigue / MalaisePain in joint involving multiple sites 3 Fabio Paul. [address], [place], [address] , [place]. tel:[phone] Referring Provider: Leif Gonzlaez, [address], [place], [address]. tel:[phone] Family History Family Member Type Diagnosis Age [...] Covered libertarian ID Authoriza tion(s) Medicare [place] [id number] [employer] [place] [id number] Medicare MB [id number] [employer] [place] [id number] Medicare MB [id number] [employer] [place] [id number] Medicare [place] [id number] [employer] [place] [id number] Social History Type Description Quantity Date Captured [...] OA) ordered Referral Referred To: Toan Berry [address] [place], [id number] Ordered: Referrals: Allopathic & Osteopathic Physicians : Anesthesiology. Toan Berry. Consult ordered Referral Ordered: Madi Holder -Allopathic & Osteopathic Physicians : Internal Medicine : Nephrology (related to CKD) ordered Referral Referred To: Madi Holdre [address] [facility]
[address] [place], [phone] Ordered: Referrals: Allopathic & Osteopathic Physicians : [...] Future Order: Lab Order Lipid Pa rashard ([id number]), Ordered on: Ordered Future Order: Lab Order COMPREHE NSIVE METABOLIC PANEL (CMP), Collected on: , Sent on: Sent Future Order: Lab Order CBC Diff erential And Platlet (CBC PLT DIFF), Ordered on: Ordered Future Order: Lab Order CMP ([id number]), Orde red on: Ordered Future Order: Lab Order CBC Diff erential And Platlet (CBC PLT DIFF), Collected on: Ordered Future Order: Lab Order CMP ([id number]), Wally ected on: Ordered Future Order: Lab [...]
--- OUTSIDE RECORDS SUMMARY | 2025-03-16 01:01 | XMS_ITS | Patient Health Record ---
Author Organization [facility] Address [address] [address] Care Team Providers Care Legal Referee Name Role Phone Pilo Hinojosa Primary Care Provider Wisam Rosas Unavailable [phone] Allergies Allergen (clinical drug ingredient) Drug/Non Drug Allergy documented on EMR Reaction Allergy Type Onset Date Status Shellfish (FN) Shellfish-derived Products hives Drug Allergy Active Reason For Referral No Information Medications Medication SIG (Take, Route, Frequency, Duration) Notes Start Date End Date Status Aspirin 325 MG Tablet Oral Active One-A-Day Vitacraves [place]-3 200-16 mcg-mg tablet,chewable *Reorder from [place] for eRx and Interaction Alerts* Active Simponi Aria Active Lexapro 20 MG Tablet Oral Active amLODIPine Besylate 5 MG Tablet Oral Active Lisinopril 40 MG Tablet Oral Active Gabapentin 600 MG Tablet Oral Active Acetaminophen Extra Strength 500 MG Capsule Oral Active Stool Softener 100 MG Capsule Oral Active Atorvastatin Calcium 20 MG Tablet Oral Active Atenolol 50 MG Tablet Oral Active Magnesium Oxide 400 mg magnesium tablet *Pick strength-form from [place] for eRX* Active hydrALAZINE HCl 25 MG Tablet Oral Active Percocet 5-325 mg tablet Active Famotidine 40 MG Tablet TAKE 1 TABLET BY MOUTH EVERYDAY AT BEDTIME; Duration: 90 Active Plenvu 140 GM Solution Reconstituted as directed Orally once; Duration: 1 06/10/2023 Active Linzess 145 MCG Capsule 1 capsule at least 30 minutes before the first meal of the day on an empty stomach Orally Once a day; Duration: 90 days 06/10/2023 Active Immunizations Vaccine Route Administration Date Status Comme nts Covid-19 Moderna 100 mcg/0.5 mL dose Unknown 07/31/2020 Pending Influenza, seasonal, injecta ble, preservative free, 3 yrs and above Unknown 07/31/2020 Pending Pneumococcal conjugate PCV 13 Unknown 07/31/2020 Pendin g Social History Tobacco Use: Social History Observation Description Date Details (start date - stop date) Never Smoker NA - NA Social History Drugs/Alcohol(Archived) Social Info Question Answer Notes Alcohol Screen (Audit-C) Did you have a drink containing alcohol in the past year? No Points 0 Interpretation Negative Drugs Have you used drugs other than those for medical reasons in the past 12 months? Yes Caffeine Intake: 1-2 cups per day Tobacco Use: Social Info Question Answer Notes Tobacco Use/Smoking (Archived) Are you a? nonsmoker Additional Details Category Social Info Options Details Migrated Social History Migrated Social History Alcohol History : None , Caf feine History : Daily , Cigarettes : stopped: 30 years ago Current some day smoker , Exercise History: : Occasional exercise , Notes : Drug Use - yes, Marijuana Patient's occupation: Alcohol Use - no Caffeine Use - yes Number of cups per day of caffeinated coffee:3 Smoking History: Patient currently smokes sometimes. , Number of Children : 0 , NumberOfPreviousMarriages : 0 Drugs/Alcohol(Archi raj) Do you smoke marijuana? Yes Do you drink alcohol? No Problems Problem Type SNOMED Code ICD Code Onset Dates Problem Status W/U Status Risk Notes Problem Heartburn (34404961) Heartburn (R12) 03/14/20 13 Active confirmed Problem Rectal bleeding (65971050) Rectal bleeding (K62.5) 08/23/19 15 Active confirmed Problem Constipation (50166401) Constipation, unspecified constipation type (K59.00) Active confirmed Problem Nausea (357374581) Nausea alone (R11.0) 03/14/20 13 Active confirmed Problem Seizure (64232696) Seizures (R56.9) 07/31 21 Active confirmed Problem Anemia (646214906) Anemia (D64.9) 0 21 Active confirmed Problem Congestive heart failure (96193617) Congestive heart failure (I50.9) 08/01/19 21 Active confirmed Problem Diverticulitis (52880273) Diverticulitis (K57.92) Active confirmed Problem Depression (058426116) Depression (F32.9) 08/01/19 21 Active confirmed Problem History of rheumatic fever (054088284) Hx of rheumatic fever (Z86.79) 04/23/20 19 Active confirmed Problem Rheumatic fever (15473554) Rheumatic fever (I00) 08/01/19 21 Active confirmed Problem Gastroparesis (875683762) GASTROPARESIS (536.3) 08/01/19 21 Active confirmed Problem Hemorrhoids (48357424) Hemorrhoids (455.6) 08/01/19 21 Active confirmed Problem Rheumatoid arthritis (83963199) Rheumatoid arthritis (714.0) 08/01/19 21 Active confirmed Problem Gout (66800000) Gout (M10.9) 08/01/19 21 Active confirmed Problem High blood pressure (82846852) High blood pressure (I10) 08/01/19 21 Active confirmed Problem Gastroesophageal reflux disease (866705038) GERD (K21.9) 08/04/19 21 Active confirmed Problem High cholesterol (34753507) High Cholesterol (E78.0) 08/01/19 21 Active confirmed Problem Hemorrhoids (68900885) Hemorrhoids (History of) (K64.8) 04/23/20 19 Active confirmed Problem History of gastrointestinal disease (710405702) Hx of HEARTBURN/GERD (Z87.19) 04/23/20 19 Active confirmed Problem Migraine (09834744) Migraines (G43.909) 04/23/20 19 Active confirmed Problem Hx of ANEMIA (Z86.2) 04/23/20 19 Active confirmed Problem High blood pressure (72079346) High Blood Pressure (R03.0) 04/23/20 19 Active confirmed Problem Family history of polyp of colon (824456294) FAMILY HISTORY COLONIC POLYPS (Z83.71) 03/14/20 13 Active confirmed Problem High cholesterol (22680644) HIGH CHOLESTEROL (E78.70) 04/23/20 19 Active confirmed Problem Hx of SEIZURES (Z86.69) 04/23/20 19 Active confirmed Problem History of gout (146945123) Hx of GOUT (M10.9) 04/23/20 19 Active confirmed Plan Of Treatment Future Test Test Name Order Date Colonoscopy 06/10/2023 Insurance Providers Payer Name Payer Address Payer Phone Subscriber Number Group Number Insured Name Patient Relationship to Insured Coverage Start Date Coverage End Date Medicare B [place] [address] [place] [phone] [id number] Lorena [place] Self - patient is the insured 2 [facility] [facility] [address] [address] [place] [address] [id number] Lorena [place] Self - patient is the insured 3 Medical (General) History Medical History History ICD Code Problems: Migraines Gastroesophageal Reflux Disease (GERD) EGD Colonoscopy High Blood Pressure High Cholesterol Surgical History Surgery Date(Month/Year) Adenoidectomy Appendectomy Hysterectomy Kidney Stone Removal Tonsillectomy Wrist Surgery Triple Bypass 12/2014
--- OUTSIDE RECORDS SUMMARY | 2025-03-16 01:06 | XMS_ITS | Patient Health Record ---
Author Organization [facility] Address [address] [facility] [place] [address] Care Team Providers Care Generalist Name Role Phone JESSICA GLOVER [phone] Allergies Allergen (clinical drug ingredient) Drug/Non Drug Allergy documented on EMR Reaction Allergy Type Onset Date Status iodine (uncoded) Unknown Allergy Act suhas Reason For Referral No Information Medications Medication SIG (Take, Route, Frequency, Duration) Notes Start Date End Date Status Lipitor as directed Active atenolol as directed Active lisinopril as directed Active ASA 1 tab Oral Active gabapentin as directed Active Lexapro as directed Active verapamil as directed Active Social History Social History Additional Details Category Social Info Options Details Alcohol Use None No alcohol use Plan Of Treatment Pending Test Test Name Order Date Urine Culture and Sensitivity (Goodwin top tube) 05/14/2014 Insurance Providers Payer Name Payer Address Payer Phone Subscriber Number Group Number Insured Name Patient Relationship to Insured Coverage Start Date Coverage End Date [facility] [address] [address] [place] [address] [id number] Lorena [place] Self - patient is the insured [place] [address] [place] [phone] [id number] Lorena [place] Self - patient is the insured Medical (General) History Surgical History Surgery Date(Month/Year) Hospitalization History Reason Date(Month/Year)
== END 2025-03-15 19:04 | disposition left against medical advice (07) ==
LOC: ANHED 19:02
DX: Z53.21 Procedure and treatment not carried out due to patient leaving prior to being seen by health care provider (principal)
CPT/HCPCS: 99199